=== PATIENT | female | born 1950 | race Caucasian/White ===

== ENCOUNTER 2016-06-23 12:33 | Emergency (ER) | payer MEDICARE, OTHER ==
[2016-06-23] MEDS ORDERED: ONDANSETRON 4 MG/2 ML VIAL IVP STA (13:10)
[2016-06-23] MEDS ORDERED: SODIUM CHLORIDE 0.9% 500 ML IV STA (13:10)
[2016-06-23] MEDS ORDERED: PANTOPRAZOLE 40 MG/10 ML VIAL IVP STA (13:10)
--- NOTE | 2016-06-23 13:14 | ED ---
General Adult HPI - General Stated complaint: altered Time Seen by Provider: 06/23/16 12:52 Source: patient, EMS Mode of arrival: EMS Limitations: altered mental status - History of Present Illness Initial comments: Patient is a pleasant 65-year-old female presenting to the emergency department for complaints of vomiting. Patient is a poor historian and offers very little information. Patient admits to feeling nauseated. No pain. - Related Data Home Medications Medication Instructions Recorded Confirmed Metoprolol Succinate [Toprol XL] 50 mg PO DAILY 07/22/13 06/23/16 Isosorbide Mononitrate ER [Imdur] 30 mg PO DAILY 07/11/14 06/23/16 Nitroglycerin Sl Tabs [Nitrostat] 0.4 mg SUBLINGUAL Q5M PRN 07/11/14 06/23/16 traMADol HCl [Ultram] 50 mg PO Q6H PRN 03/01/15 06/23/16 Dicyclomine HCl [Bentyl] 20 mg PO TID PRN 04/21/15 06/23/16 Levothyroxine Sodium [Synthroid] 200 mcg PO DAILY 04/21/15 06/23/16 Lisinopril [Zestril] 20 mg PO DAILY 04/21/15 06/23/16 Ondansetron [Zofran] 4 mg PO Q8HR PRN 04/21/15 06/23/16 Pantoprazole [Protonix] 80 mg PO DAILY 04/21/15 06/23/16 Clopidogrel Bisulfate [Plavix] 75 mg PO DAILY 06/23/16 06/23/16 Diphenoxylate HCl/Atropine 1 tab PO QID PRN 06/23/16 06/23/16 [Lomotil] Gabapentin [Neurontin] 600 mg PO QID 06/23/16 06/23/16 Insulin Aspart [NovoLOG Flexpen] 8 units SQ AC-TID 06/23/16 06/23/16 Insulin Degludec [Tresiba 30 unit SQ DAILY 06/23/16 06/23/16 Flextouch U-100] Insulin Glargine,Hum.rec.anlog 3 unit SQ HS 06/23/16 06/23/16 [Lantus Solostar] Simvastatin [Zocor] 40 mg PO HS 06/23/16 06/23/16 glipiZIDE [Glucotrol] 10 mg PO AC-BRKFST 06/23/16 06/23/16 metFORMIN HCL [Glucophage] 850 mg PO AC-BID 06/23/16 06/23/16 rOPINIRole HCL [Requip] 3 mg PO HS 06/23/16 06/23/16 tiZANidine HCL [Zanaflex] 4 mg PO Q8H PRN 06/23/16 06/23/16 Previous Rx's Medication Instructions Recorded Escitalopram [Lexapro] 10 mg PO DAILY #30 tab 05/09/15 Allergies Allergy/AdvReac Type Severity Reaction Status Date / Time aspirin Allergy Anaphylaxis Verified 06/23/16 13:59 codeine Allergy Anaphylaxis Verified 06/23/16 13:59 Iodinated Contrast Media - Allergy Anaphylaxis Verified 06/23/16 13:59 Oral and [Iodinated Contrast Media - IV Dye] NSAIDS (Non-Steroidal Allergy Anaphylaxis Verified 06/23/16 13:59 Anti-Inflamma sulfamethoxazole Allergy Unknown Verified 06/23/16 13:59 [From Bactrim] trimethoprim [From Bactrim] Allergy Unknown Verified 06/23/16 13:59 Review of Systems ROS Statement: Those systems with pertinent positive or pertinent negative responses have been documented in the HPI. ROS Other: All systems not noted in ROS Statement are negative. Constitutional: Denies: fever Eyes: Denies: eye pain ENT: Denies: ear pain Respiratory: Denies: cough Cardiovascular: Denies: chest pain Endocrine: Denies: fatigue Gastrointestinal: Reports: nausea, vomiting. Denies: abdominal pain Genitourinary: Denies: dysuria Musculoskeletal: Denies: back pain Skin: Denies: rash Neurological: Denies: weakness Past Medical History Past Medical History: Coronary Artery Disease (CAD), Chest Pain / Angina, COPD, CVA/TIA, Diabetes Mellitus, Deep Vein Thrombosis (DVT), GERD/Reflux, Hyperlipidemia, Hypertension, Osteoarthritis (OA), Pneumonia, Syncope, Thyroid Disorder Additional Past Medical History / Comment(s): 05/07/15 Pt presented to [facility] ER with L side of body feeling "funny" L upper extremity and L hand weakness with L facial weakness. Pt was recently admitted 04/21/15 with possible CVA. Other HX: Antiphospholipid syndrome , LUPUS, CVA's/TIA's, demyelinization of brain, NIDDM, sinus problems, diverticulosis, uti, RESTLESS LEG SYNDROME, systemic lupus ethythemus, L leg DVT, occipital neuritis, varicosities, colostomy, DJD. History of Any Multi-Drug Resistant Organisms: None Reported Past Surgical History: Appendectomy, Back Surgery, Bladder Surgery, Cholecystectomy, Hysterectomy, Orthopedic Surgery, Tonsillectomy Additional Past Surgical History / Comment(s): L hip surgery nailing /fixation- L hip hemiarthroplasty, bladder suspension, sisi cataracts, partial laminectomy, . colostomy 2010 D/T PERFORATED DIVERTICULUM with reversal and then 2nd colostomy, LT KNEE SX FOR TORN CARTILAGE Past Anesthesia/Blood Transfusion Reactions: No Reported Reaction Additional Past Anesthesia/Blood Transfusion Reaction / Comment(s): HAD BLOOD TRANSFUSION 15 YEARS ago without reaction. Past Psychological History: Anxiety Additional Psychological History / Comment(s): anxiety AT TIMES. Pt states she lives with her luis f. She states she gets around in a wheelchair. Her luis f sorts her medications for her. She was suppose to get [facility] after last hospital discharge but this has not happened yet. Smoking Status: Current every day smoker Past Alcohol Use History: None Reported Additional Past Alcohol Use History / Comment(s): has smoked for 40 years- states smokes 1-2 cig per day Past Drug Use History: None Reported - Past Family History Mother Family Medical History: Cancer, Hypertension Additional Family Medical History / Comment(s): "mother had cancer from asbestos exposure" Father Family Medical History: Hypertension, Rheumatoid Arthritis (RA) General Exam Limitations: no limitations General appearance: alert, in no apparent distress Head exam: Present: atraumatic Eye exam: Present: normal appearance, PERRL, EOMI ENT exam: Present: normal oropharynx Neck exam: Present: normal inspection Respiratory exam: Present: normal lung sounds bilaterally Cardiovascular Exam: Present: bradycardia GI/Abdominal exam: Present: soft. Absent: distended, tenderness Extremities exam: Present: normal inspection Neurological exam: Present: alert, altered (Patient disoriented to time however she feels this is normal), CN II-XII intact, other (Limited exam. Patient has lack of effort.). Absent: motor sensory deficit Expanded Patient oriented to: Present: person, place. Absent: time Cranial nerves: EOM's Intact: Normal Sensory exam: Upper Extremity Light Touch: Normal, Lower Extremity Light Touch: Normal Motor strength exam: RUE: 5, LUE: 5, RLE: 5, LLE: 5 Psychiatric exam: Present: normal affect, normal mood Skin exam: Absent: rash Course Vital Signs 06/23/16 06/23/16 06/23/16 12:45 13:06 15:35 Temperature 98.0 F 98.6 F Pulse Rate 49 L 95 Pulse Rate [ 49 L Bilateral [employer] ] Respiratory 20 18 Rate Blood Pressure 137/67 177/77 O2 Sat by Pulse 96 98 Oximetry EKG Findings - EKG Comments: EKG Findings:: Sinus bradycardia at 51. MO 126. QRS 80. QT 498. QTC 458. Left axis. Inferior Q waves. No acute ST change. Medical Decision Making - Medical Decision Making Case was discussed in detail with Dr. Little who is very familiar with this patient and recommends discharge. Patient reexamined and significantly improved. Patient symptom-free at this time. Patient is comfortable with discharge. Patient is alert and appropriate and more forthcoming with information at this time. - Lab Data Result diagrams: 06/23/16 14:25 06/23/16 14:25 Lab Results 06/23/16 06/23/16 06/23/16 Range/Units 14:25 14:25 14:25 WBC 12.5 H (3.8-10.6) k/uL RBC 5.24 (3.80-5.40) m/uL Hgb 16.0 (11.4-16.0) gm/dL Hct 48.9 H (34.0-46.0) % MCV 93.3 (80.0-100.0) fL MCH 30.6 (25.0-35.0) pg MCHC 32.8 (31.0-37.0) g/dL RDW 14.4 (11.5-15.5) % Plt Count 264 (150-450) k/uL Neutrophils % 80 % Lymphocytes % 14 % Monocytes % 4 % Eosinophils % 1 % Basophils % 0 % Neutrophils # 10.0 H (1.3-7.7) k/uL Lymphocytes # 1.7 (1.0-4.8) k/uL Monocytes # 0.5 (0-1.0) k/uL Eosinophils # 0.1 (0-0.7) k/uL Basophils # 0.0 (0-0.2) k/uL PT (9.0-12.0) sec INR (<1.1) APTT (22.0-30.0) sec Sodium 141 (137-145) mmol/L Potassium 4.0 (3.5-5.1) mmol/L Chloride 106 (98-107) mmol/L Carbon Dioxide 25 (22-30) mmol/L Anion Gap 10 mmol/L BUN 16 (7-17) mg/dL Creatinine 0.58 (0.52-1.04) mg/dL Est GFR (MDRD) Af Amer >60 (>60 ml/min/1.73 sqM) Est GFR (MDRD) Non-Af >60 (>60 ml/min/1.73 sqM) Glucose 105 H (74-99) mg/dL Calcium 10.0 (8.4-10.2) mg/dL Total Bilirubin 0.7 (0.2-1.3) mg/dL AST 29 (14-36) U/L ALT 25 (9-52) U/L Alkaline Phosphatase 113 (38-126) U/L Total Creatine Kinase 190 H (30-135) U/L CK-MB (CK-2) 2.1 (0.0-2.4) ng/mL CK-MB (CK-2) Rel Index 1.1 Troponin I <0.012 (0.000-0.034) ng/mL Total Protein 7.8 (6.3-8.2) g/dL Albumin 4.2 (3.5-5.0) g/dL Amylase 51 (30-110) U/L Lipase 87 (23-300) U/L Urine Color Urine Appearance (Clear) Urine pH (5.0-8.0) Ur Specific [place] (1.001-1.035) Urine Protein (Negative) Urine Glucose (UA) (Negative) Urine Ketones (Negative) Urine Blood (Negative) Urine Nitrite (Negative) Urine Bilirubin (Negative) Urine Urobilinogen (<2.0) mg/dL Ur Leukocyte Esterase (Negative) 06/23/16 06/23/16 Range/Units 14:25 15:31 WBC (3.8-10.6) k/uL RBC (3.80-5.40) m/uL Hgb (11.4-16.0) gm/dL Hct (34.0-46.0) % MCV (80.0-100.0) fL MCH (25.0-35.0) pg MCHC (31.0-37.0) g/dL RDW (11.5-15.5) % Plt Count (150-450) k/uL Neutrophils % % Lymphocytes % % Monocytes % % Eosinophils % % Basophils % % Neutrophils # (1.3-7.7) k/uL Lymphocytes # (1.0-4.8) k/uL Monocytes # (0-1.0) k/uL Eosinophils # (0-0.7) k/uL Basophils # (0-0.2) k/uL PT 10.3 (9.0-12.0) sec INR 1.0 (<1.1) APTT 25.2 (22.0-30.0) sec Sodium (137-145) mmol/L Potassium (3.5-5.1) mmol/L Chloride (98-107) mmol/L Carbon Dioxide (22-30) mmol/L Anion Gap mmol/L BUN (7-17) mg/dL Creatinine (0.52-1.04) mg/dL Est GFR (MDRD) Af Amer (>60 ml/min/1.73 sqM) Est GFR (MDRD) Non-Af (>60 ml/min/1.73 sqM) Glucose (74-99) mg/dL Calcium (8.4-10.2) mg/dL Total Bilirubin (0.2-1.3) mg/dL AST (14-36) U/L ALT (9-52) U/L Alkaline Phosphatase (38-126) U/L Total Creatine Kinase (30-135) U/L CK-MB (CK-2) (0.0-2.4) ng/mL CK-MB (CK-2) Rel Index Troponin I (0.000-0.034) ng/mL Total Protein (6.3-8.2) g/dL Albumin (3.5-5.0) g/dL Amylase (30-110) U/L Lipase (23-300) U/L Urine Color Yellow Urine Appearance Clear (Clear) Urine pH 7.5 (5.0-8.0) Ur Specific [place] 1.013 (1.001-1.035) Urine Protein Negative (Negative) Urine Glucose (UA) Negative (Negative) Urine Ketones Negative (Negative) Urine Blood Negative (Negative) Urine Nitrite Negative (Negative) Urine Bilirubin Negative (Negative) Urine Urobilinogen <2.0 (<2.0) mg/dL Ur Leukocyte Esterase Negative (Negative) - Radiology Data Radiology results: report reviewed (Computed tomography scan of the brain shows no acute process.), image reviewed (Abdominal x-ray shows no acute process) Disposition Clinical Impression: Nausea & vomiting Disposition: HOME SELF-CARE Condition: Stable Instructions: Acute Nausea and Vomiting (ED) Additional Instructions: Please follow-up with your primary care physician in the next day or 2 for recheck. Return for vomiting, change in mental status, worsening symptoms or other concerns. Referrals: Franklin Benitez III, MD [Primary Care Provider] - 1-2 days
[2016-06-23] MEDS ORDERED: ONDANSETRON ODT 4 MG TAB PO STA (14:12)
[2016-06-23 14:36] LABS: Basophils % (A) 0 %; CH 31.6; CHCM 34.1; Eosinophils # (A) 0.1 k/uL (0-0.7); Eosinophils % (A) 1 %; HCT 48.9 % (34.0-46.0); HDW 2.44; Luc # (Auto) 0.21; Luc % (Auto) 2; Lymphocytes # (A) 1.7 k/uL (1.0-4.8); Lymphocytes % (A) 14 %; MCH 30.6 pg (25.0-35.0); MCHC 32.8 g/dL (31.0-37.0); MCV 93.3 fL (80.0-100.0); Mean Platelet Volume 9.2; Monocytes # (A) 0.5 k/uL (0-1.0); Monocytes % (A) 4 %; Neutrophils % (A) 80 %; RBC 5.24 m/uL (3.80-5.40); RDW 14.4 % (11.5-15.5); WBC 12.5 k/uL (3.8-10.6); WBC (Perox) 13.19
[2016-06-23 14:43] LABS: Partial Thromboplastin Time 25.2 sec (22.0-30.0); Prothrombin Time 10.3 sec (9.0-12.0)
[2016-06-23 14:44] LABS: ALT 25 U/L (9-52); AST 29 U/L (14-36); Alkaline Phosphatase 113 U/L (38-126); Amylase 51 U/L (30-110); Anion Gap 10 mmol/L; Blood Urea Nitrogen 16 mg/dL (7-17); Carbon Dioxide 25 mmol/L (22-30); Chloride 106 mmol/L (98-107); Glucose 105 mg/dL (74-99); Non-African American GFR(MDRD) >60 (>60 ml/min/1.73 sqM); Sodium 141 mmol/L (137-145); Total Bilirubin 0.7 mg/dL (0.2-1.3); Total Protein 7.8 g/dL (6.3-8.2)
[2016-06-23 14:53] LABS: Creatine Kinase 190 U/L (30-135)
--- NOTE | 2016-06-23 14:54 | CT ---
EXAMINATION TYPE: CT brain wo con DATE OF EXAM: 06/23/2016 2:40 PM HISTORY: Patient nauseated and vomiting CT DLP: 1109 mGycm. Automated Exposure Control for Dose Reduction was Utilized. TECHNIQUE: CT scan of the head is performed without contrast. COMPARISON: CT brain and MRI brain May 12, 2015. FINDINGS: There is no acute intracranial hemorrhage or midline shift identified. There is diffuse v entricular and sulcal prominence consistent with diffuse age-related cerebral atrophy. There is low- attenuation in the periventricular white matter consistent with chronic small vessel ischemic change. The globes are intact and the visualized sinuses are clear. IMPRESSION: No acute intracranial hemorrhage or midline shift. There is mild diffuse age-related ce rebral atrophy and chronic small vessel ischemic change redemonstrated. No significant change from pr ior studies is seen.
[2016-06-23] MEDS ORDERED: METOCLOPRAMIDE 5 MG/ML 2 ML VIAL IVP STA (15:00)
[2016-06-23 15:07] LABS: Creatine Kinase MB 2.1 ng/mL (0.0-2.4); Troponin I <0.012 ng/mL (0.000-0.034)
--- NOTE | 2016-06-23 15:22 | XR ---
EXAMINATION TYPE: XR KUB DATE OF EXAM: 06/23/2016 3:17 PM COMPARISON: NONE HISTORY: Nausea and vomitting TECHNIQUE: One view abdominal series FINDINGS: The osseous structures are intact. The bowel gas pattern is nonspecific. Postoperative change left h ip with soft tissue ossification. Arthropathy right hip. Diffuse osteopenia. Multilevel degenerative disc disease lower lumbar spine. IMPRESSION: 1. Nonspecific abdomen.
[2016-06-23 15:46] LABS: Appearance,Urine Clear (Clear); Bilirubin,Urine Negative (Negative); Glucose,Urine (UA) Negative (Negative); Ketones,Urine Negative (Negative); Leukocyte Esterase,Urine Negative (Negative); Nitrite,Urine Negative (Negative); PH, Urine 7.5 (5.0-8.0); Protein,Urine Negative (Negative); Specific Gravity,Urine 1.013 (1.001-1.035); UA Billing (MACRO vs. MICRO) CHEM; Urobilinogen,Urine <2.0 mg/dL (<2.0)
[2016-06-23 16:07] VITALS: BP 159/80; PULSE 52; RESP 14; TEMP 97.6
== END 2016-06-23 16:06 | disposition home or self-care (01) ==
LOC: EC 12:33 → EEVIPCON 12:33 → EC 16:06
DX: R11.2 Nausea with vomiting, unspecified (principal); I10 Essential (primary) hypertension; I25.10 Atherosclerotic heart disease of native coronary artery without angina pectoris; E11.9 Type 2 diabetes mellitus without complications; E07.9 Disorder of thyroid, unspecified; E78.5 Hyperlipidemia, unspecified; G25.81 Restless legs syndrome; F17.200 Nicotine dependence, unspecified, uncomplicated; Z98.890 Other specified postprocedural states; Z86.73 Personal history of transient ischemic attack (TIA), and cerebral infarction without residual deficits; Z90.49 Acquired absence of other specified parts of digestive tract; Z88.6 Allergy status to analgesic agent; Z88.5 Allergy status to narcotic agent; Z91.041 Radiographic dye allergy status; Z88.2 Allergy status to sulfonamides; Z79.84 Long term (current) use of oral hypoglycemic drugs; Z79.4 Long term (current) use of insulin; Z86.718 Personal history of other venous thrombosis and embolism; Z53.20 Procedure and treatment not carried out because of patient's decision for unspecified reasons; Z79.02 Long term (current) use of antithrombotics/antiplatelets; Z79.899 Other long term (current) drug therapy
CPT/HCPCS: 99285; 96374; 96375; 96361; 36415; 80053; 82150; 82550; 82553; 83690; 84484; 85025; 85610; 85730; 81003; 74000; 70450; J2765; C9113; 93005

== ENCOUNTER 2016-06-25 11:17 | Emergency (ER) | payer MEDICARE ==
[2016-06-25] MEDS ORDERED: ONDANSETRON 4 MG/2 ML VIAL IM STA (11:59)
--- NOTE | 2016-06-25 12:09 | ED ---
General Adult HPI - General Chief complaint: Nausea/Vomiting/Diarrhea Stated complaint: vomiting Time Seen by Provider: 06/25/16 11:17 Source: patient, RN notes reviewed Mode of arrival: EMS Limitations: physical limitation - History of Present Illness Initial comments: This is a 65-year-old female who presents emergency Department because she is nauseated and vomiting. Patient states she's not eating since her last ER visit 2 days ago. However patient's colostomy bag has overflow with stool and the nurses are currently cleaning her up. Patient denies any abdominal pain. Patient denies any fever chills. Patient denies any chest pain difficulty breathing first breath per patient denies any headache patient denies numbness weakness. Patient states currently she has not vomited recently but is nauseated still. Patient states she has been eating a lot of bites chips. - Related Data Home Medications Medication Instructions Recorded Confirmed Metoprolol Succinate [Toprol XL] 50 mg PO DAILY 07/22/13 06/25/16 Isosorbide Mononitrate ER [Imdur] 30 mg PO DAILY 07/11/14 06/25/16 Nitroglycerin Sl Tabs [Nitrostat] 0.4 mg SUBLINGUAL Q5M PRN 07/11/14 06/25/16 traMADol HCl [Ultram] 50 mg PO Q6H PRN 03/01/15 06/25/16 Dicyclomine HCl [Bentyl] 20 mg PO TID PRN 04/21/15 06/25/16 Levothyroxine Sodium [Synthroid] 200 mcg PO DAILY 04/21/15 06/25/16 Lisinopril [Zestril] 20 mg PO DAILY 04/21/15 06/25/16 Ondansetron [Zofran] 4 mg PO Q8HR PRN 04/21/15 06/25/16 Pantoprazole [Protonix] 80 mg PO DAILY 04/21/15 06/25/16 Clopidogrel Bisulfate [Plavix] 75 mg PO DAILY 06/23/16 06/25/16 Diphenoxylate HCl/Atropine 1 tab PO QID PRN 06/23/16 06/25/16 [Lomotil] Gabapentin [Neurontin] 600 mg PO QID 06/23/16 06/25/16 Insulin Aspart [NovoLOG Flexpen] 8 units SQ AC-TID 06/23/16 06/25/16 Insulin Degludec [Tresiba 30 unit SQ DAILY 06/23/16 06/25/16 Flextouch U-100] Insulin Glargine,Hum.rec.anlog 3 unit SQ HS 06/23/16 06/25/16 [Lantus Solostar] Simvastatin [Zocor] 40 mg PO HS 06/23/16 06/25/16 glipiZIDE [Glucotrol] 10 mg PO AC-BRKFST 06/23/16 06/25/16 metFORMIN HCL [Glucophage] 850 mg PO AC-BID 06/23/16 06/25/16 rOPINIRole HCL [Requip] 3 mg PO HS 06/23/16 06/25/16 tiZANidine HCL [Zanaflex] 4 mg PO Q8H PRN 06/23/16 06/25/16 Previous Rx's Medication Instructions Recorded Escitalopram [Lexapro] 10 mg PO DAILY #30 tab 05/09/15 Allergies Allergy/AdvReac Type Severity Reaction Status Date / Time aspirin Allergy Anaphylaxis Verified 06/25/16 11:39 codeine Allergy Anaphylaxis Verified 06/25/16 11:39 Iodinated Contrast Media - Allergy Anaphylaxis Verified 06/25/16 11:39 Oral and [Iodinated Contrast Media - IV Dye] NSAIDS (Non-Steroidal Allergy Anaphylaxis Verified 06/25/16 11:39 Anti-Inflamma sulfamethoxazole Allergy Unknown Verified 06/25/16 11:39 [From Bactrim] trimethoprim [From Bactrim] Allergy Unknown Verified 06/25/16 11:39 influenza virus vaccine ts AdvReac Nausea & Verified 06/25/16 11:39 [id number] (36 mos+) Vomiting & [From Fluarix] Diarrhea Review of Systems ROS Statement: Those systems with pertinent positive or pertinent negative responses have been documented in the HPI. ROS Other: All systems not noted in ROS Statement are negative. Past Medical History Past Medical History: Coronary Artery Disease (CAD), Chest Pain / Angina, COPD, CVA/TIA, Diabetes Mellitus, Deep Vein Thrombosis (DVT), GERD/Reflux, Hyperlipidemia, Hypertension, Osteoarthritis (OA), Pneumonia, Syncope, Thyroid Disorder Additional Past Medical History / Comment(s): 05/07/15 Pt presented to [facility] ER with L side of body feeling "funny" L upper extremity and L hand weakness with L facial weakness. Pt was recently admitted 04/21/15 with possible CVA. Other HX: Antiphospholipid syndrome , LUPUS, CVA's/TIA's, demyelinization of brain, NIDDM, sinus problems, diverticulosis, uti, RESTLESS LEG SYNDROME, systemic lupus ethythemus, L leg DVT, occipital neuritis, varicosities, colostomy, DJD. History of Any Multi-Drug Resistant Organisms: None Reported Past Surgical History: Appendectomy, Back Surgery, Bladder Surgery, Cholecystectomy, Hysterectomy, Orthopedic Surgery, Tonsillectomy Additional Past Surgical History / Comment(s): L hip surgery nailing /fixation- L hip hemiarthroplasty, bladder suspension, sisi cataracts, partial laminectomy, . colostomy 2010 D/T PERFORATED DIVERTICULUM with reversal and then 2nd colostomy, LT KNEE SX FOR TORN CARTILAGE Past Anesthesia/Blood Transfusion Reactions: No Reported Reaction Additional Past Anesthesia/Blood Transfusion Reaction / Comment(s): HAD BLOOD TRANSFUSION 15 YEARS ago without reaction. Past Psychological History: Anxiety Additional Psychological History / Comment(s): anxiety AT TIMES. Pt states she lives with her luis f. She states she gets around in a wheelchair. Her luis f sorts her medications for her. She was suppose to get [facility] after last hospital discharge but this has not happened yet. Smoking Status: Current some day smoker Past Alcohol Use History: None Reported Additional Past Alcohol Use History / Comment(s): has smoked for 40 years- states smokes 1-2 cig per day Past Drug Use History: None Reported - Past Family History Mother Family Medical History: Cancer, Hypertension Additional Family Medical History / Comment(s): "mother had cancer from asbestos exposure" Father Family Medical History: Hypertension, Rheumatoid Arthritis (RA) General Exam - General Exam Comments Initial Comments: GENERAL: Patient is well-developed and well-nourished. Patient is nontoxic and well- hydrated and is in no acute distress. ENT: Neck is soft and supple. No significant lymphadenopathy is noted. Oropharynx is clear. Moist mucous membranes. Neck has full range of motion without eliciting any pain. EYES: The sclera were anicteric and conjunctiva were pink and moist. Extraocular movements were intact and pupils were equal round and reactive to light. Eyelids were unremarkable. PULMONARY: Unlabored respirations. Good breath sounds bilaterally. No audible rales rhonchi or wheezing was noted. CARDIOVASCULAR: There is a regular rate and rhythm without any murmurs gallops or rubs. ABDOMEN: Soft and nontender with normal bowel sounds. Patient has a colostomy bag in place. No palpable organomegaly was noted. There is no palpable pulsatile mass. SKIN: Skin is clear with no lesions or rashes and otherwise unremarkable. NEUROLOGIC: Patient is alert and oriented x3. Cranial nerves II through XII are grossly intact. Motor and sensory are also intact. Normal speech, volume and content. Symmetrical smile. MUSCULOSKELETAL: Normal extremities with adequate strength and full range of motion. No lower extremity swelling or edema. No calf tenderness. LYMPHATICS: No significant lymphadenopathy is noted PSYCHIATRIC: Normal psychiatric evaluation. Normal interpersonal interactions appears functionally intact in deals appropriately with others. No signs of depression. No signs of anxiety. Limitations: physical limitation Course Vital Signs 06/25/16 11:31 Temperature 96.9 F L Pulse Rate 51 L Respiratory 18 Rate Blood Pressure 157/72 O2 Sat by Pulse 97 Oximetry Medical Decision Making - Medical Decision Making Lab work was essentially normal patient's belly was nontender and she had not vomited since been emergency department. - Lab Data Result diagrams: 06/25/16 12:10 06/25/16 12:10 Lab Results 06/25/16 06/25/16 Range/Units 12:10 12:10 WBC 9.8 (3.8-10.6) k/uL RBC 4.56 (3.80-5.40) m/uL Hgb 14.2 (11.4-16.0) gm/dL Hct 42.4 (34.0-46.0) % MCV 93.0 (80.0-100.0) fL MCH 31.2 (25.0-35.0) pg MCHC 33.5 (31.0-37.0) g/dL RDW 14.3 (11.5-15.5) % Plt Count 250 (150-450) k/uL Neutrophils % 76 % Lymphocytes % 15 % Monocytes % 5 % Eosinophils % 1 % Basophils % 1 % Neutrophils # 7.5 (1.3-7.7) k/uL Lymphocytes # 1.5 (1.0-4.8) k/uL Monocytes # 0.5 (0-1.0) k/uL Eosinophils # 0.1 (0-0.7) k/uL Basophils # 0.1 (0-0.2) k/uL Sodium 140 (137-145) mmol/L Potassium 3.8 (3.5-5.1) mmol/L Chloride 107 (98-107) mmol/L Carbon Dioxide 22 (22-30) mmol/L Anion Gap 11 mmol/L BUN 10 (7-17) mg/dL Creatinine 0.69 (0.52-1.04) mg/dL Est GFR (MDRD) Af Amer >60 (>60 ml/min/1.73 sqM) Est GFR (MDRD) Non-Af >60 (>60 ml/min/1.73 sqM) Glucose 139 H (74-99) mg/dL Calcium 9.2 (8.4-10.2) mg/dL Total Bilirubin 0.8 (0.2-1.3) mg/dL AST 27 (14-36) U/L ALT 31 (9-52) U/L Alkaline Phosphatase 98 (38-126) U/L Total Protein 6.8 (6.3-8.2) g/dL Albumin 3.7 (3.5-5.0) g/dL Disposition Clinical Impression: Acute vomiting Disposition: HOME SELF-CARE Instructions: Acute Nausea and Vomiting (ED) Referrals: Franklin Benitez III, MD [Primary Care Provider] - 1-2 days Time of Disposition: 13:03
[2016-06-25 12:32] LABS: Basophils # (A) 0.1 k/uL (0-0.2); Basophils % (A) 1 %; CH 31.6; CHCM 34.1; Eosinophils # (A) 0.1 k/uL (0-0.7); Eosinophils % (A) 1 %; HCT 42.4 % (34.0-46.0); HDW 2.43; HGB 14.2 gm/dL (11.4-16.0); Luc # (Auto) 0.25; Luc % (Auto) 3; Lymphocytes # (A) 1.5 k/uL (1.0-4.8); Lymphocytes % (A) 15 %; MCH 31.2 pg (25.0-35.0); MCHC 33.5 g/dL (31.0-37.0); Mean Platelet Volume 9.4; Monocytes # (A) 0.5 k/uL (0-1.0); Monocytes % (A) 5 %; Neutrophils # (A) 7.5 k/uL (1.3-7.7); Neutrophils % (A) 76 %; RBC 4.56 m/uL (3.80-5.40); RDW 14.3 % (11.5-15.5); WBC 9.8 k/uL (3.8-10.6); WBC (Perox) 9.73
[2016-06-25 12:50] LABS: ALT 31 U/L (9-52); AST 27 U/L (14-36); Alkaline Phosphatase 98 U/L (38-126); Anion Gap 11 mmol/L; Blood Urea Nitrogen 10 mg/dL (7-17); Calcium 9.2 mg/dL (8.4-10.2); Carbon Dioxide 22 mmol/L (22-30); Chloride 107 mmol/L (98-107); Glucose 139 mg/dL (74-99); Non-African American GFR(MDRD) >60 (>60 ml/min/1.73 sqM); Potassium 3.8 mmol/L (3.5-5.1); Sodium 140 mmol/L (137-145); Total Bilirubin 0.8 mg/dL (0.2-1.3); Total Protein 6.8 g/dL (6.3-8.2)
[2016-06-25] MEDS ORDERED: ONDANSETRON 4 MG/2 ML VIAL IVP STA (13:03)
[2016-06-25 15:29] VITALS: BP 121/70; PULSE 64; RESP 18; TEMP 97.9
== END 2016-06-25 16:05 | disposition home or self-care (01) ==
LOC: EC 11:17
DX: R11.2 Nausea with vomiting, unspecified (principal); I25.10 Atherosclerotic heart disease of native coronary artery without angina pectoris; E11.9 Type 2 diabetes mellitus without complications; K21.9 Gastro-esophageal reflux disease without esophagitis; E78.5 Hyperlipidemia, unspecified; I10 Essential (primary) hypertension; M19.90 Unspecified osteoarthritis, unspecified site; E07.9 Disorder of thyroid, unspecified; D68.61 Antiphospholipid syndrome; G25.81 Restless legs syndrome; M54.81 Occipital neuralgia; F41.9 Anxiety disorder, unspecified; F17.210 Nicotine dependence, cigarettes, uncomplicated; Z86.718 Personal history of other venous thrombosis and embolism; Z86.73 Personal history of transient ischemic attack (TIA), and cerebral infarction without residual deficits; Z93.3 Colostomy status; Z88.2 Allergy status to sulfonamides; Z88.5 Allergy status to narcotic agent; Z88.6 Allergy status to analgesic agent; Z88.7 Allergy status to serum and vaccine; Z91.041 Radiographic dye allergy status; Z79.02 Long term (current) use of antithrombotics/antiplatelets; Z79.4 Long term (current) use of insulin; Z79.84 Long term (current) use of oral hypoglycemic drugs; Z79.899 Other long term (current) drug therapy
CPT/HCPCS: 99284 ×2; 96374 ×2; 96372 ×2; 36415; 80053; 85025; J2405

== ENCOUNTER 2016-12-25 07:47 | Inpatient (IN) | payer MEDICARE ==
[2016-12-25] MEDS ORDERED: SODIUM CHLORIDE 0.9% 1,000 ML IV STA (08:06)
--- NOTE | 2016-12-25 08:17 | ED ---
General Adult HPI - General Chief complaint: Neuro Symptoms/Deficit Stated complaint: weakness Time Seen by Provider: 12/25/16 07:48 Source: patient, RN notes reviewed Mode of arrival: EMS Limitations: no limitations - History of Present Illness Initial comments: Patient is a pleasant 66-year-old female presenting to the emergency department with concerns for weakness. Patient was fine and she went to bed last night. Patient awoke this morning and has had right-sided weakness since that time. Patient has right arm and right leg weakness. Patient has a moderate headache. Patient occasionally gets headaches similar to this however not very often. Patient has some mild blurry vision. Patient has had similar symptoms multiple times previously however not in the last couple years she believes. Patient does not believe she has any residual weakness from her previous strokes. - Related Data Home Medications Medication Instructions Recorded Confirmed Metoprolol Succinate [Toprol XL] 50 mg PO DAILY 07/22/13 06/25/16 Isosorbide Mononitrate ER [Imdur] 30 mg PO DAILY 07/11/14 06/25/16 Nitroglycerin Sl Tabs [Nitrostat] 0.4 mg SUBLINGUAL Q5M PRN 07/11/14 06/25/16 traMADol HCl [Ultram] 50 mg PO Q6H PRN 03/01/15 06/25/16 Dicyclomine HCl [Bentyl] 20 mg PO TID PRN 04/21/15 06/25/16 Levothyroxine Sodium [Synthroid] 200 mcg PO DAILY 04/21/15 06/25/16 Lisinopril [Zestril] 20 mg PO DAILY 04/21/15 06/25/16 Ondansetron [Zofran] 4 mg PO Q8HR PRN 04/21/15 06/25/16 Pantoprazole [Protonix] 80 mg PO DAILY 04/21/15 06/25/16 Clopidogrel Bisulfate [Plavix] 75 mg PO DAILY 06/23/16 06/25/16 Diphenoxylate HCl/Atropine 1 tab PO QID PRN 06/23/16 06/25/16 [Lomotil] Gabapentin [Neurontin] 600 mg PO QID 06/23/16 06/25/16 Insulin Aspart [NovoLOG Flexpen] 8 units SQ AC-TID 06/23/16 06/25/16 Insulin Degludec [Tresiba 30 unit SQ DAILY 06/23/16 06/25/16 Flextouch U-100] Insulin Glargine,Hum.rec.anlog 3 unit SQ HS 06/23/16 06/25/16 [Lantus Solostar] Simvastatin [Zocor] 40 mg PO HS 06/23/16 06/25/16 glipiZIDE [Glucotrol] 10 mg PO AC-BRKFST 06/23/16 06/25/16 metFORMIN HCL [Glucophage] 850 mg PO AC-BID 06/23/16 06/25/16 rOPINIRole HCL [Requip] 3 mg PO HS 06/23/16 06/25/16 tiZANidine HCL [Zanaflex] 4 mg PO Q8H PRN 06/23/16 06/25/16 Previous Rx's Medication Instructions Recorded Escitalopram [Lexapro] 10 mg PO DAILY #30 tab 05/09/15 Allergies Allergy/AdvReac Type Severity Reaction Status Date / Time aspirin Allergy Anaphylaxis Verified 12/25/16 07:52 codeine Allergy Anaphylaxis Verified 12/25/16 07:52 Iodinated Contrast- Oral and Allergy Anaphylaxis Verified 12/25/16 07:52 IV Dye [Iodinated Contrast Media - IV Dye] NSAIDS (Non-Steroidal Allergy Anaphylaxis Verified 12/25/16 07:52 Anti-Inflamma sulfamethoxazole Allergy Unknown Verified 12/25/16 07:52 [From Bactrim] trimethoprim [From Bactrim] Allergy Unknown Verified 12/25/16 07:52 influenza virus vaccine ts AdvReac Nausea & Verified 12/25/16 07:52 [id number] (36 mos,up) Vomiting & [From Fluarix] Diarrhea Review of Systems ROS Statement: Those systems with pertinent positive or pertinent negative responses have been documented in the HPI. ROS Other: All systems not noted in ROS Statement are negative. Constitutional: Denies: fever Eyes: Reports: vision change. Denies: eye pain ENT: Denies: ear pain Respiratory: Denies: cough Cardiovascular: Denies: chest pain Endocrine: Denies: fatigue Gastrointestinal: Denies: abdominal pain Genitourinary: Denies: dysuria Musculoskeletal: Denies: back pain Skin: Denies: rash Neurological: Reports: headache, weakness. Denies: confusion Past Medical History Past Medical History: Coronary Artery Disease (CAD), Chest Pain / Angina, COPD, CVA/TIA, Diabetes Mellitus, Deep Vein Thrombosis (DVT), GERD/Reflux, Hyperlipidemia, Hypertension, Osteoarthritis (OA), Pneumonia, Syncope, Thyroid Disorder Additional Past Medical History / Comment(s): 05/07/15 Pt presented to [facility] ER with L side of body feeling "funny" L upper extremity and L hand weakness with L facial weakness. Pt was recently admitted 04/21/15 with possible CVA. Other HX: Antiphospholipid syndrome , LUPUS, CVA's/TIA's, demyelinization of brain, NIDDM, sinus problems, diverticulosis, uti, RESTLESS LEG SYNDROME, systemic lupus ethythemus, L leg DVT, occipital neuritis, varicosities, colostomy, DJD. History of Any Multi-Drug Resistant Organisms: None Reported Past Surgical History: Appendectomy, Back Surgery, Bladder Surgery, Cholecystectomy, Hysterectomy, Orthopedic Surgery, Tonsillectomy Additional Past Surgical History / Comment(s): L hip surgery nailing /fixation- L hip hemiarthroplasty, bladder suspension, sisi cataracts, partial laminectomy, . colostomy 2010 D/T PERFORATED DIVERTICULUM with reversal and then 2nd colostomy, LT KNEE SX FOR TORN CARTILAGE Past Anesthesia/Blood Transfusion Reactions: No Reported Reaction Additional Past Anesthesia/Blood Transfusion Reaction / Comment(s): HAD BLOOD TRANSFUSION 15 YEARS ago without reaction. Past Psychological History: Anxiety Smoking Status: Current some day smoker Past Alcohol Use History: None Reported Past Drug Use History: None Reported - Past Family History Mother Family Medical History: Cancer, Hypertension Additional Family Medical History / Comment(s): "mother had cancer from asbestos exposure" Father Family Medical History: Hypertension, Rheumatoid Arthritis (RA) General Exam Limitations: no limitations General appearance: alert, in no apparent distress Head exam: Present: atraumatic Eye exam: Present: normal appearance, PERRL, EOMI. Absent: nystagmus ENT exam: Present: normal oropharynx Neck exam: Present: normal inspection Respiratory exam: Present: normal lung sounds bilaterally Cardiovascular Exam: Present: regular rate, normal rhythm GI/Abdominal exam: Present: soft. Absent: tenderness Extremities exam: Present: normal inspection Neurological exam: Present: alert Expanded Neurological exam: Present: other (Minimal left facial droop) Speech: Present: fluid speech Cranial nerves: EOM's Intact: Normal, Facial Sensation: Normal Sensory exam: Upper Extremity Light Touch: Abnormal Right (States is tingly), Lower Extremity Light Touch: Abnormal Right (States is able to sense however decreased) Motor strength exam: RUE: 4, LUE: 5, RLE: 3, LLE: 5 Eye Response: (4) open spontaneously Motor Response: (6) obeys commands Verbal Response: (5) oriented Psychiatric exam: Present: normal affect, normal mood Skin exam: Present: normal color Course Vital Signs 12/25/16 12/25/16 07:49 09:13 Temperature 98.4 F Pulse Rate 82 80 Respiratory 16 18 Rate Blood Pressure 161/104 166/84 O2 Sat by Pulse 98 97 Oximetry EKG Findings - EKG Comments: EKG Findings:: Normal sinus rhythm 78. NV 114. QRS 86. QT 384. QTC 449. Left axis. LVH criteria. No acute ST change. Medical Decision Making - Medical Decision Making Patient reevaluated and unchanged. Case discussed in detail with Dr. Little who is familiar with this patient and will admit for Dr. Benitez. Patient does have history of multiple previous similar presentation and there is some concern if patient has altered motives for her symptoms. Patient states she cannot have contrast under any circumstances. Patient is not a candidate for TPA secondary to onset of symptoms greater than 4.5 hours. - Lab Data Result diagrams: 12/25/16 08:04 12/25/16 08:04 Lab Results 12/25/16 12/25/16 12/25/16 Range/Units 08:04 08:04 08:04 WBC 8.6 (3.8-10.6) k/uL RBC 4.72 (3.80-5.40) m/uL Hgb 14.1 (11.4-16.0) gm/dL Hct 43.2 (34.0-46.0) % MCV 91.5 (80.0-100.0) fL MCH 29.9 (25.0-35.0) pg MCHC 32.7 (31.0-37.0) g/dL RDW 14.6 (11.5-15.5) % Plt Count 246 (150-450) k/uL Neutrophils % 71 % Lymphocytes % 19 % Monocytes % 6 % Eosinophils % 1 % Basophils % 1 % Neutrophils # 6.2 (1.3-7.7) k/uL Lymphocytes # 1.6 (1.0-4.8) k/uL Monocytes # 0.5 (0-1.0) k/uL Eosinophils # 0.1 (0-0.7) k/uL Basophils # 0.1 (0-0.2) k/uL PT (9.0-12.0) sec INR (<1.2) APTT (22.0-30.0) sec Sodium 139 (137-145) mmol/L Potassium 4.1 (3.5-5.1) mmol/L Chloride 105 (98-107) mmol/L Carbon Dioxide 22 (22-30) mmol/L Anion Gap 12 mmol/L BUN 8 (7-17) mg/dL Creatinine 0.62 (0.52-1.04) mg/dL Est GFR (MDRD) Af Amer >60 (>60 ml/min/1.73 sqM) Est GFR (MDRD) Non-Af >60 (>60 ml/min/1.73 sqM) Glucose 175 H (74-99) mg/dL Calcium 9.6 (8.4-10.2) mg/dL Total Bilirubin 0.3 (0.2-1.3) mg/dL AST 16 (14-36) U/L ALT 21 (9-52) U/L Alkaline Phosphatase 126 (38-126) U/L Total Creatine Kinase 58 (30-135) U/L CK-MB (CK-2) 1.0 (0.0-2.4) ng/mL CK-MB (CK-2) Rel Index 1.7 Troponin I 0.021 (0.000-0.034) ng/mL Total Protein 6.9 (6.3-8.2) g/dL Albumin 3.8 (3.5-5.0) g/dL 12/25/16 Range/Units 08:04 WBC (3.8-10.6) k/uL RBC (3.80-5.40) m/uL Hgb (11.4-16.0) gm/dL Hct (34.0-46.0) % MCV (80.0-100.0) fL MCH (25.0-35.0) pg MCHC (31.0-37.0) g/dL RDW (11.5-15.5) % Plt Count (150-450) k/uL Neutrophils % % Lymphocytes % % Monocytes % % Eosinophils % % Basophils % % Neutrophils # (1.3-7.7) k/uL Lymphocytes # (1.0-4.8) k/uL Monocytes # (0-1.0) k/uL Eosinophils # (0-0.7) k/uL Basophils # (0-0.2) k/uL PT 9.7 (9.0-12.0) sec INR 0.9 (<1.2) APTT 23.4 (22.0-30.0) sec Sodium (137-145) mmol/L Potassium (3.5-5.1) mmol/L Chloride (98-107) mmol/L Carbon Dioxide (22-30) mmol/L Anion Gap mmol/L BUN (7-17) mg/dL Creatinine (0.52-1.04) mg/dL Est GFR (MDRD) Af Amer (>60 ml/min/1.73 sqM) Est GFR (MDRD) Non-Af (>60 ml/min/1.73 sqM) Glucose (74-99) mg/dL Calcium (8.4-10.2) mg/dL Total Bilirubin (0.2-1.3) mg/dL AST (14-36) U/L ALT (9-52) U/L Alkaline Phosphatase (38-126) U/L Total Creatine Kinase (30-135) U/L CK-MB (CK-2) (0.0-2.4) ng/mL CK-MB (CK-2) Rel Index Troponin I (0.000-0.034) ng/mL Total Protein (6.3-8.2) g/dL Albumin (3.5-5.0) g/dL - Radiology Data Radiology results: image reviewed (Chest x-ray shows no acute process. Computed tomography scan of the brain shows no acute cranial abnormality. Mild degenerative changes.) Disposition Clinical Impression: Acute CVA (cerebrovascular accident) Disposition: ADMITTED IP TO THIS [facility] Referrals: Franklin Benitez III, MD [Primary Care Provider] - 1-2 days Decision Time: 09:59
[2016-12-25 08:19] LABS: Basophils # (A) 0.1 k/uL (0-0.2); Basophils % (A) 1 %; CH 31.3; CHCM 34.3; Eosinophils # (A) 0.1 k/uL (0-0.7); Eosinophils % (A) 1 %; HCT 43.2 % (34.0-46.0); HDW 2.31; HGB 14.1 gm/dL (11.4-16.0); Luc # (Auto) 0.16; Luc % (Auto) 2; Lymphocytes # (A) 1.6 k/uL (1.0-4.8); Lymphocytes % (A) 19 %; MCH 29.9 pg (25.0-35.0); MCHC 32.7 g/dL (31.0-37.0); MCV 91.5 fL (80.0-100.0); Mean Platelet Volume 10.1; Monocytes # (A) 0.5 k/uL (0-1.0); Monocytes % (A) 6 %; Neutrophils # (A) 6.2 k/uL (1.3-7.7); Neutrophils % (A) 71 %; RBC 4.72 m/uL (3.80-5.40); RDW 14.6 % (11.5-15.5); WBC 8.6 k/uL (3.8-10.6); WBC (Perox) 8.72
[2016-12-25 08:23] LABS: INR 0.9 (<1.2); Partial Thromboplastin Time 23.4 sec (22.0-30.0); Prothrombin Time 9.7 sec (9.0-12.0)
[2016-12-25 08:26] LABS: AST 16 U/L (14-36); Alkaline Phosphatase 126 U/L (38-126); Anion Gap 12 mmol/L; Blood Urea Nitrogen 8 mg/dL (7-17); Carbon Dioxide 22 mmol/L (22-30); Chloride 105 mmol/L (98-107); Glucose 175 mg/dL (74-99); Non-African American GFR(MDRD) >60 (>60 ml/min/1.73 sqM); Potassium 4.1 mmol/L (3.5-5.1); Sodium 139 mmol/L (137-145); Total Bilirubin 0.3 mg/dL (0.2-1.3); Total Protein 6.9 g/dL (6.3-8.2)
[2016-12-25 08:32] LABS: ALT 21 U/L (9-52); Calcium 9.6 mg/dL (8.4-10.2)
[2016-12-25 09:01] LABS: Troponin I 0.021 ng/mL (0.000-0.034)
--- NOTE | 2016-12-25 09:03 | CT ---
EXAMINATION TYPE: CT brain wo con DATE OF EXAM: 12/25/2016 COMPARISON: Previous study dated 06/23/2016 HISTORY: Weakness on right side-arm CT DLP: 929.80 mGycm Automated exposure control for dose reduction was used. FINDINGS: There are mild, changes of sulcal prominence compatible with mild age-related atrophy. There is mild, diffuse periventricular white matter lucency, compatible with chronic white matter ischemic change. There is no acute focal lesion, mass effect or midline shift identified. I do not see evidence of int racranial blood. Visualized portions of the paranasal sinuses and mastoids are clear. IMPRESSION: 1. NO ACUTE INTRACRANIAL ABNORMALITY. 2. MILD, AGE-RELATED DEGENERATIVE CHANGE.
--- NOTE | 2016-12-25 09:11 | XR ---
EXAMINATION TYPE: XR chest 2V DATE OF EXAM: 12/25/2016 HISTORY: altered mental status. REFERENCE: Previous study dated 05/16/2015. FINDINGS: The lungs are clear. Pleural space are clear. The heart is not enlarged. IMPRESSION: NO ACUTE
--- NOTE | 2016-12-25 11:06 | US ---
EXAMINATION TYPE: US carotid duplex BILAT DATE OF EXAM: 12/25/2016 COMPARISON: Previous study dated 04/21/2015. CLINICAL HISTORY: Stenosis. EXAM MEASUREMENTS: RIGHT: Peak Systolic Velocity (PSV) cm/sec ----- Right CCA: 70.6 ----- Right ICA: 58.4 ----- Right ECA: 112.9 ICA/CCA ratio: 0.8 RIGHT: End Diastole cm/sec ----- Right CCA: 18.2 ----- Right ICA: 16.5 ----- Right ECA: 16.0 LEFT: Peak Systolic Velocity (PSV) cm/sec ----- Left CCA: 86.8 ----- Left ICA: 73.6 ----- Left ECA: 83.8 ICA/CCA ratio: 0.8 LEFT: End Diastole cm/sec ----- Left CCA: 24.1 ----- Left ICA: 19.7 ----- Left ECA: 16.0 VERTEBRALS (direction of flow): Right Vertebral: Antegrade Left Vertebral: Antegrade Rhythm: Normal No significant stenosis seen, no elevated velocities, mild bilateral plaque IMPRESSION: I DO NOT SEE EVIDENCE OF A HEMODYNAMICALLY SIGNIFICANT STENOSIS IN EITHER CAROTID SYSTEM. Criteria for Assigning % of Stenosis / Diameter reduction (Estimation based on the indirect measurements of the internal carotid artery velocities (ICA PSV). 1. Normal (no stenosis)=ICA PSV < 125 cm/s: ratio < 2.0: ICA EDV<40 cm/s. 2. Less than 50% stenosis=ICA PSV < 125 cm/s: ratio < 2.0: ICA EDV<40 cm/s. 3. 50 to 69% stenosis=ICA PSV of 125 to 230 cm/s: ration 2.0 ? 4.0: ICA EDV 40-100 cm/s. 4. Greater than 70% stenosis to near occlusion= ICA PSV > 230 cm/s: ratio > 4.0: ICA EDV > 100 cm/s. 5. Near occlusion= ICA PSV velocities may be low or undetectable: variable ratio and ICA EDV. 6. Total occlusion=unable to detect flow.
[2016-12-25 11:09] VITALS: BMI 33.7
[2016-12-25 11:26] LABS: Glucose,Whole Blood 172 mg/dL (75-99)
[2016-12-25] MEDS: ONDANSETRON 4 MG/2 ML VIAL IVP PRN (14:03)
[2016-12-25] MEDS ORDERED: NITROGLYCERIN SL TABS 0.4 MG TAB SUBLINGUAL PRN (14:46)
[2016-12-25] MEDS ORDERED: DIPHENOX-ATROP 2.5-0.025 MG 1 EACH TAB PO PRN (14:46)
[2016-12-25] MEDS ORDERED: DICYCLOMINE 20 MG TAB PO PRN (14:46)
[2016-12-25] MEDS: SODIUM CHLORIDE 0.9% 1,000 ML IV SCH ×2 (15:16→21:09)
[2016-12-25] MEDS: CLOPIDOGREL 75 MG TAB PO SCH (15:16)
[2016-12-25] MEDS: tiZANidine 4 MG TAB PO PRN (15:21)
[2016-12-25] MEDS: GABAPENTIN 300 MG CAP PO SCH ×2 (15:22→21:09)
--- NOTE | 2016-12-25 15:33 | P.CNNES ---
History of Present Illness Consult date: 12/25/16 History of Present Illness: Patient is a 66-year-old right-handed white female with complaints of right- sided weakness since yesterday. She states her vision became hazy. She states that she has had previous strokes in the past involving both sides. Weakness involves the right arm and the right leg. Worse that at home she does not ambulate and day is usually in a wheelchair multiple medical problems including including coronary artery disease diabetes DVT hyperlipidemia hypertension thyroid disease and was recently hospitalized in April 2015 with possible stroke. Does have a history of TIAs and strokes in the past as well as antiphospholipid syndrome(does take Plavix at home the patient apparently has had of record of previous episodes of right and left-sided weakness and an MRI of the brain in 2016 which showed small vessel disease. She had a carotid ultrasound today which showed no evidence of blockage Review of Systems Constitutional: Denies chills, Denies fever Eyes: denies blurred vision, denies pain Ears, nose, mouth and throat: Denies headache, Denies sore throat Cardiovascular: Denies chest pain, Denies shortness of breath Gastrointestinal: Denies abdominal pain, Denies diarrhea, Denies nausea, Denies vomiting Genitourinary: Denies dysuria, Denies hematuria Musculoskeletal: Denies myalgias Neurological: Denies numbness, Denies weakness Psychiatric: Denies anxiety, Denies depression Past Medical History Past Medical History: Coronary Artery Disease (CAD), Chest Pain / Angina, COPD, CVA/TIA, Diabetes Mellitus, Deep Vein Thrombosis (DVT), GERD/Reflux, Hyperlipidemia, Hypertension, Osteoarthritis (OA), Pneumonia, Syncope, Thyroid Disorder Additional Past Medical History / Comment(s): 05/07/15 Pt presented to [facility] ER with L side of body feeling "funny" L upper extremity and L hand weakness with L facial weakness. Pt was recently admitted 04/21/15 with possible CVA. Other HX: Antiphospholipid syndrome , LUPUS, CVA's/TIA's, demyelinization of brain, NIDDM, sinus problems, diverticulosis, uti, RESTLESS LEG SYNDROME, systemic lupus ethythemus, L leg DVT, occipital neuritis, varicosities, colostomy, DJD. History of Any Multi-Drug Resistant Organisms: None Reported Past Surgical History: Appendectomy, Back Surgery, Bladder Surgery, Cholecystectomy, Hysterectomy, Orthopedic Surgery, Tonsillectomy Additional Past Surgical History / Comment(s): L hip surgery nailing /fixation- L hip hemiarthroplasty, bladder suspension, sisi cataracts, partial laminectomy, . colostomy 2010 D/T PERFORATED DIVERTICULUM with reversal and then 2nd colostomy, LT KNEE SX FOR TORN CARTILAGE Past Anesthesia/Blood Transfusion Reactions: No Reported Reaction Additional Past Anesthesia/Blood Transfusion Reaction / Comment(s): HAD BLOOD TRANSFUSION 15 YEARS ago without reaction. Past Psychological History: Anxiety Smoking Status: Current some day smoker Past Alcohol Use History: None Reported Past Drug Use History: None Reported - Past Family History Mother Family Medical History: Cancer, Hypertension Additional Family Medical History / Comment(s): "mother had cancer from asbestos exposure" Father Family Medical History: Hypertension, Rheumatoid Arthritis (RA) Medications and Allergies Home Medications Medication Instructions Recorded Confirmed Type Metoprolol Succinate [Toprol XL] 50 mg PO DAILY 07/22/13 12/25/16 History Isosorbide Mononitrate ER [Imdur] 30 mg PO DAILY 07/11/14 12/25/16 History Nitroglycerin Sl Tabs [Nitrostat] 0.4 mg SUBLINGUAL Q5M PRN 07/11/14 12/25/16 History Dicyclomine HCl [Bentyl] 20 mg PO TID PRN 04/21/15 12/25/16 History Levothyroxine Sodium [Synthroid] 200 mcg PO DAILY 04/21/15 12/25/16 History Lisinopril [Zestril] 20 mg PO DAILY 04/21/15 12/25/16 History Ondansetron [Zofran] 4 mg PO Q8HR PRN 04/21/15 12/25/16 History Pantoprazole [Protonix] 80 mg PO DAILY 04/21/15 12/25/16 History Escitalopram [Lexapro] 10 mg PO DAILY #30 tab 05/09/15 12/25/16 Rx Clopidogrel Bisulfate [Plavix] 75 mg PO DAILY 06/23/16 12/25/16 History Diphenoxylate HCl/Atropine 1 tab PO QID PRN 06/23/16 12/25/16 History [Lomotil] Gabapentin [Neurontin] 600 mg PO QID 06/23/16 12/25/16 History Insulin Aspart [NovoLOG Flexpen] 8 units SQ AC-TID 06/23/16 12/25/16 History Insulin Degludec [Tresiba 24 - 30 unit SQ DAILY 06/23/16 12/25/16 History Flextouch U-100] Insulin Glargine,Hum.rec.anlog 3 unit SQ HS 06/23/16 06/25/16 History [Lantus Solostar] Simvastatin [Zocor] 40 mg PO HS 06/23/16 12/25/16 History rOPINIRole HCL [Requip] 3 mg PO HS 06/23/16 12/25/16 History tiZANidine HCL [Zanaflex] 4 mg PO Q8H PRN 06/23/16 12/25/16 History Allergies Allergy/AdvReac Type Severity Reaction Status Date / Time aspirin Allergy Anaphylaxis Verified 12/25/16 07:52 codeine Allergy Anaphylaxis Verified 12/25/16 07:52 Iodinated Contrast- Oral and Allergy Anaphylaxis Verified 12/25/16 07:52 IV Dye [Iodinated Contrast Media - IV Dye] NSAIDS (Non-Steroidal Allergy Anaphylaxis Verified 12/25/16 07:52 Anti-Inflamma sulfamethoxazole Allergy Unknown Verified 12/25/16 07:52 [From Bactrim] trimethoprim [From Bactrim] Allergy Unknown Verified 12/25/16 07:52 influenza virus vaccine ts AdvReac Nausea & Verified 12/25/16 07:52 [id number] (36 mos,up) Vomiting & [From Fluarix] Diarrhea Physical Examination - Vital Signs Vital Signs: Vital Signs Temp Pulse Resp BP Pulse Ox 12/25/16 10:50 98.4 F 80 16 165/74 97 12/25/16 09:13 80 18 166/84 97 12/25/16 07:49 98.4 F 82 16 161/104 98 Intake and Output 12/25/16 12/25/16 12/25/16 06:59 14:59 22:59 Other: Weight 89.3 kg Patient Weight 12/26/16 06:59 Weight 89.3 kg - Constitutional General appearance: average body habitus - EENT EENT: PERRL, hearing intact - Respiratory Respiratory: lungs clear - Cardiovascular Cardiovascular: regular rate, normal S1 - Integumentary Integumentary: normal - Neurologic Mental status she was awake alert and oriented there is no a aphasia or dysarthria Cranial nerve examination: PERRL, EOMI, face symmetric, tongue midline Detailed motor examination: other (Right hemiplegia) - Psychiatric Psychiatric: depressed Results - Laboratory Findings CBC and BMP: 12/25/16 08:04 12/25/16 08:04 Abnormal Lab Findings: Abnormal Labs 12/25/16 12/25/16 08:04 11:18 Glucose 175 H POC Glucose (mg/dL) 172 H Assessment and Plan (1) Acute CVA (cerebrovascular accident) Status: Acute Code(s): I63.9 - CEREBRAL INFARCTION, UNSPECIFIED (2) Dehydration Status: Acute Code(s): E86.0 - DEHYDRATION Plan: The patient is a 66-year-old woman with history of acute onset right-sided weakness. On neurologic examination the patient has a right hemiplegia. She has previous history of episodes of right and left sided weakness without apparent residual infarction. She reports she is in a wheelchair at home reasons unclear. Current CT does not demonstrate any acute ischemic infarct. CT of the brain on this admission which showed age-related changes only. If symptoms persist Will further evaluate with CT follow-up or MRI
[2016-12-25] MEDS: INSULIN LISPRO (humaLOG) 300 UNIT/3 ML VIAL SQ SCH ×3 (17:09→21:09)
[2016-12-25 17:13] LABS: Glucose,Whole Blood 140 mg/dL (75-99)
--- NOTE | 2016-12-25 17:54 | HP ---
HISTORY AND PHYSICAL CHIEF COMPLAINTS: Weakness of the right side, upper and lower limbs. HISTORY OF PRESENT ILLNESS: This 66-year-old woman with a past medical history of multiple medical problems including history of CAD, COPD, history of deep venous thrombosis, history of TIA and stroke being followed by Dr. Benitez in the outpatient setting is complaining of weakness on the right side of the body. The patient apparently was fine when the patient went to bed last night. The patient woke this morning with right side weakness. The patient unable to move anything and the patient brought to [facility] and admitted for evaluation and treatment. The patient was not a candidate for tPA but CT scan of the brain also showed only small ischemia. Patient had multiple previous evaluations also. Evaluation with Dr. Sheri Rodrigues is in progress. The patient also complaining of some headache. The patient is slightly emotional at this time. PAST MEDICAL HISTORY: History of CAD, COPD, CVA, TIA, diabetes mellitus, history of DVT, GERD, hypertension, hyperlipidemia, history of antiphospholipid antibody syndrome. MEDICATIONS: Prior to admission include home medications are: 1. Zofran 4 mg q.8h p.r.n. 2. Nitrostat 0.4 sublingual p.r.n. 3. Synthroid 200 mcg p.o. daily. 4. Imdur 30 mg daily. 5. NovoLog FlexPen 8 units a.c. t.i.d. 6. Neurontin 600 mg p.o. daily. 7. Lexapro 10 mg p.o. daily. 8. Bentyl 20 mg t.i.d. p.r.n. 9. Plavix 75 mg p.o. daily. 10.Zocor 40 mg p.o. q.h.s. 11.Protonix 80 mg p.o. daily. 12.Zestril 20 mg p.o. 14.Toprol-XL 50 mg p.o. daily. 16.Lomotil 1 tablet q.i.d. p.r.n. 17.Requip 3 mg p.o. q.h.s. 18.Lantus 3 units subcu q.h.s. ALLERGIES: ASPIRIN, CODEINE, IODINATED CONTRAST, BACTRIM, INFLUENZA VACCINE. FAMILY HISTORY: History of cancer and hypertension in the family. SOCIAL HISTORY: History of smoking. No history of alcohol intake. REVIEW OF SYSTEMS: ENT: No diminished hearing or vision. CARDIOVASCULAR: No angina. RESPIRATORY: As mentioned. GI: No nausea. : No dysuria. NERVOUS SYSTEM: No numbness or weakness. ALLERGY/IMMUNOLOGY: No asthma. MUSCULOSKELETAL: As mentioned earlier. HEMATOLOGY: No history of anemia. ENDOCRINE: No history of diabetes or hypothyroidism. CONSTITUTIONAL: As mentioned. DERMATOLOGY: Negative. RHEUMATOLOGY: Negative. PSYCHIATRY: As mentioned earlier. PHYSICAL EXAMINATION: Alert and oriented x3. Pulse 80, blood pressure 160/74, respiration 18, temperature 98.4, pulse ox 97% on 2 L. HEENT: Conjunctivae normal. NECK: No jugular venous distention. CARDIOVASCULAR: S1, S2. RESPIRATORY: Breath sounds diminished in the bases. A few scattered rhonchi. ABDOMEN: Soft, nontender. No mass palpable. LEGS: No edema. No swelling. NERVOUS SYSTEM: Higher functions as mentioned. Cranial nerves II through XII grossly intact. Significant weakness grade 0 to 1 power in the right upper and lower limbs. LYMPHATICS: No lymphadenopathy in the neck, axillae, or groin. SKIN: No ulcer, rash or bleeding. LABS: At this time CBC within normal. Glucose 174. ASSESSMENT: 1. Weakness of the right side, possible acute cerebrovascular accident, rule out transient ischemic attack. 2. History of coronary artery disease. 3. History of chronic obstructive pulmonary disease. 4. History of cerebrovascular accident, transient ischemic attack. 5. History of diabetes mellitus, type 2. 6. History of deep vein thrombosis. 7. History of gastroesophageal reflux disease. 8. Hypertension. 9. Hyperlipidemia. 10.History of degenerative joint disease. 11.History pneumonia. 12.History of syncope. 13.History of antiphospholipid antibody syndrome and lupus. 14.History of restless legs syndrome. 15.Back surgery. 16.History of appendectomy. 17.History of anxiety. 18.History of nicotine dependence. RECOMMENDATIONS AND DISCUSSION: I recommend to continue current management, continue symptomatic treatment. Otherwise at this time I recommend continue the antiplatelet agents. Neurovascular workup. Neurology evaluation. Neuro checks. Otherwise continue to monitor. Resume the home medications. Monitor blood sugars closely. Overall prognosis extremely guarded because of multiple complex medical issues. See orders for further details. Discussed with the patient and copy of dictation forwarded to Dr. Benitez, who is the primary physician. Old charts were reviewed. Discussed with staff. See orders for details. Once again, the prognosis guarded. PT and OT evaluation, will try to increase ambulation as well. KODYL / IJN: [id number] / SEBLE
[2016-12-25 19:35] LABS: Hemoglobin A1C 8.2 % (4.2-6.1)
[2016-12-25] MEDS: ATORVASTATIN 20 MG TAB PO SCH (21:09)
[2016-12-25 21:31] LABS: Glucose,Whole Blood 71 mg/dL (75-99)
[2016-12-26 00:28] LABS: Glucose,Whole Blood 126 mg/dL (75-99)
[2016-12-26 02:58] LABS: Appearance,Urine Clear (Clear); Bilirubin,Urine Negative (Negative); Glucose,Urine (UA) Negative (Negative); Ketones,Urine Negative (Negative); Leukocyte Esterase,Urine Negative (Negative); Nitrite,Urine Negative (Negative); PH, Urine 7.5 (5.0-8.0); Protein,Urine Negative (Negative); Specific Gravity,Urine 1.012 (1.001-1.035); UA Billing (MACRO vs. MICRO) CHEM; Urobilinogen,Urine <2.0 mg/dL (<2.0)
[2016-12-26 06:13] LABS: Basophils % (A) 1 %; CH 30.9; CHCM 32.8; Eosinophils # (A) 0.1 k/uL (0-0.7); Eosinophils % (A) 1 %; HCT 37.8 % (34.0-46.0); HGB 12.1 gm/dL (11.4-16.0); Luc # (Auto) 0.13; Luc % (Auto) 2; Lymphocytes % (A) 26 %; MCH 30.3 pg (25.0-35.0); MCHC 31.9 g/dL (31.0-37.0); MCV 94.8 fL (80.0-100.0); Mean Platelet Volume 9.9; Monocytes # (A) 0.4 k/uL (0-1.0); Monocytes % (A) 6 %; Neutrophils # (A) 4.8 k/uL (1.3-7.7); Neutrophils % (A) 64 %; RBC 3.99 m/uL (3.80-5.40); RDW 15.1 % (11.5-15.5); WBC 7.5 k/uL (3.8-10.6)
[2016-12-26 06:25] LABS: Glucose,Whole Blood 170 mg/dL (75-99)
[2016-12-26 06:33] LABS: Anion Gap 9 mmol/L; Blood Urea Nitrogen 11 mg/dL (7-17); Calcium 8.6 mg/dL (8.4-10.2); Carbon Dioxide 19 mmol/L (22-30); Chloride 109 mmol/L (98-107); Cholesterol 172 mg/dL (<200); Glucose 156 mg/dL (74-99); HDL Cholesterol 32 mg/dL (40-60); Non-African American GFR(MDRD) >60 (>60 ml/min/1.73 sqM); Potassium 3.7 mmol/L (3.5-5.1); Sodium 137 mmol/L (137-145)
[2016-12-26] MEDS: INSULIN LISPRO (humaLOG) 300 UNIT/3 ML VIAL SQ SCH ×7 (07:03→20:58)
[2016-12-26] MEDS: PANTOPRAZOLE 40 MG TABLET PO SCH (07:03)
[2016-12-26] MEDS: SODIUM CHLORIDE 0.9% 1,000 ML IV SCH ×2 (07:12→17:07)
[2016-12-26] MEDS: LEVOTHYROXINE 100 MCG TAB PO SCH (08:09)
[2016-12-26] MEDS: METOPROLOL SUCCINATE (ER) 50 MG TAB.ER.24H PO SCH (08:09)
[2016-12-26] MEDS: INSULIN DETEMIR 100 UNIT/ML 10 ML VIAL SQ SCH (08:09)
[2016-12-26] MEDS: GABAPENTIN 300 MG CAP PO SCH ×4 (08:10→20:58)
[2016-12-26] MEDS: ISOSORBIDE MONONITRATE ER 30 MG TAB.ER.24H PO SCH (08:10)
[2016-12-26] MEDS: LISINOPRIL 20 MG TAB PO SCH (08:10)
[2016-12-26] MEDS: ESCITALOPRAM 10 MG TAB PO SCH (08:11)
[2016-12-26] MEDS: CLOPIDOGREL 75 MG TAB PO SCH (08:11)
[2016-12-26 12:00] LABS: Glucose,Whole Blood 133 mg/dL (75-99)
[2016-12-26] MEDS: tiZANidine 4 MG TAB PO PRN (12:18)
--- NOTE | 2016-12-26 15:13 | ECHOF ---
Referral Reason:Thrombus MEASUREMENTS -------- HEIGHT: 162.6 cm WEIGHT: 89.4 kg BP: 166/84 IVSd: 1.1 cm (0.6 - 1.1) LVIDd: 4.2 cm (3.9 - 5.3) LVPWd: 1.1 cm (0.6 - 1.1) IVSs: 1.6 cm LVIDs: 2.5 cm LVPWs: 1.5 cm LAESV Index (A-L): 28.20 ml/m Ao Diam: 3.6 cm (2.0 - 3.7) AV Cusp: 1.7 cm (1.5 - 2.6) LA Diam: 3.7 cm (2.7 - 3.8) MV EXCURSION: 19.523 mm (> 18.000) MV EF SLOPE: 179 mm/s (70 - 150) EPSS: 1.4 cm MV E Anthony: 0.73 m/s MV DecT: 226 ms MV A Anthony: 0.87 m/s MV E/A Ratio: 0.84 RAP: 5.00 mmHg RVSP: 26.13 mmHg FINDINGS -------- Sinus rhythm. This was a technically adequate study. Pt. not able to turn due to pain. The left ventricular size is normal. There is borderline concentric left ventricular hypertrophy. Overall left ventricular systolic function is normal with, an EF between 55 - 60 %. The right ventricle is normal in size and function. Normal LA size by volume 22+/-6 ml/m2. The right atrium is normal in size. Aortic valve is trileaflet and is mildly thickened. There is no evidence of aortic regurgitation. There is no evidence of aortic stenosis. The mitral valve leaflets are mildly thickened. There is trace mitral regurgitation. Trace tricuspid regurgitation present. Right ventricular systolic pressure is normal at < 35 mmHg. There is no evidence of pulmonary hypertension. The pulmonic valve was not well visualized. The aortic root size is normal. Normal inferior vena cava with normal inspiratory collapse consistent with estimated right atrial pressure of 5 mmHg. The pericardium is normal. There is no pericardial effusion. CONCLUSIONS -------- 1. Sinus rhythm. 2. There is trace mitral regurgitation. 3. Trace tricuspid regurgitation present. 4. Right ventricular systolic pressure is normal at < 35 mmHg. 5. There is no evidence of pulmonary hypertension. 6. The pulmonic valve was not well visualized. 7. The aortic root size is normal. 8. There is no pericardial effusion. 9. This was a technically adequate study. 10. Pt. not able to turn due to pain. 11. The left ventricular size is normal. 12. There is borderline concentric left ventricular hypertrophy. 13. Overall left ventricular systolic function is normal with, an EF between 55 - 60 %. 14. Normal LA size by volume 22+/-6 ml/m2. 15. Aortic valve is trileaflet and is mildly thickened. 16. The mitral valve leaflets are mildly thickened. SESSIONS CLERK: Jesus Patel RDCS
--- NOTE | 2016-12-26 15:46 | PN ---
PROGRESS NOTE DATE OF SERVICE: 12/26/2016 This 66-year-old woman was admitted with significant weakness of right side is being closely monitored. No chest pain. No palpitations. No fever. Urology is following the patient closely. Patient is extremely anxious. PHYSICAL EXAM: Alert, oriented x3. Pulse 72, blood pressure 118/74, respirations 16, temperature 97.9, pulse ox 97% on room air. HEENT: Conjunctivae normal. NECK: No jugular venous distention. CARDIOVASCULAR: S1, S2 muffled. RESPIRATORY: Breath sounds diminished in the bases. A few rhonchi. No crackles. ABDOMEN: Soft, nontender. LEGS: No edema. NERVOUS SYSTEM: Significant weakness on the right side, grade 0 to 1 power. LYMPHATICS: No lymphadenopathy in the neck, axillae, groin. JOINTS: No active deforming arthropathy. LABS: CBC within normal. Accu-Cheks 133. ASSESSMENT: 1. Weakness of the right side possible acute cerebrovascular accident or transient ischemic attack involving the left hemisphere. 2. History of coronary artery disease. 3. History of chronic obstructive pulmonary disease. 4. Cerebrovascular accident, transient ischemic attack history. 5. Diabetes mellitus type 2. 6. History of DVT. 7. HISTORY of gastroesophageal reflux disease. RECOMMENDATIONS AND DISCUSSION: I recommend to continue current management. Symptomatic treatment. The patient has multiple complex medical issues. PT, OT evaluation. Neurology consultation. Guarded prognosis because of multiple complex medical issues. Further recommendations to follow. MMODL / IJN: [id number] /
--- NOTE | 2016-12-26 16:08 | P.PN ---
Subjective Progress Note Date: 12/26/16 The patient is a 66-year-old woman with history of multiple medical problems who presented to the hospital yesterday with right hemiplegia. She has a history of known bilateral hemiparesis off and on over the past year. Today she is moving her right arm and right leg better. She is having no other new complaints. She is asking when she can go home. She had a carotid ultrasound which did not show any significant stenosis. The patient is on antiplatelet treatment. She denies any headache or new weakness or numbness. Objective - Vital Signs Vital signs: Vital Signs Temp 96.9 F L 12/26/16 16:00 Pulse 62 12/26/16 16:00 Resp 16 12/26/16 16:00 BP 126/71 12/26/16 16:00 Pulse Ox 97 12/26/16 16:00 Intake & Output 12/25/16 12/26/16 12/26/16 18:59 06:59 18:59 Intake Total 800 Output Total 1050 Balance -250 Weight 89.3 kg 91 kg Intake: IV 800 Sodium Chloride 0.9% 1, 800 000 ml @ 100 mls/hr IV . Q10H [facility] Rx#:[id number] Output: Urine 1050 Straight 550 Other: Voiding Method Bedpan Bedpan - Constitutional General appearance: Present: average body habitus - Respiratory Respiratory: bilateral: CTA - Cardiovascular Rhythm: regular - Neurologic Neurologic Comment(s): Mental status she was awake alert and oriented chance of questions appropriately there is no aphasia or dysarthria Neurologic: Present: CNII-XII intact - Musculoskeletal Musculoskeletal: Present: right sided weakness - Labs CBC & Chem 7: 12/26/16 05:45 12/26/16 05:45 Labs: Abnormal Lab Results - Last 24 Hours (Table) 12/25/16 12/25/16 12/25/16 Range/Units 08:04 16:50 21:08 Chloride (98-107) mmol/L Carbon Dioxide (22-30) mmol/L Glucose (74-99) mg/dL POC Glucose (mg/dL) 140 H 71 L (75-99) mg/dL Hemoglobin A1c 8.2 H (4.2-6.1) % Triglycerides (<150) mg/dL HDL Cholesterol (40-60) mg/dL 12/26/16 12/26/16 12/26/16 Range/Units 00:08 05:45 06:20 Chloride 109 H (98-107) mmol/L Carbon Dioxide 19 L (22-30) mmol/L Glucose 156 H (74-99) mg/dL POC Glucose (mg/dL) 126 H 170 H (75-99) mg/dL Hemoglobin A1c (4.2-6.1) % Triglycerides 230 H (<150) mg/dL HDL Cholesterol 32 L (40-60) mg/dL 12/26/16 Range/Units 11:57 Chloride (98-107) mmol/L Carbon Dioxide (22-30) mmol/L Glucose (74-99) mg/dL POC Glucose (mg/dL) 133 H (75-99) mg/dL Hemoglobin A1c (4.2-6.1) % Triglycerides (<150) mg/dL HDL Cholesterol (40-60) mg/dL Assessment and Plan (1) Acute CVA (cerebrovascular accident) Status: Acute Code(s): I63.9 - CEREBRAL INFARCTION, UNSPECIFIED (2) Dehydration Status: Acute Code(s): E86.0 - DEHYDRATION Plan: The patient is a 66-year-old woman who presented to the hospital with right- sided weakness. She had a CT of the brain which showed age-related changes only. Today she is moving her right side better. Recommend continued physical therapy and close follow-up
[2016-12-26] MEDS: traMADol 50 MG TAB PO PRN (17:14)
[2016-12-26 17:29] LABS: Glucose,Whole Blood 82 mg/dL (75-99)
[2016-12-26] MEDS ORDERED: traMADol 50 MG TAB PO SCH (18:00)
[2016-12-26] MEDS: ATORVASTATIN 20 MG TAB PO SCH (20:58)
[2016-12-26 21:00] LABS: Glucose,Whole Blood 175 mg/dL (75-99)
[2016-12-27] MEDS: traMADol 50 MG TAB PO PRN ×2 (00:36→13:12)
[2016-12-27 05:51] LABS: Glucose,Whole Blood 109 mg/dL (75-99)
[2016-12-27] MEDS: INSULIN LISPRO (humaLOG) 300 UNIT/3 ML VIAL SQ SCH ×7 (06:11→20:51)
[2016-12-27] MEDS: SODIUM CHLORIDE 0.9% 1,000 ML IV SCH ×3 (06:40→23:50)
[2016-12-27] MEDS: LEVOTHYROXINE 100 MCG TAB PO SCH (06:40)
[2016-12-27] MEDS: PANTOPRAZOLE 40 MG TABLET PO SCH (06:40)
[2016-12-27] MEDS: ESCITALOPRAM 10 MG TAB PO SCH (08:39)
[2016-12-27] MEDS: CLOPIDOGREL 75 MG TAB PO SCH (08:39)
[2016-12-27] MEDS: METOPROLOL SUCCINATE (ER) 50 MG TAB.ER.24H PO SCH (08:40)
[2016-12-27] MEDS: GABAPENTIN 300 MG CAP PO SCH ×4 (08:40→20:53)
[2016-12-27] MEDS: LISINOPRIL 20 MG TAB PO SCH (08:40)
[2016-12-27] MEDS: ISOSORBIDE MONONITRATE ER 30 MG TAB.ER.24H PO SCH (08:40)
[2016-12-27] MEDS: INSULIN DETEMIR 100 UNIT/ML 10 ML VIAL SQ SCH (08:44)
[2016-12-27] MEDS: tiZANidine 4 MG TAB PO PRN (10:20)
[2016-12-27 11:54] LABS: Glucose,Whole Blood 82 mg/dL (75-99)
--- NOTE | 2016-12-27 13:32 | P.PN ---
Subjective Progress Note Date: 12/27/16 Progress note being dictated for Dr. Little. Interval history: This is 66-year-old female admitted with right-sided weakness , possible acute CVA, or TIA and multiple other medical issues. Evaluated by neurology with workup in progress. Moving right-side better. Denies any focal deficits, lightheadedness or dizziness. Denies chest pain, palpitations. Denies increasing shortness of breath. Telemetry reporting sinus bradycardia to sinus rhythm with heart rates down to the mid 40s during sleep. Objective - Vital Signs Vital signs: Vital Signs Temp 97 F L 12/27/16 12:00 Pulse 54 L 12/27/16 12:00 Resp 16 12/27/16 12:00 BP 120/72 12/27/16 12:00 Pulse Ox 97 12/27/16 12:00 Intake & Output 12/26/16 12/27/16 12/27/16 18:59 06:59 18:59 Intake Total 800 236 Output Total 800 Balance 0 236 Weight 92 kg Intake: IV 800 Sodium Chloride 0.9% 1, 800 000 ml @ 100 mls/hr IV . Q10H [facility] Rx#:[id number] Oral 236 Output: Urine 800 Other: Voiding Method Bedpan Bedpan Bedpan # Voids 1 - Exam PHYSICAL EXAM: VITAL SIGNS: As above GENERAL: Sitting up in bed, no acute distress HEENT: Conjunctivae normal. NECK: No JVD. No thyroid enlargement. No LNs CARDIOVASCULAR: S1, S2 muffled. No murmur RESPIRATION: Breath sounds diminished in the bases. occasional rhonchi, no crackles. ABDOMEN: Soft, nontender . No guarding. no masses palpable.Bowel sounds heard. LEGS: No edema. no swelling PSYCHIATRY: Alert and oriented -3, mood and affect normal. NERVOUS SYSTEM: Cranial N 2-12 grossly normal. Speech clear and appropriate .Moves all 4 limbs. Diffuse weakness noted on the right side; upper and lower extremities, grade 1 power. No focal deficits. No sensory deficit. Skin: no ulcer no rash Joints: No active swelling. No inflammation. Lymphatic system. No LN neck axilla or groin. - Labs CBC & Chem 7: 12/26/16 05:45 12/26/16 05:45 Labs: Abnormal Lab Results - Last 24 Hours (Table) 12/26/16 12/27/16 Range/Units 20:58 05:49 POC Glucose (mg/dL) 175 H 109 H (75-99) mg/dL Assessment and Plan Plan: 1. Right-sided weakness, possible acute CVA or TIA, in a patient with history of CVA and TIA. 2. [ CAD]. 3. [ COPD]. 4. [ Diabetes mellitus type 2]. 5. [ Gastroesophageal reflux disease]. Plan: Continue on current medication regime , statin, Plavix, monitoring. Evaluated by PT/OT and subacute rehab recommended at discharge. Discharge planning in progress for tomorrow. Follow closely with neurology. The impression and plan of care has been dictated as directed. : I performed a history and examination of this patient, discussed the same with the dictator. I agree with the dictator's note ,documented as a scribe. Any additional findings or plans will be noted.
--- NOTE | 2016-12-27 14:15 | CDI ---
In responding to this query, please exercise your independent professional judgment. The [facility] Coding Staff and Clinical Documentation Specialists appreciate your assistance in clarifying documentation, maintaining compliance with coding guidelines, accurately documenting patients condition and capturing severity of illness. The fact that a question is asked does not imply that any particular answer is desired or expected. Communication forms are a method of clarifying documentation and are not made part of the Legal Health Record. Thank you in advance for your clarification. Last Revision, January 2015 [address] [address] Documentation Clarification Form Date: 12/27/2016 1:55:00 PM From: Delia Segovia Admit Date: 12/25/2016 10:00:00 AM Patient Name: Flower Philippe Visit Number: [id number] Discharge Date: Dr. Joel Hazel/Halina ALANIZ Conflicting documentation has been found in the medical record, and clarification of the primary admitting diagnosis is needed. Admitted with right sided weakness, possible acute CVA or TIA History/Risk Factors: CVA, TIA, DM type 2, CAD, COPD, Current some day smoker Clinical Indicators: Present with complaints of weakness to right arm and right leg. Patient had a headache and some mild blurry vision. Patient does not believe she has any residual weakness from her previous strokes. CT Brain: negative Carotid Ultrasound: no significant stenosis Neurological consult: Acute CVA present with right-sided weakness. Ct of brain which showed age-related changes only. Today she is moving her right side better Treatment: Neurological assessment per protocol PT/OT In your opinion what is the most clinically appropriate diagnosis for this patient? Cerebrovascular accident Transient Ischemic attack OTHER explanation of clinical findings Unable to determine (no explanation for clinical findings) Please document in your progress notes and discharge summary in order to capture severity of illness and risk of mortality. Include clinical findings that support your diagnosis. FYI: Press F11 to launch patient chart. SEBLE
[2016-12-27 16:53] LABS: Glucose,Whole Blood 94 mg/dL (75-99)
[2016-12-27] MEDS: ACETAMINOPHEN IV (For NPO) 1,000 MG in EMPTY BAG 1 BAG IVPB SCH ×2 (17:17→23:50)
[2016-12-27 20:49] LABS: Glucose,Whole Blood 103 mg/dL (75-99)
[2016-12-27] MEDS: ATORVASTATIN 20 MG TAB PO SCH (20:53)
[2016-12-28] MEDS: traMADol 50 MG TAB PO PRN (04:37)
[2016-12-28 06:11] LABS: Glucose,Whole Blood 141 mg/dL (75-99)
[2016-12-28] MEDS: SODIUM CHLORIDE 0.9% 1,000 ML IV SCH (06:47)
[2016-12-28] MEDS: ACETAMINOPHEN IV (For NPO) 1,000 MG in EMPTY BAG 1 BAG IVPB SCH ×2 (06:47→12:52)
[2016-12-28] MEDS: PANTOPRAZOLE 40 MG TABLET PO SCH (06:47)
[2016-12-28] MEDS: LEVOTHYROXINE 100 MCG TAB PO SCH (06:47)
[2016-12-28] MEDS: INSULIN LISPRO (humaLOG) 300 UNIT/3 ML VIAL SQ SCH ×4 (06:58→13:19)
[2016-12-28] MEDS: ISOSORBIDE MONONITRATE ER 30 MG TAB.ER.24H PO SCH (09:01)
[2016-12-28] MEDS: LISINOPRIL 20 MG TAB PO SCH (09:01)
[2016-12-28] MEDS: ONDANSETRON 4 MG/2 ML VIAL IVP PRN (09:01)
[2016-12-28] MEDS: METOPROLOL SUCCINATE (ER) 50 MG TAB.ER.24H PO SCH (09:01)
[2016-12-28] MEDS: INSULIN DETEMIR 100 UNIT/ML 10 ML VIAL SQ SCH (09:01)
[2016-12-28] MEDS: GABAPENTIN 300 MG CAP PO SCH ×2 (09:02→13:19)
[2016-12-28] MEDS: ESCITALOPRAM 10 MG TAB PO SCH (09:02)
[2016-12-28] MEDS: CLOPIDOGREL 75 MG TAB PO SCH (09:02)
[2016-12-28 11:05] LABS: Glucose,Whole Blood 147 mg/dL (75-99)
[2016-12-28 14:14] VITALS: BP 118/65; PULSE 58; RESP 18; TEMP 97.9
--- NOTE | 2016-12-28 14:56 | P.DS ---
Providers Date of admission: 12/25/16 10:00 Expected date of discharge: 12/28/16 Attending physician: Nadia Ventura Consults: 12/25/16 10:00 Consult Physician Routine Consulting Provider: Yossi Rodrigues Consult Reason/Comments: cva Do you want consulting provider notified?: Yes Primary care physician: Franklin Mendoza [facility] Hospital Course: 1. Right-sided weakness, possible acute CVA, in a patient with history of CVA and TIA. 2. [ CAD]. 3. [ COPD]. 4. [ Diabetes mellitus type 2]. 5. [ Gastroesophageal reflux disease]. Hospital course:This is a 66-year-old female admitted with right-sided weakness , possible acute CVA, or TIA and multiple other medical issues. Evaluated by neurology with workup completed. Brain CT reporting age-related changes. Carotid ultrasound reporting no hemodynamic stenosis. Echo reported normal LV function. Maintained on Plavix, statin. Telemetry sinus bradycardia with heart rates down into the 50s, asymptomatic. Cleared by neurology for discharge. Patient is being discharged to [facility] subacute rehab in a stable condition with guarded prognosis. The impression and plan of care has been dictated as directed. : I performed a history and examination of this patient, discussed the same with the dictator. I agree with the dictator's note ,documented as a scribe. Any additional findings or plans will be noted. Patient Condition at Discharge: Stable Plan - Discharge Summary New Discharge Prescriptions: New Atorvastatin [Lipitor] 20 mg PO HS tab traMADol HCl [Ultram] 50 mg PO QID PRN #20 tab PRN Reason: Pain Scale 6 To 10 Diphenox-Atrop 2.5-0.025 mg [Lomotil] 1 each PO QID PRN #10 tab PRN Reason: Diarrhea Insulin Detemir [Levemir] 24 unit SQ DAILY vial INSULIN LISPRO (HumaLOG) [humaLOG] 0 unit SQ ACHS #1 vial Continue Metoprolol Succinate [Toprol XL] 50 mg PO DAILY Nitroglycerin Sl Tabs [Nitrostat] 0.4 mg SUBLINGUAL Q5M PRN PRN Reason: Angina Isosorbide Mononitrate ER [Imdur] 30 mg PO DAILY Dicyclomine HCl [Bentyl] 20 mg PO TID PRN PRN Reason: IBS Levothyroxine Sodium [Synthroid] 200 mcg PO DAILY Lisinopril [Zestril] 20 mg PO DAILY Ondansetron [Zofran] 4 mg PO Q8HR PRN PRN Reason: Nausea Pantoprazole [Protonix] 80 mg PO DAILY Escitalopram [Lexapro] 10 mg PO DAILY #30 tab Clopidogrel Bisulfate [Plavix] 75 mg PO DAILY Gabapentin [Neurontin] 600 mg PO QID Insulin Aspart [NovoLOG Flexpen] 8 units SQ AC-TID rOPINIRole HCL [Requip] 3 mg PO HS tiZANidine HCL [Zanaflex] 4 mg PO Q8H PRN PRN Reason: Pain Discontinued Diphenoxylate HCl/Atropine [Lomotil] 1 tab PO QID PRN PRN Reason: Diarrhea Insulin Degludec [Tresiba Flextouch U-100] 30 unit SQ DAILY Insulin Glargine,Hum.rec.anlog [Lantus Solostar] 30 unit SQ HS Simvastatin [Zocor] 40 mg PO HS traMADol HCl [Ultram] 50 mg PO Q8H PRN PRN Reason: Severe Pain Discharge Medication List Metoprolol Succinate [Toprol XL] 50 mg PO DAILY 07/22/13 [History] Isosorbide Mononitrate ER [Imdur] 30 mg PO DAILY 07/11/14 [History] Nitroglycerin Sl Tabs [Nitrostat] 0.4 mg SUBLINGUAL Q5M PRN 07/11/14 [History] Dicyclomine HCl [Bentyl] 20 mg PO TID PRN 04/21/15 [History] Levothyroxine Sodium [Synthroid] 200 mcg PO DAILY 04/21/15 [History] Lisinopril [Zestril] 20 mg PO DAILY 04/21/15 [History] Ondansetron [Zofran] 4 mg PO Q8HR PRN 04/21/15 [History] Pantoprazole [Protonix] 80 mg PO DAILY 04/21/15 [History] Escitalopram [Lexapro] 10 mg PO DAILY #30 tab 05/09/15 [Rx] Clopidogrel Bisulfate [Plavix] 75 mg PO DAILY 06/23/16 [History] Gabapentin [Neurontin] 600 mg PO QID 06/23/16 [History] Insulin Aspart [NovoLOG Flexpen] 8 units SQ AC-TID 06/23/16 [History] rOPINIRole HCL [Requip] 3 mg PO HS 06/23/16 [History] tiZANidine HCL [Zanaflex] 4 mg PO Q8H PRN 06/23/16 [History] Atorvastatin [Lipitor] 20 mg PO HS tab 12/28/16 [Rx] Diphenox-Atrop 2.5-0.025 mg [Lomotil] 1 each PO QID PRN #10 tab 12/28/16 [Rx] INSULIN LISPRO (HumaLOG) [humaLOG] 0 unit SQ ACHS #1 vial 12/28/16 [Rx] Insulin Detemir [Levemir] 24 unit SQ DAILY vial 12/28/16 [Rx] traMADol HCl [Ultram] 50 mg PO QID PRN #20 tab 12/28/16 [Rx] Follow up Appointment(s)/Referral(s): Garrett Nettles MD [STAFF PHYSICIAN] - 3 Days (while at [facility]) Franklin Benitez III, MD [Primary Care Provider] - 1 Week (after dc from [facility]) Carlee Rodrigues MD [STAFF PHYSICIAN] - 2 Weeks Activity/Diet/Wound Care/Special Instructions: Jethro [facility] , Clearance from Neurology Diet: COnsist. Carb., Cardiac Activity: LImited TIll F/U cbc,bmp in 3 days Patient has colostomy right side. Patient has own supplies and her daughter will be bringing them in for her. Discharge Disposition: TRANSFER TO SNF/ECF
[2016-12-28 17:27] LABS: Glucose,Whole Blood 92 mg/dL (75-99)
--- NOTE | 2017-01-05 12:20 | PN ---
PROGRESS NOTE ADDENDUM: FINAL DIAGNOSIS: Acute CVA, cerebrovascular accident. MMODL / IJN: [id number] /
== END 2016-12-28 17:55 | DRG 65 ==
LOC: EC 07:47 → 6SEL 10:00 → 5MS5E 12-28 09:38
PROVIDERS: ADMIT Internal Medicine; ATTEND Internal Medicine
DX: I63.9 Cerebral infarction, unspecified (principal); D68.61 Antiphospholipid syndrome; E11.51 Type 2 diabetes mellitus with diabetic peripheral angiopathy without gangrene; M32.9 Systemic lupus erythematosus, unspecified; G81.91 Hemiplegia, unspecified affecting right dominant side; J44.9 Chronic obstructive pulmonary disease, unspecified; E86.0 Dehydration; R29.810 Facial weakness; I10 Essential (primary) hypertension; I25.10 Atherosclerotic heart disease of native coronary artery without angina pectoris; K21.9 Gastro-esophageal reflux disease without esophagitis; E78.5 Hyperlipidemia, unspecified; M54.81 Occipital neuralgia; M19.91 Primary osteoarthritis, unspecified site; F17.200 Nicotine dependence, unspecified, uncomplicated; E07.9 Disorder of thyroid, unspecified; F41.9 Anxiety disorder, unspecified; K57.90 Diverticulosis of intestine, part unspecified, without perforation or abscess without bleeding; G25.81 Restless legs syndrome; Z79.02 Long term (current) use of antithrombotics/antiplatelets; Z79.4 Long term (current) use of insulin; Z79.899 Other long term (current) drug therapy; Z90.49 Acquired absence of other specified parts of digestive tract; Z93.3 Colostomy status; Z86.718 Personal history of other venous thrombosis and embolism; Z90.710 Acquired absence of both cervix and uterus; Z88.6 Allergy status to analgesic agent; Z88.5 Allergy status to narcotic agent; Z91.041 Radiographic dye allergy status; Z88.1 Allergy status to other antibiotic agents; Z88.7 Allergy status to serum and vaccine
CPT/HCPCS: 36415; 70450; 71020; 80048; 80053; 80061; 81003; 82550; 82553; 83036; 84484; 85025; 85610; 85730; 93005; 93306; 93880; 96360; 99285

== ENCOUNTER 2017-05-14 13:17 | Inpatient (IN) | payer MEDICARE ==
[2017-05-14 13:23] LABS: Glucose,Whole Blood 154 mg/dL (75-99)
[2017-05-14] MEDS ORDERED: RX INFO: IV CONTRAST WAS GIVEN 1 EACH MISC MISCELLANE PRN (13:24)
[2017-05-14] MEDS ORDERED: diphenhydrAMINE 50 MG/ML 1 ML VIAL IVP STA (13:25)
[2017-05-14] MEDS ORDERED: FAMOTIDINE 20 MG/2 ML VIAL IV STA (13:25)
[2017-05-14] MEDS ORDERED: methylPREDNISolone SOD SUCCI 125 MG/2 ML VIAL IV STA (13:25)
--- NOTE | 2017-05-14 13:29 | ED ---
General Adult HPI - General Stated complaint: POSS CVA Time Seen by Provider: 05/14/17 13:19 Source: patient, EMS, RN notes reviewed - History of Present Illness Initial comments: 66 yo female presents with right-sided weakness and numbness. Patient has history of multiple strokes in the past. According to the patient showed a stroke approximately 4 months ago. According to her there was no residual weakness from that stroke. EMS reports symptoms began at approximately 10 AM. Patient states she woke, and had mild weakness at this time, symptoms have been progressing over the past several hours. Patient's symptom onset is 3 hours and 30 minutes prior to arrival. Patient denies fever, denies chest pain or shortness of breath. Denies abdominal pain. Denies nausea or vomiting. According EMS patient was ambulatory. - Related Data Home Medications Medication Instructions Recorded Confirmed Metoprolol Succinate [Toprol XL] 50 mg PO DAILY 07/22/13 05/14/17 Nitroglycerin Sl Tabs [Nitrostat] 0.4 mg SUBLINGUAL Q5M PRN 07/11/14 05/14/17 Levothyroxine Sodium [Synthroid] 200 mcg PO DAILY 04/21/15 05/14/17 Ondansetron [Zofran] 4 mg PO Q8HR PRN 04/21/15 05/14/17 Gabapentin [Neurontin] 600 mg PO QID 06/23/16 05/14/17 Insulin Aspart [NovoLOG Flexpen] 8 units SQ AC-TID 06/23/16 05/14/17 rOPINIRole HCL [Requip] 3 mg PO HS 06/23/16 05/14/17 tiZANidine HCL [Zanaflex] 4 mg PO TID PRN 06/23/16 05/14/17 Diphenox-Atrop 2.5-0.025 mg 1 tab PO QID PRN 05/14/17 05/14/17 [Lomotil] Insulin Glargine [Lantus] 30 unit SQ DAILY 05/14/17 05/14/17 Allergies Allergy/AdvReac Type Severity Reaction Status Date / Time aspirin Allergy Anaphylaxis Verified 05/14/17 14:10 Iodinated Contrast- Oral and Allergy Anaphylaxis Verified 05/14/17 14:10 IV Dye [Iodinated Contrast Media - IV Dye] NSAIDS (Non-Steroidal Allergy Anaphylaxis Verified 05/14/17 14:10 Anti-Inflamma sulfamethoxazole Allergy Unknown Verified 05/14/17 14:10 [From Bactrim] trimethoprim [From Bactrim] Allergy Unknown Verified 05/14/17 14:10 influenza virus vaccine ts AdvReac Nausea & Verified 05/14/17 14:10 [id number] (36 mos,up) Vomiting & [From Fluarix] Diarrhea Review of Systems ROS Statement: Those systems with pertinent positive or pertinent negative responses have been documented in the HPI. ROS Other: All systems not noted in ROS Statement are negative. Past Medical History Past Medical History: Coronary Artery Disease (CAD), Chest Pain / Angina, COPD, CVA/TIA, Diabetes Mellitus, Deep Vein Thrombosis (DVT), GERD/Reflux, Hyperlipidemia, Hypertension, Osteoarthritis (OA), Pneumonia, Syncope, Thyroid Disorder Additional Past Medical History / Comment(s): 05/07/15 Pt presented to [facility] ER with L side of body feeling "funny" L upper extremity and L hand weakness with L facial weakness. Pt was recently admitted 04/21/15 with possible CVA. Other HX: Antiphospholipid syndrome , LUPUS, CVA's/TIA's, demyelinization of brain, NIDDM, sinus problems, diverticulosis, uti, RESTLESS LEG SYNDROME, systemic lupus ethythemus, L leg DVT, occipital neuritis, varicosities, colostomy, DJD. History of Any Multi-Drug Resistant Organisms: MRSA Date of last positivie culture/infection: 01/08/17 MDRO Source:: URINE Past Surgical History: Appendectomy, Back Surgery, Bladder Surgery, Cholecystectomy, Hysterectomy, Orthopedic Surgery, Tonsillectomy Additional Past Surgical History / Comment(s): L hip surgery nailing /fixation- L hip hemiarthroplasty, bladder suspension, sisi cataracts, partial laminectomy, . colostomy 2010 D/T PERFORATED DIVERTICULUM with reversal and then 2nd colostomy, LT KNEE SX FOR TORN CARTILAGE Past Anesthesia/Blood Transfusion Reactions: No Reported Reaction Additional Past Anesthesia/Blood Transfusion Reaction / Comment(s): HAD BLOOD TRANSFUSION 15 YEARS ago without reaction. Past Psychological History: Anxiety Smoking Status: Current some day smoker Past Alcohol Use History: None Reported Past Drug Use History: None Reported - Past Family History Mother Family Medical History: Cancer, Hypertension Additional Family Medical History / Comment(s): "mother had cancer from asbestos exposure" Father Family Medical History: Hypertension, Rheumatoid Arthritis (RA) General Exam General appearance: alert, in no apparent distress Head exam: Present: atraumatic, normocephalic Eye exam: Present: normal appearance, PERRL ENT exam: Present: normal exam Neck exam: Present: normal inspection. Absent: meningismus Respiratory exam: Present: normal lung sounds bilaterally. Absent: respiratory distress Cardiovascular Exam: Present: regular rate, normal rhythm GI/Abdominal exam: Present: soft. Absent: distended, tenderness Extremities exam: Present: normal capillary refill. Absent: pedal edema Neurological exam: Present: alert, motor sensory deficit (Right-sided hemiparesis, right facial droop, left tongue deviation. ) Skin exam: Present: warm, dry, intact. Absent: cyanosis, diaphoretic Course Vital Signs 05/14/17 05/14/17 13:20 13:35 Temperature 97.5 F L Pulse Rate 78 69 Respiratory 16 18 Rate Blood Pressure 158/86 139/78 O2 Sat by Pulse 100 99 Oximetry EKG Findings - EKG Comments: EKG Findings:: EKG shows sinus rhythm, ventricular rate 62, [place] interval 124, QRS duration 82, QTC 46, no signs of acute ischemia Medical Decision Making - Medical Decision Making 66-year-old female presenting with right-sided weakness and right facial droop. Patient's onset has been gradual and worsening over the past 3-1/2 hours prior to arrival. She will she may have woke with some of these symptoms. Patient has had multiple CVA and TIA episodes in the past. She had an episode in December of complete right-sided hemiplegia. Patient's blood pressure normal. Code stroke is activated, medical record review, patient has had multiple strokes in the past, given this plus the uncertain time course and possibility the patient may have woke with these symptoms, no TPA will be administered. This is discussed with Dr. Burgos. According to EMS, the patient was ambulatory to the stretcher. Workup includes CBC, CMP, normal white blood cell count, stable hemoglobin, normal electrolytes. EKG normal sinus with no ischemia. CT head negative for intracranial hemorrhage or mass effect. CT angiography negative for acute occlusion. Chest x-ray negative for focal intrathoracic process. Patient will be admitted for neurology consultation and further stroke workup. She has started on Plavix as she has an aspirin ALLERGY. - Lab Data Result diagrams: 05/14/17 13:43 05/14/17 13:43 Lab Results 05/14/17 05/14/17 05/14/17 Range/Units 13:21 13:43 13:43 WBC 7.7 (3.8-10.6) k/uL RBC 4.80 (3.80-5.40) m/uL Hgb 14.0 (11.4-16.0) gm/dL Hct 43.0 (34.0-46.0) % MCV 89.7 (80.0-100.0) fL MCH 29.2 (25.0-35.0) pg MCHC 32.5 (31.0-37.0) g/dL RDW 14.3 (11.5-15.5) % Plt Count 176 (150-450) k/uL Neutrophils % 68 % Lymphocytes % 22 % Monocytes % 6 % Eosinophils % 1 % Basophils % 1 % Neutrophils # 5.3 (1.3-7.7) k/uL Lymphocytes # 1.7 (1.0-4.8) k/uL Monocytes # 0.5 (0-1.0) k/uL Eosinophils # 0.1 (0-0.7) k/uL Basophils # 0.1 (0-0.2) k/uL PT (9.0-12.0) sec INR (<1.2) APTT (22.0-30.0) sec Sodium 138 (137-145) mmol/L Potassium 4.6 (3.5-5.1) mmol/L Chloride 104 (98-107) mmol/L Carbon Dioxide 26 (22-30) mmol/L Anion Gap 8 mmol/L BUN 14 (7-17) mg/dL Creatinine 0.67 (0.52-1.04) mg/dL Est GFR (MDRD) Af Amer >60 (>60 ml/min/1.73 sqM) Est GFR (MDRD) Non-Af >60 (>60 ml/min/1.73 sqM) Glucose 150 H (74-99) mg/dL POC Glucose (mg/dL) 154 H (75-99) mg/dL POC Glu Wastewater Manager ID Joy Martin Calcium 10.0 (8.4-10.2) mg/dL Total Bilirubin 0.3 (0.2-1.3) mg/dL AST 17 (14-36) U/L ALT 21 (9-52) U/L Alkaline Phosphatase 105 (38-126) U/L Total Creatine Kinase (30-135) U/L CK-MB (CK-2) (0.0-2.4) ng/mL CK-MB (CK-2) Rel Index Troponin I (0.000-0.034) ng/mL Total Protein 6.3 (6.3-8.2) g/dL Albumin 3.6 (3.5-5.0) g/dL 05/14/17 05/14/17 Range/Units 13:43 13:43 WBC (3.8-10.6) k/uL RBC (3.80-5.40) m/uL Hgb (11.4-16.0) gm/dL Hct (34.0-46.0) % MCV (80.0-100.0) fL MCH (25.0-35.0) pg MCHC (31.0-37.0) g/dL RDW (11.5-15.5) % Plt Count (150-450) k/uL Neutrophils % % Lymphocytes % % Monocytes % % Eosinophils % % Basophils % % Neutrophils # (1.3-7.7) k/uL Lymphocytes # (1.0-4.8) k/uL Monocytes # (0-1.0) k/uL Eosinophils # (0-0.7) k/uL Basophils # (0-0.2) k/uL PT 9.5 (9.0-12.0) sec INR 0.9 (<1.2) APTT 22.2 (22.0-30.0) sec Sodium (137-145) mmol/L Potassium (3.5-5.1) mmol/L Chloride (98-107) mmol/L Carbon Dioxide (22-30) mmol/L Anion Gap mmol/L BUN (7-17) mg/dL Creatinine (0.52-1.04) mg/dL Est GFR (MDRD) Af Amer (>60 ml/min/1.73 sqM) Est GFR (MDRD) Non-Af (>60 ml/min/1.73 sqM) Glucose (74-99) mg/dL POC Glucose (mg/dL) (75-99) mg/dL POC Glu Wastewater Manager ID Calcium (8.4-10.2) mg/dL Total Bilirubin (0.2-1.3) mg/dL AST (14-36) U/L ALT (9-52) U/L Alkaline Phosphatase (38-126) U/L Total Creatine Kinase 43 (30-135) U/L CK-MB (CK-2) 0.9 (0.0-2.4) ng/mL CK-MB (CK-2) Rel Index 2.1 Troponin I <0.012 (0.000-0.034) ng/mL Total Protein (6.3-8.2) g/dL Albumin (3.5-5.0) g/dL Critical Care Time Critical Care Time: Yes Total Critical Care Time: 35 Disposition Clinical Impression: CVA (cerebral vascular accident) Disposition: ADMITTED IP TO THIS [facility] Condition: Stable Referrals: Franklin Benitez III, MD [Primary Care Provider] - 1-2 days Decision to Admit Reason: Admit from EC Decision Date: 05/14/17 Decision Time: 15:27
--- NOTE | 2017-05-14 13:44 | CT ---
EXAMINATION TYPE: CT brain wo con for TPA DATE OF EXAM: 05/14/2017 COMPARISON: 12/25/2016 INDICATION: Rt sided weakness DLP: Pending mGycm, Automated exposure control for dose reduction was used. CONTRAST: None CT of the brain is performed utilizing 3 mm thick sections through the posterior fossa and 3 mm thick sections through the remaining calvarium. Study is performed within 24 hours of arrival to the hosp ital. No abnormal hyperdensity is present to suggest an acute intracranial hemorrhage. No mass lesion is evident. No acute infarcts are evident. Ventricles and sulci are appropriate for the patient age. Some minimal fluid is in a posterior left ethmoid air cell. Remaining paranasal sinuses and mastoid a ir cells are clear. IMPRESSIONS: 1. Normal CT Brain 2. No acute intracranial changes identified at this time.
[2017-05-14 13:55] LABS: Basophils # (A) 0.1 k/uL (0-0.2); Basophils % (A) 1 %; Eosinophils # (A) 0.1 k/uL (0-0.7); Eosinophils % (A) 1 %; Lymphocytes # (A) 1.7 k/uL (1.0-4.8); Lymphocytes % (A) 22 %; MCH 29.2 pg (25.0-35.0); MCHC 32.5 g/dL (31.0-37.0); MCV 89.7 fL (80.0-100.0); Mean Platelet Volume 9.7; Monocytes # (A) 0.5 k/uL (0-1.0); Monocytes % (A) 6 %; Neutrophils # (A) 5.3 k/uL (1.3-7.7); Neutrophils % (A) 68 %; Platelet Count 176 k/uL (150-450); RDW 14.3 % (11.5-15.5); WBC 7.7 k/uL (3.8-10.6)
[2017-05-14 14:03] LABS: INR 0.9 (<1.2); Partial Thromboplastin Time 22.2 sec (22.0-30.0); Prothrombin Time 9.5 sec (9.0-12.0)
[2017-05-14 14:11] LABS: ALT 21 U/L (9-52); AST 17 U/L (14-36); Albumin 3.6 g/dL (3.5-5.0); Alkaline Phosphatase 105 U/L (38-126); Anion Gap 8 mmol/L; Blood Urea Nitrogen 14 mg/dL (7-17); Carbon Dioxide 26 mmol/L (22-30); Chloride 104 mmol/L (98-107); Glucose 150 mg/dL (74-99); Potassium 4.6 mmol/L (3.5-5.1); Sodium 138 mmol/L (137-145); Total Bilirubin 0.3 mg/dL (0.2-1.3); Total Protein 6.3 g/dL (6.3-8.2)
[2017-05-14 14:24] LABS: Creatine Kinase 43 U/L (30-135)
[2017-05-14 14:35] LABS: Creatine Kinase MB 0.9 ng/mL (0.0-2.4); Troponin I <0.012 ng/mL (0.000-0.034)
--- NOTE | 2017-05-14 14:37 | CT ---
EXAMINATION TYPE: CT angio head neck DATE OF EXAM: 05/14/2017 HISTORY: Rt sided weakness COMPARISON: 04/21/2015 CT DLP: 326.3 (CTA head and neck). 991.4 (brain) mGycm. Automated Exposure Control for Dose Reductio n was Utilized. TECHNIQUE: CTA scan of the neck is performed with IV Contrast, patient injected with 65 mL of Omnipa que 350, axial images are obtained, coronal and sagittal reformatted images are reviewed. Three-D rec onstructed images are created on an independent workstation and reviewed. FINDINGS: Carotid/Vascular Structures: The ascending thoracic aorta at the level the main pulmonary artery is 3 .4 cm. The main pulmonary artery the bifurcation is 3.2 cm. There is a normal three-vessel arch. Vasc ular calcifications within the great vessels. Vertebral arteries appear codominant. The common caroti d arteries bifurcate into internal and external carotid arteries. [place]: Distal internal carotid arteries bifurcate and A1 and M1 segments. A2 segments appe ar normal. The anterior communicating artery is patent. No cerebral artery branches appear within nor mal limits. The right posterior cerebral artery appears to be fed from the posterior communicating ar serina. Posterior cerebral vasculature is otherwise unremarkable. Vertebrobasilar system appears normal . Middle cerebral artery branches appear unremarkable. Other: Three-D reconstructed images are reviewed no aneurysmal dilatation is evident. IMPRESSION: 1. No acute carotid bifurcation or [place] abnormality evident.
--- NOTE | 2017-05-14 15:09 | XR ---
EXAMINATION TYPE: XR chest 2V DATE OF EXAM: 05/14/2017 COMPARISON: 12/25/2016 INDICATION: Right-sided numbness, altered mental status TECHNIQUE: Frontal and lateral views of the chest are obtained. FINDINGS: The heart size is normal. The pulmonary vasculature is normal. The lungs are clear. IMPRESSION: 1. No acute pulmonary process.
[2017-05-14] MEDS ORDERED: NITROGLYCERIN SL TABS 0.4 MG TAB SUBLINGUAL PRN (15:22)
[2017-05-14] MEDS ORDERED: CLOPIDOGREL 75 MG TAB PO STA (15:30)
--- NOTE | 2017-05-14 18:54 | P.CNNES ---
History of Present Illness Consult date: 05/14/17 Reason for Consult: Patient with acute right sided weakness and stroke. History of Present Illness: This patient is a 66-year-old right-handed white female who was in her usual state of health until early this morning. Patient states she was getting up this morning and trying to get into her wheelchair when she noted sudden onset of right-sided weakness. Symptoms began at approximately 10 AM. She awoke with the weakness in the morning. The symptoms continued to progress and she decided to come to the emergency room. She was seen in the ER and her onset of symptoms were still not very clear but she did have right-sided weakness on examination in the ER at [facility]. She was seen in the ER by Dr. Elias. She was sent for a computed tomography scan of the brain as well as a CTA angiogram of the head and neck. CAT scan of the brain was reported normal with no acute intracranial abnormalities identified. CTA angiogram of the head and neck was normal as well. Dr. Pastor did contact the neuro interventional this at [facility] Dr. Burgos who reviewed her studies and test results. A code stroke was activated in the ER. Given the patient's uncertain onset of symptoms as she awoke with the symptoms in the morning and CAT scan and CTA angiogram results reviewed by Dr. Burgos the final decision was made that the patient was not a TPA candidate. She was recommended to start on Plavix as she was ALLERGIC to aspirin. The patient states she still is unable to move her right arm and leg. We reviewed the CAT scan report once again and there was no evidence of any acute findings. Would recommend an MRI of the brain for further assessment. Patient has a history of multiple strokes in the past. She is unaware when her last stroke occurred but has been several months. The patient does have history of lupus as well as antiphospholipid antibody syndrome. She does follow with her primary physician. She is not seeing any specialists for these conditions. The patient states she is still is unable to lift her right arm. Right leg is also very weak. We did review the code stroke evaluation in the emergency room today with the patient. She is now been admitted for further stroke assessment. Her overall prognosis at this time remains very guarded. Review of Systems Constitutional: Denies chills, Denies fever Eyes: denies blurred vision, denies pain Ears, nose, mouth and throat: Denies headache, Denies sore throat Cardiovascular: Denies chest pain, Denies shortness of breath Respiratory: Denies cough Gastrointestinal: Denies abdominal pain, Denies diarrhea, Denies nausea, Denies vomiting Genitourinary: Denies dysuria, Denies hematuria Musculoskeletal: Denies myalgias Integumentary: Denies pruritus, Denies rash Neurological: Reports motor disturbance, Reports transient paralysis, Denies numbness, Denies weakness Psychiatric: Denies anxiety, Denies depression Endocrine: Denies fatigue, Denies weight change Past Medical History Past Medical History: Coronary Artery Disease (CAD), Chest Pain / Angina, COPD, CVA/TIA, Diabetes Mellitus, Deep Vein Thrombosis (DVT), GERD/Reflux, Hyperlipidemia, Hypertension, Osteoarthritis (OA), Pneumonia, Syncope, Thyroid Disorder Additional Past Medical History / Comment(s): 05/07/15 Pt presented to [facility] ER with L side of body feeling "funny" L upper extremity and L hand weakness with L facial weakness. Pt was recently admitted 04/21/15 with possible CVA. Other HX: Antiphospholipid syndrome , LUPUS, CVA's/TIA's, demyelinization of brain, NIDDM, sinus problems, diverticulosis, uti, RESTLESS LEG SYNDROME, systemic lupus ethythemus, L leg DVT, occipital neuritis, varicosities, colostomy, DJD. History of Any Multi-Drug Resistant Organisms: MRSA Date of last positivie culture/infection: 01/08/17 MDRO Source:: URINE Past Surgical History: Appendectomy, Back Surgery, Bladder Surgery, Cholecystectomy, Hysterectomy, Orthopedic Surgery, Tonsillectomy Additional Past Surgical History / Comment(s): L hip surgery nailing /fixation- L hip hemiarthroplasty, bladder suspension, sisi cataracts, partial laminectomy, . colostomy 2010 D/T PERFORATED DIVERTICULUM with reversal and then 2nd colostomy, LT KNEE SX FOR TORN CARTILAGE Past Anesthesia/Blood Transfusion Reactions: No Reported Reaction Additional Past Anesthesia/Blood Transfusion Reaction / Comment(s): HAD BLOOD TRANSFUSION 15 YEARS ago without reaction. Past Psychological History: Anxiety Smoking Status: Current some day smoker Past Alcohol Use History: None Reported Past Drug Use History: None Reported - Past Family History Mother Family Medical History: Cancer, Hypertension Additional Family Medical History / Comment(s): "mother had cancer from asbestos exposure" Father Family Medical History: Hypertension, Rheumatoid Arthritis (RA) Medications and Allergies Home Medications Medication Instructions Recorded Confirmed Type Metoprolol Succinate [Toprol XL] 50 mg PO DAILY 07/22/13 05/14/17 History Nitroglycerin Sl Tabs [Nitrostat] 0.4 mg SUBLINGUAL Q5M PRN 07/11/14 05/14/17 History Levothyroxine Sodium [Synthroid] 200 mcg PO DAILY 04/21/15 05/14/17 History Ondansetron [Zofran] 4 mg PO Q8HR PRN 04/21/15 05/14/17 History Gabapentin [Neurontin] 600 mg PO QID 06/23/16 05/14/17 History Insulin Aspart [NovoLOG Flexpen] 8 units SQ AC-TID 06/23/16 05/14/17 History rOPINIRole HCL [Requip] 3 mg PO HS 06/23/16 05/14/17 History tiZANidine HCL [Zanaflex] 4 mg PO TID PRN 06/23/16 05/14/17 History Diphenox-Atrop 2.5-0.025 mg 1 tab PO QID PRN 05/14/17 05/14/17 History [Lomotil] Insulin Glargine [Lantus] 30 unit SQ DAILY 05/14/17 05/14/17 History Allergies Allergy/AdvReac Type Severity Reaction Status Date / Time aspirin Allergy Anaphylaxis Verified 05/14/17 14:10 Iodinated Contrast- Oral and Allergy Anaphylaxis Verified 05/14/17 14:10 IV Dye [Iodinated Contrast Media - IV Dye] NSAIDS (Non-Steroidal Allergy Anaphylaxis Verified 05/14/17 14:10 Anti-Inflamma sulfamethoxazole Allergy Unknown Verified 05/14/17 14:10 [From Bactrim] trimethoprim [From Bactrim] Allergy Unknown Verified 05/14/17 14:10 influenza virus vaccine ts AdvReac Nausea & Verified 05/14/17 14:10 [id number] (36 mos,up) Vomiting & [From Fluarix] Diarrhea Physical Examination - Vital Signs Vital Signs: Vital Signs Temp Pulse Resp BP Pulse Ox 05/14/17 18:08 97.9 F 68 16 94/55 96 05/14/17 16:50 62 16 103/58 96 05/14/17 15:50 61 16 114/69 95 05/14/17 15:20 97.9 F 61 16 118/68 99 05/14/17 14:50 63 16 122/74 99 05/14/17 14:20 65 16 131/81 99 05/14/17 14:05 66 16 122/64 99 05/14/17 13:50 72 16 129/64 98 05/14/17 13:35 97.5 F L 69 18 139/78 99 05/14/17 13:20 78 16 158/86 100 Intake and Output 05/14/17 05/14/17 05/14/17 06:59 14:59 22:59 Other: Weight 86.183 kg Patient Weight 05/15/17 06:59 Weight 86.183 kg - Constitutional General appearance: average body habitus, cooperative - EENT EENT: PERRL, mucous membranes moist - Respiratory Respiratory: lungs clear, normal breath sounds - Cardiovascular Cardiovascular: regular rate, normal S1, normal S2 Extremities: no peripheral edema bilaterally - Gastrointestinal Gastrointestinal: normoactive bowel sounds - Integumentary Integumentary: normal - Neurologic Cranial nerve examination: PERRL, EOMI, anisocoria, V1/V2/V3 grossly intact, face symmetric, tongue midline, intact gag reflex, intact corneal reflex, normal palatal elevation Speech examination: intact Sensorimotor examination: intact Motor examination - right side: 1/5: biceps, triceps, wrist flexion, wrist extension, accountant bookkeeper, hip flexors, knee extensors, dorsiflexion, toe extension (EHL) , plantarflexion Motor examination - left side: 4/5: biceps, triceps, wrist flexion, wrist extension, accountant bookkeeper, hip flexors, knee extensors, dorsiflexion, toe extension (EHL) , plantarflexion Detailed sensory examination: intact Reflex and gait examination: intact Reflexes: 1+: ankle, bicep, knee, tricep - Musculoskeletal Musculoskeletal: no pain - Psychiatric Psychiatric: mood/affect appropriate, cooperative Results - Laboratory Findings CBC and BMP: 05/14/17 13:43 05/14/17 13:43 Abnormal Lab Findings: Abnormal Labs 05/14/17 05/14/17 13:21 13:43 Glucose 150 H POC Glucose (mg/dL) 154 H Assessment and Plan (1) Acute ischemic left middle cerebral artery (MCA) stroke Current Visit: No Status: Acute Code(s): I63.512 - CEREB INFRC D/T UNSP OCCLS OR STENOS OF LEFT MID CEREB ART SNOMED Code(s): 793139205 (2) History of stroke associated with blood clotting tendency Current Visit: No Status: Acute Code(s): Z86.73 - PRSNL HX OF TIA (TIA), AND CEREB INFRC W/O RESID DEFICITS SNOMED Code(s): 387788000 (3) Altered mental status Current Visit: No Status: Acute Code(s): R41.82 - ALTERED MENTAL STATUS, UNSPECIFIED SNOMED Code(s): 732522584 (4) Hyperlipemia Current Visit: No Status: Acute Code(s): E78.5 - HYPERLIPIDEMIA, UNSPECIFIED SNOMED Code(s): 91579439 Plan: This patient is a 66-year-old female admitted to Hospital with onset of right- sided weakness and hemiparesis since awakening this morning. Patient was unable to get into her wheelchair. She complained of right-sided arm and leg weakness. EMS was called to the scene and she was transported to the ER for further evaluation. Patient was seen in the ER by Dr. Elias. She underwent a computed tomography scan of the brain as well as a CTA angiogram of the head and neck. A code stroke was initiated in the ER. Due to the findings of awakening with weakness with no clear onset of symptoms she was not deemed to be a candidate for TPA by Dr. Burgos the neuro interventionalists who reviewed the studies and her findings with Dr. Elias. Patient was not a candidate for TPA and she was subsequent admitted to Hospital for further evaluation. Patient has history of multiple strokes in the past. On admission she continues to demonstrate significant right-sided hemiparesthesias. We will obtain an MRI for further evaluation of acute left hemispheric stroke. Would recommend PT OT evaluation and possible subacute rehab placement if she does not show improvement. Patient is started on Plavix for secondary stroke prevention. We will continue close follow-up with the patient. Her overall prognosis at this time remains very guarded. Time with Patient: Greater than 30
[2017-05-14 19:23] LABS: Glucose,Whole Blood 335 mg/dL (75-99)
[2017-05-14] MEDS: INSULIN ASPART 100 UNIT/ML 1 ML 10 ML VIAL SQ SCH (19:29)
[2017-05-14 20:52] LABS: Glucose,Whole Blood 307 mg/dL (75-99)
[2017-05-14] MEDS ORDERED: INSULIN DETEMIR 100 UNIT/ML 10 ML VIAL SQ SCH (21:38)
[2017-05-14] MEDS ORDERED: DIPHENOX-ATROP 2.5-0.025 MG 1 EACH TAB PO PRN (21:39)
[2017-05-14] MEDS ORDERED: ONDANSETRON 4 MG TAB PO PRN (21:39)
[2017-05-14] MEDS: GABAPENTIN 300 MG CAP PO SCH ×3 (21:57→21:59)
[2017-05-14] MEDS: SODIUM CHLORIDE 0.9% 1,000 ML IV SCH (21:58)
[2017-05-14] MEDS: tiZANidine 4 MG TAB PO PRN (22:00)
--- NOTE | 2017-05-14 23:30 | HP ---
HISTORY AND PHYSICAL DATE OF SERVICE: 05/14/2017 CHIEF COMPLAINTS: Right-sided weakness and numbness. HISTORY OF PRESENT ILLNESS: This 66-year-old woman with a past medical history of multiple strokes, history of CAD, history of COPD, diabetes, DVT, GERD, hypertension, history of DJD being followed by Dr. Benitez in the outpatient setting was complaining of significant right-sided weakness and numbness. The last stroke was about 4 months ago. Patient had no residual weakness from that. About 10:00 am, the patient woke and some mild weakness increased significantly and currently patient unable to move anything and the patient came to [facility] and was admitted for further evaluation and treatment. There is no history of fever, rigors, no history of headache, loss of consciousness or seizures. PAST MEDICAL HISTORY: CAD, COPD, CVA, TIA, diabetes, DVT, GERD and hypertension, degenerative joint disease. MEDICATIONS: Prior to admission include home medications are: 1. Toprol-XL 50 mg. 2. Lantus 30 units subcu daily. 3. NovoLog 80 units subcu a.c. t.i.d. 4. Neurontin 300 mg q.i.d. 5. Lomotil 1 tablet q.i.d. p.r.n. 6. Zanaflex 4 mg t.i.d. p.r.n. 7. Requip 3 mg q.h.s. 8. Zofran 4 mg q.8h p.r.n. 9. Nitrostat 0.4 mg q.5h p.r.n. 10.Synthroid 200 mcg p.o. daily. ALLERGIES: ARE NSAIDS, IODINATED CONTRAST, ASPIRIN, BACTRIM AND INFLUENZA VACCINE. FAMILY HISTORY: History of cancer, hypertension. SOCIAL HISTORY: History of smoking. No history of alcohol intake. REVIEW OF SYSTEMS: ENT: No diminished hearing or vision. CARDIOVASCULAR: As mentioned earlier. Respiratory: As mentioned earlier. GI: No nausea or vomiting. no nausea or vomiting. Central nervous system: No numbness. Musculoskeletal: As mentioned earlier. Hematology/Oncology: No history of anemia. Endocrine: Diabetes. Constitutional: As mentioned earlier. Dermatology: Negative. Rheumatology: Negative. Psychiatric: As mentioned earlier. PHYSICAL EXAMINATION: Alert oriented x3. Pulse is 73, blood pressure 118/54, respiration 16, temp 97 degrees, pulse ox 96% on room air. HEENT conjunctivae normal. Neck is no jugular venous distention. Cardiovascular: S1, S2 muffled. Respiratory: Breath sounds diminished in the bases. Scattered rhonchi and crackles. ABDOMEN: Soft, nontender. No mass palpable. Legs no edema and no swelling. NERVOUS SYSTEM: Higher functions as mentioned earlier, diffuse weakness of the right lower limb present with grade 0. No sensory abnormalities. SKIN: No ulcer, rash, or bleeding. Lymphatics: No lymph nodes palpable in the neck, axillae or groin. JOINTS: No active deforming arthropathy. LABS: Glucose [address] scan of the brain showed normal and CT angiography was also done which showed no acute lesions noted. ASSESSMENT: 1. Acute stroke and cerebrovascular accident with right sided probably from left hemispheric lesion. 2. History of previous multiple strokes. 3. Coronary artery disease. 4. History of chronic obstructive pulmonary disease. 5. History of diabetes type 2. 6. History of deep vein thrombosis. 7. History of gastroesophageal reflux disease. 8. Hyperlipidemia. 9. Hypertension. 10.History of degenerative joint disease. 11.Hypothyroidism. 12.History of lupus. 13.History of antiphospholipid syndrome. 14.History of demyelination. 15.History of restless legs syndrome. 16.History of occipital neuritis. 17.History of colostomy. 18.History of degenerative joint disease. 19.Appendectomy. 20.History of anxiety. RECOMMENDATIONS AND DISCUSSION: In this 66 -year-old woman who presented with multiple complex medical issues, we will monitor the patient closely, continue the current medications, symptomatic treatment. Otherwise at this time I recommend neurology evaluation. Neurovascular workup. Guarded prognosis because of multiple complex medical issues. Further recommendations to follow. MMODL / IJN: [id number] /
[2017-05-15] MEDS: LEVOTHYROXINE 100 MCG TAB PO SCH (04:48)
[2017-05-15] MEDS: traMADol 50 MG TAB PO PRN ×3 (04:49→20:19)
[2017-05-15 06:08] LABS: Glucose,Whole Blood 222 mg/dL (75-99)
[2017-05-15 06:37] LABS: Basophils % (A) 0 %; Eosinophils # (A) 0.1 k/uL (0-0.7); Eosinophils % (A) 1 %; HCT 41.1 % (34.0-46.0); HGB 13.1 gm/dL (11.4-16.0); Lymphocytes # (A) 1.1 k/uL (1.0-4.8); Lymphocytes % (A) 11 %; MCH 29.2 pg (25.0-35.0); MCV 91.3 fL (80.0-100.0); Mean Platelet Volume 10.2; Monocytes # (A) 0.4 k/uL (0-1.0); Monocytes % (A) 4 %; Neutrophils # (A) 8.5 k/uL (1.3-7.7); Neutrophils % (A) 83 %; Platelet Count 188 k/uL (150-450); RDW 14.4 % (11.5-15.5); WBC 10.2 k/uL (3.8-10.6)
[2017-05-15] MEDS: INSULIN ASPART 100 UNIT/ML 1 ML 10 ML VIAL SQ SCH ×6 (06:58→21:42)
[2017-05-15 07:05] LABS: Anion Gap 9 mmol/L; Blood Urea Nitrogen 20 mg/dL (7-17); Calcium 9.6 mg/dL (8.4-10.2); Carbon Dioxide 25 mmol/L (22-30); Chloride 103 mmol/L (98-107); Cholesterol 214 mg/dL (<200); Glucose 209 mg/dL (74-99); HDL Cholesterol 47 mg/dL (40-60); LDL Cholesterol,Calculated 124 mg/dL (0-99); Potassium 4.8 mmol/L (3.5-5.1); Sodium 137 mmol/L (137-145); Triglycerides 213 mg/dL (<150)
[2017-05-15] MEDS ORDERED: INSULIN DETEMIR 100 UNIT/ML 10 ML VIAL SQ SCH (09:00)
[2017-05-15] MEDS: GABAPENTIN 300 MG CAP PO SCH ×4 (09:18→20:19)
[2017-05-15] MEDS: METOPROLOL SUCCINATE (ER) 50 MG TAB.ER.24H PO SCH (09:18)
[2017-05-15] MEDS: tiZANidine 4 MG TAB PO PRN ×2 (09:19→15:41)
[2017-05-15] MEDS: CLOPIDOGREL 75 MG TAB PO SCH (10:16)
[2017-05-15 11:48] LABS: Glucose,Whole Blood 264 mg/dL (75-99)
--- NOTE | 2017-05-15 16:04 | P.PN ---
Subjective Progress Note Date: 05/15/17 This patient is a 66-year-old female admitted yesterday to the hospital with new finding of right-sided hemiparesis and weakness. She got up in the morning and was trying to get into her wheelchair noticed she could not use her right arm. Symptoms progressed and she came into the emergency room yesterday for further evaluation. She was seen in the emergency room and was sent for computed tomography scan of the brain as well as a CTA angiogram of the head and neck. CAT scan of the brain was reported negative for any acute stroke. CTA angiogram of the head and neck was also negative. Patient continued to have significant right-sided weakness in the ER. She was subsequent admitted to the hospital. Yesterday's neurological examination revealed patient to have minimal movement in the right arm and leg. We have recommended MRI of the brain for further evaluation. We have recommended patient to continue with PT and OT evaluations. She may also be considered for inpatient rehab placement. We will await results of the MRI in regards to her right-sided hemiparesis. She does have history of multiple old strokes in the past. Hopefully MRI will be completed tomorrow be to give further recommendations depending on those results. Patient does have multiple complex medical issues which is being addressed by the admitting physician. We will continue close neurological follow-up for the patient. Her overall prognosis at this time remains guarded. Objective - Vital Signs Vital signs: Vital Signs Temp 97 F L 05/15/17 08:58 Pulse 57 L 05/15/17 08:58 Resp 16 05/15/17 08:58 BP 98/56 05/15/17 08:58 Pulse Ox 92 L 05/15/17 08:58 Intake & Output 05/14/17 05/15/17 05/15/17 18:59 06:59 18:59 Weight 86.183 kg 87 kg Other: Voiding Method Bedpan Bedpan # Voids 1 # Bowel Movements 1 - Exam Physical examination: PHYSICAL EXAMINATION: Patient is resting comfortably in bed. VITAL SIGNS: Blood pressure is [98/56]. Heart rate is [57]. Respiration is [16] . Temperature is [97.0]. HEENT: Head is atraumatic, neck is supple, there were no carotid bruits. CHEST: Lungs are clear to auscultation and percussion. CARDIAC: S1, S2 normal rate and rhythm. There is no murmur. ABDOMEN: Soft and nontender. Bowel sounds are present. EXTREMITIES: There is no pedal edema. Peripheral pulses are present. Neurological examination: Patient's neurological examination is unchanged from yesterday. She continues to demonstrate right-sided hemiparesis/hemiplegia. Muscle tone and strength is normal on her left side. Remaining neurological examination is unchanged from yesterday. - Labs CBC & Chem 7: 05/15/17 06:12 05/15/17 06:12 Labs: Abnormal Lab Results - Last 24 Hours (Table) 05/14/17 05/14/17 05/14/17 Range/Units 13:43 19:02 20:48 Neutrophils # (1.3-7.7) k/uL BUN (7-17) mg/dL Glucose 150 H (74-99) mg/dL POC Glucose (mg/dL) 335 H 307 H (75-99) mg/dL Triglycerides (<150) mg/dL Cholesterol (<200) mg/dL LDL Cholesterol, Calc (0-99) mg/dL 05/15/17 05/15/17 05/15/17 Range/Units 06:06 06:12 06:12 Neutrophils # 8.5 H (1.3-7.7) k/uL BUN 20 H (7-17) mg/dL Glucose 209 H (74-99) mg/dL POC Glucose (mg/dL) 222 H (75-99) mg/dL Triglycerides 213 H (<150) mg/dL Cholesterol 214 H (<200) mg/dL LDL Cholesterol, Calc 124 H (0-99) mg/dL 05/15/17 Range/Units 11:44 Neutrophils # (1.3-7.7) k/uL BUN (7-17) mg/dL Glucose (74-99) mg/dL POC Glucose (mg/dL) 264 H (75-99) mg/dL Triglycerides (<150) mg/dL Cholesterol (<200) mg/dL LDL Cholesterol, Calc (0-99) mg/dL Assessment and Plan (1) Acute ischemic left middle cerebral artery (MCA) stroke Current Visit: No Status: Acute Code(s): I63.512 - CEREB INFRC D/T UNSP OCCLS OR STENOS OF LEFT MID CEREB ART SNOMED Code(s): 398538160 (2) History of stroke associated with blood clotting tendency Current Visit: No Status: Acute Code(s): Z86.73 - PRSNL HX OF TIA (TIA), AND CEREB INFRC W/O RESID DEFICITS SNOMED Code(s): 133307397 (3) Altered mental status Current Visit: No Status: Acute Code(s): R41.82 - ALTERED MENTAL STATUS, UNSPECIFIED SNOMED Code(s): 555078987 (4) Hyperlipemia Current Visit: No Status: Acute Code(s): E78.5 - HYPERLIPIDEMIA, UNSPECIFIED SNOMED Code(s): 48599627 Plan: This patient is a 66-year-old female with history of multiple complex medical issues including history of multiple strokes and lupus. She was admitted with acute onset of right-sided weakness. Her symptoms have not improved or changed from yesterday. We have recommended MRI of the brain for further evaluation. Hopefully this will be completed tomorrow. She is not able to move her right side today as well. We will continue with PT OT evaluation and possible subacute rehab if there is no significant improvement. Case was discussed at length today with the patient. All her questions were answered. Her overall prognosis at this time remains very guarded. We'll await further recommendations from physical therapy regarding her extreme weakness. We will continue close neurological follow-up for this patient during this admission.
[2017-05-15 16:43] LABS: Glucose,Whole Blood 84 mg/dL (75-99)
[2017-05-15] MEDS: SODIUM CHLORIDE 0.9% 1,000 ML IV SCH (17:23)
--- NOTE | 2017-05-15 19:46 | PN ---
PROGRESS NOTE DATE OF SERVICE: 05/15/2017 This 66-year-old woman with right-sided weakness and numbness being closely monitored. The MRA is pending at this time. No chest pain. No palpitations. No fever. PHYSICAL EXAM: Alert and oriented x3. Pulse 53, blood pressure 94/72, respiration 16, temperature 97.9, pulse ox 94% on room air. HEENT: Conjunctivae normal. Neck: No jugular venous distention. Cardiovascular: S1, S2 muffled. Respiratory: Breath sounds diminished in the bases. No rhonchi and no crackles. ABDOMEN: Soft. Legs are no edema. No swelling. Central nervous system: Significant weakness of the right upper arm present. No facial deviation noted. LABS: CBC within normal limits. Glucose 222, platelets of 213. Cholesterol is 249 and LDL is 125. ASSESSMENT: 1. Acute stroke and cerebrovascular accident on the right side, possible left hemispheric lesion, history of previous multiple strokes. 2. Hyperlipidemia. 3. Coronary artery disease. 4. History of chronic obstructive pulmonary disease. 5. History of diabetes type 2. 6. History of deep vein thrombosis. 7. History of gastroesophageal reflux disease. 8. Hypertension. 9. History of degenerative joint disease. 10.Hypothyroidism. 11.History of lupus. 12.History of antiphospholipid syndrome. 13.History of demyelination. 14.History of restless legs syndrome. 15.History of occipital neuritis. 16.History of colostomy. 17.History of degenerative joint disease. 18.History of appendectomy. 19.History of anxiety. RECOMMENDATIONS AND DISCUSSION: Recommend to continue current medications, continue with monitoring, symptomatic treatment. Otherwise, at this time, I recommend continue current medications. Continue symptomatic treatment. Continue with Plavix. Neurology evaluation. MRI. I would also start a small dose of Lipitor as well. Guarded prognosis because of multiple complex medical issues. Further recommendations to follow. MMODL / IJN: [id number] / MTDD
[2017-05-15] MEDS: ATORVASTATIN 20 MG TAB PO SCH (20:20)
[2017-05-15 20:22] LABS: Hemoglobin A1C 9.8 % (4.0-6.0)
[2017-05-15 20:47] LABS: Glucose,Whole Blood 203 mg/dL (75-99)
[2017-05-15] MEDS: INSULIN DETEMIR 100 UNIT/ML 10 ML VIAL SQ SCH (21:42)
[2017-05-16] MEDS: tiZANidine 4 MG TAB PO PRN ×2 (03:13→23:34)
[2017-05-16 06:10] LABS: Glucose,Whole Blood 140 mg/dL (75-99)
[2017-05-16 06:36] LABS: Basophils % (A) 1 %; Eosinophils # (A) 0.1 k/uL (0-0.7); Eosinophils % (A) 2 %; HCT 40.2 % (34.0-46.0); HGB 12.8 gm/dL (11.4-16.0); Lymphocytes # (A) 2.7 k/uL (1.0-4.8); Lymphocytes % (A) 31 %; MCH 29.2 pg (25.0-35.0); MCHC 31.7 g/dL (31.0-37.0); MCV 92.1 fL (80.0-100.0); Mean Platelet Volume 11.1; Monocytes # (A) 0.6 k/uL (0-1.0); Monocytes % (A) 7 %; Neutrophils # (A) 5.1 k/uL (1.3-7.7); Neutrophils % (A) 58 %; Platelet Count 162 k/uL (150-450); RBC 4.37 m/uL (3.80-5.40); RDW 14.4 % (11.5-15.5); WBC 8.7 k/uL (3.8-10.6)
[2017-05-16] MEDS: LEVOTHYROXINE 100 MCG TAB PO SCH (06:49)
[2017-05-16] MEDS: traMADol 50 MG TAB PO PRN ×3 (06:49→18:06)
[2017-05-16] MEDS: INSULIN ASPART 100 UNIT/ML 1 ML 10 ML VIAL SQ SCH ×7 (06:49→21:32)
[2017-05-16 06:59] LABS: Anion Gap 8 mmol/L; Blood Urea Nitrogen 19 mg/dL (7-17); Calcium 8.8 mg/dL (8.4-10.2); Carbon Dioxide 27 mmol/L (22-30); Chloride 102 mmol/L (98-107); Glucose 139 mg/dL (74-99); Sodium 137 mmol/L (137-145)
[2017-05-16 07:18] LABS: Large Platelets Present
[2017-05-16] MEDS: CLOPIDOGREL 75 MG TAB PO SCH (08:59)
[2017-05-16] MEDS: METOPROLOL SUCCINATE (ER) 50 MG TAB.ER.24H PO SCH (08:59)
[2017-05-16] MEDS: GABAPENTIN 300 MG CAP PO SCH ×4 (08:59→21:32)
--- NOTE | 2017-05-16 10:51 | P.CONS ---
History of Present Illness - Chief Complaint Gait disturbance, right hemiparesthesias - History of Present Illness I had the op to see patient for inpatient rehab consultation with regard to gait disturbance. She was admitted to [facility] May 14 with acute onset right- sided weakness. In August CT, head CT, chest x-ray all negative. Seen by Dr. Florence Salinas who diagnosed stroke. PT, OT, [facility] prescribed. Previous functional history as elicited from patient: 67-year-old right-handed white female who is and lives in 6 floor apartment with daughter. Receives Meals on Wheels but can do some simple no preparation. Daughter does the laundry. Neither drive, take take the bus. Patient describes independent with sitdown shower and wheelchair for mobility. Smokes 4 cigarettes per day and does not drink alcohol. Dr. Benitez his regular doctor. Family history of mother with hypertension. Review of Systems Review of systems: ENT: Denies sneezes or discharge. Eyes: Denies discharge or photophobia. Cardiac: Denies chest pain or palpitation. Pulmonary: Denies cough or shortness of breath. Breast: Denies discharge or lumps. Gastrointestinal: Denies nausea, emesis, constipation, diarrhea. Genitourinary: Denies discharge or frequency. Musculoskeletal: Denies muscle or bone aches. Neurologic: Right-sided weakness and numbness. Endocrine: Denies shakes or sweats. Oncology: Denies cancers. Dermatologic: Denies rash, itching, pruritus. ALLERGY/immunology: Denies sneezes, rashes. Past Medical History Past Medical History: Coronary Artery Disease (CAD), Chest Pain / Angina, COPD, CVA/TIA, Diabetes Mellitus, Deep Vein Thrombosis (DVT), GERD/Reflux, Hyperlipidemia, Hypertension, Osteoarthritis (OA), Pneumonia, Syncope, Thyroid Disorder Additional Past Medical History / Comment(s): 05/07/[address] [facility] ER with L side of body feeling "funny" L upper extremity and L hand weakness with L facial weakness. Pt was recently admitted 04/21/15 with possible CVA. Other HX: Antiphospholipid syndrome , LUPUS, CVA's/TIA's, demyelinization of brain, NIDDM, sinus problems, diverticulosis, uti, RESTLESS LEG SYNDROME, systemic lupus ethythemus, L leg DVT, occipital neuritis, varicosities, colostomy, DJD. History of Any Multi-Drug Resistant Organisms: MRSA Year Discovered:: 01/08/17 MDRO Source:: URINE Past Surgical History: Appendectomy, Back Surgery, Bladder Surgery, Cholecystectomy, Hysterectomy, Orthopedic Surgery, Tonsillectomy Additional Past Surgical History / Comment(s): L hip surgery nailing /fixation- L hip hemiarthroplasty, bladder suspension, sisi cataracts, partial laminectomy, . colostomy 2010 D/T PERFORATED DIVERTICULUM with reversal and then 2nd colostomy, LT KNEE SX FOR TORN CARTILAGE Past Anesthesia/Blood Transfusion Reactions: No Reported Reaction Additional Past Anesthesia/Blood Transfusion Reaction / Comm: HAD BLOOD TRANSFUSION 15 YEARS ago without reaction. Past Psychological History: Anxiety Smoking Status: Current some day smoker Past Alcohol Use History: None Reported Past Drug Use History: None Reported - Past Family History Mother Family Medical History: Cancer, Hypertension Additional Family Medical History / Comment(s): "mother had cancer from asbestos exposure" Father Family Medical History: Hypertension, Rheumatoid Arthritis (RA) Medications and Allergies Home Medications Medication Instructions Recorded Confirmed Type Metoprolol Succinate [Toprol XL] 50 mg PO DAILY 07/22/13 05/14/17 History Nitroglycerin Sl Tabs [Nitrostat] 0.4 mg SUBLINGUAL Q5M PRN 07/11/14 05/14/17 History Levothyroxine Sodium [Synthroid] 200 mcg PO DAILY 04/21/15 05/14/17 History Ondansetron [Zofran] 4 mg PO Q8HR PRN 04/21/15 05/14/17 History Gabapentin [Neurontin] 600 mg PO QID 06/23/16 05/14/17 History Insulin Aspart [NovoLOG Flexpen] 8 units SQ AC-TID 06/23/16 05/14/17 History rOPINIRole HCL [Requip] 3 mg PO HS 06/23/16 05/14/17 History tiZANidine HCL [Zanaflex] 4 mg PO TID PRN 06/23/16 05/14/17 History Diphenox-Atrop 2.5-0.025 mg 1 tab PO QID PRN 05/14/17 05/14/17 History [Lomotil] Insulin Glargine [Lantus] 30 unit SQ DAILY 05/14/17 05/14/17 History Allergies Allergy/AdvReac Type Severity Reaction Status Date / Time aspirin Allergy Anaphylaxis Verified 05/14/17 14:10 Iodinated Contrast- Oral and Allergy Anaphylaxis Verified 05/14/17 14:10 IV Dye [Iodinated Contrast Media - IV Dye] NSAIDS (Non-Steroidal Allergy Anaphylaxis Verified 05/14/17 14:10 Anti-Inflamma sulfamethoxazole Allergy Unknown Verified 05/14/17 14:10 [From Bactrim] trimethoprim [From Bactrim] Allergy Unknown Verified 05/14/17 14:10 influenza virus vaccine ts AdvReac Nausea & Verified 05/14/17 14:10 [id number] (36 mos,up) Vomiting & [From Fluarix] Diarrhea Physical Exam Vitals: Vital Signs Temp Pulse Resp BP Pulse Ox 05/16/17 08:00 97.2 F L 66 16 99/65 95 05/16/17 03:25 97.2 F L 64 18 108/55 94 L 05/15/17 23:42 96.8 F L 67 16 105/61 93 L 05/15/17 20:00 97.3 F L 62 16 111/58 94 L 05/15/17 15:30 96.9 F L 53 L 16 97/48 94 L 05/15/17 12:20 60 16 92/53 97 Intake and Output 05/15/17 05/16/17 05/16/17 22:59 06:59 14:59 Intake Total 240 360 Output Total 400 400 Balance -160 -40 Intake: Oral 240 360 Output: Urine 400 400 Other: Voiding Method Bedpan # Voids 1 Weight 88.3 kg Skin: Good color, texture, turgor. General: Overweight build and comfortable appearance. Head: Normocephalic, atraumatic. Eyes: Symmetric. Pupils equal round. Ears: Symmetric. Hearing within normal limits. Mouth: Clear. Neck: Supple. Carotid without bruit. Cardiac: Regular rate and rhythm. Lungs: Clear anteriorly and posteriorly. Abdomen: Soft active nontender. Extremities: Normal tone. Neurological: Mental status: Alert, cooperative, pleasant. Cranial nerves: Symmetric facial tone and trapezius. Motor: Normal strength left side. Right side plegic. Sensation: Intact throughout left side and depressed/absent right side. DTRs: Symmetric and equal throughout. Mobility: Requires minimal to moderate assistance for bed mobility. Results CBC & Chem 7: 05/16/17 05:47 05/16/17 05:47 Labs: Abnormal Lab Results - Last 24 Hours (Table) 05/15/17 05/15/17 05/15/17 Range/Units 06:12 11:44 20:46 BUN (7-17) mg/dL Glucose (74-99) mg/dL POC Glucose (mg/dL) 264 H 203 H (75-99) mg/dL Hemoglobin A1c 9.8 H (4.0-6.0) % 05/16/17 05/16/17 Range/Units 05:47 06:08 BUN 19 H (7-17) mg/dL Glucose 139 H (74-99) mg/dL POC Glucose (mg/dL) 140 H (75-99) mg/dL Hemoglobin A1c (4.0-6.0) % Chest x-ray: report reviewed (No active disease.) CT Scan - head: report reviewed (No active disease. Angio CT negative.) Assessment and Plan (1) Acute ischemic left middle cerebral artery (MCA) stroke Current Visit: No Status: Acute Code(s): I63.512 - CEREB INFRC D/T UNSP OCCLS OR STENOS OF LEFT MID CEREB ART SNOMED Code(s): 276410005 Plan: Impression: 1. Gait disturbance. 2. Left MCA stroke with result in right hemiparesthesias., Dominant side. 3. Contusion right hip. 4. COPD. 5. Overweight. 6. Cardiac disease. 7. Hypertension. 8. Dyslipidemia. 9. Osteoarthritis. 10. History of syncope and stroke. Comments and plan: At this time PT, OT, [facility] ordered. We'll follow therapies with yourself. Safety concerns noted currently. Would anticipate need and benefit of inpatient rehab but must demonstrate the ability tolerate and benefit from therapies.
[2017-05-16 11:35] LABS: Glucose,Whole Blood 70 mg/dL (75-99)
--- NOTE | 2017-05-16 13:38 | MR ---
EXAMINATION TYPE: MR brain wo con DATE OF EXAM: 05/16/2017 COMPARISON: CT brain 05/14/2017, MRI 05/12/2015 HISTORY: Patient with acute right sided hemiplegia CONTRAST: Performed utilizing 0 mL intravenous Gadavist gadolinium contrast. TECHNIQUE: Multiplanar, multiecho imaging on a 3.0 Irena magnet is performed through the brain. Stud y is not performed within 24 hours of arrival to the hospital. The craniovertebral junction is normal. The pituitary is normal. Diffusion-weighted imaging is performed. No abnormal hyperintensity is present to suggest an acute i ntracranial infarct or acute ischemic change. There is a punctate area of hyperintensity within the right cerebral peduncle. This is from 05/12/2015 MRI. Scattered perivascular hyperintensities are present within the centrum semiovale. There are mul tiple scattered punctate subcortical white matter changes. This may have mild progression in number f rom prior study. These are nonspecific. Differential diagnosis would include but is not limited to mu ltiple sclerosis, microvascular ischemic change, vasculitis. Ventricles and sulci are appropriate for the patient age. Mild mucosal thickening is through ethmoid air cells. IMPRESSIONS: 1. Multiple scattered microvascular ischemic type changes. Other etiologies could be considered parti ally discussed above. This is slightly progressive from the 2016 MRI examination. 2. No acute intracranial process.
[2017-05-16 14:00] VITALS: BMI 34.4
[2017-05-16 17:09] LABS: Glucose,Whole Blood 115 mg/dL (75-99)
--- NOTE | 2017-05-16 17:41 | P.PN ---
Subjective Progress Note Date: 05/16/17 Progress Note Being dictated for Dr. Hazel Interval history: This a 66-year-old female admitted with acute CVA on the right , possible left hemispheric lesion in a patient with history of previous multiple strokes, hyperlipidemia, CAD and multiple other medical issues. Brain MRI pending. Evaluated by neurology with recommendations noted. Maintained on Plavix, statin. Denies chest pain, palpitations. Objective - Vital Signs Vital signs: Vital Signs Temp 97.0 F L 05/16/17 12:00 Pulse 65 05/16/17 12:00 Resp 18 05/16/17 12:00 BP 110/60 05/16/17 12:00 Pulse Ox 94 L 05/16/17 12:00 Intake & Output 05/15/17 05/16/17 05/16/17 18:59 06:59 18:59 Intake Total 240 360 Output Total 800 Balance 240 -440 Weight 88.3 kg 88.3 kg Intake: Oral 240 360 Output: Urine 800 Other: Voiding Method Bedpan # Voids 2 1 # Bowel Movements 2 - Exam PHYSICAL EXAM: VITAL SIGNS: As above GENERAL: Sitting up in bed, no acute distress HEENT: Conjunctivae normal. eyes normal. Oral mucosa moist NECK: No JVD. No thyroid enlargement. No LNs CARDIOVASCULAR: S1, S2 muffled. No murmur RESPIRATION: Breath sounds diminished in the bases. No rhonchi or crackles. No bronchial breathing. ABDOMEN: Soft, nontender . No guarding. no masses palpable.Bowel sounds heard. LEGS: No edema. no swelling PSYCHIATRY: Alert and oriented -3, mood and affect normal. NERVOUS SYSTEM: Cranial N 2-12 grossly normal. Significant weakness of the right upper arm and leg. No facial deviation noted. Speech fluent, appropriate. Skin: no ulcer no rash. Joints: No active swelling. No inflammation. Lymphatic system. No LN neck axilla or groin. - Labs CBC & Chem 7: 05/16/17 05:47 05/16/17 05:47 Labs: Abnormal Lab Results - Last 24 Hours (Table) 05/15/17 05/15/17 05/16/17 Range/Units 06:12 20:46 05:47 BUN 19 H (7-17) mg/dL Glucose 139 H (74-99) mg/dL POC Glucose (mg/dL) 203 H (75-99) mg/dL Hemoglobin A1c 9.8 H (4.0-6.0) % 05/16/17 05/16/17 Range/Units 06:08 11:20 BUN (7-17) mg/dL Glucose (74-99) mg/dL POC Glucose (mg/dL) 140 H 70 L (75-99) mg/dL Hemoglobin A1c (4.0-6.0) % Assessment and Plan Assessment: 1. Acute ischemic CVA , left middle cerebral artery, history of previous multiple strokes 2. Hyperlipidemia 3. CAD 4. COPD 5.Diabetes mellitus type 2 6. Hypertension 7. Gastroesophageal reflux disease 8. Ongoing nicotine dependence Plan: Continue on current medication regime ,monitoring and symptomatic treatment. MRI completed, results pending.Maintain statin, Plavix. PT OT. Evaluation by Dr. Evans for possible inpatient rehab at [facility] noted. Follow closely with neurology. Discharge planning in progress for tomorrow for either inpatient rehab at [facility] or subacute rehab pending neurology's clearance. The impression and plan of care has been dictated as directed. : I performed a history and examination of this patient, discussed the same with the dictator. I agree with the dictator's note ,documented as a scribe. Any additional findings or plans will be noted.
[2017-05-16] MEDS: SODIUM CHLORIDE 0.9% 1,000 ML IV SCH (19:03)
--- NOTE | 2017-05-16 19:59 | P.PN ---
Subjective Progress Note Date: 05/16/17 This patient is a 66-year-old female who was admitted with acute right-sided weakness suggesting possibility of acute stroke. Patient has history of multiple strokes in the past. She had significant hemiparesis on her right side on admission. Today she is able to move her hand slightly. She was sent for MRI of the brain today the results of which indicate multiple microvascular ischemic changes. No evidence for acute stroke. Diffusion-weighted imaging revealed no acute abnormality for acute ischemic stroke. We reviewed the results of the MRI today with the patient. She was seen by Dr. Evans for possible rehab placement. Patient states she would rather like to go home and work on therapy at home. We will await further recommendations from Dr. Evans. He feels she may be a candidate for inpatient rehab but she would have to demonstrate the ability to tolerate and benefit from the therapies. The patient seems to be doing slightly better today. We will continue close neurological follow-up for the patient. Overall prognosis remains guarded. Objective - Vital Signs Vital signs: Vital Signs Temp 97.0 F L 05/16/17 16:00 Pulse 61 05/16/17 16:00 Resp 18 05/16/17 16:00 BP 129/65 05/16/17 16:00 Pulse Ox 95 05/16/17 16:00 Intake & Output 05/16/17 05/16/17 05/17/17 06:59 18:59 06:59 Intake Total 360 Output Total 800 Balance -440 Weight 88.3 kg 88.3 kg Intake: Oral 360 Output: Urine 800 Other: # Voids 1 2 - Exam Physical examination: PHYSICAL EXAMINATION: Patient is resting comfortably in bed. VITAL SIGNS: Blood pressure is [110/60]. Heart rate is [65]. Respiration is [18] . Temperature is [97.0]. HEENT: Head is atraumatic, neck is supple, there were no carotid bruits. CHEST: Lungs are clear to auscultation and percussion. CARDIAC: S1, S2 normal rate and rhythm. There is no murmur. ABDOMEN: Soft and nontender. Bowel sounds are present. EXTREMITIES: There is no pedal edema. Peripheral pulses are present. Neurological examination: Patient's neurological examination is unchanged from yesterday. She continues to demonstrate right-sided hemiparesis/hemiplegia. She is able to move her right arm slightly today which is improvement from yesterday. Muscle tone and strength is normal on her left side. Remaining neurological examination is unchanged from yesterday. - Labs CBC & Chem 7: 05/16/17 05:47 05/16/17 05:47 Labs: Abnormal Lab Results - Last 24 Hours (Table) 05/15/17 05/15/17 05/16/17 Range/Units 06:12 20:46 05:47 BUN 19 H (7-17) mg/dL Glucose 139 H (74-99) mg/dL POC Glucose (mg/dL) 203 H (75-99) mg/dL Hemoglobin A1c 9.8 H (4.0-6.0) % 05/16/17 05/16/17 05/16/17 Range/Units 06:08 11:20 16:40 BUN (7-17) mg/dL Glucose (74-99) mg/dL POC Glucose (mg/dL) 140 H 70 L 115 H (75-99) mg/dL Hemoglobin A1c (4.0-6.0) % Assessment and Plan (1) Acute ischemic left middle cerebral artery (MCA) stroke Current Visit: No Status: Acute Code(s): I63.512 - CEREB INFRC D/T UNSP OCCLS OR STENOS OF LEFT MID CEREB ART SNOMED Code(s): 895559597 (2) History of stroke associated with blood clotting tendency Current Visit: No Status: Acute Code(s): Z86.73 - PRSNL HX OF TIA (TIA), AND CEREB INFRC W/O RESID DEFICITS SNOMED Code(s): 081251656 (3) Altered mental status Current Visit: No Status: Acute Code(s): R41.82 - ALTERED MENTAL STATUS, UNSPECIFIED SNOMED Code(s): 298869459 (4) Hyperlipemia Current Visit: No Status: Acute Code(s): E78.5 - HYPERLIPIDEMIA, UNSPECIFIED SNOMED Code(s): 11293013 Plan: This patient is a 66-year-old female admitted with acute right-sided weakness. She was sent for MRI of the brain today the results which are noted above. MRI fails to reveal any evidence of acute stroke. She is able to use her right arm slightly today. She was seen for possible inpatient rehab placement and was interviewed by Dr. Evans. We will await his further recommendations for possible discharge plan. Patient is able to use her right hand slightly today which is an improvement. We reviewed the results of the MRI with her in detail. At this time she is to be considered for either outpatient or inpatient rehab placement. Patient is currently feeling she would like to go home and finish further treatment as outpatient. We will continue to follow her progress closely. Her overall prognosis at this time remains guarded.
[2017-05-16 21:16] LABS: Glucose,Whole Blood 144 mg/dL (75-99)
[2017-05-16] MEDS: INSULIN DETEMIR 100 UNIT/ML 10 ML VIAL SQ SCH (21:32)
[2017-05-16] MEDS: ATORVASTATIN 20 MG TAB PO SCH (21:32)
[2017-05-17] MEDS: traMADol 50 MG TAB PO PRN ×3 (02:33→14:21)
[2017-05-17 06:07] LABS: Glucose,Whole Blood 104 mg/dL (75-99)
[2017-05-17] MEDS: INSULIN ASPART 100 UNIT/ML 1 ML 10 ML VIAL SQ SCH ×4 (06:09→13:31)
[2017-05-17 06:35] LABS: Basophils % (A) 1 %; Eosinophils # (A) 0.1 k/uL (0-0.7); Eosinophils % (A) 2 %; HCT 37.6 % (34.0-46.0); HGB 12.5 gm/dL (11.4-16.0); Lymphocytes % (A) 32 %; MCH 29.3 pg (25.0-35.0); MCHC 33.3 g/dL (31.0-37.0); MCV 88.1 fL (80.0-100.0); Mean Platelet Volume 9.6; Monocytes # (A) 0.4 k/uL (0-1.0); Monocytes % (A) 6 %; Neutrophils # (A) 3.7 k/uL (1.3-7.7); Neutrophils % (A) 58 %; Platelet Count 154 k/uL (150-450); RBC 4.27 m/uL (3.80-5.40); RDW 14.1 % (11.5-15.5); WBC 6.4 k/uL (3.8-10.6)
[2017-05-17] MEDS: LEVOTHYROXINE 100 MCG TAB PO SCH (06:36)
[2017-05-17 06:51] LABS: Anion Gap 7 mmol/L; Blood Urea Nitrogen 12 mg/dL (7-17); Calcium 8.6 mg/dL (8.4-10.2); Carbon Dioxide 26 mmol/L (22-30); Chloride 105 mmol/L (98-107); Glucose 102 mg/dL (74-99); Potassium 4.2 mmol/L (3.5-5.1); Sodium 138 mmol/L (137-145)
[2017-05-17] MEDS: GABAPENTIN 300 MG CAP PO SCH ×2 (08:43→11:59)
[2017-05-17] MEDS: CLOPIDOGREL 75 MG TAB PO SCH (08:44)
[2017-05-17] MEDS: METOPROLOL SUCCINATE (ER) 50 MG TAB.ER.24H PO SCH (08:44)
--- NOTE | 2017-05-17 09:59 | P.DS ---
Providers Date of admission: 05/14/17 15:20 Expected date of discharge: 05/17/17 Attending physician: Joel Hazel Consults: 05/14/17 15:21 Consult Physician Routine Consulting Provider: Yossi Rodrigues Consult Reason/Comments: cva Do you want consulting provider notified?: Yes 05/16/17 08:18 Consult Physician Routine Consulting Provider: Rusty Evans Consult Reason/Comments: inpatient rehab Do you want consulting provider notified?: Yes Primary care physician: Franklin Mendoza [facility] Hospital Course: Final Diagnoses: 1. Acute ischemic CVA , left middle cerebral artery, history of previous multiple strokes 2. Hyperlipidemia 3. CAD 4. COPD 5.Diabetes mellitus type 2 6. Hypertension 7. Gastroesophageal reflux disease 8. Ongoing nicotine dependence Hospital course:This a 66-year-old female admitted with acute CVA on the right, possible left hemispheric lesion in a patient with history of previous multiple strokes, hyperlipidemia, CAD and multiple other medical issues. Evaluated by neurology. Neuro workup completed. Brain MRI reported multiple microvascular ischemic changes with no evidence of acute stroke. Maintained on statin, Plavix. Evaluated by Dr. Evans for possible inpatient rehab. Cleared by nephrology for discharge. Patient is being discharged to either [facility] inpatient rehab or subacute rehab. in a stable condition with guarded prognosis. Physical Exam:VSS, alert and oriented 3, no acute distress. CVS: Regular S1 and S2,LUNGS: Bases diminishedABD: Soft nontender positive bowel sounds. Neuro : Right-sided hemiparesis/hemiplegia,moving right arm. The impression and plan of care has been dictated as directed. : I performed a history and examination of this patient, discussed the same with the dictator. I agree with the dictator's note ,documented as a scribe. Any additional findings or plans will be noted. Time taken: 35 minutes Patient Condition at Discharge: Stable Plan - Discharge Summary New Discharge Prescriptions: New Atorvastatin [Lipitor] 20 mg PO HS #30 tab Clopidogrel [Plavix] 75 mg PO DAILY #30 tab INSULIN LISPRO (HumaLOG) [humaLOG] 0 unit SQ ACHS #1 vial traMADol HCl [Ultram] 50 mg PO TID PRN #15 tab PRN Reason: Pain Continue Metoprolol Succinate [Toprol XL] 50 mg PO DAILY Nitroglycerin Sl Tabs [Nitrostat] 0.4 mg SUBLINGUAL Q5M PRN PRN Reason: Angina Levothyroxine Sodium [Synthroid] 200 mcg PO DAILY Ondansetron [Zofran] 4 mg PO Q8HR PRN PRN Reason: Nausea Gabapentin [Neurontin] 600 mg PO QID Insulin Aspart [NovoLOG Flexpen] 8 units SQ AC-TID rOPINIRole HCL [Requip] 3 mg PO HS tiZANidine HCL [Zanaflex] 4 mg PO TID PRN PRN Reason: Pain Insulin Glargine [Lantus] 30 unit SQ DAILY Diphenox-Atrop 2.5-0.025 mg [Lomotil] 1 tab PO QID PRN #10 tab PRN Reason: Diarrhea Discharge Medication List Metoprolol Succinate [Toprol XL] 50 mg PO DAILY 07/22/13 [History] Nitroglycerin Sl Tabs [Nitrostat] 0.4 mg SUBLINGUAL Q5M PRN 07/11/14 [History] Levothyroxine Sodium [Synthroid] 200 mcg PO DAILY 04/21/15 [History] Ondansetron [Zofran] 4 mg PO Q8HR PRN 04/21/15 [History] Gabapentin [Neurontin] 600 mg PO QID 06/23/16 [History] Insulin Aspart [NovoLOG Flexpen] 8 units SQ AC-TID 06/23/16 [History] rOPINIRole HCL [Requip] 3 mg PO HS 06/23/16 [History] tiZANidine HCL [Zanaflex] 4 mg PO TID PRN 06/23/16 [History] Insulin Glargine [Lantus] 30 unit SQ DAILY 05/14/17 [History] Atorvastatin [Lipitor] 20 mg PO HS #30 tab 05/17/17 [Rx] Clopidogrel [Plavix] 75 mg PO DAILY #30 tab 05/17/17 [Rx] Diphenox-Atrop 2.5-0.025 mg [Lomotil] 1 tab PO QID PRN #10 tab 05/17/17 [Rx] INSULIN LISPRO (HumaLOG) [humaLOG] 0 unit SQ ACHS #1 vial 05/17/17 [Rx] traMADol HCl [Ultram] 50 mg PO TID PRN #15 tab 05/17/17 [Rx] Follow up Appointment(s)/Referral(s): Franklin Benitez III, MD [Primary Care Provider] - 1 Week (After discharge from inpatient rehab/subacute rehab) Rusty Evans MD [STAFF PHYSICIAN] - 3 Days Yossi Rodrigues MD [STAFF PHYSICIAN] - 2 Weeks Activity/Diet/Wound Care/Special Instructions: Left voicemail for SW about [facility] inpatient rehab or ECF for discharge tomorrow. Diet: Cardiac, consistent carb Accu-Cheks before meals and at bedtime with sliding scale as ordered Activity: As tolerated. CBC, BMP in 3 days.
[2017-05-17 10:13] VITALS: RESP 16
[2017-05-17] MEDS: SODIUM CHLORIDE 0.9% 1,000 ML IV SCH (11:58)
[2017-05-17] MEDS: tiZANidine 4 MG TAB PO PRN (11:59)
[2017-05-17 12:02] LABS: Glucose,Whole Blood 102 mg/dL (75-99)
[2017-05-17 12:20] VITALS: BP 126/72; PULSE 63; TEMP 97.3
--- NOTE | 2017-05-17 23:39 | DS ---
DISCHARGE SUMMARY ADDENDUM: DATE OF SERVICE: 05/17/2017 This 66-year-old woman was admitted with acute ischemic CVA, was scheduled to go to the rehab, however currently the patient is being discharged to home in a stable condition with guarded prognosis. Please refer to the previously dictated discharge summary for the details of the medications and recommendations. Closely follow with Neurology in the outpatient. MMSUNDAR / RACHIDN: [id number] /
== END 2017-05-17 14:33 | disposition home health service (06) | DRG 65 ==
LOC: EC 13:17 → 6SEL 15:20
PROVIDERS: ADMIT Hospitalist; ATTEND Hospitalist
DX: I63.512 Cerebral infarction due to unspecified occlusion or stenosis of left middle cerebral artery (principal); G81.91 Hemiplegia, unspecified affecting right dominant side; D68.61 Antiphospholipid syndrome; M32.9 Systemic lupus erythematosus, unspecified; J44.9 Chronic obstructive pulmonary disease, unspecified; R29.810 Facial weakness; R40.2362 Coma scale, best motor response, obeys commands, at arrival to emergency department; R40.2142 Coma scale, eyes open, spontaneous, at arrival to emergency department; R29.713 NIHSS score 13; R40.2252 Coma scale, best verbal response, oriented, at arrival to emergency department; I10 Essential (primary) hypertension; K21.9 Gastro-esophageal reflux disease without esophagitis; E78.5 Hyperlipidemia, unspecified; M19.91 Primary osteoarthritis, unspecified site; E03.9 Hypothyroidism, unspecified; G25.81 Restless legs syndrome; I25.10 Atherosclerotic heart disease of native coronary artery without angina pectoris; E11.9 Type 2 diabetes mellitus without complications; S70.01XA Contusion of right hip, initial encounter; E66.3 Overweight; Z68.34 Body mass index [BMI] 34.0-34.9, adult; K57.90 Diverticulosis of intestine, part unspecified, without perforation or abscess without bleeding; F17.210 Nicotine dependence, cigarettes, uncomplicated; Z79.4 Long term (current) use of insulin; Z79.899 Other long term (current) drug therapy; Z93.3 Colostomy status; Z86.14 Personal history of Methicillin resistant Staphylococcus aureus infection; Z90.49 Acquired absence of other specified parts of digestive tract; Z90.710 Acquired absence of both cervix and uterus; Z96.642 Presence of left artificial hip joint; Z98.42 Cataract extraction status, left eye; Z98.41 Cataract extraction status, right eye; Z99.3 Dependence on wheelchair; Z86.59 Personal history of other mental and behavioral disorders; Z87.01 Personal history of pneumonia (recurrent); Z87.440 Personal history of urinary (tract) infections; Z86.69 Personal history of other diseases of the nervous system and sense organs; Z86.718 Personal history of other venous thrombosis and embolism; Z88.7 Allergy status to serum and vaccine; Z88.8 Allergy status to other drugs, medicaments and biological substances; Z88.6 Allergy status to analgesic agent; Z88.4 Allergy status to anesthetic agent; Z91.041 Radiographic dye allergy status
CPT/HCPCS: 36415; 70450; 70496; 70498; 70551; 71046; 80048; 80053; 80061; 82550; 82553; 83036; 84484; 85025; 85610; 85730; 93005; 96374; 96375; 99291

== ENCOUNTER 2017-06-01 02:50 | Emergency (ER) | payer MEDICARE ==
[2017-06-01 03:50] LABS: Basophils % (A) 0 %; Eosinophils # (A) 0.1 k/uL (0-0.7); Eosinophils % (A) 1 %; HCT 39.6 % (34.0-46.0); HGB 13.1 gm/dL (11.4-16.0); Lymphocytes # (A) 1.5 k/uL (1.0-4.8); Lymphocytes % (A) 18 %; MCH 29.2 pg (25.0-35.0); MCV 88.5 fL (80.0-100.0); Mean Platelet Volume 9.1; Monocytes # (A) 0.5 k/uL (0-1.0); Monocytes % (A) 5 %; Neutrophils # (A) 6.1 k/uL (1.3-7.7); Neutrophils % (A) 74 %; Platelet Count 252 k/uL (150-450); RBC 4.48 m/uL (3.80-5.40); RDW 14.4 % (11.5-15.5); WBC 8.3 k/uL (3.8-10.6)
[2017-06-01 03:52] LABS: ALT 20 U/L (9-52); AST 13 U/L (14-36); Albumin 3.8 g/dL (3.5-5.0); Alkaline Phosphatase 131 U/L (38-126); Anion Gap 9 mmol/L; Blood Urea Nitrogen 11 mg/dL (7-17); Calcium 10.1 mg/dL (8.4-10.2); Carbon Dioxide 30 mmol/L (22-30); Chloride 96 mmol/L (98-107); Glucose 365 mg/dL (74-99); Potassium 4.2 mmol/L (3.5-5.1); Sodium 135 mmol/L (137-145); Total Bilirubin 0.2 mg/dL (0.2-1.3); Total Protein 6.7 g/dL (6.3-8.2)
[2017-06-01] MEDS ORDERED: INSULIN REGULAR 100 UNIT/ML VIAL IV ONE (04:05)
--- NOTE | 2017-06-01 04:08 | ED ---
General Adult HPI - General Chief complaint: Extremity Injury, Lower Stated complaint: Left leg pain Time Seen by Provider: 06/01/17 03:01 Source: patient, EMS, RN notes reviewed Mode of arrival: EMS Limitations: no limitations - History of Present Illness Initial comments: 66 yo female presenting for evaluation of left lower extremity swelling and erythema. Patient states this progressed over the past 6 hours. Denies fever or chills. Denies dyspnea or chest pain. Denies abdominal pain nausea vomiting diarrhea. Patient states she is on blood thinners but is uncertain what these medications are. She is not currently on any antibiotics. She has history of lupus and states she does have some skin breakdown on her left leg which is a consequence of her lupus. - Related Data Home Medications Medication Instructions Recorded Confirmed Metoprolol Succinate [Toprol XL] 50 mg PO DAILY 07/22/13 05/14/17 Nitroglycerin Sl Tabs [Nitrostat] 0.4 mg SUBLINGUAL Q5M PRN 07/11/14 05/14/17 Levothyroxine Sodium [Synthroid] 200 mcg PO DAILY 04/21/15 05/14/17 Ondansetron [Zofran] 4 mg PO Q8HR PRN 04/21/15 05/14/17 Gabapentin [Neurontin] 600 mg PO QID 06/23/16 05/14/17 Insulin Aspart [NovoLOG Flexpen] 8 units SQ AC-TID 06/23/16 05/14/17 rOPINIRole HCL [Requip] 3 mg PO HS 06/23/16 05/14/17 tiZANidine HCL [Zanaflex] 4 mg PO TID PRN 06/23/16 05/14/17 Insulin Glargine [Lantus] 30 unit SQ DAILY 05/14/17 05/14/17 Previous Rx's Medication Instructions Recorded Atorvastatin [Lipitor] 20 mg PO HS #30 tab 05/17/17 Clopidogrel [Plavix] 75 mg PO DAILY #30 tab 05/17/17 Diphenox-Atrop 2.5-0.025 mg 1 tab PO QID PRN #10 tab 05/17/17 [Lomotil] INSULIN LISPRO (HumaLOG) [humaLOG] 0 unit SQ ACHS #1 vial 05/17/17 traMADol HCl [Ultram] 50 mg PO TID PRN #15 tab 05/17/17 Cephalexin [Keflex] 500 mg PO Q8HR #30 cap 06/01/17 Allergies Allergy/AdvReac Type Severity Reaction Status Date / Time aspirin Allergy Anaphylaxis Verified 05/14/17 14:10 Iodinated Contrast- Oral and Allergy Anaphylaxis Verified 05/14/17 14:10 IV Dye [Iodinated Contrast Media - IV Dye] NSAIDS (Non-Steroidal Allergy Anaphylaxis Verified 05/14/17 14:10 Anti-Inflamma sulfamethoxazole Allergy Unknown Verified 05/14/17 14:10 [From Bactrim] trimethoprim [From Bactrim] Allergy Unknown Verified 05/14/17 14:10 influenza virus vaccine ts AdvReac Nausea & Verified 05/14/17 14:10 [id number] (36 mos,up) Vomiting & [From Fluarix] Diarrhea Review of Systems ROS Statement: Those systems with pertinent positive or pertinent negative responses have been documented in the HPI. ROS Other: All systems not noted in ROS Statement are negative. Past Medical History Past Medical History: Coronary Artery Disease (CAD), Chest Pain / Angina, COPD, CVA/TIA, Diabetes Mellitus, Deep Vein Thrombosis (DVT), GERD/Reflux, Hyperlipidemia, Hypertension, Osteoarthritis (OA), Pneumonia, Syncope, Thyroid Disorder Additional Past Medical History / Comment(s): 05/07/15 Pt presented to [facility] ER with L side of body feeling "funny" L upper extremity and L hand weakness with L facial weakness. Pt was recently admitted 04/21/15 with possible CVA. Other HX: Antiphospholipid syndrome , LUPUS, CVA's/TIA's, demyelinization of brain, NIDDM, sinus problems, diverticulosis, uti, RESTLESS LEG SYNDROME, systemic lupus ethythemus, L leg DVT, occipital neuritis, varicosities, colostomy, DJD. History of Any Multi-Drug Resistant Organisms: MRSA Date of last positivie culture/infection: 01/08/17 MDRO Source:: URINE Past Surgical History: Appendectomy, Back Surgery, Bladder Surgery, Cholecystectomy, Hysterectomy, Orthopedic Surgery, Tonsillectomy Additional Past Surgical History / Comment(s): L hip surgery nailing /fixation- L hip hemiarthroplasty, bladder suspension, sisi cataracts, partial laminectomy, . colostomy 2010 D/T PERFORATED DIVERTICULUM with reversal and then 2nd colostomy, LT KNEE SX FOR TORN CARTILAGE Past Anesthesia/Blood Transfusion Reactions: No Reported Reaction Additional Past Anesthesia/Blood Transfusion Reaction / Comment(s): HAD BLOOD TRANSFUSION 15 YEARS ago without reaction. Past Psychological History: Anxiety Smoking Status: Current some day smoker Past Alcohol Use History: None Reported Past Drug Use History: None Reported - Past Family History Mother Family Medical History: Cancer, Hypertension Additional Family Medical History / Comment(s): "mother had cancer from asbestos exposure" Father Family Medical History: Hypertension, Rheumatoid Arthritis (RA) General Exam Limitations: no limitations General appearance: alert, in no apparent distress Head exam: Present: atraumatic, normocephalic Eye exam: Present: normal appearance, PERRL Neck exam: Present: normal inspection. Absent: tenderness, meningismus Respiratory exam: Present: normal lung sounds bilaterally. Absent: respiratory distress, wheezes Cardiovascular Exam: Present: regular rate, normal rhythm GI/Abdominal exam: Present: soft. Absent: distended, tenderness, guarding Extremities exam: Present: pedal edema, other (Erythema of the calf surrounding multiple superficial skin lesions, there is some swelling and increased calf circumference on the left compared to the right. No induration or fluctuance.) Neurological exam: Present: alert, oriented X3, CN II-XII intact. Absent: motor sensory deficit Psychiatric exam: Present: normal affect, normal mood Skin exam: Present: warm, dry Course Vital Signs 06/01/17 02:52 Temperature 98.3 F Pulse Rate 100 Respiratory 18 Rate Blood Pressure 168/75 O2 Sat by Pulse 94 L Oximetry Medical Decision Making - Medical Decision Making 66 yo presenting with left lower extremity swelling and erythema. Ultrasound is obtained, negative for DVT. Laboratory studies reveal normal white blood cell count, stable hemoglobin, glucose is elevated at 365, patient is given insulin. She'll be started on Keflex and is instructed to follow-up with her primary care physician within the next several days for reevaluation. Return with any worsening pain swelling, erythema, or fever. - Lab Data Result diagrams: 06/01/17 03:30 06/01/17 03:30 Lab Results 06/01/17 06/01/17 06/01/17 Range/Units 03:30 03:30 03:30 WBC 8.3 (3.8-10.6) k/uL RBC 4.48 (3.80-5.40) m/uL Hgb 13.1 (11.4-16.0) gm/dL Hct 39.6 (34.0-46.0) % MCV 88.5 (80.0-100.0) fL MCH 29.2 (25.0-35.0) pg MCHC 33.0 (31.0-37.0) g/dL RDW 14.4 (11.5-15.5) % Plt Count 252 (150-450) k/uL Neutrophils % 74 % Lymphocytes % 18 % Monocytes % 5 % Eosinophils % 1 % Basophils % 0 % Neutrophils # 6.1 (1.3-7.7) k/uL Lymphocytes # 1.5 (1.0-4.8) k/uL Monocytes # 0.5 (0-1.0) k/uL Eosinophils # 0.1 (0-0.7) k/uL Basophils # 0.0 (0-0.2) k/uL Sodium 135 L (137-145) mmol/L Potassium 4.2 (3.5-5.1) mmol/L Chloride 96 L (98-107) mmol/L Carbon Dioxide 30 (22-30) mmol/L Anion Gap 9 mmol/L BUN 11 (7-17) mg/dL Creatinine 0.60 (0.52-1.04) mg/dL Est GFR (CKD-EPI)AfAm >90 (>60 ml/min/1.73 sqM) Est GFR (CKD-EPI)NonAf >90 (>60 ml/min/1.73 sqM) Glucose 365 H (74-99) mg/dL Plasma Lactic Acid Shahzad 1.4 (0.7-2.0) mmol/L Calcium 10.1 (8.4-10.2) mg/dL Total Bilirubin 0.2 (0.2-1.3) mg/dL AST 13 L (14-36) U/L ALT 20 (9-52) U/L Alkaline Phosphatase 131 H (38-126) U/L Total Protein 6.7 (6.3-8.2) g/dL Albumin 3.8 (3.5-5.0) g/dL Disposition Clinical Impression: Left leg cellulitis Disposition: HOME SELF-CARE Condition: Good Instructions: Cellulitis (ED) Prescriptions: Cephalexin [Keflex] 500 mg PO Q8HR #30 cap Referrals: Franklin Benitez III, MD [Primary Care Provider] - 1-2 days Time of Disposition: 04:49
--- NOTE | 2017-06-01 04:13 | US ---
EXAM: US Duplex Left Lower Extremity Veins CLINICAL HISTORY: ITS.REASON US Reason: Pain TECHNIQUE: Real-time ultrasound scan of the veins of the left lower extremity with color Doppler flow, spectral waveform analysis and compression. COMPARISON: None. FINDINGS: Deep veins: Unremarkable. No DVT in the visualized common femoral, femoral, proximal deep femoral or popliteal veins. The veins demonstrate normal color flow, are normally compressible, with normal phasic flow and/or augmentation response. Superficial veins: Unremarkable. No thrombus in the visualized great saphenous vein. Soft tissues: No acute findings. No popliteal cyst. IMPRESSION: Normal left lower extremity duplex venous ultrasound.
[2017-06-01] MEDS ORDERED: HYDROcodone/APAP 5-325MG 1 EACH TAB PO STA (04:41)
[2017-06-01 05:10] LABS: Glucose,Whole Blood 318 mg/dL (75-99)
[2017-06-01 05:20] LABS: Glucose,Whole Blood 329 mg/dL (75-99)
[2017-06-01 05:45] VITALS: BP 127/62; PULSE 93; RESP 16; TEMP 98.1
== END 2017-06-01 05:44 | disposition home or self-care (01) ==
LOC: EC 02:50
DX: L03.116 Cellulitis of left lower limb (principal); I25.10 Atherosclerotic heart disease of native coronary artery without angina pectoris; E11.9 Type 2 diabetes mellitus without complications; I10 Essential (primary) hypertension; E07.9 Disorder of thyroid, unspecified; G25.81 Restless legs syndrome; M32.9 Systemic lupus erythematosus, unspecified; F17.200 Nicotine dependence, unspecified, uncomplicated; Z86.73 Personal history of transient ischemic attack (TIA), and cerebral infarction without residual deficits; Z86.718 Personal history of other venous thrombosis and embolism; Z86.14 Personal history of Methicillin resistant Staphylococcus aureus infection; Z98.890 Other specified postprocedural states; Z79.4 Long term (current) use of insulin; Z79.899 Other long term (current) drug therapy; Z88.6 Allergy status to analgesic agent; Z91.041 Radiographic dye allergy status; Z88.2 Allergy status to sulfonamides; Z88.7 Allergy status to serum and vaccine
CPT/HCPCS: 36415; 80053; 83605; 85025; 87040; 99284

== ENCOUNTER 2017-12-13 14:35 | Emergency (ER) | payer MEDICARE, OTHER ==
[2017-12-13 14:59] VITALS: RESP 16
[2017-12-13] MEDS ORDERED: MORPHINE SULFATE 2 MG/ML SYRINGE IM STA (15:07)
--- NOTE | 2017-12-13 15:25 | ED ---
Upper Extremity HPI - General Chief Complaint: Extremity Injury, Upper Stated Complaint: Rt hand injury Time Seen by Provider: 12/13/17 15:00 Source: patient Mode of arrival: wheelchair Limitations: no limitations - History of Present Illness Initial Comments: 66-year-old female with past medical history of diabetes, hypertension, osteoporosis, lupus, brain and evaluation, antiphospholipid syndrome, LA, unstable angina, and multiple CVAs presenting for right thumb pain x1 day. Patient states that she was at Dr. Caldwell's office yesterday on 4 PM when she pulled open the door, it began to come back on her pulling her right thumb backward. Patient has been experiencing pain in the right thumb since the injury, she rates pain as a 8/10 sharp pain localized to the base of the right thumb. Patient applied Charly bandage to the thumb has been taking her Ultram for pain management. With last dose at 8 AM. Patient states that the pain medication has not been helping with her pain. Patient denies any numbness, tingling, loss sensation, and ability to wiggle at the thumbs and fingers. Patient does admit to some bruising over the base of the right thumb. Remainder negative including patient denies any recent fever, chills, shortness of breath , chest pain, back pain, abdominal pain, nausea or vomiting, numbness or tingling, dysuria or hematuria, constipation or diarrhea, headaches or visual changes, or any other complaints. - Related Data Home Medications Medication Instructions Recorded Confirmed Metoprolol Succinate [Toprol XL] 50 mg PO DAILY 07/22/13 05/14/17 Nitroglycerin Sl Tabs [Nitrostat] 0.4 mg SUBLINGUAL Q5M PRN 07/11/14 05/14/17 Levothyroxine Sodium [Synthroid] 200 mcg PO DAILY 04/21/15 05/14/17 Ondansetron [Zofran] 4 mg PO Q8HR PRN 04/21/15 05/14/17 Gabapentin [Neurontin] 600 mg PO QID 06/23/16 05/14/17 Insulin Aspart [NovoLOG Flexpen] 8 units SQ AC-TID 06/23/16 05/14/17 rOPINIRole HCL [Requip] 3 mg PO HS 06/23/16 05/14/17 tiZANidine HCL [Zanaflex] 4 mg PO TID PRN 06/23/16 05/14/17 Insulin Glargine [Lantus] 30 unit SQ DAILY 05/14/17 05/14/17 Previous Rx's Medication Instructions Recorded Atorvastatin [Lipitor] 20 mg PO HS #30 tab 05/17/17 Clopidogrel [Plavix] 75 mg PO DAILY #30 tab 05/17/17 Diphenox-Atrop 2.5-0.025 mg 1 tab PO QID PRN #10 tab 05/17/17 [Lomotil] INSULIN LISPRO (HumaLOG) [humaLOG] 0 unit SQ ACHS #1 vial 05/17/17 traMADol HCl [Ultram] 50 mg PO TID PRN #15 tab 05/17/17 Cephalexin [Keflex] 500 mg PO Q8HR #30 cap 06/01/17 Allergies Allergy/AdvReac Type Severity Reaction Status Date / Time aspirin Allergy Anaphylaxis Verified 12/13/17 14:59 Iodinated Contrast- Oral and Allergy Anaphylaxis Verified 12/13/17 14:59 IV Dye [Iodinated Contrast Media - IV Dye] NSAIDS (Non-Steroidal Allergy Anaphylaxis Verified 12/13/17 14:59 Anti-Inflamma sulfamethoxazole Allergy Unknown Verified 12/13/17 14:59 [From Bactrim] trimethoprim [From Bactrim] Allergy Unknown Verified 12/13/17 14:59 influenza virus vaccine ts AdvReac Nausea & Verified 12/13/17 14:59 [id number] (36 mos,up) Vomiting & [From Fluarix] Diarrhea Review of Systems ROS Statement: Those systems with pertinent positive or pertinent negative responses have been documented in the HPI. ROS Other: All systems not noted in ROS Statement are negative. Constitutional: Denies: fever, chills Eyes: Denies: eye pain ENT: Denies: ear pain, throat pain Respiratory: Denies: cough, dyspnea, wheezes, hemoptysis Cardiovascular: Denies: chest pain, palpitations Gastrointestinal: Denies: abdominal pain, nausea, vomiting Genitourinary: Denies: urgency, dysuria Musculoskeletal: Reports: arthralgia (right thumb base). Denies: back pain Skin: Denies: rash, lesions Neurological: Denies: headache, weakness, numbness, paresthesias Past Medical History Past Medical History: Coronary Artery Disease (CAD), Chest Pain / Angina, COPD, CVA/TIA, Diabetes Mellitus, Deep Vein Thrombosis (DVT), GERD/Reflux, Hyperlipidemia, Hypertension, Memory Impairment, Osteoarthritis (OA), Pneumonia , Syncope, Thyroid Disorder Additional Past Medical History / Comment(s): 05/07/15 Pt presented to [facility] ER with L side of body feeling "funny" L upper extremity and L hand weakness with L facial weakness. Pt was recently admitted 04/21/15 with possible CVA. Other HX: Antiphospholipid syndrome , LUPUS, CVA's/TIA's, demyelinization of brain, NIDDM, sinus problems, diverticulosis, uti, RESTLESS LEG SYNDROME, systemic lupus ethythemus, L leg DVT, occipital neuritis, varicosities, colostomy, DJD. History of Any Multi-Drug Resistant Organisms: MRSA Date of last positivie culture/infection: 01/08/17 MDRO Source:: URINE Past Surgical History: Appendectomy, Back Surgery, Bladder Surgery, Cholecystectomy, Hysterectomy, Orthopedic Surgery, Tonsillectomy Additional Past Surgical History / Comment(s): L hip surgery nailing /fixation- L hip hemiarthroplasty, bladder suspension, sisi cataracts, partial laminectomy, . colostomy 2010 D/T PERFORATED DIVERTICULUM with reversal and then 2nd colostomy, LT KNEE SX FOR TORN CARTILAGE Past Anesthesia/Blood Transfusion Reactions: No Reported Reaction Additional Past Anesthesia/Blood Transfusion Reaction / Comment(s): HAD BLOOD TRANSFUSION 15 YEARS ago without reaction. Past Psychological History: No Psychological Hx Reported Smoking Status: Current every day smoker Past Alcohol Use History: None Reported Past Drug Use History: None Reported - Past Family History Mother Family Medical History: Cancer, Hypertension Additional Family Medical History / Comment(s): "mother had cancer from asbestos exposure" Father Family Medical History: Hypertension, Rheumatoid Arthritis (RA) General Exam - General Exam Comments Initial Comments: General: The patient is awake and alert, in no distress, and does not appear acutely ill. Eye: Pupils are equal, round and reactive to light, extra-ocular movements are intact. No nystagmus. There is normal conjunctiva bilaterally. No signs of icterus. Ears, nose, mouth and throat: There are moist mucous membranes and no oral lesions. Neck: The neck is supple, there is no tenderness or JVD. Cardiovascular: There is a regular rate and rhythm. No murmur, rub or gallop is appreciated. Respiratory: Lungs are clear to auscultation, respirations are non-labored, breath sounds are equal. No wheezes, stridor, rales, or rhonchi. Musculoskeletal: No gross deformity noted on exam on hands b/l. There is mild soft tissue swelling along the first digits distal to the PIP joint. Pt is able to wiggle thumb, and all five digits of right hand. Full ROM at the 2-5 digits at MCP, DIP and PIP joints, Strength 5/5 of digits 2-5, pt refused manual muscle testing digit 1. Sensation intact. Radial and ulnar pulses equal bilaterally 2+. Capillary refill <2 seconds. (-) anatomical snuff box pain. Compartments soft and compressible. Neurological: A&O x 3. CN II-XII intact, There are no obvious motor or sensory deficits. Coordination appears grossly intact. Speech is normal. Skin: Skin is warm and dry and no rashes or lesions are noted. Psychiatric: Cooperative, appropriate mood & affect, normal judgment. Limitations: no limitations Course Vital Signs 12/13/17 12/13/17 14:57 16:18 Temperature 98.3 F 98 F Pulse Rate 90 87 Respiratory 16 16 Rate Blood Pressure 142/74 147/76 O2 Sat by Pulse 96 98 Oximetry Medical Decision Making - Medical Decision Making X-ray revealed arthropathy changes resident at the carpal metacarpal joint of the first digit there is subchondral sclerosis and hypotrophic change. They mentioned a possible fracture at the DIP joint of the second finger however there is no point tenderness on exam. Patient refused to fully range at the right thumb secondary to pain however she was able to move at the MCP, DIP and PIP joints with slight flexion and extension, unable to r/o partial tendonous injury. Patient is neurovascular intact, full sensation, capillary refills less than 2 seconds with strong radial ulnar pulses. Results were discussed the patient. Patient is placed in a thumb spica splint. Neurovascular exam repeated- pt neurovascularly intact. Return parameters were discussed. Patient was given instruction to schedule an appointment with orthopedic surgery tomorrow for evaluation. Patient agreed with this plan and verbalized understanding that she had to call and make the appointment. At this time I feel pt is stable for d/c with ortho f/u. Case discussed in detail with Dr. Zamorano and all imaging reviewed by myself and Dr. Zamorano prior to d/c. Disposition Clinical Impression: Injury of right thumb, Pain of right thumb Disposition: HOME SELF-CARE Condition: Good Instructions: Finger Sprain (ED) Additional Instructions: Please use home medication as discussed. Please follow-up with orthopedic surgery in the next 1-2 days to rule out tendon injury. Please return to emergency room if the symptoms increase or worsen or for any other concerns, as discussed. Is patient prescribed a controlled substance at d/c from ED?: No Referrals: Franklin Benitez III, MD [Primary Care Provider] - 1-2 days Adrian Otto DO [Doctor of Osteopathic Medicine] - 1-2 days Time of Disposition: 15:52
--- NOTE | 2017-12-13 15:43 | XR ---
Right hand and right wrist HISTORY: Trauma and pain 3 views of the right hand, 2 views of the right wrist submitted. Arthropathy changes present at the carpometacarpal joint of the first digit, there is subchondral scl erosis, hypertrophic change. Bone mineralization is reduced. Hypertrophic changes are present at the distal interphalangeal joints, first interphalangeal joint. There is associated joint space loss. Pos sible old fracture at the dorsal aspect of the second distal interphalangeal joint, appears well-chemo icated, correlate for point tenderness. IMPRESSION: Osteoarthritis. Possible remote trauma, correlate.
[2017-12-13 16:24] VITALS: BP 147/76; PULSE 87; TEMP 98
== END 2017-12-13 16:19 | disposition home or self-care (01) ==
LOC: EC 14:35
DX: S69.91XA Unspecified injury of right wrist, hand and finger(s), initial encounter (principal); I25.10 Atherosclerotic heart disease of native coronary artery without angina pectoris; E11.9 Type 2 diabetes mellitus without complications; K21.9 Gastro-esophageal reflux disease without esophagitis; E07.9 Disorder of thyroid, unspecified; G25.81 Restless legs syndrome; F17.200 Nicotine dependence, unspecified, uncomplicated; Z86.14 Personal history of Methicillin resistant Staphylococcus aureus infection; Z86.73 Personal history of transient ischemic attack (TIA), and cerebral infarction without residual deficits; Z86.718 Personal history of other venous thrombosis and embolism; Z90.49 Acquired absence of other specified parts of digestive tract; Z90.710 Acquired absence of both cervix and uterus; Z93.3 Colostomy status; Z98.890 Other specified postprocedural states; Z79.4 Long term (current) use of insulin; Z79.899 Other long term (current) drug therapy; Z88.1 Allergy status to other antibiotic agents; Z88.2 Allergy status to sulfonamides; Z88.6 Allergy status to analgesic agent; Z88.7 Allergy status to serum and vaccine; Z91.041 Radiographic dye allergy status; X50.1XXA Overexertion from prolonged static or awkward postures, initial encounter; Y92.59 Other trade areas as the place of occurrence of the external cause
CPT/HCPCS: 73100; 73130; 99283; 96372; J2270

== ENCOUNTER 2018-08-17 22:58 | Emergency (ER) | payer MEDICARE ==
--- NOTE | 2018-08-17 23:08 | ED ---
General Adult HPI - General Chief complaint: Extremity Injury, Lower Stated complaint: Calf pain Time Seen by Provider: 08/17/18 22:59 Source: patient, EMS, RN notes reviewed Mode of arrival: EMS Limitations: no limitations - History of Present Illness Initial comments: Patient is a pleasant 67-year-old female presenting to the emergency Department with complaints of left calf pain. Patient states it also feels swollen. Onset of symptoms was today, sometime around 2:00. Discomfort has continued since that time. No history of similar symptoms previously. Patient denies having any chest discomfort. Patient denies any dyspnea. No fevers. No redness. Patient did take her blood pressure earlier today and was around 150 systolic. Patient states she has been taking her blood pressure medication. - Related Data Home Medications Medication Instructions Recorded Confirmed Metoprolol Succinate [Toprol XL] 50 mg PO DAILY 07/22/13 05/14/17 Nitroglycerin Sl Tabs [Nitrostat] 0.4 mg SUBLINGUAL Q5M PRN 07/11/14 05/14/17 Levothyroxine Sodium [Synthroid] 200 mcg PO DAILY 04/21/15 05/14/17 Ondansetron [Zofran] 4 mg PO Q8HR PRN 04/21/15 05/14/17 Gabapentin [Neurontin] 600 mg PO QID 06/23/16 05/14/17 Insulin Aspart [NovoLOG Flexpen] 8 units SQ AC-TID 06/23/16 05/14/17 rOPINIRole HCL [Requip] 3 mg PO HS 06/23/16 05/14/17 tiZANidine HCL [Zanaflex] 4 mg PO TID PRN 06/23/16 05/14/17 Insulin Glargine [Lantus] 30 unit SQ DAILY 05/14/17 05/14/17 Previous Rx's Medication Instructions Recorded Atorvastatin [Lipitor] 20 mg PO HS #30 tab 05/17/17 Clopidogrel [Plavix] 75 mg PO DAILY #30 tab 05/17/17 Diphenox-Atrop 2.5-0.025 mg 1 tab PO QID PRN #10 tab 05/17/17 [Lomotil] INSULIN LISPRO (HumaLOG) [humaLOG] 0 unit SQ ACHS #1 vial 05/17/17 traMADol HCl [Ultram] 50 mg PO TID PRN #15 tab 05/17/17 Cephalexin [Keflex] 500 mg PO Q8HR #30 cap 06/01/17 Allergies Allergy/AdvReac Type Severity Reaction Status Date / Time aspirin Allergy Anaphylaxis Verified 08/17/18 23:06 Iodinated Contrast- Oral and Allergy Anaphylaxis Verified 08/17/18 23:06 IV Dye [Iodinated Contrast Media - IV Dye] NSAIDS (Non-Steroidal Allergy Anaphylaxis Verified 08/17/18 23:06 Anti-Inflamma sulfamethoxazole Allergy Unknown Verified 08/17/18 23:06 [From Bactrim] trimethoprim [From Bactrim] Allergy Unknown Verified 08/17/18 23:06 influenza virus vaccine ts AdvReac Nausea & Verified 08/17/18 23:06 [id number] (36 mos,up) Vomiting & [From Fluarix] Diarrhea Review of Systems ROS Statement: Those systems with pertinent positive or pertinent negative responses have been documented in the HPI. ROS Other: All systems not noted in ROS Statement are negative. Constitutional: Denies: fever Eyes: Denies: eye pain ENT: Denies: ear pain Respiratory: Denies: cough, dyspnea Cardiovascular: Denies: chest pain Endocrine: Denies: fatigue Gastrointestinal: Denies: abdominal pain Genitourinary: Denies: dysuria Musculoskeletal: Denies: back pain Skin: Denies: rash Neurological: Denies: weakness Past Medical History Past Medical History: Coronary Artery Disease (CAD), Chest Pain / Angina, COPD, CVA/TIA, Diabetes Mellitus, Deep Vein Thrombosis (DVT), GERD/Reflux, Hyperlipidemia, Hypertension, Memory Impairment, Osteoarthritis (OA), Pneumonia, Syncope, Thyroid Disorder Additional Past Medical History / Comment(s): 05/07/15 Pt presented to [facility] ER with L side of body feeling "funny" L upper extremity and L hand weakness with L facial weakness. Pt was recently admitted 04/21/15 with possible CVA. Other HX: Antiphospholipid syndrome , LUPUS, CVA's/TIA's, demyelinization of brain, NIDDM, sinus problems, diverticulosis, uti, RESTLESS LEG SYNDROME, systemic lupus ethythemus, L leg DVT, occipital neuritis, varicosities, colostomy, DJD. History of Any Multi-Drug Resistant Organisms: MRSA Date of last positivie culture/infection: 01/08/17 MDRO Source:: URINE Past Surgical History: Appendectomy, Back Surgery, Bladder Surgery, Cholecystectomy, Hysterectomy, Orthopedic Surgery, Tonsillectomy Additional Past Surgical History / Comment(s): L hip surgery nailing /fixation- L hip hemiarthroplasty, bladder suspension, sisi cataracts, partial laminectomy,. colostomy 2010 D/T PERFORATED DIVERTICULUM with reversal and then 2nd colostomy, LT KNEE SX FOR TORN CARTILAGE Past Anesthesia/Blood Transfusion Reactions: No Reported Reaction Additional Past Anesthesia/Blood Transfusion Reaction / Comment(s): HAD BLOOD TRANSFUSION 15 YEARS ago without reaction. Past Psychological History: No Psychological Hx Reported Smoking Status: Current every day smoker Past Alcohol Use History: None Reported Past Drug Use History: None Reported - Past Family History Mother Family Medical History: Cancer, Hypertension Additional Family Medical History / Comment(s): "mother had cancer from asbestos exposure" Father Family Medical History: Hypertension, Rheumatoid Arthritis (RA) General Exam Limitations: no limitations General appearance: alert, in no apparent distress Head exam: Present: atraumatic Eye exam: Present: normal appearance, PERRL ENT exam: Present: normal oropharynx Neck exam: Present: normal inspection Respiratory exam: Present: normal lung sounds bilaterally Cardiovascular Exam: Present: regular rate, normal rhythm Expanded Peripheral pulses: 2+: Posterior Tibialis (R), Posterior Tibialis (L), Dorsalis Pedis (R), Dorsalis Pedis (L) GI/Abdominal exam: Present: soft. Absent: tenderness Extremities exam: Present: calf tenderness (Mild left-sided posterior calf tenderness). Absent: pedal edema Neurological exam: Present: alert. Absent: motor sensory deficit Psychiatric exam: Present: normal affect, normal mood Skin exam: Present: normal color. Absent: rash, erythema Course Vital Signs 08/17/18 08/17/18 08/17/18 23:04 23:28 23:50 Temperature 97.5 F L Pulse Rate 99 77 81 Respiratory 18 20 14 Rate Blood Pressure 171/104 145/95 156/98 O2 Sat by Pulse 99 99 96 Oximetry Medical Decision Making - Radiology Data Radiology results: report reviewed (Ultrasound negative for DVT) Disposition Clinical Impression: Calf pain Disposition: HOME SELF-CARE Condition: Stable Instructions (If sedation given, give patient instructions): Leg Pain (ED) Additional Instructions: Please follow-up with primary care physician in the next couple of days for recheck. Return for increased pain or swelling, redness or fever, chest pain or difficulty in breathing, worsening symptoms or other concerns. Is patient prescribed a controlled substance at d/c from ED?: No Referrals: Franklin Benitez III, MD [Primary Care Provider] - 1-2 days Time of Disposition: 23:57
[2018-08-17] MEDS ORDERED: METOPROLOL SUCCINATE (ER) 25 MG TAB.ER.24H PO STA (23:09)
--- NOTE | 2018-08-17 23:50 | US ---
EXAM: US Duplex Left Lower Extremity Veins CLINICAL HISTORY: ITS.REASON US Reason: Pain TECHNIQUE: Real-time duplex ultrasound scan of the left lower extremity veins integrating B-mode two-dimensional vascular structure, Doppler spectral analysis, color flow Doppler imaging and compression. COMPARISON: No relevant prior studies available. FINDINGS: Deep veins: Unremarkable. No DVT in the visualized common femoral, femoral, proximal deep femoral or popliteal veins. The veins demonstrate normal color flow, are normally compressible, with normal phasic flow and/or augmentation response. Superficial veins: Unremarkable. No thrombus in the visualized great saphenous vein. Soft tissues: No acute findings. No popliteal cyst. IMPRESSION: No evidence of deep vein thrombosis in the left lower extremity.
[2018-08-18 00:35] VITALS: BP 134/89; PULSE 94; RESP 16; TEMP 97.4
== END 2018-08-18 00:36 | disposition home or self-care (01) ==
LOC: EC 22:58
DX: M79.605 Pain in left leg (principal); I25.119 Atherosclerotic heart disease of native coronary artery with unspecified angina pectoris; J44.9 Chronic obstructive pulmonary disease, unspecified; E11.9 Type 2 diabetes mellitus without complications; I10 Essential (primary) hypertension; G25.81 Restless legs syndrome; M19.90 Unspecified osteoarthritis, unspecified site; E07.9 Disorder of thyroid, unspecified; Z86.73 Personal history of transient ischemic attack (TIA), and cerebral infarction without residual deficits; Z86.718 Personal history of other venous thrombosis and embolism; F17.200 Nicotine dependence, unspecified, uncomplicated; Z79.890 Hormone replacement therapy; Z79.4 Long term (current) use of insulin; Z79.899 Other long term (current) drug therapy; Z88.6 Allergy status to analgesic agent; Z88.2 Allergy status to sulfonamides; Z88.1 Allergy status to other antibiotic agents; Z88.7 Allergy status to serum and vaccine; Z91.041 Radiographic dye allergy status; Z86.14 Personal history of Methicillin resistant Staphylococcus aureus infection; Z93.3 Colostomy status
CPT/HCPCS: 99284

== ENCOUNTER 2018-11-19 05:42 | Observation (INO) | payer MEDICARE ==
[2018-11-19] MEDS ORDERED: NITROGLYCERIN OINT 1 INCH/GM PACKET TOPICAL STA (06:21)
--- NOTE | 2018-11-19 06:21 | ED ---
Chest Pain HPI - General Chief Complaint: Chest Pain Stated Complaint: Chest Pain Time Seen by Provider: 11/19/18 05:55 Source: patient, EMS, RN notes reviewed Mode of arrival: EMS Limitations: no limitations - History of Present Illness Initial Comments: This is a 67-year-old female presents emergency from via EMS with chief complaint of chest pain. Patient states the pain started around 4 PM last night she states she has some intermittent pain but worsened this morning. Patient was given nitro by EMS which she states that the pain and half. Patient refuses aspirin states that she is ALLERGIC to it. Patient has no current shortness of breath. She does have history of hyperlipidemia, hypertension diabetes. Patient is a former smoker denies fevers or chills. Denies any pleuritic chest pain, back pain, headache or dizziness. - Related Data Home Medications Medication Instructions Recorded Confirmed Metoprolol Succinate [Toprol XL] 50 mg PO DAILY 07/22/13 05/14/17 Nitroglycerin Sl Tabs [Nitrostat] 0.4 mg SUBLINGUAL Q5M PRN 07/11/14 05/14/17 Levothyroxine Sodium [Synthroid] 200 mcg PO DAILY 04/21/15 05/14/17 Ondansetron [Zofran] 4 mg PO Q8HR PRN 04/21/15 05/14/17 Gabapentin [Neurontin] 600 mg PO QID 06/23/16 05/14/17 Insulin Aspart [NovoLOG Flexpen] 8 units SQ AC-TID 06/23/16 05/14/17 rOPINIRole HCL [Requip] 3 mg PO HS 06/23/16 05/14/17 tiZANidine HCL [Zanaflex] 4 mg PO TID PRN 06/23/16 05/14/17 Insulin Glargine [Lantus] 30 unit SQ DAILY 05/14/17 05/14/17 Previous Rx's Medication Instructions Recorded Atorvastatin [Lipitor] 20 mg PO HS #30 tab 05/17/17 Clopidogrel [Plavix] 75 mg PO DAILY #30 tab 05/17/17 Diphenox-Atrop 2.5-0.025 mg 1 tab PO QID PRN #10 tab 05/17/17 [Lomotil] INSULIN LISPRO (HumaLOG) [humaLOG] 0 unit SQ ACHS #1 vial 05/17/17 traMADol HCl [Ultram] 50 mg PO TID PRN #15 tab 05/17/17 Cephalexin [Keflex] 500 mg PO Q8HR #30 cap 06/01/17 Allergies Allergy/AdvReac Type Severity Reaction Status Date / Time aspirin Allergy Anaphylaxis Verified 08/17/18 23:06 Iodinated Contrast- Oral and Allergy Anaphylaxis Verified 08/17/18 23:06 IV Dye [Iodinated Contrast Media - IV Dye] NSAIDS (Non-Steroidal Allergy Anaphylaxis Verified 08/17/18 23:06 Anti-Inflamma sulfamethoxazole Allergy Unknown Verified 08/17/18 23:06 [From Bactrim] trimethoprim [From Bactrim] Allergy Unknown Verified 08/17/18 23:06 influenza virus vaccine ts AdvReac Nausea & Verified 08/17/18 23:06 [id number] (36 mos,up) Vomiting & [From Fluarix] Diarrhea Review of Systems ROS Statement: Those systems with pertinent positive or pertinent negative responses have been documented in the HPI. ROS Other: All systems not noted in ROS Statement are negative. EKG Findings - EKG Comments: EKG Findings:: EKG 15.52 normal sinus rhythm rate of 77 UT 136, QRS 82 QT/QTC 394/445 Past Medical History Past Medical History: Coronary Artery Disease (CAD), Chest Pain / Angina, COPD, CVA/TIA, Diabetes Mellitus, Deep Vein Thrombosis (DVT), GERD/Reflux, Hyperlipidemia, Hypertension, Memory Impairment, Osteoarthritis (OA), Pneumonia, Syncope, Thyroid Disorder Additional Past Medical History / Comment(s): 05/07/15 Pt presented to [facility] ER with L side of body feeling "funny" L upper extremity and L hand weakness with L facial weakness. Pt was recently admitted 04/21/15 with possible CVA. Other HX: Antiphospholipid syndrome , LUPUS, CVA's/TIA's, demyelinization of brain, NIDDM, sinus problems, diverticulosis, uti, RESTLESS LEG SYNDROME, systemic lupus ethythemus, L leg DVT, occipital neuritis, varicosities, colostomy, DJD. History of Any Multi-Drug Resistant Organisms: MRSA Date of last positivie culture/infection: 01/08/17 MDRO Source:: URINE Past Surgical History: Appendectomy, Back Surgery, Bladder Surgery, Cholecystectomy, Hysterectomy, Orthopedic Surgery, Tonsillectomy Additional Past Surgical History / Comment(s): L hip surgery nailing /fixation- L hip hemiarthroplasty, bladder suspension, sisi cataracts, partial laminectomy,. colostomy 2010 D/T PERFORATED DIVERTICULUM with reversal and then 2nd colostomy, LT KNEE SX FOR TORN CARTILAGE Past Anesthesia/Blood Transfusion Reactions: No Reported Reaction Additional Past Anesthesia/Blood Transfusion Reaction / Comment(s): HAD BLOOD TRANSFUSION 15 YEARS ago without reaction. Past Psychological History: No Psychological Hx Reported Smoking Status: Current every day smoker Past Alcohol Use History: None Reported Past Drug Use History: None Reported - Past Family History Mother Family Medical History: Cancer, Hypertension Additional Family Medical History / Comment(s): "mother had cancer from asbestos exposure" Father Family Medical History: Hypertension, Rheumatoid Arthritis (RA) General Exam Limitations: no limitations General appearance: alert, in no apparent distress Head exam: Present: atraumatic, normocephalic, normal inspection Eye exam: Present: normal appearance, PERRL, EOMI. Absent: scleral icterus, conjunctival injection, periorbital swelling ENT exam: Present: normal exam, mucous membranes moist Neck exam: Present: normal inspection, full ROM. Absent: tenderness, meningismus, lymphadenopathy Respiratory exam: Present: normal lung sounds bilaterally. Absent: respiratory distress, wheezes, rales, rhonchi, stridor Cardiovascular Exam: Present: regular rate, normal rhythm, normal heart sounds. Absent: systolic murmur, diastolic murmur, rubs, gallop, clicks GI/Abdominal exam: Present: soft, normal bowel sounds. Absent: distended, tenderness, guarding, rebound, rigid Back exam: Absent: CVA tenderness (R), CVA tenderness (L) Neurological exam: Present: alert Skin exam: Present: warm, dry, intact, normal color. Absent: rash Course Vital Signs 11/19/18 11/19/18 05:45 06:37 Temperature 98.1 F 97.7 F Pulse Rate 80 71 Respiratory 18 18 Rate Blood Pressure 156/84 115/71 O2 Sat by Pulse 96 96 Oximetry Chest Pain MDM - MDM 67-year-old female presents from for chest pain. Patient has multiple risk factors. EKG and labs are unremarkable mild hyperglycemia. Patient will be admitted for chest pain rule out, patient was started on heparin with repeat troponins. Disposition Clinical Impression: Chest pain Disposition: ADMITTED IP TO THIS HOSP Condition: Fair Referrals: Franklin Benitez III, MD [Primary Care Provider] - 1-2 days
[2018-11-19 06:22] LABS: Basophils # (A) 0.1 k/uL (0-0.2); Basophils % (A) 1 %; Eosinophils # (A) 0.2 k/uL (0-0.7); Eosinophils % (A) 3 %; HCT 40.3 % (34.0-46.0); HGB 13.4 gm/dL (11.4-16.0); Lymphocytes # (A) 1.4 k/uL (1.0-4.8); Lymphocytes % (A) 15 %; MCH 29.8 pg (25.0-35.0); MCHC 33.2 g/dL (31.0-37.0); MCV 89.7 fL (80.0-100.0); Mean Platelet Volume 9.3; Monocytes # (A) 0.6 k/uL (0-1.0); Monocytes % (A) 6 %; Neutrophils # (A) 7.1 k/uL (1.3-7.7); Neutrophils % (A) 74 %; Platelet Count 214 k/uL (150-450); WBC 9.6 k/uL (3.8-10.6)
[2018-11-19 06:30] LABS: ALT 11 U/L (9-52); AST 22 U/L (14-36); African American GFR (CKD) >90 (>60 ml/min/1.73 sqM); Alkaline Phosphatase 98 U/L (38-126); Anion Gap 10 mmol/L; Blood Urea Nitrogen 16 mg/dL (7-17); Calcium 9.6 mg/dL (8.4-10.2); Carbon Dioxide 23 mmol/L (22-30); Chloride 105 mmol/L (98-107); Glucose 230 mg/dL (74-99); Magnesium 2.1 mg/dL (1.6-2.3); Potassium 4.5 mmol/L (3.5-5.1); Sodium 138 mmol/L (137-145); Total Bilirubin 0.3 mg/dL (0.2-1.3); Total Protein 7.1 g/dL (6.3-8.2)
--- NOTE | 2018-11-19 06:45 | XR ---
EXAM: XR Chest, 2 Views CLINICAL HISTORY: ITS.REASON XR Reason: Chest Pain TECHNIQUE: Frontal and lateral views of the chest. COMPARISON: 05/14/17 FINDINGS: Cardiac and mediastinal silhouette appear unchanged in size and contour allowing for differences in technique. No edema, consolidation or other acute cardiopulmonary findings. IMPRESSION: No acute cardiopulmonary findings.
[2018-11-19] MEDS ORDERED: HEPARIN SODIUM,PORCINE 5,000 UNIT/ML 1 ML VIAL IV ONE (07:04)
[2018-11-19] MEDS ORDERED: NITROGLYCERIN SL TABS 0.4 MG TAB SUBLINGUAL PRN (07:04)
[2018-11-19] MEDS ORDERED: HEPARIN SOD,PORK IN 0.45% NACL 25,000 UNIT in 0.45% NACL 1 250ML.BAG IV SCH (07:15)
[2018-11-19 07:33] LABS: INR 0.9 (<1.2); Partial Thromboplastin Time 24.1 sec (22.0-30.0); Prothrombin Time 9.4 sec (9.0-12.0)
[2018-11-19] MEDS ORDERED: DIPHENOX-ATROP 2.5-0.025 MG 1 EACH TAB PO PRN (10:37)
[2018-11-19] MEDS ORDERED: tiZANidine 4 MG TAB PO PRN (10:37)
[2018-11-19] MEDS ORDERED: ONDANSETRON 4 MG TAB PO PRN (10:37)
[2018-11-19 11:30] LABS: Glucose,Whole Blood 294 mg/dL (75-99)
[2018-11-19] MEDS: INSULIN ASPART (NovoLOG) 100 UNIT/ML VIAL SQ SCH ×3 (12:17→20:41)
[2018-11-19] MEDS ORDERED: REGADENOSON 0.4 MG/5 ML SYRINGE IV ONE (14:17)
--- NOTE | 2018-11-19 15:14 | CONS ---
CONSULTATION Mrs. Flower Philippe is a 67-year-old lady with a history of type 2 diabetes, hypertension, hypercholesterolemia, who also has history of smoking that she eventually quit 6-7 years ago. She comes into the hospital with at least 24 hours worth of discomfort in the chest. Apparently, she saw her primary care physician Dr. Benitez about a week ago because of lower extremity edema and then he ordered an echocardiogram to be performed, which was scheduled for next week. However, about a Tuesday or so, she started experiencing what she describes as a pressure in the chest, dull ache that seem to come on spontaneously and persisted. Quality of the discomfort seems very atypical. However, it was also unrelated to physical activity. The pain was almost constant, but waxing and waning towards the later in the day and this morning she is more comfortable resting. She called EMS because of chest pain. After arrival, she was given nitroglycerin by EMS with some partial resolution of pain. SHE IS ALLERGIC TO ASPIRIN, therefore that was not given. However discomfort in the chest seems to have resolved completely. She is sleeping at the time of my evaluation when I came into the room. PAST MEDICAL HISTORY: 1. Type 2 diabetes mellitus. 2. Hypertension. 3. Hyperlipidemia. 4. Remote history of DVT. 5. History of some osteoarthritis. 6. Hypothyroidism on replacement therapy. 7. She also has gastroesophageal reflux disease. 8. She is status post back surgery. 9. Cholecystectomy. 10.Appendectomy. 11.Orthopedic surgery. ALLERGIES: She is allergic to IODINE ALLERGY AND ASPIRIN AND SULFA WELL SOME NONSTEROIDALS. MEDICATIONS: Include Lipitor 20 mg daily, clopidogrel 75 mg daily. Lomotil p.r.n., insulin, Humalog with meals, tramadol, Keflex, metoprolol succinate 50 mg daily. She also takes some gabapentin and levothyroxine 200 mcg daily. PHYSICAL EXAMINATION: Blood pressure is 130/70, pulse rate 70 per minute and regular. HEENT unremarkable. Fundus was not examined by me. Neck is supple. There is no JVD. I do not hear a carotid bruit. There is no thyromegaly heart exam reveals S1, S2 with ejection systolic murmur at the base. Second heart sound is preserved. Lungs are clear. Abdomen is soft, nontender. Lower extremity with reveal trace edema. Diminished pulses. Central nervous system is grossly within normal limits. EKG revealed a sinus mechanism, no acute changes. There was borderline voltage criteria for LVH. LABORATORY DATA: Reveals that 2 sets of troponins are normal. There are no other significant abnormalities. IMPRESSION: 1. Atypical chest pain in a patient with significant risk factor profile. 2. Hypertension. 3. Type 2 diabetes mellitus. 4. Hyperlipidemia. 5. History of some gastroesophageal reflux disease. RECOMMENDATIONS: I am recommending that we continue IV heparin until all 3 troponins are negative, then place her on 0.9 saline at 75 mL/hour. Given her risk factors and presentation, I am recommending an echocardiogram and a Lexiscan stress test and if both of these are normal, she can be discharged tomorrow. I discussed my thoughts in detail with the patient. Thank you very much for the consult. BETZY / AMALIA: [id number] /
[2018-11-19] MEDS ORDERED: HYDROcodone/APAP 5-325MG 1 EACH TAB PO PRN (15:30)
[2018-11-19] MEDS ORDERED: ALPRAZolam 0.25 MG TAB PO PRN (15:30)
[2018-11-19] MEDS ORDERED: TEMAZEPAM 15 MG CAP PO PRN (15:30)
[2018-11-19 16:36] LABS: Glucose,Whole Blood 285 mg/dL (75-99)
[2018-11-19] MEDS: GABAPENTIN 300 MG CAP PO SCH ×3 (17:03→20:40)
[2018-11-19] MEDS: NICOTINE 14MG/24HR PATCH TRANSDERM SCH (17:05)
--- NOTE | 2018-11-19 17:38 | HP ---
HISTORY AND PHYSICAL DATE OF SERVICE: 11/19/2018 CHIEF COMPLAINT: Chest pain. HISTORY OF PRESENT ILLNESS: This 67-year-old woman with a past medical history of multiple medical problems including CAD, COPD, CVA, TIA, diabetes, DVT, hypertension, hyperlipidemia, history of memory impairment, hypothyroidism, history of appendectomy, back surgery, being followed by Dr. Benitez in the outpatient setting was complaining of chest pains. The patient last night about 4:00 pm the patient developed chest pains on the left side which was radiating to the neck and the patient came to [facility] and was admitted for further evaluation and treatment. The patient also had sweating, palpitations, shortness of breath at this time. There is no history of fever, rigors or chills. Initial troponins are negative. The blood sugar is elevated. PAST MEDICAL HISTORY: History of CAD, history of COPD, CVA, TIA, diabetes, DVT, GERD, hypertension, hyperlipidemia, history of memory impairment, history of DJD, hypothyroidism, cholecystectomy, back surgery. MEDICATIONS: Home medications include: 1. Zanaflex 4 mg p.o. t.i.d. p.r.n. 2. Requip 3 mg p.o. q.h.s. 3. Zofran 4 mg q.8 p.r.n. 4. Nitrostat 0.4 sublingual p.r.n. 5. Toprol-XL 50 mg p.o. daily. 6. Synthroid 200 mcg p.o. daily. 7. Lantus 30 units subcu daily. 8. Humalog a.c. and at bedtime. 9. Neurontin 600 mg p.o. q.i.d. 10.Lomotil 1 tablet p.o. q.i.d. p.r.n. 11.Plavix 75 mg p.o. daily. 12.Lipitor 20 mg p.o. q.h.s. ALLERGIES: ASPIRIN AND IODINATED CONTRAST, BACTRIM, INFLUENZA. FAMILY HISTORY: History of cancer, hypertension, asbestos exposure in the family. SOCIAL HISTORY: History of continued ongoing smoking. No history of alcohol intake. REVIEW OF SYSTEMS: ENT: Diminished hearing. Diminished vision. CARDIOVASCULAR as mentioned earlier. RESPIRATORY: As mentioned earlier. GI no nausea or vomiting. no dysuria. CENTRAL NERVOUS SYSTEM: No numbness or weakness. ALLERGY/IMMUNOLOGY: No asthma or hayfever. MUSCULOSKELETAL as mentioned earlier. HEMATOLOGY/ONCOLOGY: No history of anemia. ENDOCRINE: Diabetes. CONSTITUTIONAL: As mentioned earlier. DERMATOLOGY: Negative. RHEUMATOLOGY: Negative. PSYCHIATRY: As mentioned earlier. PHYSICAL EXAMINATION: Alert and oriented times three. Pulse 72, blood pressure 130/81, respiration 18, temperature 97.6, pulse ox 98% on room air. HEENT: Conjunctivae normal. NECK: No jugular venous distention. CARDIOVASCULAR: S1, S2 muffled. RESPIRATIONS: Breath sounds diminished in the bases. No rhonchi. No crackles. ABDOMEN: Soft, nontender. No mass palpable. LEGS: No edema. No swelling. NERVOUS SYSTEM: Higher functions as mentioned earlier. Moves all four limbs. No focal motor or sensory deficits. LYMPHATICS: No lymph nodes palpable in the neck, axillae or groin. SKIN: No ulcer, no rash and no bleeding. JOINTS: No active deforming arthropathy. LABS: CBC within normal limits and APTT is 44.1, glucose is 230, 294. ASSESSMENT: 1. Chest pain possible unstable angina. 2. Diabetes type 2. 3. Coronary artery disease history. 4. Chronic obstructive pulmonary disease. 5. Cerebrovascular accident, transient ischemic attack. 6. History of deep vein thrombosis. 7. History of gastroesophageal reflux disease. 8. Hypertension. 9. Hyperlipidemia. 10.History of degenerative joint disease. 11.Syncope. 12.History of appendectomy. 13.History of back surgery. 14.History of restless legs syndrome. 15.History of degenerative joint disease. 16.History of anxiety. 17.History of continued ongoing nicotine dependence. 18.Obesity with body mass of 31.9. RECOMMENDATIONS AND DISCUSSION: In this 67-year-old woman who presented with multiple complex medical issues, we will monitor the patient closely, continue the current medications, management. Symptomatic treatment. Unstable angina protocol. Resume the home medications. Also recommend cardiology consultation. Otherwise repeat labs in the morning. Guarded prognosis because of multiple complex medical issues. Further recommendations to follow. A copy of dictation being forwarded to Dr. Benitez who is the primary care physician. Rule out myocardial infarction. See orders for details. Symptomatic treatment also will be provided. MMODL / IJN: [id number] /
[2018-11-19 19:31] LABS: ALT 18 U/L (9-52); AST 24 U/L (14-36); African American GFR (CKD) >90 (>60 ml/min/1.73 sqM); Albumin 3.7 g/dL (3.5-5.0); Alkaline Phosphatase 97 U/L (38-126); Anion Gap 8 mmol/L; Blood Urea Nitrogen 14 mg/dL (7-17); Carbon Dioxide 24 mmol/L (22-30); Chloride 106 mmol/L (98-107); Glucose 223 mg/dL (74-99); Sodium 138 mmol/L (137-145); Total Bilirubin 0.5 mg/dL (0.2-1.3); Total Protein 6.7 g/dL (6.3-8.2)
[2018-11-19 19:32] LABS: Potassium 4.9 mmol/L (3.5-5.1)
[2018-11-19 20:01] LABS: Glucose,Whole Blood 205 mg/dL (75-99)
[2018-11-19] MEDS ORDERED: ATORVASTATIN 20 MG TAB PO SCH (21:00)
[2018-11-19] MEDS ORDERED: LORATADINE 10 MG TAB PO SCH (21:00)
[2018-11-20 05:55] LABS: Basophils # (A) 0.1 k/uL (0-0.2); Basophils % (A) 1 %; Eosinophils # (A) 0.2 k/uL (0-0.7); Eosinophils % (A) 2 %; HCT 36.4 % (34.0-46.0); HGB 12.1 gm/dL (11.4-16.0); Lymphocytes # (A) 1.8 k/uL (1.0-4.8); Lymphocytes % (A) 24 %; MCH 30.6 pg (25.0-35.0); MCHC 33.4 g/dL (31.0-37.0); MCV 91.6 fL (80.0-100.0); Mean Platelet Volume 9.1; Monocytes # (A) 0.4 k/uL (0-1.0); Monocytes % (A) 6 %; Neutrophils # (A) 4.6 k/uL (1.3-7.7); Neutrophils % (A) 64 %; Platelet Count 179 k/uL (150-450); RBC 3.97 m/uL (3.80-5.40); RDW 14.1 % (11.5-15.5); WBC 7.2 k/uL (3.8-10.6)
[2018-11-20 06:19] LABS: Cholesterol 188 mg/dL (<200); HDL Cholesterol 38 mg/dL (40-60); LDL Cholesterol,Calculated 109 mg/dL (0-99); Triglycerides 205 mg/dL (<150)
[2018-11-20] MEDS ORDERED: LEVOTHYROXINE 100 MCG TAB PO SCH (06:30)
[2018-11-20] MEDS ORDERED: AMINOPHYLLINE 500 MG/20 ML VIAL IV PRN (07:00)
[2018-11-20] MEDS ORDERED: CAFFEINE CITRATE 60 MG/3 ML VIAL IV PRN (07:00)
[2018-11-20] MEDS ORDERED: DIPYRIDAMOLE 46 MG in SODIUM CHLORIDE 0.9% 40.8 ML IV ONE (07:00)
[2018-11-20 07:02] LABS: Glucose,Whole Blood 153 mg/dL (75-99)
[2018-11-20] MEDS ORDERED: PANTOPRAZOLE 40 MG TABLET PO SCH (07:30)
[2018-11-20] MEDS ORDERED: METOPROLOL SUCCINATE (ER) 50 MG TAB.ER.24H PO SCH (09:00)
[2018-11-20] MEDS ORDERED: CLOPIDOGREL 75 MG TAB PO SCH (09:00)
[2018-11-20] MEDS ORDERED: INSULIN DETEMIR (LEVEMIR) 100 UNIT/ML SYR SQ SCH (09:00)
[2018-11-20] MEDS: INSULIN ASPART (NovoLOG) 100 UNIT/ML VIAL SQ SCH ×2 (10:53→12:15)
[2018-11-20] MEDS: GABAPENTIN 300 MG CAP PO SCH ×2 (10:56→15:16)
--- NOTE | 2018-11-20 10:56 | NM ---
EXAMINATION TYPE: NM stress persantine cardiolit DATE OF EXAM: 11/20/2018 COMPARISON: NONE HISTORY: Chest pain TECHNIQUE: After the intravenous administration of 10.12 mCi Tc 99m Sestamibi - Cardiolite resting S PECT images acquired 45 minutes post injection. The patient received 46 mg Persantine, 26.2 mCi Tc 99m Sestamibi - Stress images obtained 30 minutes post injection FINDINGS: Review of stress and rest SPECT images demonstrates no distinct perfusion abnormality. Gated analysi s shows normal wall motion with an estimated left ventricular ejection fraction of 75 %. IMPRESSION: No scintigraphic evidence for reversible ischemia.
[2018-11-20] MEDS: NICOTINE 14MG/24HR PATCH TRANSDERM SCH (10:57)
[2018-11-20 11:34] LABS: Glucose,Whole Blood 235 mg/dL (75-99)
[2018-11-20 11:42] VITALS: BP 126/77; PULSE 69; RESP 17; TEMP 97.7
[2018-11-20] MEDS ORDERED: ATORVASTATIN 20 MG TAB PO SCH (12:02)
--- NOTE | 2018-11-20 12:14 | P.PN ---
Subjective This is a pleasant 67-year-old female past medical history significant for diabetes mellitus, hypertension, dyslipidemia, gastroesophageal reflux disease and former nicotine dependence. She is seen and examined in no acute distress. Overnight she has had intermittent episodes of achy sensation in the chest. Lasting less than a minute or 2 with no associated symptoms. She underwent persantine stress test today that showed no evidence of reversible ischemia. Blood pressure 126/77 heart rate 69 afebrile maintaining oxygen saturation on room air. Laboratory data reviewed, CBC unremarkable, cardiac enzymes negative 3, LDL 109. Currently maintained on atorvastatin 20 mg daily, plavix 75 mg daily and toprol 50 mg daily. Plavix is being used secondary to ischemic CVA 05/2017. Not for cardiac purpose. GENERAL: Well-appearing, well-nourished and in no acute distress. Obese. NECK: Supple without JVD or thyromegaly. LUNGS: Breath sounds clear to auscultation bilaterally. Respiration equal and unlabored. No wheezes, rales or rhonchi. HEART: Regular rate and rhythm with systolic ejection murmur at the base, no rubs or gallops. S1 and S2 heard. EXTREMITIES: Normal range of motion, trace bilateral lower extremity nonpitting edema. No clubbing or cyanosis. Peripheral pulses intact. ASSESSMENT Chest pain, atypical. An acute coronary event has been ruled out. Stress test is negative for reversible cardiac ischemia. Hypertension Dyslipidemia Diabetes mellitus Gastroesophageal reflux disease PLAN Echocardiogram has been obtained and will be reviewed prior to discharge. Increase atorvastatin to 40 mg to obtain LDL cholesterol less than [address] Barcenas upon discharge. Nurse Practitioner note has been reviewed, I agree with a documented findings and plan of care. Patient was seen and examined. Objective - Vital Signs Vital signs: Vital Signs Temp 97.7 F 11/20/18 11:40 Pulse 69 11/20/18 11:40 Resp 17 11/20/18 11:40 BP 126/77 11/20/18 11:40 Pulse Ox 95 11/20/18 11:40 Intake & Output 11/19/18 11/20/18 11/20/18 18:59 06:59 18:59 Intake Total 72.342 Output Total 1 Balance 72.342 -1 Weight 81.647 kg Intake: Intake, IV Titration 72.342 Amount Heparin Sod,Pork in 0.45% 72.342 NaCl 25,000 unit In 0.45 % NaCl 1 250ml.bag @ 12 UNITS/KG/HR 9.798 mls/hr IV .Q24H [facility] Rx#: [id number] Output: Urine 1 Other: Voiding Method Bedside Commode Bedside Commode # Voids 1 1 1 - Labs CBC & Chem 7: 11/20/18 05:27 11/19/18 18:47 Labs: Abnormal Lab Results - Last 24 Hours (Table) 11/19/18 11/19/18 11/19/18 Range/Units 11:46 16:34 18:47 APTT 44.1 H 32.1 H (22.0-30.0) sec Glucose (74-99) mg/dL POC Glucose (mg/dL) 285 H (75-99) mg/dL Triglycerides (<150) mg/dL LDL Cholesterol, Calc (0-99) mg/dL HDL Cholesterol (40-60) mg/dL 11/19/18 11/19/18 11/20/18 Range/Units 18:47 19:59 05:27 APTT (22.0-30.0) sec Glucose 223 H (74-99) mg/dL POC Glucose (mg/dL) 205 H (75-99) mg/dL Triglycerides 205 H (<150) mg/dL LDL Cholesterol, Calc 109 H (0-99) mg/dL HDL Cholesterol 38 L (40-60) mg/dL 11/20/18 11/20/18 Range/Units 07:01 11:34 APTT (22.0-30.0) sec Glucose (74-99) mg/dL POC Glucose (mg/dL) 153 H 235 H (75-99) mg/dL Triglycerides (<150) mg/dL LDL Cholesterol, Calc (0-99) mg/dL HDL Cholesterol (40-60) mg/dL
--- NOTE | 2018-11-20 14:58 | EST ---
EXERCISE STRESS AGE: 67 SEX: F PROTOCOL: Persantine Cardiolite Stress Test HEART RATE REST: 69 BLOOD PRESSURE REST: 153/76 MAXIMUM HEART RATE ACHIEVED: 79 MAXIMUM BLOOD PRESSURE: 153/76 INDICATIONS: Chest pain. CLINICAL INFORMATION: STRESS DATA: Heart rate 69, pressure 153/76 mmHg. Baseline EKG showed sinus mechanism; 0.4 mg of Persantine given or per protocol with max heart rate was 79 beats per minute. Maximum pressure was 153/76 mmHg. Clinically the patient did not have any symptoms and the EKG did not show any significant ST or T-wave abnormalities concerning for ischemia. CONCLUSION: 1. Nondiagnostic electrocardiogram stress testing in response to exercise. 2. Please follow up on the Cardiolite portion on separate report from Radiology. MMODL / IJN: [id number] /
[2018-11-20] MEDS ORDERED: ATORVASTATIN 40 MG TAB PO SCH (21:00)
--- NOTE | 2018-11-20 22:07 | DS ---
DISCHARGE SUMMARY DATE OF SERVICE: 11/20/2018. FINAL DIAGNOSES: 1. Chest pain. Myocardial infarction ruled out. Possible unstable angina. 2. Negative stress test. 3. Diabetes mellitus, type 2. 4. History of coronary artery disease. 5. Chronic obstructive pulmonary disease. 6. Cerebrovascular accident, transient ischemic attack. 7. History of deep vein thrombosis. 8. History of gastroesophageal reflux disease. 9. Hypertension. 10.Hyperlipidemia. 11.History of degenerative joint disease. 12.History of syncope. 13.History of appendectomy. 14.History of back surgery. 15.History of restless legs syndrome. 16.History of anxiety. 17.Continued ongoing nicotine dependence. 18.Obesity with a body mass index of 31.9. DISCHARGE DISPOSITION: The patient will be discharged in stable condition with guarded prognosis. Cardiology cleared the patient for discharge. HISTORY OF PRESENT ILLNESS: This 67-year-old woman with a past medical history of multiple medical problems, being followed by Dr. Benitez in the outpatient setting, was admitted with chest pain. Myocardial infarction was ruled out. Cardiology saw the patient. The patient underwent a Persantine stress test which showed no scintigraphic evidence of reversible ischemia. The patient improved significantly. On exam, vitals are stable. CARDIOVASCULAR SYSTEM: S1, S2 muffled. ABDOMEN: Soft. NERVOUS SYSTEM: No focal deficit. The patient is discharge in stable condition with guarded prognosis. DISCHARGE ADVICE AND MEDICATIONS: 1. Diet is cardiac. 2. Activity limited until followup. 3. Follow up with Dr. Benitez in 2-3 days. 4. Follow up with Dr. Bozena Barcenas as recommended. 5. Humalog before meals and at bedtime. 6. Lantus 30 units subcutaneously daily. 7. Neurontin 600 mg p.o. q.i.d. 8. Nitrostat 0.4 subcutaneously p.r.n. 9. Requip 3 mg at bedtime. 10.Synthroid 200 mcg p.o. daily. 11.Toprol-XL 50 mg p.o. daily. 12.Zanaflex 4 mg p.o. t.i.d. p.r.n. 13.Zofran 4 mg q.8 p.r.n. 14.Lipitor 40 mg at bedtime. 15.Lomotil 1 tablet p.o. q.i.d. p.r.n. 16.Plavix 75 mg p.o. daily. Once again, the patient will be discharged in stable condition with guarded prognosis. MMODL / IJN: [id number] /
--- NOTE | 2018-11-21 08:45 | ECHOF ---
Referral Reason:chest pain MEASUREMENTS -------- HEIGHT: 160.0 cm WEIGHT: 81.6 kg BP: 127/78 RVIDd: 3.5 cm (< 3.3) IVSd: 1.7 cm (0.6 - 1.1) LVIDd: 3.3 cm (3.9 - 5.3) LVPWd: 1.4 cm (0.6 - 1.1) IVSs: 1.9 cm LVIDs: 2.5 cm LVPWs: 2.0 cm LA Diam: 4.1 cm (2.7 - 3.8) LAESV Index (A-L): 26.10 ml/m Ao Diam: 3.1 cm (2.0 - 3.7) AV Cusp: 2.1 cm (1.5 - 2.6) MV EXCURSION: 15.965 mm (> 18.000) MV EF SLOPE: 52 mm/s (70 - 150) EPSS: 1.0 cm MV E Anthony: 0.73 m/s MV DecT: 405 ms MV A Anthony: 1.06 m/s MV E/A Ratio: 0.69 RAP: 5.00 mmHg RVSP: 30.53 mmHg FINDINGS -------- Sinus rhythm. This was a technically difficult study with suboptimal apical views. The left ventricular size is normal. There is moderate concentric left ventricular hypertrophy. O verall left ventricular systolic function is normal with, an EF between 65 - 70 %. The right ventricle is mildly enlarged. Normal LA size by volume 22+/-6 ml/m2. The right atrium is normal in size. 5 ml of Lumason was utilized for enhancement of images. Interatrial and interventricular septum intact. There is mild aortic valve sclerosis. Mild mitral annular calcification present. Mild tricuspid regurgitation present. Right ventricular systolic pressure is normal at < 35 mmHg. The pulmonic valve was not well visualized. The aortic root size is normal. IVC Not well visulized. There is no pericardial effusion. CONCLUSIONS -------- 1. Sinus rhythm. 2. This was a technically difficult study with suboptimal apical views. 3. The left ventricular size is normal. 4. There is moderate concentric left ventricular hypertrophy. 5. Overall left ventricular systolic function is normal with, an EF between 65 - 70 %. 6. The right ventricle is mildly enlarged. 7. Normal LA size by volume 22+/-6 ml/m2. 8. The right atrium is normal in size. 9. 5 ml of Lumason was utilized for enhancement of images. 10. Interatrial and interventricular septum intact. 11. There is mild aortic valve sclerosis. 12. Mild mitral annular calcification present. 13. Mild tricuspid regurgitation present. 14. Right ventricular systolic pressure is normal at < 35 mmHg. 15. The pulmonic valve was not well visualized. 16. The aortic root size is normal. 17. IVC Not well visulized. 18. There is no pericardial effusion. VISUAL COMMUNICATIONS INSTRUCTOR: Margot Haynes RDCS
== END 2018-11-20 15:10 ==
LOC: EC 05:42 → 1SOBS 07:04
PROVIDERS: ADMIT Hospitalist; ATTEND Hospitalist
DX: R07.89 Other chest pain (principal); R00.2 Palpitations; R61 Generalized hyperhidrosis; I25.10 Atherosclerotic heart disease of native coronary artery without angina pectoris; J44.9 Chronic obstructive pulmonary disease, unspecified; E78.00 Pure hypercholesterolemia, unspecified; E11.65 Type 2 diabetes mellitus with hyperglycemia; E78.5 Hyperlipidemia, unspecified; I10 Essential (primary) hypertension; M19.90 Unspecified osteoarthritis, unspecified site; R41.3 Other amnesia; M32.9 Systemic lupus erythematosus, unspecified; D68.61 Antiphospholipid syndrome; G25.81 Restless legs syndrome; R60.0 Localized edema; E03.9 Hypothyroidism, unspecified; M79.2 Neuralgia and neuritis, unspecified; F17.200 Nicotine dependence, unspecified, uncomplicated; K21.9 Gastro-esophageal reflux disease without esophagitis; F41.9 Anxiety disorder, unspecified; E66.9 Obesity, unspecified; Z68.31 Body mass index [BMI] 31.0-31.9, adult; Z86.73 Personal history of transient ischemic attack (TIA), and cerebral infarction without residual deficits; Z86.718 Personal history of other venous thrombosis and embolism; Z86.14 Personal history of Methicillin resistant Staphylococcus aureus infection; Z87.01 Personal history of pneumonia (recurrent); Z87.440 Personal history of urinary (tract) infections; Z79.899 Other long term (current) drug therapy; Z79.890 Hormone replacement therapy; Z79.4 Long term (current) use of insulin; Z79.02 Long term (current) use of antithrombotics/antiplatelets; Z88.6 Allergy status to analgesic agent; Z88.2 Allergy status to sulfonamides; Z88.7 Allergy status to serum and vaccine; Z91.041 Radiographic dye allergy status; Z90.49 Acquired absence of other specified parts of digestive tract; Z82.49 Family history of ischemic heart disease and other diseases of the circulatory system; Z80.9 Family history of malignant neoplasm, unspecified; Z82.61 Family history of arthritis
CPT/HCPCS: 96366; 96376; 96365; 99285; 36415; 93005; 93017; 80061; 80053; 83690; 83735; 84484; 85025 ×2; 85610; 85730; 83036; 71046; 78452; G0378 ×2; C8929; A9500; J1644 ×2; J1245; Q9950; 93306

== ENCOUNTER 2018-11-29 17:51 | Emergency (ER) | payer MEDICARE ==
--- NOTE | 2018-11-29 18:15 | ED ---
SOB HPI - General Stated Complaint: Diff Breathing Time Seen by Provider: 11/29/18 17:51 Source: patient, EMS, RN notes reviewed Mode of arrival: EMS Limitations: no limitations - History of Present Illness Initial Comments: This is a 67-year-old female history of DVTs in the past who presents from home by EMS with complaints of shortness of breath is been going on for 2-3 days getting worse she has exertional dyspnea no overt fevers chills nausea vomiting sweats or chest pain the fear is that of PE. She was seen by her doctor today and was told come the emergency department. She went home instead and is now presenting. No other modifying factors she is currently not on any blood thinners. The patient is a former smoker MD Complaint: shortness of breath - Related Data Home Medications Medication Instructions Recorded Confirmed Metoprolol Succinate [Toprol XL] 50 mg PO DAILY 07/22/13 11/29/18 Nitroglycerin Sl Tabs [Nitrostat] 0.4 mg SUBLINGUAL Q5M PRN 07/11/14 11/29/18 Levothyroxine Sodium [Synthroid] 200 mcg PO DAILY 04/21/15 11/29/18 Ondansetron [Zofran] 4 mg PO Q8HR PRN 04/21/15 11/29/18 Gabapentin [Neurontin] 600 mg PO QID PRN 06/23/16 11/29/18 rOPINIRole HCL [Requip] 3 mg PO HS 06/23/16 11/29/18 tiZANidine HCL [Zanaflex] 4 mg PO TID PRN 06/23/16 11/29/18 Insulin Glargine [Lantus] 30 unit SQ DAILY 05/14/17 11/29/18 INSULIN LISPRO (HumaLOG) [humaLOG] See Protocol SQ ACHS 11/19/18 11/29/18 Previous Rx's Medication Instructions Recorded Clopidogrel [Plavix] 75 mg PO DAILY #30 tab 05/17/17 Diphenox-Atrop 2.5-0.025 mg 1 tab PO QID PRN #10 tab 05/17/17 [Lomotil] Atorvastatin [Lipitor] 40 mg PO HS #90 tab 11/20/18 Ipratropium/Albuterol Sulfate 2 puff INHALATION QID #1 inhaler 11/29/18 [Combivent Respimat Inhaler] methylPREDNISolone Dose Pack 4 mg PO DIRECTED #21 package 11/29/18 [Medrol Dose Pack] Allergies Allergy/AdvReac Type Severity Reaction Status Date / Time aspirin Allergy Anaphylaxis Verified 11/29/18 18:52 Iodinated Contrast- Oral and Allergy Anaphylaxis Verified 11/29/18 18:52 IV Dye [Iodinated Contrast Media - IV Dye] NSAIDS (Non-Steroidal Allergy Anaphylaxis Verified 11/29/18 18:52 Anti-Inflamma sulfamethoxazole Allergy Unknown Verified 11/29/18 18:52 [From Bactrim] trimethoprim [From Bactrim] Allergy Unknown Verified 11/29/18 18:52 influenza virus vaccine ts AdvReac Nausea & Verified 11/29/18 18:52 [id number] (36 mos,up) Vomiting & [From Fluarix] Diarrhea Review of Systems ROS Statement: Those systems with pertinent positive or pertinent negative responses have been documented in the HPI. ROS Other: All systems not noted in ROS Statement are negative. Past Medical History Past Medical History: Coronary Artery Disease (CAD), Chest Pain / Angina, COPD, CVA/TIA, Diabetes Mellitus, Deep Vein Thrombosis (DVT), GERD/Reflux, Hyperlipidemia, Hypertension, Memory Impairment, Osteoarthritis (OA), Pneumonia, Syncope, Thyroid Disorder Additional Past Medical History / Comment(s): 05/07/15 Pt presented to [facility] ER with L side of body feeling "funny" L upper extremity and L hand weakness with L facial weakness. Pt was recently admitted 04/21/15 with possible CVA. Other HX: Antiphospholipid syndrome , LUPUS, CVA's/TIA's, demyelinization of brain, NIDDM, sinus problems, diverticulosis, uti, RESTLESS LEG SYNDROME, systemic lupus ethythemus, L leg DVT, occipital neuritis, varicosities, colostomy, DJD. History of Any Multi-Drug Resistant Organisms: MRSA Date of last positivie culture/infection: 01/08/17 MDRO Source:: URINE Past Surgical History: Appendectomy, Back Surgery, Bladder Surgery, Cholecystectomy, Hysterectomy, Orthopedic Surgery, Tonsillectomy Additional Past Surgical History / Comment(s): L hip surgery nailing /fixation- L hip hemiarthroplasty, bladder suspension, sisi cataracts, partial laminectomy,. colostomy 2010 D/T PERFORATED DIVERTICULUM with reversal and then 2nd colostomy, LT KNEE SX FOR TORN CARTILAGE Past Anesthesia/Blood Transfusion Reactions: No Reported Reaction Additional Past Anesthesia/Blood Transfusion Reaction / Comment(s): HAD BLOOD TRANSFUSION 15 YEARS ago without reaction. Past Psychological History: No Psychological Hx Reported Smoking Status: Current every day smoker Past Alcohol Use History: None Reported Past Drug Use History: None Reported - Past Family History Mother Family Medical History: Cancer, Hypertension Additional Family Medical History / Comment(s): "mother had cancer from asbestos exposure" Father Family Medical History: Hypertension, Rheumatoid Arthritis (RA) General Exam - General Exam Comments Initial Comments: This is a well-developed well-nourished awake alert oriented 3 female Limitations: no limitations General appearance: alert, in no apparent distress Head exam: Present: atraumatic, normocephalic, normal inspection Eye exam: Present: normal appearance, PERRL, EOMI. Absent: scleral icterus, conjunctival injection, periorbital swelling ENT exam: Present: normal exam, mucous membranes moist Neck exam: Present: normal inspection. Absent: tenderness, meningismus, lymphadenopathy Respiratory exam: Present: rales, decreased breath sounds. Absent: respiratory distress, wheezes, rhonchi, stridor Cardiovascular Exam: Present: regular rate, normal rhythm, normal heart sounds. Absent: systolic murmur, diastolic murmur, rubs, gallop, clicks GI/Abdominal exam: Present: soft, normal bowel sounds. Absent: distended, tenderness, guarding, rebound, rigid Extremities exam: Present: normal inspection, full ROM, normal capillary refill. Absent: tenderness, pedal edema, joint swelling, calf tenderness Back exam: Present: normal inspection Neurological exam: Present: alert, oriented X3, CN II-XII intact Psychiatric exam: Present: normal affect, normal mood Skin exam: Present: warm, dry, intact, normal color. Absent: rash Course Vital Signs 11/29/18 11/29/18 11/29/18 18:06 18:44 19:41 Temperature 98.6 F Pulse Rate 73 71 Respiratory 18 18 14 Rate Blood Pressure 154/74 O2 Sat by Pulse 93 L Oximetry Medical Decision Making - Medical Decision Making Reevaluation patient reveals markedly increased aeration and no abnormal lung sounds at this time. She feels much improved the presentation is consistent with a acute bronchospasm patient is a former smoker. Her d-dimer is well within normal limits. Patient be discharged home on a Medrol Dosepak as well as an inhaler. She is follow-up with her doctor and return when necessary - Lab Data Result diagrams: 11/29/18 18:25 11/29/18 18:25 Lab Results 11/29/18 11/29/18 11/29/18 Range/Units 18:25 18:25 18:25 WBC 8.2 (3.8-10.6) k/uL RBC 4.12 (3.80-5.40) m/uL Hgb 12.1 (11.4-16.0) gm/dL Hct 36.8 (34.0-46.0) % MCV 89.3 (80.0-100.0) fL MCH 29.3 (25.0-35.0) pg MCHC 32.8 (31.0-37.0) g/dL RDW 13.8 (11.5-15.5) % Plt Count 206 (150-450) k/uL Neutrophils % 77 % Lymphocytes % 15 % Monocytes % 5 % Eosinophils % 1 % Basophils % 0 % Neutrophils # 6.3 (1.3-7.7) k/uL Lymphocytes # 1.2 (1.0-4.8) k/uL Monocytes # 0.4 (0-1.0) k/uL Eosinophils # 0.1 (0-0.7) k/uL Basophils # 0.0 (0-0.2) k/uL PT 9.7 (9.0-12.0) sec INR 0.9 (<1.2) APTT 25.0 (22.0-30.0) sec D-Dimer 0.49 (<0.60) mg/L FEU Sodium 139 (137-145) mmol/L Potassium 3.8 (3.5-5.1) mmol/L Chloride 105 (98-107) mmol/L Carbon Dioxide 24 (22-30) mmol/L Anion Gap 10 mmol/L BUN 15 (7-17) mg/dL Creatinine 0.83 (0.52-1.04) mg/dL Est GFR (CKD-EPI)AfAm 85 (>60 ml/min/1.73 sqM) Est GFR (CKD-EPI)NonAf 74 (>60 ml/min/1.73 sqM) Glucose 248 H (74-99) mg/dL Calcium 9.2 (8.4-10.2) mg/dL Magnesium 1.8 (1.6-2.3) mg/dL Total Bilirubin 0.3 (0.2-1.3) mg/dL AST 17 (14-36) U/L ALT 18 (9-52) U/L Alkaline Phosphatase 90 (38-126) U/L Troponin I (0.000-0.034) ng/mL NT-Pro-B Natriuret Pep pg/mL Total Protein 6.3 (6.3-8.2) g/dL Albumin 3.5 (3.5-5.0) g/dL 11/29/18 11/29/18 Range/Units 18:25 18:25 WBC (3.8-10.6) k/uL RBC (3.80-5.40) m/uL Hgb (11.4-16.0) gm/dL Hct (34.0-46.0) % MCV (80.0-100.0) fL MCH (25.0-35.0) pg MCHC (31.0-37.0) g/dL RDW (11.5-15.5) % Plt Count (150-450) k/uL Neutrophils % % Lymphocytes % % Monocytes % % Eosinophils % % Basophils % % Neutrophils # (1.3-7.7) k/uL Lymphocytes # (1.0-4.8) k/uL Monocytes # (0-1.0) k/uL Eosinophils # (0-0.7) k/uL Basophils # (0-0.2) k/uL PT (9.0-12.0) sec INR (<1.2) APTT (22.0-30.0) sec D-Dimer (<0.60) mg/L FEU Sodium (137-145) mmol/L Potassium (3.5-5.1) mmol/L Chloride (98-107) mmol/L Carbon Dioxide (22-30) mmol/L Anion Gap mmol/L BUN (7-17) mg/dL Creatinine (0.52-1.04) mg/dL Est GFR (CKD-EPI)AfAm (>60 ml/min/1.73 sqM) Est GFR (CKD-EPI)NonAf (>60 ml/min/1.73 sqM) Glucose (74-99) mg/dL Calcium (8.4-10.2) mg/dL Magnesium (1.6-2.3) mg/dL Total Bilirubin (0.2-1.3) mg/dL AST (14-36) U/L ALT (9-52) U/L Alkaline Phosphatase (38-126) U/L Troponin I <0.012 (0.000-0.034) ng/mL NT-Pro-B Natriuret Pep 394 pg/mL Total Protein (6.3-8.2) g/dL Albumin (3.5-5.0) g/dL - EKG Data -: EKG Interpreted by Ma EKG shows normal: sinus rhythm (Sinus rhythm a 73. Interval 138 QRS duration 86 QT since QTC 46/447 pulses criteria for LVH.) - Radiology Data Radiology results: report reviewed, image reviewed Disposition Clinical Impression: Acute bronchospasm Disposition: HOME SELF-CARE Condition: Good Instructions (If sedation given, give patient instructions): Bronchospasm (ED) Additional Instructions: Prescriptions sent to your [facility] pharmacy Prescriptions: Ipratropium/Albuterol Sulfate [Combivent Respimat Inhaler] 2 puff INHALATION QID #1 inhaler methylPREDNISolone Dose Pack [Medrol Dose Pack] 4 mg PO DIRECTED #21 package Is patient prescribed a controlled substance at d/c from ED?: No Referrals: Franklin Benitez III, MD [Primary Care Provider] - 1-2 days
[2018-11-29 18:39] LABS: Basophils % (A) 0 %; Eosinophils # (A) 0.1 k/uL (0-0.7); Eosinophils % (A) 1 %; HCT 36.8 % (34.0-46.0); HGB 12.1 gm/dL (11.4-16.0); Lymphocytes # (A) 1.2 k/uL (1.0-4.8); Lymphocytes % (A) 15 %; MCH 29.3 pg (25.0-35.0); MCHC 32.8 g/dL (31.0-37.0); MCV 89.3 fL (80.0-100.0); Mean Platelet Volume 9.1; Monocytes # (A) 0.4 k/uL (0-1.0); Monocytes % (A) 5 %; Neutrophils # (A) 6.3 k/uL (1.3-7.7); Neutrophils % (A) 77 %; Platelet Count 206 k/uL (150-450); RBC 4.12 m/uL (3.80-5.40); RDW 13.8 % (11.5-15.5); WBC 8.2 k/uL (3.8-10.6)
[2018-11-29 18:50] LABS: Albumin 3.5 g/dL (3.5-5.0); Calcium 9.2 mg/dL (8.4-10.2); Magnesium 1.8 mg/dL (1.6-2.3); Potassium 3.8 mmol/L (3.5-5.1); Total Bilirubin 0.3 mg/dL (0.2-1.3); Total Protein 6.3 g/dL (6.3-8.2)
[2018-11-29 18:53] LABS: D-Dimer 0.49 mg/L FEU (<0.60); INR 0.9 (<1.2); Prothrombin Time 9.7 sec (9.0-12.0)
--- NOTE | 2018-11-29 19:24 | XR ---
EXAMINATION TYPE: XR chest 2V DATE OF EXAM: 11/29/2018 COMPARISON: 11/19/2018 HISTORY: Difficulty breathing TECHNIQUE: Frontal and lateral views of the chest are obtained. FINDINGS: There is no heart failure nor confluent pneumonic infiltrate. Costophrenic angles are dayanna r. Heart size is normal. Thoracic aorta is atheromatous. There is no sign of pleural effusion. Bony t horax is intact. IMPRESSION: No active cardiopulmonary disease. No change.
[2018-11-29] MEDS ORDERED: IPRATROPIUM-ALBUTEROL 3 ML NEB INHALATION STA (19:25)
[2018-11-29] MEDS ORDERED: methylPREDNISolone SOD SUCCI 125 MG/2 ML VIAL IV STA (20:10)
[2018-11-29 20:36] VITALS: BP 150/67; PULSE 82; RESP 18; TEMP 98
== END 2018-11-29 20:35 | disposition home or self-care (01) ==
LOC: EC 17:51
DX: J98.01 Acute bronchospasm (principal); E11.9 Type 2 diabetes mellitus without complications; I10 Essential (primary) hypertension; E07.9 Disorder of thyroid, unspecified; F17.200 Nicotine dependence, unspecified, uncomplicated; Z79.4 Long term (current) use of insulin; Z79.890 Hormone replacement therapy; Z79.899 Other long term (current) drug therapy; Z88.1 Allergy status to other antibiotic agents; Z88.2 Allergy status to sulfonamides; Z88.6 Allergy status to analgesic agent; Z88.7 Allergy status to serum and vaccine; Z91.041 Radiographic dye allergy status; Z96.642 Presence of left artificial hip joint; Z86.718 Personal history of other venous thrombosis and embolism; Z86.73 Personal history of transient ischemic attack (TIA), and cerebral infarction without residual deficits
CPT/HCPCS: 36415; 94640; 93005; 85379; 83880; 80053; 83735; 84484; 85025; 85610; 85730; 87040; 71046; 99285; 96374; J2930

== ENCOUNTER 2018-11-30 01:40 | Emergency (ER) | payer MEDICARE ==
--- NOTE | 2018-11-30 02:22 | XR ---
EXAMINATION TYPE: XR chest 1V portable DATE OF EXAM: 11/30/2018 COMPARISON: 11/29/2018 HISTORY: Short of breath TECHNIQUE: Single frontal view of the chest is obtained. FINDINGS: There is a minimal infiltrate lateral left lung base. There is no heart failure. Heart siz e is normal. There is no pleural effusion. There are no hilar masses. IMPRESSION: There is a new minimal infiltrate left lower lobe compared to yesterday. Normal heart.
[2018-11-30 02:42] LABS: Basophils % (A) 0 %; Eosinophils % (A) 0 %; HCT 40.8 % (34.0-46.0); HGB 12.9 gm/dL (11.4-16.0); Lymphocytes # (A) 0.4 k/uL (1.0-4.8); Lymphocytes % (A) 4 %; MCH 28.8 pg (25.0-35.0); MCHC 31.6 g/dL (31.0-37.0); MCV 91.3 fL (80.0-100.0); Monocytes # (A) 0.1 k/uL (0-1.0); Monocytes % (A) 1 %; Neutrophils # (A) 9.4 k/uL (1.3-7.7); Neutrophils % (A) 94 %; Platelet Count 219 k/uL (150-450); RBC 4.47 m/uL (3.80-5.40); RDW 13.9 % (11.5-15.5)
[2018-11-30 02:51] LABS: INR 0.9 (<1.2); Partial Thromboplastin Time 25.4 sec (22.0-30.0); Prothrombin Time 9.5 sec (9.0-12.0)
[2018-11-30 02:52] LABS: ALT 14 U/L (9-52); AST 21 U/L (14-36); African American GFR (CKD) >90 (>60 ml/min/1.73 sqM); Albumin 4.1 g/dL (3.5-5.0); Alkaline Phosphatase 114 U/L (38-126); Anion Gap 15 mmol/L; Blood Urea Nitrogen 17 mg/dL (7-17); Calcium 9.4 mg/dL (8.4-10.2); Carbon Dioxide 21 mmol/L (22-30); Chloride 102 mmol/L (98-107); Potassium 4.5 mmol/L (3.5-5.1); Sodium 138 mmol/L (137-145); Total Bilirubin 0.2 mg/dL (0.2-1.3)
--- NOTE | 2018-11-30 03:04 | ED ---
SOB HPI - General Chief Complaint: Shortness of Breath Stated Complaint: SOB Time Seen by Provider: 11/30/18 01:54 Source: patient, EMS Mode of arrival: EMS - History of Present Illness Initial Comments: Patient is 67-year-old woman who presents with complaint that. She is feeling short of breath. Patient states this is been going on since the morning. She states she did come emergency department earlier and was seen here and sent home. She states that the feeling shortness of breath hasn't really change much and she did not feel she could sleep with this going on. She states she has had this in the past was told that it was related to her lupus. Patient denies ches t pain. No fever or chills. No cough or sputum production. She has not noted any change in urination. No change in bowel movements, including no blood or dark tarry stools. No leg pain or swelling. MD Complaint: shortness of breath Onset/Timin -: days(s) Severity: moderate Severity scale (1-10): 0 Consistency: constant Improves With: nothing Worsens With: nothing Associated Symptoms: denies other symptoms - Related Data Home Medications Medication Instructions Recorded Confirmed Metoprolol Succinate [Toprol XL] 50 mg PO DAILY 07/22/13 11/29/18 Nitroglycerin Sl Tabs [Nitrostat] 0.4 mg SUBLINGUAL Q5M PRN 07/11/14 11/29/18 Levothyroxine Sodium [Synthroid] 200 mcg PO DAILY 04/21/15 11/29/18 Ondansetron [Zofran] 4 mg PO Q8HR PRN 04/21/15 11/29/18 Gabapentin [Neurontin] 600 mg PO QID PRN 06/23/16 11/29/18 rOPINIRole HCL [Requip] 3 mg PO HS 06/23/16 11/29/18 tiZANidine HCL [Zanaflex] 4 mg PO TID PRN 06/23/16 11/29/18 Insulin Glargine [Lantus] 30 unit SQ DAILY 05/14/17 11/29/18 INSULIN LISPRO (HumaLOG) [humaLOG] See Protocol SQ ACHS 11/19/18 11/29/18 Previous Rx's Medication Instructions Recorded Clopidogrel [Plavix] 75 mg PO DAILY #30 tab 05/17/17 Diphenox-Atrop 2.5-0.025 mg 1 tab PO QID PRN #10 tab 05/17/17 [Lomotil] Atorvastatin [Lipitor] 40 mg PO HS #90 tab 11/20/18 Ipratropium/Albuterol Sulfate 2 puff INHALATION QID #1 inhaler 11/29/18 [Combivent Respimat Inhaler] methylPREDNISolone Dose Pack 4 mg PO DIRECTED #21 package 11/29/18 [Medrol Dose Pack] Allergies Allergy/AdvReac Type Severity Reaction Status Date / Time aspirin Allergy Anaphylaxis Verified 11/29/18 18:52 Iodinated Contrast- Oral and Allergy Anaphylaxis Verified 11/29/18 18:52 IV Dye [Iodinated Contrast Media - IV Dye] NSAIDS (Non-Steroidal Allergy Anaphylaxis Verified 11/29/18 18:52 Anti-Inflamma sulfamethoxazole Allergy Unknown Verified 11/29/18 18:52 [From Bactrim] trimethoprim [From Bactrim] Allergy Unknown Verified 11/29/18 18:52 influenza virus vaccine ts AdvReac Nausea & Verified 11/29/18 18:52 [id number] (36 mos,up) Vomiting & [From Fluarix] Diarrhea Review of Systems ROS Statement: Those systems with pertinent positive or pertinent negative responses have been documented in the HPI. ROS Other: All systems not noted in ROS Statement are negative. Past Medical History Past Medical History: Coronary Artery Disease (CAD), Chest Pain / Angina, COPD, CVA/TIA, Diabetes Mellitus, Deep Vein Thrombosis (DVT), GERD/Reflux, Hyperlipidemia, Hypertension, Memory Impairment, Osteoarthritis (OA), Pneumonia, Syncope, Thyroid Disorder Additional Past Medical History / Comment(s): 05/07/15 Pt presented to [facility] ER with L side of body feeling "funny" L upper extremity and L hand weakness with L facial weakness. Pt was recently admitted 04/21/15 with possible CVA. Other HX: Antiphospholipid syndrome , LUPUS, CVA's/TIA's, demyelinization of brain, NIDDM, sinus problems, diverticulosis, uti, RESTLESS LEG SYNDROME, systemic lupus ethythemus, L leg DVT, occipital neuritis, varicosities, colostomy, DJD. History of Any Multi-Drug Resistant Organisms: MRSA Date of last positivie culture/infection: 01/08/17 MDRO Source:: URINE Past Surgical History: Appendectomy, Back Surgery, Bladder Surgery, Cholecystectomy, Hysterectomy, Orthopedic Surgery, Tonsillectomy Additional Past Surgical History / Comment(s): L hip surgery nailing /fixation- L hip hemiarthroplasty, bladder suspension, sisi cataracts, partial laminectomy,. colostomy 2010 D/T PERFORATED DIVERTICULUM with reversal and then 2nd colostomy, LT KNEE SX FOR TORN CARTILAGE Past Anesthesia/Blood Transfusion Reactions: No Reported Reaction Additional Past Anesthesia/Blood Transfusion Reaction / Comment(s): HAD BLOOD TRANSFUSION 15 YEARS ago without reaction. Past Psychological History: No Psychological Hx Reported Smoking Status: Current every day smoker Past Alcohol Use History: None Reported Past Drug Use History: None Reported - Past Family History Mother Family Medical History: Cancer, Hypertension Additional Family Medical History / Comment(s): "mother had cancer from asbestos exposure" Father Family Medical History: Hypertension, Rheumatoid Arthritis (RA) General Exam General appearance: alert, in no apparent distress Head exam: Present: atraumatic, normocephalic Eye exam: Present: normal appearance. Absent: scleral icterus, conjunctival injection ENT exam: Present: normal oropharynx Respiratory exam: Present: normal lung sounds bilaterally. Absent: respiratory distress, wheezes, rales, rhonchi, stridor, accessory muscle use, decreased breath sounds Cardiovascular Exam: Present: regular rate, normal rhythm, normal heart sounds. Absent: systolic murmur, diastolic murmur, rubs, gallop GI/Abdominal exam: Present: soft. Absent: distended, tenderness, guarding, rebound, rigid Extremities exam: Present: normal inspection, normal capillary refill. Absent: pedal edema, calf tenderness Back exam: Present: normal inspection. Absent: CVA tenderness (R), CVA tenderness (L) Neurological exam: Present: alert Skin exam: Present: warm, dry, intact, normal color. Absent: rash Course Vital Signs 11/30/18 11/30/18 11/30/18 01:43 01:49 03:30 Temperature 97.6 F Pulse Rate 89 84 71 Respiratory 20 18 18 Rate Blood Pressure 181/79 164/87 142/76 O2 Sat by Pulse 97 95 96 Oximetry 11/30/18 11/30/18 04:14 06:11 Temperature 98 F Pulse Rate 75 69 Respiratory 20 18 Rate Blood Pressure 143/88 134/74 O2 Sat by Pulse 96 95 Oximetry Medical Decision Making - Medical Decision Making Patient is 67-year-old woman with dyspnea that she believes is related to her lupus. This workup and previous one not revealing cardiac source of dyspnea. She is found to have significant hyperglycemia. On reevaluation, patient still having some subjective dyspnea, however she was able to sleep here comfortably and sats are good with normal respiratory pattern. Patient is given steroids for her suspicion of lupus exacerbation and will follow with the financial operations consultant. She is given additional fluid and insulin to control blood sugar - Lab Data Result diagrams: 11/30/18 02:14 11/30/18 02:14 Lab Results 11/30/18 11/30/18 11/30/18 Range/Units 02:14 02:14 02:14 WBC 10.0 (3.8-10.6) k/uL RBC 4.47 (3.80-5.40) m/uL Hgb 12.9 (11.4-16.0) gm/dL Hct 40.8 (34.0-46.0) % MCV 91.3 (80.0-100.0) fL MCH 28.8 (25.0-35.0) pg MCHC 31.6 (31.0-37.0) g/dL RDW 13.9 (11.5-15.5) % Plt Count 219 (150-450) k/uL Neutrophils % 94 % Lymphocytes % 4 % Monocytes % 1 % Eosinophils % 0 % Basophils % 0 % Neutrophils # 9.4 H (1.3-7.7) k/uL Lymphocytes # 0.4 L (1.0-4.8) k/uL Monocytes # 0.1 (0-1.0) k/uL Eosinophils # 0.0 (0-0.7) k/uL Basophils # 0.0 (0-0.2) k/uL PT 9.5 (9.0-12.0) sec INR 0.9 (<1.2) APTT 25.4 (22.0-30.0) sec Sodium 138 (137-145) mmol/L Potassium 4.5 (3.5-5.1) mmol/L Chloride 102 (98-107) mmol/L Carbon Dioxide 21 L (22-30) mmol/L Anion Gap 15 mmol/L BUN 17 (7-17) mg/dL Creatinine 0.65 (0.52-1.04) mg/dL Est GFR (CKD-EPI)AfAm >90 (>60 ml/min/1.73 sqM) Est GFR (CKD-EPI)NonAf >90 (>60 ml/min/1.73 sqM) Glucose 510 H* (74-99) mg/dL POC Glucose (mg/dL) (75-99) mg/dL POC Glu Chemical Lab Technician ID Calcium 9.4 (8.4-10.2) mg/dL Total Bilirubin 0.2 (0.2-1.3) mg/dL AST 21 (14-36) U/L ALT 14 (9-52) U/L Alkaline Phosphatase 114 (38-126) U/L Troponin I (0.000-0.034) ng/mL NT-Pro-B Natriuret Pep pg/mL Total Protein 7.0 (6.3-8.2) g/dL Albumin 4.1 (3.5-5.0) g/dL 11/30/18 11/30/18 11/30/18 Range/Units 02:14 02:14 04:08 WBC (3.8-10.6) k/uL RBC (3.80-5.40) m/uL Hgb (11.4-16.0) gm/dL Hct (34.0-46.0) % MCV (80.0-100.0) fL MCH (25.0-35.0) pg MCHC (31.0-37.0) g/dL RDW (11.5-15.5) % Plt Count (150-450) k/uL Neutrophils % % Lymphocytes % % Monocytes % % Eosinophils % % Basophils % % Neutrophils # (1.3-7.7) k/uL Lymphocytes # (1.0-4.8) k/uL Monocytes # (0-1.0) k/uL Eosinophils # (0-0.7) k/uL Basophils # (0-0.2) k/uL PT (9.0-12.0) sec INR (<1.2) APTT (22.0-30.0) sec Sodium (137-145) mmol/L Potassium (3.5-5.1) mmol/L Chloride (98-107) mmol/L Carbon Dioxide (22-30) mmol/L Anion Gap mmol/L BUN (7-17) mg/dL Creatinine (0.52-1.04) mg/dL Est GFR (CKD-EPI)AfAm (>60 ml/min/1.73 sqM) Est GFR (CKD-EPI)NonAf (>60 ml/min/1.73 sqM) Glucose (74-99) mg/dL POC Glucose (mg/dL) 357 H (75-99) mg/dL POC Glu Chemical Lab Technician ID Alma Delia Huynh Calcium (8.4-10.2) mg/dL Total Bilirubin (0.2-1.3) mg/dL AST (14-36) U/L ALT (9-52) U/L Alkaline Phosphatase (38-126) U/L Troponin I <0.012 (0.000-0.034) ng/mL NT-Pro-B Natriuret Pep 501 pg/mL Total Protein (6.3-8.2) g/dL Albumin (3.5-5.0) g/dL 11/30/18 Range/Units 06:11 WBC (3.8-10.6) k/uL RBC (3.80-5.40) m/uL Hgb (11.4-16.0) gm/dL Hct (34.0-46.0) % MCV (80.0-100.0) fL MCH (25.0-35.0) pg MCHC (31.0-37.0) g/dL RDW (11.5-15.5) % Plt Count (150-450) k/uL Neutrophils % % Lymphocytes % % Monocytes % % Eosinophils % % Basophils % % Neutrophils # (1.3-7.7) k/uL Lymphocytes # (1.0-4.8) k/uL Monocytes # (0-1.0) k/uL Eosinophils # (0-0.7) k/uL Basophils # (0-0.2) k/uL PT (9.0-12.0) sec INR (<1.2) APTT (22.0-30.0) sec Sodium (137-145) mmol/L Potassium (3.5-5.1) mmol/L Chloride (98-107) mmol/L Carbon Dioxide (22-30) mmol/L Anion Gap mmol/L BUN (7-17) mg/dL Creatinine (0.52-1.04) mg/dL Est GFR (CKD-EPI)AfAm (>60 ml/min/1.73 sqM) Est GFR (CKD-EPI)NonAf (>60 ml/min/1.73 sqM) Glucose (74-99) mg/dL POC Glucose (mg/dL) 312 H (75-99) mg/dL POC Glu Chemical Lab Technician ID Alma Delia Huynh Calcium (8.4-10.2) mg/dL Total Bilirubin (0.2-1.3) mg/dL AST (14-36) U/L ALT (9-52) U/L Alkaline Phosphatase (38-126) U/L Troponin I (0.000-0.034) ng/mL NT-Pro-B Natriuret Pep pg/mL Total Protein (6.3-8.2) g/dL Albumin (3.5-5.0) g/dL - EKG Data -: EKG Interpreted by Me EKG shows normal: sinus rhythm, intervals (Normal), QRS complexes Rate: normal (Rate 78 bpm) Interpretation: LVH Disposition Clinical Impression: Diabetes Disposition: HOME SELF-CARE Condition: Fair Instructions (If sedation given, give patient instructions): Diabetic Hy perglycemia (ED) Is patient prescribed a controlled substance at d/c from ED?: No Referrals: Franklin Benitez III, MD [Primary Care Provider] - 1-2 days
[2018-11-30 03:21] LABS: Glucose 510 mg/dL (74-99)
[2018-11-30] MEDS ORDERED: SODIUM CHLORIDE 0.9% 1,000 ML IV ONE (03:22)
[2018-11-30] MEDS ORDERED: INSULIN REGULAR 100 UNIT/ML VIAL IV STA (03:22)
[2018-11-30 04:09] LABS: Glucose,Whole Blood 357 mg/dL (75-99)
[2018-11-30 06:13] VITALS: BP 134/74; PULSE 69; RESP 18; TEMP 98
[2018-11-30 06:13] LABS: Glucose,Whole Blood 312 mg/dL (75-99)
== END 2018-11-30 07:29 | disposition home or self-care (01) ==
LOC: EC 01:40
DX: E11.65 Type 2 diabetes mellitus with hyperglycemia (principal); M32.9 Systemic lupus erythematosus, unspecified; D68.61 Antiphospholipid syndrome; J44.9 Chronic obstructive pulmonary disease, unspecified; I25.119 Atherosclerotic heart disease of native coronary artery with unspecified angina pectoris; I10 Essential (primary) hypertension; M19.90 Unspecified osteoarthritis, unspecified site; G25.81 Restless legs syndrome; E07.9 Disorder of thyroid, unspecified; F17.200 Nicotine dependence, unspecified, uncomplicated; E78.5 Hyperlipidemia, unspecified; Z79.890 Hormone replacement therapy; Z79.4 Long term (current) use of insulin; Z79.899 Other long term (current) drug therapy; Z93.3 Colostomy status; Z88.1 Allergy status to other antibiotic agents; Z88.6 Allergy status to analgesic agent; Z91.041 Radiographic dye allergy status; Z88.2 Allergy status to sulfonamides; Z88.7 Allergy status to serum and vaccine; Z88.8 Allergy status to other drugs, medicaments and biological substances; Z86.73 Personal history of transient ischemic attack (TIA), and cerebral infarction without residual deficits; Z86.718 Personal history of other venous thrombosis and embolism
CPT/HCPCS: 36415; 71045; 71046; 80053; 83735; 83880; 84484; 85025; 85379; 85610; 85730; 93005; 96360; 96361; 99285

== ENCOUNTER 2018-11-30 14:32 | Emergency (ER) | payer MEDICARE ==
[2018-11-30 15:00] VITALS: RESP 16; TEMP 97.5
[2018-11-30 16:00] LABS: Basophils % (A) 0 %; Eosinophils % (A) 0 %; HCT 37.3 % (34.0-46.0); HGB 12.5 gm/dL (11.4-16.0); Lymphocytes % (A) 7 %; MCH 30.4 pg (25.0-35.0); MCHC 33.5 g/dL (31.0-37.0); MCV 90.9 fL (80.0-100.0); Mean Platelet Volume 9.5; Monocytes # (A) 0.7 k/uL (0-1.0); Monocytes % (A) 5 %; Neutrophils # (A) 11.8 k/uL (1.3-7.7); Neutrophils % (A) 86 %; Platelet Count 235 k/uL (150-450); RDW 15.3 % (11.5-15.5); WBC 13.7 k/uL (3.8-10.6)
[2018-11-30 16:09] LABS: ALT 19 U/L (9-52); AST 24 U/L (14-36); African American GFR (CKD) >90 (>60 ml/min/1.73 sqM); Albumin 3.5 g/dL (3.5-5.0); Alkaline Phosphatase 94 U/L (38-126); Anion Gap 9 mmol/L; Blood Urea Nitrogen 21 mg/dL (7-17); Calcium 9.3 mg/dL (8.4-10.2); Carbon Dioxide 22 mmol/L (22-30); Chloride 108 mmol/L (98-107); Glucose 268 mg/dL (74-99); Magnesium 1.9 mg/dL (1.6-2.3); Potassium 3.8 mmol/L (3.5-5.1); Sodium 139 mmol/L (137-145); Total Bilirubin 0.2 mg/dL (0.2-1.3); Total Protein 6.4 g/dL (6.3-8.2)
--- NOTE | 2018-11-30 16:24 | XR ---
EXAMINATION TYPE: XR chest 2V DATE OF EXAM: 11/30/2018 COMPARISON: Prior chest x-ray same dated earlier time HISTORY: Dyspnea and shortness of breath TECHNIQUE: Frontal and lateral views of the chest are obtained. FINDINGS: There is no focal air space opacity, pleural effusion, or pneumothorax seen. The cardiac silhouette size is stable, heart size may be accentuated by rotation. There are overlying cardiac le ads. Suspect a spinal curvature is present. The aorta is dense. There is some interstitial prominence . The osseous structures are intact. IMPRESSION: No acute cardiopulmonary process. May be some underlying interstitial lung disease.
[2018-11-30 16:35] LABS: D-Dimer 0.55 mg/L FEU (<0.60); INR 0.9 (<1.2); Partial Thromboplastin Time 23.2 sec (22.0-30.0); Prothrombin Time 9.6 sec (9.0-12.0)
--- NOTE | 2018-11-30 19:05 | ED ---
Chest Pain HPI - General Chief Complaint: Chest Pain Stated Complaint: chest pain Time Seen by Provider: 11/30/18 14:50 Source: patient Mode of arrival: ambulatory Limitations: no limitations - History of Present Illness Initial Comments: The patient is a 67-year-old female with multiple comorbid conditions who presents to the emergency room with reported chest pain. The patient has been seen twice in the past 2 weeks for chest pain. She originally presented to the hospital on November 19. She was admitted and had an echo as well as a stress test performed. The patient had a negative workup and was sent home. She states that her pain never went away. She continues to have waxing and waning chest pain. States that she does suffer from angina and has nitro at home however normally does not use the medication. She did have chest pain which started yesterday. She was seen in our emergency department and sent home. States that her pain was somewhat improved however it did return just prior to her arrival today. She describes it as a substernal pain with radiation into her left neck. She denies any left arm numbness or tingling. No ripping or tearing sensation to her back. She admits to associated nausea without diaphoresis. Denies a pleuritic chest pain or shortness of breath. No hemoptysis, cough, fevers or chills. She does have history of DVTs. Denies a history of PEs. She is not on any blood thinners. Denies any unilateral pain or swelling. No worsening lower extremity edema. States that she is pedal edema is normal for her. Denies any abdominal pain or changes in her bowel or bladder habits. EMS arrived and did provide the patient with nitro however she states it didn't help her symptoms. There are no other alleviating, precipitating or modifying factors - Related Data Home Medications Medication Instructions Recorded Confirmed Metoprolol Succinate [Toprol XL] 50 mg PO DAILY 07/22/13 11/30/18 Nitroglycerin Sl Tabs [Nitrostat] 0.4 mg SUBLINGUAL Q5M PRN 07/11/14 11/30/18 Levothyroxine Sodium [Synthroid] 200 mcg PO DAILY 04/21/15 11/30/18 Ondansetron [Zofran] 4 mg PO Q8HR PRN 04/21/15 11/30/18 Gabapentin [Neurontin] 600 mg PO QID PRN 06/23/16 11/30/18 rOPINIRole HCL [Requip] 3 mg PO HS 06/23/16 11/30/18 tiZANidine HCL [Zanaflex] 4 mg PO TID PRN 06/23/16 11/30/18 Insulin Glargine [Lantus] 30 unit SQ DAILY 05/14/17 11/30/18 INSULIN LISPRO (HumaLOG) [humaLOG] See Protocol SQ ACHS 11/19/18 11/30/18 Previous Rx's Medication Instructions Recorded Clopidogrel [Plavix] 75 mg PO DAILY #30 tab 05/17/17 Diphenox-Atrop 2.5-0.025 mg 1 tab PO QID PRN #10 tab 05/17/17 [Lomotil] Atorvastatin [Lipitor] 40 mg PO HS #90 tab 11/20/18 Ipratropium/Albuterol Sulfate 2 puff INHALATION QID #1 inhaler 11/29/18 [Combivent Respimat Inhaler] methylPREDNISolone Dose Pack 4 mg PO DIRECTED #21 package 11/29/18 [Medrol Dose Pack] Allergies Allergy/AdvReac Type Severity Reaction Status Date / Time aspirin Allergy Anaphylaxis Verified 11/30/18 15:12 Iodinated Contrast Media Allergy Anaphylaxis Verified 11/30/18 15:12 [Iodinated Contrast Media - IV Dye] NSAIDS (Non-Steroidal Allergy Anaphylaxis Verified 11/30/18 15:12 Anti-Inflamma sulfamethoxazole Allergy Unknown Verified 11/30/18 15:12 [From Bactrim] trimethoprim [From Bactrim] Allergy Unknown Verified 11/30/18 15:12 influenza virus vaccine ts AdvReac Nausea & Verified 11/30/18 15:12 [id number] (36 mos,up) Vomiting & [From Fluarix] Diarrhea Review of Systems ROS Statement: Those systems with pertinent positive or pertinent negative responses have been documented in the HPI. ROS Other: All systems not noted in ROS Statement are negative. EKG Findings - EKG Comments: EKG Findings:: EKG demonstrates normal sinus rhythm with a ventricular rate of 77. WA interval 136. QRS 80. QTC 452. No acute ST segment elevations or depr essions concerning for ischemic changes Past Medical History Past Medical History: Coronary Artery Disease (CAD), Chest Pain / Angina, COPD, CVA/TIA, Diabetes Mellitus, Deep Vein Thrombosis (DVT), GERD/Reflux, Hyperlipidemia, Hypertension, Memory Impairment, Osteoarthritis (OA), Pneumonia, Syncope, Thyroid Disorder Additional Past Medical History / Comment(s): 05/07/[address] [facility] [place] [facility] with L side of body feeling "funny" L upper extremity and L hand weakness with L facial weakness. Pt was recently admitted 04/21/15 with possible CVA. Other HX: Antiphospholipid syndrome , LUPUS, CVA's/TIA's, demyelinization of brain, NIDDM, sinus problems, diverticulosis, uti, RESTLESS LEG SYNDROME, systemic lupus ethythemus, L leg DVT, occipital neuritis, varicosities, colostomy, DJD. History of Any Multi-Drug Resistant Organisms: MRSA Date of last positivie culture/infection: 01/08/17 MDRO Source:: URINE Past Surgical History: Appendectomy, Back Surgery, Bladder Surgery, Cholecystectomy, Hysterectomy, Orthopedic Surgery, Tonsillectomy Additional Past Surgical History / Comment(s): L hip surgery nailing /fixation- L hip hemiarthroplasty, bladder suspension, sisi cataracts, partial laminectomy,. colostomy 2010 D/T PERFORATED DIVERTICULUM with reversal and then 2nd colostomy, LT KNEE SX FOR TORN CARTILAGE Past Anesthesia/Blood Transfusion Reactions: No Reported Reaction Additional Past Anesthesia/Blood Transfusion Reaction / Comment(s): HAD BLOOD TRANSFUSION 15 YEARS ago without reaction. Past Psychological History: No Psychological Hx Reported Smoking Status: Current every day smoker Past Alcohol Use History: None Reported Past Drug Use History: None Reported - Past Family History Mother Family Medical History: Cancer, Hypertension Additional Family Medical History / Comment(s): "mother had cancer from asbestos exposure" Father Family Medical History: Hypertension, Rheumatoid Arthritis (RA) General Exam Limitations: no limitations General appearance: alert, in no apparent distress Head exam: Present: atraumatic, normocephalic, normal inspection Eye exam: Present: normal appearance, PERRL, EOMI. Absent: scleral icterus, conjunctival injection, periorbital swelling ENT exam: Present: normal exam, mucous membranes moist Neck exam: Present: normal inspection. Absent: tenderness, meningismus, lymphadenopathy Respiratory exam: Present: normal lung sounds bilaterally. Absent: respiratory distress, wheezes, rales, rhonchi, stridor Cardiovascular Exam: Present: regular rate, normal rhythm, normal heart sounds. Absent: systolic murmur, diastolic murmur, rubs, gallop, clicks GI/Abdominal exam: Present: soft, normal bowel sounds. Absent: distended, tenderness, guarding, rebound, rigid Extremities exam: Present: normal inspection, full ROM, normal capillary refill. Absent: tenderness, pedal edema, joint swelling, calf tenderness Back exam: Present: normal inspection Neurological exam: Present: alert, oriented X3, CN II-XII intact Psychiatric exam: Present: normal affect, normal mood Skin exam: Present: warm, dry, intact, normal color. Absent: rash Course Vital Signs 11/30/18 11/30/18 11/30/18 14:45 14:50 15:00 Temperature 97.5 F L Pulse Rate 86 78 Pulse Rate [ Property Underwriter ] Respiratory 16 18 Rate Blood Pressure 157/80 157/80 O2 Sat by Pulse 98 96 97 Oximetry 11/30/18 11/30/18 11/30/18 15:03 16:00 17:00 Temperature Pulse Rate 70 Pulse Rate [ 86 Property Underwriter ] Respiratory 16 16 Rate Blood Pressure 179/90 127/64 O2 Sat by Pulse 96 96 Oximetry 11/30/18 11/30/18 18:00 19:00 Temperature Pulse Rate 60 65 Pulse Rate [ Property Underwriter ] Respiratory 16 16 Rate Blood Pressure 122/59 133/69 O2 Sat by Pulse 96 96 Oximetry Chest Pain MDM - MDM Upon arrival the patient is placed into room 1. She is hooked up to continuous pulse ox and cardiac monitoring. 12-lead EKG is performed and the patient which demonstrates no acute ST segment elevations. I did recommend laboratory studies as well as a chest x-ray. Upon return results I did discuss them with the patient. White blood cell count is 13.7. D-dimer 0.55. Chloride 108. Glucose 268. Troponin is less than 0.0122. BNP is 662. Chest x-ray demonstrates no acute cardiopulmonary process. Because of the patient's persistent pain with repetitive visits to the emergency department I did recommend hospital admission for evaluation by cardiology. The patient refused stating that she felt better at this time and did not want to be hospitalized. I did discuss the risks of leaving with the patient. She understood and was able to recite them in her own words. The patient continued to request to leave. I informed her permanent disability and even . The patient states that if her pain returns that she'll come back to the emergency room. I did request to perform a second troponin. She did agree. This was negative. The patient was instructed to follow up with her primary care physician within 2-4 days. If she has any new or worsening symptoms she should return to the emergency room. Patient was discharged home in stable condition Disposition Clinical Impression: Chest pain Disposition: HOME SELF-CARE Condition: Stable Instructions (If sedation given, give patient instructions): Chest Pain (ED) Additional Instructions: Please follow-up with your primary care doctor in 2-4 days. Return to the emergency room for any new or worsening symptoms. I did recommend hospital admission Is patient prescribed a controlled substance at d/c from ED?: No Referrals: Franklin Benitez III, MD [Primary Care Provider] - 1-2 days Time of Disposition: 19:04
[2018-11-30 19:07] VITALS: BP 133/69; PULSE 65
== END 2018-11-30 19:22 | disposition home or self-care (01) ==
LOC: EC 14:32
DX: R07.2 Precordial pain (principal); R11.0 Nausea; I25.119 Atherosclerotic heart disease of native coronary artery with unspecified angina pectoris; E11.9 Type 2 diabetes mellitus without complications; I10 Essential (primary) hypertension; G25.81 Restless legs syndrome; E07.9 Disorder of thyroid, unspecified; M19.90 Unspecified osteoarthritis, unspecified site; F17.200 Nicotine dependence, unspecified, uncomplicated; Z87.01 Personal history of pneumonia (recurrent); Z86.73 Personal history of transient ischemic attack (TIA), and cerebral infarction without residual deficits; Z87.09 Personal history of other diseases of the respiratory system; Z86.14 Personal history of Methicillin resistant Staphylococcus aureus infection; Z96.642 Presence of left artificial hip joint; Z79.890 Hormone replacement therapy; Z79.4 Long term (current) use of insulin; Z79.899 Other long term (current) drug therapy; Z88.6 Allergy status to analgesic agent; Z91.041 Radiographic dye allergy status; Z88.2 Allergy status to sulfonamides; Z88.7 Allergy status to serum and vaccine
CPT/HCPCS: 36415; 71046; 80053; 83735; 83880; 84484; 85025; 85379; 85610; 85730; 93005; 99285

== ENCOUNTER → 2018-12-06 | Outpatient (CLI) | payer MEDICARE ==
--- NOTE | 2018-12-06 13:14 | XR ---
EXAMINATION TYPE: XR chest 2V DATE OF EXAM: 12/06/2018 COMPARISON: 11/30/2018 TECHNIQUE: PA and lateral views submitted. HISTORY: Chest pain FINDINGS: The lungs are clear and there is no pneumothorax, pleural effusion, or focal pneumonia. Hypertrophi c and degenerative change of the spine. Biapical pleural thickening. Interstitium somewhat coarsened. Heart mildly prominent. IMPRESSION: 1. No acute process. Coarsened interstitium appears stable from prior exam may represent underlying c hronic interstitial lung disease or pneumonitis.
== END | disposition home or self-care (01) ==
LOC: RADXRMAIN 12:52
PROVIDERS: ATTEND Family Medicine
DX: F17.210 Nicotine dependence, cigarettes, uncomplicated (principal)
CPT/HCPCS: 71046

== ENCOUNTER 2018-12-10 04:01 | Emergency (ER) | payer MEDICARE ==
[2018-12-10 04:08] VITALS: TEMP 98.1
--- NOTE | 2018-12-10 04:57 | XR ---
EXAMINATION TYPE: XR chest 1V portable DATE OF EXAM: 12/10/2018 COMPARISON: 12/06/2018 HISTORY: Short of breath TECHNIQUE: Single frontal view of the chest is obtained. FINDINGS: There is some minimal pleural reaction and subsegmental atelectasis at the left lung base. There is no heart failur e. There are chest leads. Thoracic aorta is atheromatous. IMPRESSION: There is new minimal subsegmental atelectasis left lung base. No heart failure.
[2018-12-10 05:14] LABS: ALT 13 U/L (9-52); AST 32 U/L (14-36); African American GFR (CKD) >90 (>60 ml/min/1.73 sqM); Albumin 4.2 g/dL (3.5-5.0); Alkaline Phosphatase 100 U/L (38-126); Anion Gap 13 mmol/L; Blood Urea Nitrogen 20 mg/dL (7-17); Calcium 10.2 mg/dL (8.4-10.2); Carbon Dioxide 22 mmol/L (22-30); Chloride 104 mmol/L (98-107); Glucose 231 mg/dL (74-99); Potassium 4.1 mmol/L (3.5-5.1); Sodium 139 mmol/L (137-145); Total Bilirubin 0.3 mg/dL (0.2-1.3); Total Protein 7.6 g/dL (6.3-8.2)
[2018-12-10 05:24] LABS: HCT 41.1 % (34.0-46.0); HGB 14.3 gm/dL (11.4-16.0); MCH 30.1 pg (25.0-35.0); MCHC 34.7 g/dL (31.0-37.0); MCV 86.8 fL (80.0-100.0); Mean Platelet Volume 9.3; Platelet Count 207 k/uL (150-450); RBC 4.74 m/uL (3.80-5.40); RDW 13.2 % (11.5-15.5); WBC 10.7 k/uL (3.8-10.6)
[2018-12-10 05:37] LABS: D-Dimer 0.39 mg/L FEU (<0.60); INR 0.9 (<1.2); Prothrombin Time 9.5 sec (9.0-12.0)
[2018-12-10 05:53] LABS: Partial Thromboplastin Time 19.4 sec (22.0-30.0)
[2018-12-10 06:34] LABS: Band Neutrophils % 1 %; Lymphocytes # (M) 1.07 k/uL (1.0-4.8); Monocytes # (M) 0.32 k/uL (0-1.0); Neutrophils % (M) 86 %; Nucleated Red Blood Cells 0 /100 WBC (0-0); Total Cells Counted 100
[2018-12-10 06:36] LABS: Large Platelets Present
[2018-12-10] MEDS ORDERED: ALBUTEROL NEBULIZED 2.5 MG/3 ML INHALATION STA (06:54)
[2018-12-10] MEDS ORDERED: predniSONE 20 MG TAB PO STA (07:45)
--- NOTE | 2018-12-10 07:47 | ED ---
SOB HPI - General Chief Complaint: Shortness of Breath Stated Complaint: SOB Time Seen by Provider: 12/10/18 04:29 Source: EMS Mode of arrival: EMS Limitations: no limitations - History of Present Illness Initial Comments: This patient is a 67-year-old woman presenting to be evaluated for shortness of breath which is been going on over the course of tonight. The patient states that she also has some mild upper respiratory symptoms. There has been just a minimal cough. Patient has not noted fever or chills. She is not having chest pain. There is some tightness. No leg pain or swelling. No change in bowel movements or urination. MD Complaint: shortness of breath, cough -: hour(s) Severity scale (1-10): 0 Improves With: upright position Worsens With: nothing Associated Symptoms: denies other symptoms - Related Data Home Medications Medication Instructions Recorded Confirmed Metoprolol Succinate [Toprol XL] 50 mg PO DAILY 07/22/13 12/10/18 Nitroglycerin Sl Tabs [Nitrostat] 0.4 mg SUBLINGUAL Q5M PRN 07/11/14 12/10/18 Levothyroxine Sodium [Synthroid] 200 mcg PO DAILY 04/21/15 12/10/18 Ondansetron [Zofran] 4 mg PO Q8HR PRN 04/21/15 12/10/18 Gabapentin [Neurontin] 600 mg PO QID 06/23/16 12/10/18 rOPINIRole HCL [Requip] 3 mg PO HS 06/23/16 12/10/18 tiZANidine HCL [Zanaflex] 4 mg PO TID PRN 06/23/16 12/10/18 Insulin Glargine [Lantus] 30 unit SQ DAILY 05/14/17 12/10/18 INSULIN LISPRO (HumaLOG) [humaLOG] See Protocol SQ ACHS 11/19/18 12/10/18 Ipratropium/Albuterol Sulfate 2 puff INHALATION RT-QID 12/10/18 12/10/18 [Combivent Respimat Inhaler] Previous Rx's Medication Instructions Recorded Clopidogrel [Plavix] 75 mg PO DAILY #30 tab 05/17/17 Diphenox-Atrop 2.5-0.025 mg 1 tab PO QID PRN #10 tab 03/06/18 [Lomotil] Atorvastatin [Lipitor] 40 mg PO HS #90 tab 11/20/18 predniSONE 20 mg PO BID #8 tab 12/10/18 Allergies Allergy/AdvReac Type Severity Reaction Status Date / Time aspirin Allergy Anaphylaxis Verified 12/10/18 08:04 Iodinated Contrast Media Allergy Anaphylaxis Verified 12/10/18 08:04 [Iodinated Contrast Media - IV Dye] NSAIDS (Non-Steroidal Allergy Anaphylaxis Verified 12/10/18 08:04 Anti-Inflamma sulfamethoxazole Allergy Unknown Verified 12/10/18 08:04 [From Bactrim] trimethoprim [From Bactrim] Allergy Unknown Verified 12/10/18 08:04 influenza virus vaccine ts AdvReac Nausea & Verified 12/10/18 08:04 [id number] (36 mos,up) Vomiting & [From Fluarix] Diarrhea Review of Systems ROS Statement: Those systems with pertinent positive or pertinent negative responses have been documented in the HPI. ROS Other: All systems not noted in ROS Statement are negative. Constitutional: Denies: fever, chills Respiratory: Reports: cough, dyspnea Cardiovascular: Denies: chest pain, palpitations, edema, syncope Gastrointestinal: Denies: abdominal pain, vomiting, diarrhea, melena, hematochezia Genitourinary: Denies: dysuria, hematuria Musculoskeletal: Denies: back pain Skin: Denies: rash Neurological: Denies: headache Past Medical History Past Medical History: Coronary Artery Disease (CAD), Chest Pain / Angina, COPD, CVA/TIA, Diabetes Mellitus, Deep Vein Thrombosis (DVT), GERD/Reflux, Hyperlipidemia, Hypertension, Memory Impairment, Osteoarthritis (OA), Pneumonia, Syncope, Thyroid Disorder Additional Past Medical History / Comment(s): 05/07/15 Pt presented to [facility] ER with L side of body feeling "funny" L upper extremity and L hand weakness with L facial weakness. Pt was recently admitted 04/21/15 with possible CVA. Other HX: Antiphospholipid syndrome , LUPUS, CVA's/TIA's, demyelinization of brain, NIDDM, sinus problems, diverticulosis, uti, RESTLESS LEG SYNDROME, systemic lupus ethythemus, L leg DVT, occipital neuritis, varicosities, colostomy, DJD. History of Any Multi-Drug Resistant Organisms: MRSA Date of last positivie culture/infection: 01/08/17 MDRO Source:: URINE Past Surgical History: Appendectomy, Back Surgery, Bladder Surgery, Cholecystectomy, Hysterectomy, Orthopedic Surgery, Tonsillectomy Additional Past Surgical History / Comment(s): L hip surgery nailing /fixation- L hip hemiarthroplasty, bladder suspension, sisi cataracts, partial laminectomy,. colostomy 2010 D/T PERFORATED DIVERTICULUM with reversal and then 2nd colostomy, LT KNEE SX FOR TORN CARTILAGE Past Anesthesia/Blood Transfusion Reactions: No Reported Reaction Additional Past Anesthesia/Blood Transfusion Reaction / Comment(s): HAD BLOOD TRANSFUSION 15 YEARS ago without reaction. Past Psychological History: No Psychological Hx Reported Smoking Status: Current every day smoker Past Alcohol Use History: None Reported Past Drug Use History: None Reported - Past Family History Mother Family Medical History: Cancer, Hypertension Additional Family Medical History / Comment(s): "mother had cancer from asbestos exposure" Father Family Medical History: Hypertension, Rheumatoid Arthritis (RA) General Exam Limitations: no limitations General appearance: alert, in no apparent distress Head exam: Present: atraumatic, normocephalic Eye exam: Present: normal appearance. Absent: scleral icterus, conjunctival injection Respiratory exam: Present: wheezes (There is a mild expiratory wheeze.), rales (Bilateral bases). Absent: respiratory distress, rhonchi, stridor, accessory muscle use, decreased breath sounds Cardiovascular Exam: Present: regular rate, normal rhythm, normal heart sounds. Absent: systolic murmur, diastolic murmur, rubs, gallop GI/Abdominal exam: Present: soft. Absent: distended, tenderness, guarding, rebound Back exam: Present: normal inspection. Absent: CVA tenderness (R), CVA tenderness (L) Neurological exam: Present: alert Skin exam: Present: warm, dry, intact, normal color. Absent: rash Course Vital Signs 12/10/18 12/10/18 12/10/18 04:05 06:30 07:18 Temperature 98.1 F Pulse Rate 80 74 60 Respiratory 24 17 Rate Blood Pressure 158/96 138/82 O2 Sat by Pulse 96 95 Oximetry 12/10/18 12/10/18 07:23 08:43 Temperature Pulse Rate 67 87 Respiratory 20 Rate Blood Pressure 135/80 O2 Sat by Pulse 98 Oximetry Medical Decision Making - Medical Decision Making Patient's 67-year-old woman presenting with some mild dyspnea. Patient seen and evaluated and also has albuterol treatment here. On reevaluation, she is fe eling well and states she feels able to go home. Discussed appropriate further care and follow-up with patient. - Lab Data Result diagrams: 12/10/18 04:33 12/10/18 04:33 Lab Results 12/10/18 12/10/18 12/10/18 Range/Units 04:33 04:33 04:33 WBC 10.7 H (3.8-10.6) k/uL RBC 4.74 (3.80-5.40) m/uL Hgb 14.3 (11.4-16.0) gm/dL Hct 41.1 (34.0-46.0) % MCV 86.8 (80.0-100.0) fL MCH 30.1 (25.0-35.0) pg MCHC 34.7 (31.0-37.0) g/dL RDW 13.2 (11.5-15.5) % Plt Count 207 (150-450) k/uL Neutrophils % (Manual) 86 % Band Neutrophils % 1 % Lymphocytes % (Manual) 10 % Monocytes % (Manual) 3 % Neutrophils # (Manual) 9.30 H (1.3-7.7) k/uL Lymphocytes # (Manual) 1.07 (1.0-4.8) k/uL Monocytes # (Manual) 0.32 (0-1.0) k/uL Nucleated RBCs 0 (0-0) /100 WBC Manual Slide Review Performed Large Platelets Present RBC Morphology Normal PT 9.5 (9.0-12.0) sec INR 0.9 (<1.2) APTT 19.4 L (22.0-30.0) sec D-Dimer 0.39 (<0.60) mg/L FEU Sodium 139 (137-145) mmol/L Potassium 4.1 (3.5-5.1) mmol/L Chloride 104 (98-107) mmol/L Carbon Dioxide 22 (22-30) mmol/L Anion Gap 13 mmol/L BUN 20 H (7-17) mg/dL Creatinine 0.57 (0.52-1.04) mg/dL Est GFR (CKD-EPI)AfAm >90 (>60 ml/min/1.73 sqM) Est GFR (CKD-EPI)NonAf >90 (>60 ml/min/1.73 sqM) Glucose 231 H (74-99) mg/dL Calcium 10.2 (8.4-10.2) mg/dL Total Bilirubin 0.3 (0.2-1.3) mg/dL AST 32 (14-36) U/L ALT 13 (9-52) U/L Alkaline Phosphatase 100 (38-126) U/L Troponin I (0.000-0.034) ng/mL NT-Pro-B Natriuret Pep pg/mL Total Protein 7.6 (6.3-8.2) g/dL Albumin 4.2 (3.5-5.0) g/dL 12/10/18 12/10/18 Range/Units 04:33 04:33 WBC (3.8-10.6) k/uL RBC (3.80-5.40) m/uL Hgb (11.4-16.0) gm/dL Hct (34.0-46.0) % MCV (80.0-100.0) fL MCH (25.0-35.0) pg MCHC (31.0-37.0) g/dL RDW (11.5-15.5) % Plt Count (150-450) k/uL Neutrophils % (Manual) % Band Neutrophils % % Lymphocytes % (Manual) % Monocytes % (Manual) % Neutrophils # (Manual) (1.3-7.7) k/uL Lymphocytes # (Manual) (1.0-4.8) k/uL Monocytes # (Manual) (0-1.0) k/uL Nucleated RBCs (0-0) /100 WBC Manual Slide Review Large Platelets RBC Morphology PT (9.0-12.0) sec INR (<1.2) APTT (22.0-30.0) sec D-Dimer (<0.60) mg/L FEU Sodium (137-145) mmol/L Potassium (3.5-5.1) mmol/L Chloride (98-107) mmol/L Carbon Dioxide (22-30) mmol/L Anion Gap mmol/L BUN (7-17) mg/dL Creatinine (0.52-1.04) mg/dL Est GFR (CKD-EPI)AfAm (>60 ml/min/1.73 sqM) Est GFR (CKD-EPI)NonAf (>60 ml/min/1.73 sqM) Glucose (74-99) mg/dL Calcium (8.4-10.2) mg/dL Total Bilirubin (0.2-1.3) mg/dL AST (14-36) U/L ALT (9-52) U/L Alkaline Phosphatase (38-126) U/L Troponin I <0.012 (0.000-0.034) ng/mL NT-Pro-B Natriuret Pep 458 pg/mL Total Protein (6.3-8.2) g/dL Albumin (3.5-5.0) g/dL - EKG Data -: EKG Interpreted by Me EKG shows normal: sinus rhythm (Rate 86 bpm), axis (Left axis deviation), intervals (Normal), QRS complexes (Normal), ST-T waves (Normal) Interpretation: LVH Disposition Clinical Impression: Acute bronchospasm Disposition: HOME SELF-CARE Condition: Good Instructions (If sedation given, give patient instructions): Bronchospasm (ED) Prescriptions: predniSONE 20 mg PO BID #8 tab Is patient prescribed a controlled substance at d/c from ED?: No Referrals: Franklin Benitez III, MD [Primary Care Provider] - 1-2 days
[2018-12-10 08:45] VITALS: BP 135/80; PULSE 87; RESP 20
== END 2018-12-10 08:46 | disposition home or self-care (01) ==
LOC: EC 04:01
DX: J98.01 Acute bronchospasm (principal); I25.119 Atherosclerotic heart disease of native coronary artery with unspecified angina pectoris; I10 Essential (primary) hypertension; E11.9 Type 2 diabetes mellitus without complications; E07.9 Disorder of thyroid, unspecified; G25.81 Restless legs syndrome; M19.90 Unspecified osteoarthritis, unspecified site; Z88.2 Allergy status to sulfonamides; Z88.6 Allergy status to analgesic agent; Z88.7 Allergy status to serum and vaccine; Z91.041 Radiographic dye allergy status; Z79.4 Long term (current) use of insulin; Z79.890 Hormone replacement therapy; Z79.899 Other long term (current) drug therapy; Z86.14 Personal history of Methicillin resistant Staphylococcus aureus infection; Z96.642 Presence of left artificial hip joint; Z87.01 Personal history of pneumonia (recurrent); Z87.09 Personal history of other diseases of the respiratory system
CPT/HCPCS: 36415; 94640; 93005; 85379; 83880; 80053; 84484; 85025; 85610; 85730; 71045; 99285; J7512

== ENCOUNTER 2018-12-18 22:42 | Emergency (ER) | payer MEDICARE ==
[2018-12-18] MEDS ORDERED: SODIUM CHLORIDE 0.9% 1,000 ML IV STA ×2 (23:12)
[2018-12-18] MEDS ORDERED: IPRATROPIUM-ALBUTEROL 3 ML NEB INHALATION STA (23:12)
--- NOTE | 2018-12-18 23:36 | ED ---
General Adult HPI - General Chief complaint: Shortness of Breath Stated complaint: SOB Time Seen by Provider: 12/18/18 22:49 Source: patient, EMS, RN notes reviewed, old records reviewed Mode of arrival: EMS - History of Present Illness Initial comments: this patient's a 60-year-old female presents emergency department today for treatment for the breath cough. Symptoms started for the past few weeks. Worsening over the past day. Patient states that she does have a history of pneumonia is currently being treated. Patient does complain of some chest pain today. He states that this is been a similar chest pain she's had for the past month while being seen in ED. Patient had cardiac workup done beginning of November. Patient has no other complaints. - Related Data Home Medications Medication Instructions Recorded Confirmed Metoprolol Succinate [Toprol XL] 50 mg PO DAILY 07/22/13 12/18/18 Nitroglycerin Sl Tabs [Nitrostat] 0.4 mg SUBLINGUAL Q5M PRN 07/11/14 12/18/18 Levothyroxine Sodium [Synthroid] 200 mcg PO DAILY 04/21/15 12/18/18 Ondansetron [Zofran] 4 mg PO Q8HR PRN 04/21/15 12/18/18 Gabapentin [Neurontin] 600 mg PO QID 06/23/16 12/18/18 rOPINIRole HCL [Requip] 3 mg PO HS 06/23/16 12/18/18 tiZANidine HCL [Zanaflex] 4 mg PO TID PRN 06/23/16 12/18/18 Insulin Glargine [Lantus] 30 unit SQ DAILY 05/14/17 12/18/18 INSULIN LISPRO (HumaLOG) [humaLOG] See Protocol SQ ACHS 11/19/18 12/18/18 Ipratropium/Albuterol Sulfate 2 puff INHALATION RT-QID 12/10/18 12/18/18 [Combivent Respimat Inhaler] Previous Rx's Medication Instructions Recorded Clopidogrel [Plavix] 75 mg PO DAILY #30 tab 05/17/17 Diphenox-Atrop 2.5-0.025 mg 1 tab PO QID PRN #10 tab 05/17/17 [Lomotil] Atorvastatin [Lipitor] 40 mg PO HS #90 tab 11/20/18 predniSONE 20 mg PO BID #8 tab 12/10/18 Nitrofurantoin Monohyd/M-Cryst 100 mg PO Q12HR #14 cap 12/19/18 [Macrobid] Allergies Allergy/AdvReac Type Severity Reaction Status Date / Time aspirin Allergy Anaphylaxis Verified 12/18/18 22:54 Iodinated Contrast Media Allergy Anaphylaxis Verified 12/18/18 22:54 [Iodinated Contrast Media - IV Dye] NSAIDS (Non-Steroidal Allergy Anaphylaxis Verified 12/18/18 22:54 Anti-Inflamma sulfamethoxazole Allergy Unknown Verified 12/18/18 22:54 [From Bactrim] trimethoprim [From Bactrim] Allergy Unknown Verified 12/18/18 22:54 influenza virus vaccine ts AdvReac Nausea & Verified 12/18/18 22:54 [id number] (36 mos,up) Vomiting & [From Fluarix] Diarrhea Review of Systems ROS Statement: Those systems with pertinent positive or pertinent negative responses have been documented in the HPI. ROS Other: All systems not noted in ROS Statement are negative. Past Medical History Past Medical History: Coronary Artery Disease (CAD), Chest Pain / Angina, COPD, CVA/TIA, Diabetes Mellitus, Deep Vein Thrombosis (DVT), GERD/Reflux, Hyperlipidemia, Hypertension, Memory Impairment, Osteoarthritis (OA), Pneumonia, Syncope, Thyroid Disorder Additional Past Medical History / Comment(s): 05/07/15 Pt presented to [facility] ER with L side of body feeling "funny" L upper extremity and L hand weakness with L facial weakness. Pt was recently admitted 04/21/15 with possible CVA. Other HX: Antiphospholipid syndrome , LUPUS, CVA's/TIA's, demyelinization of brain, NIDDM, sinus problems, diverticulosis, uti, RESTLESS LEG SYNDROME, systemic lupus ethythemus, L leg DVT, occipital neuritis, varicosities, colostomy, DJD. History of Any Multi-Drug Resistant Organisms: MRSA Date of last positivie culture/infection: 01/08/17 MDRO Source:: URINE Past Surgical History: Appendectomy, Back Surgery, Bladder Surgery, Cholecystectomy, Hysterectomy, Orthopedic Surgery, Tonsillectomy Additional Past Surgical History / Comment(s): L hip surgery nailing /fixation- L hip hemiarthroplasty, bladder suspension, sisi cataracts, partial laminectomy,. colostomy 2010 D/T PERFORATED DIVERTICULUM with reversal and then 2nd colostomy, LT KNEE SX FOR TORN CARTILAGE Past Anesthesia/Blood Transfusion Reactions: No Reported Reaction Additional Past Anesthesia/Blood Transfusion Reaction / Comment(s): HAD BLOOD TRANSFUSION 15 YEARS ago without reaction. Past Psychological History: No Psychological Hx Reported Smoking Status: Current every day smoker Past Alcohol Use History: None Reported Past Drug Use History: None Reported - Past Family History Mother Family Medical History: Cancer, Hypertension Additional Family Medical History / Comment(s): "mother had cancer from asbestos exposure" Father Family Medical History: Hypertension, Rheumatoid Arthritis (RA) General Exam - General Exam Comments Initial Comments: 68 year old female. General appearance: alert, in no apparent distress Head exam: Present: atraumatic, normocephalic, normal inspection Eye exam: Present: normal appearance, PERRL, EOMI. Absent: scleral icterus, conjunctival injection, periorbital swelling ENT exam: Present: normal exam, mucous membranes moist Neck exam: Present: normal inspection. Absent: tenderness, meningismus, lymphadenopathy Respiratory exam: Present: wheezes. Absent: normal lung sounds bilaterally, respiratory distress, rales, rhonchi, stridor Cardiovascular Exam: Present: regular rate, normal rhythm, normal heart sounds. Absent: systolic murmur, diastolic murmur, rubs, gallop, clicks GI/Abdominal exam: Present: soft, normal bowel sounds. Absent: distended, tenderness, guarding, rebound, rigid Extremities exam: Present: normal inspection, full ROM, normal capillary refill. Absent: tenderness, pedal edema, joint swelling, calf tenderness Back exam: Present: normal inspection Neurological exam: Present: alert, oriented X3, CN II-XII intact Psychiatric exam: Present: normal affect, normal mood Skin exam: Present: warm, dry, intact, normal color. Absent: rash Course Vital Signs 12/18/18 12/18/18 12/19/18 22:44 22:53 00:03 Temperature 98.3 F Pulse Rate 65 64 Respiratory 20 20 16 Rate Blood Pressure 119/68 O2 Sat by Pulse 96 Oximetry 12/19/18 12/19/18 00:12 01:57 Temperature 98 F Pulse Rate 66 67 Respiratory 16 18 Rate Blood Pressure 131/64 O2 Sat by Pulse 98 Oximetry - Reevaluation(s) Reevaluation #1: 12/19/18 01:19 Patient is reevaluated this time, resting comfortably in bed and sleeping. Pulse ox is 97% on room air. No signs of difficulty breathing. No wheezes or retractions noted. EKG Findings - EKG Comments: EKG Findings:: EKG shows normal sinus rhythm voltage criteria for LVH, abnormal EKG. Ventricular rate of 64 bpm. KS interval is 148 ms. QS duration 82 ms. QT QTc is 432/445 ms. Medical Decision Making - Medical Decision Making 68 year old female presents today with CC of shortness of breath. Patient has been treated for pneumonia and finishing antibiotiocs today. At this time she had mild wheeze, and was given breathing treatment and is improved. Patient has no changes inEKG or labs. CXR shows same left lobar atelectasis. Patient's films also show mild TIA. Discussed the antibiotics that she is on for normally would treat this. Culture was obtained. Patient was reevaluated and resting comfortably bed. She has no further wheezing and no signs of respiratory distress. Pulse ox is 99-98% on room air. I discussed the Patient follow-up with her primary care doctor for his symptoms. She doesn't have improvement af ter receivin DuoNeb treatment. Discussed return parameters. Discussed case with Dr. Arana. - Lab Data Result diagrams: 12/18/18 23:34 12/18/18 23:34 Lab Results 12/18/18 12/18/18 12/18/18 Range/Units 23:34 23:34 23:34 WBC 11.1 H (3.8-10.6) k/uL RBC 4.30 (3.80-5.40) m/uL Hgb 12.7 (11.4-16.0) gm/dL Hct 39.4 (34.0-46.0) % MCV 91.6 (80.0-100.0) fL MCH 29.4 (25.0-35.0) pg MCHC 32.1 (31.0-37.0) g/dL RDW 13.4 (11.5-15.5) % Plt Count 222 (150-450) k/uL Neutrophils % 68 % Lymphocytes % 22 % Monocytes % 6 % Eosinophils % 1 % Basophils % 0 % Neutrophils # 7.6 (1.3-7.7) k/uL Lymphocytes # 2.4 (1.0-4.8) k/uL Monocytes # 0.6 (0-1.0) k/uL Eosinophils # 0.2 (0-0.7) k/uL Basophils # 0.1 (0-0.2) k/uL PT (9.0-12.0) sec INR (<1.2) APTT (22.0-30.0) sec Sodium 138 (137-145) mmol/L Potassium 4.1 (3.5-5.1) mmol/L Chloride 105 (98-107) mmol/L Carbon Dioxide 27 (22-30) mmol/L Anion Gap 6 mmol/L BUN 25 H (7-17) mg/dL Creatinine 0.73 (0.52-1.04) mg/dL Est GFR (CKD-EPI)AfAm >90 (>60 ml/min/1.73 sqM) Est GFR (CKD-EPI)NonAf 85 (>60 ml/min/1.73 sqM) Glucose 217 H (74-99) mg/dL Calcium 9.3 (8.4-10.2) mg/dL Total Bilirubin 0.2 (0.2-1.3) mg/dL AST 21 (14-36) U/L ALT 17 (9-52) U/L Alkaline Phosphatase 98 (38-126) U/L Troponin I (0.000-0.034) ng/mL NT-Pro-B Natriuret Pep 184 pg/mL Total Protein 6.4 (6.3-8.2) g/dL Albumin 3.5 (3.5-5.0) g/dL Urine Color Urine Appearance (Clear) Urine pH (5.0-8.0) Ur Specific Casper (1.001-1.035) Urine Protein (Negative) Urine Glucose (UA) (Negative) Urine Ketones (Negative) Urine Blood (Negative) Urine Nitrite (Negative) Urine Bilirubin (Negative) Urine Urobilinogen (<2.0) mg/dL Ur Leukocyte Esterase (Negative) Urine RBC (0-5) /hpf Urine WBC (0-5) /hpf Urine WBC Clumps (None) /hpf Ur Squamous Epith Cells (0-4) /hpf Urine Bacteria (None) /hpf Urine Mucus (None) /hpf Urine Yeast (Budding) (None) /hpf 12/18/18 12/18/18 12/19/18 Range/Units 23:34 23:34 00:01 WBC (3.8-10.6) k/uL RBC (3.80-5.40) m/uL Hgb (11.4-16.0) gm/dL Hct (34.0-46.0) % MCV (80.0-100.0) fL MCH (25.0-35.0) pg MCHC (31.0-37.0) g/dL RDW (11.5-15.5) % Plt Count (150-450) k/uL Neutrophils % % Lymphocytes % % Monocytes % % Eosinophils % % Basophils % % Neutrophils # (1.3-7.7) k/uL Lymphocytes # (1.0-4.8) k/uL Monocytes # (0-1.0) k/uL Eosinophils # (0-0.7) k/uL Basophils # (0-0.2) k/uL PT 9.4 (9.0-12.0) sec INR 0.8 (<1.2) APTT 23.8 (22.0-30.0) sec Sodium (137-145) mmol/L Potassium (3.5-5.1) mmol/L Chloride (98-107) mmol/L Carbon Dioxide (22-30) mmol/L Anion Gap mmol/L BUN (7-17) mg/dL Creatinine (0.52-1.04) mg/dL Est GFR (CKD-EPI)AfAm (>60 ml/min/1.73 sqM) Est GFR (CKD-EPI)NonAf (>60 ml/min/1.73 sqM) Glucose (74-99) mg/dL Calcium (8.4-10.2) mg/dL Total Bilirubin (0.2-1.3) mg/dL AST (14-36) U/L ALT (9-52) U/L Alkaline Phosphatase (38-126) U/L Troponin I <0.012 (0.000-0.034) ng/mL NT-Pro-B Natriuret Pep pg/mL Total Protein (6.3-8.2) g/dL Albumin (3.5-5.0) g/dL Urine Color Yellow Urine Appearance Clear (Clear) Urine pH 5.5 (5.0-8.0) Ur Specific Casper 1.025 (1.001-1.035) Urine Protein Negative (Negative) Urine Glucose (UA) 3+ H (Negative) Urine Ketones Negative (Negative) Urine Blood Negative (Negative) Urine Nitrite Negative (Negative) Urine Bilirubin Negative (Negative) Urine Urobilinogen <2.0 (<2.0) mg/dL Ur Leukocyte Esterase Moderate H (Negative) Urine RBC 1 (0-5) /hpf Urine WBC 41 H (0-5) /hpf Urine WBC Clumps Rare H (None) /hpf Ur Squamous Epith Cells 2 (0-4) /hpf Urine Bacteria Rare H (None) /hpf Urine Mucus Rare H (None) /hpf Urine Yeast (Budding) Rare H (None) /hpf - Radiology Data Radiology results: report reviewed Mild scarring or subsegmental atelectasis left lower lobe unchanged. No heart failure seen. Disposition Clinical Impression: UTI (urinary tract infection), Acute bronchospasm, Shortness of breath Disposition: HOME SELF-CARE Condition: Good Instructions (If sedation given, give patient instructions): Dysuria (ED), Bronchospasm (ED) Additional Instructions: Please use medication as discussed. Please follow up with family doctor if symptoms have not improved over the next two days. Please return to the emergency room if your symptoms increase or worsen or for any other concerns. Prescriptions: Nitrofurantoin Monohyd/M-Cryst [Macrobid] 100 mg PO Q12HR #14 cap Is patient prescribed a controlled substance at d/c from ED?: No Referrals: Franklin Benitez III, MD [Primary Care Provider] - 1-2 days Time of Disposition: 01:20
--- NOTE | 2018-12-18 23:56 | XR ---
EXAMINATION TYPE: XR chest 2V DATE OF EXAM: 12/18/2018 COMPARISON: 12/10/2018 HISTORY: Short of breath TECHNIQUE: Frontal and lateral views of the chest are obtained. FINDINGS: There is no heart failure nor confluent pneumonic infiltrate. There is small linear densit y in the left lower lobe. Thoracic aorta is atheromatous. Bony thorax is intact. IMPRESSION: Mild scarring or subsegmental atelectasis left lower lobe unchanged. No heart failure se en.
[2018-12-18 23:57] LABS: INR 0.8 (<1.2); Prothrombin Time 9.4 sec (9.0-12.0)
[2018-12-18 23:58] LABS: Partial Thromboplastin Time 23.8 sec (22.0-30.0)
[2018-12-18 23:59] LABS: ALT 17 U/L (9-52); AST 21 U/L (14-36); African American GFR (CKD) >90 (>60 ml/min/1.73 sqM); Albumin 3.5 g/dL (3.5-5.0); Alkaline Phosphatase 98 U/L (38-126); Anion Gap 6 mmol/L; Blood Urea Nitrogen 25 mg/dL (7-17); Calcium 9.3 mg/dL (8.4-10.2); Carbon Dioxide 27 mmol/L (22-30); Chloride 105 mmol/L (98-107); Glucose 217 mg/dL (74-99); Potassium 4.1 mmol/L (3.5-5.1); Sodium 138 mmol/L (137-145); Total Bilirubin 0.2 mg/dL (0.2-1.3); Total Protein 6.4 g/dL (6.3-8.2)
[2018-12-19 00:16] LABS: Basophils # (A) 0.1 k/uL (0-0.2); Basophils % (A) 0 %; Eosinophils # (A) 0.2 k/uL (0-0.7); Eosinophils % (A) 1 %; HCT 39.4 % (34.0-46.0); HGB 12.7 gm/dL (11.4-16.0); Lymphocytes # (A) 2.4 k/uL (1.0-4.8); Lymphocytes % (A) 22 %; MCH 29.4 pg (25.0-35.0); MCHC 32.1 g/dL (31.0-37.0); MCV 91.6 fL (80.0-100.0); Mean Platelet Volume 8.5; Monocytes # (A) 0.6 k/uL (0-1.0); Monocytes % (A) 6 %; Neutrophils # (A) 7.6 k/uL (1.3-7.7); Neutrophils % (A) 68 %; Platelet Count 222 k/uL (150-450); RDW 13.4 % (11.5-15.5); WBC 11.1 k/uL (3.8-10.6)
[2018-12-19 00:22] LABS: Appearance,Urine Clear (Clear); Bacteria,Urine Rare /hpf; Bilirubin,Urine Negative (Negative); Blood,Urine Negative (Negative); Budding Yeast,Urine Rare /hpf; Color,Urine Yellow; Glucose,Urine (UA) 3+ (Negative); Ketones,Urine Negative (Negative); Leukocyte Esterase,Urine Moderate (Negative); Mucus,Urine Rare /hpf; Nitrite,Urine Negative (Negative); PH, Urine 5.5 (5.0-8.0); Protein,Urine Negative (Negative); RBC,Urine 1 /hpf (0-5); Specific Gravity,Urine 1.025 (1.001-1.035); Squamous Epithelial Cell,Urine 2 /hpf (0-4); Urobilinogen,Urine <2.0 mg/dL (<2.0); WBC,Urine 41 /hpf (0-5)
[2018-12-19] MEDS ORDERED: methylPREDNISolone SOD SUCCI 125 MG/2 ML VIAL IV STA (01:21)
[2018-12-19] MEDS ORDERED: NITROFURANTOIN MONOHYD/M-CRYST 100 MG CAP PO STA (01:21)
[2018-12-19 02:05] VITALS: BP 131/64; PULSE 67; RESP 18; TEMP 98
== END 2018-12-19 01:58 | disposition home or self-care (01) ==
LOC: EC 22:42
DX: J98.01 Acute bronchospasm (principal); N39.0 Urinary tract infection, site not specified; J98.11 Atelectasis; I25.119 Atherosclerotic heart disease of native coronary artery with unspecified angina pectoris; J44.9 Chronic obstructive pulmonary disease, unspecified; E11.9 Type 2 diabetes mellitus without complications; I10 Essential (primary) hypertension; E07.9 Disorder of thyroid, unspecified; F17.200 Nicotine dependence, unspecified, uncomplicated; Z79.4 Long term (current) use of insulin; Z79.890 Hormone replacement therapy; Z79.899 Other long term (current) drug therapy; Z88.6 Allergy status to analgesic agent; Z91.041 Radiographic dye allergy status; Z88.1 Allergy status to other antibiotic agents; Z88.2 Allergy status to sulfonamides; Z88.7 Allergy status to serum and vaccine; Z96.642 Presence of left artificial hip joint; Z86.718 Personal history of other venous thrombosis and embolism; Z86.73 Personal history of transient ischemic attack (TIA), and cerebral infarction without residual deficits
CPT/HCPCS: 36415; 94640; 93005; 83880; 80053; 84484; 85025; 85610; 85730; 81001; 87040; 87086; 71046; 99285; 96374; 96361; J2930

== ENCOUNTER 2019-02-03 20:07 | Emergency (ER) | payer MEDICARE ==
[2019-02-03] MEDS ORDERED: SODIUM CHLORIDE 0.9% 500 ML 500 ML IV STA (20:31)
[2019-02-03 20:50] VITALS: RESP 18
--- NOTE | 2019-02-03 20:56 | XR ---
EXAMINATION TYPE: XR chest 2V DATE OF EXAM: 02/03/2019 COMPARISON: 12/18/2018 HISTORY: 68-year-old female with chest pain TECHNIQUE: PA and lateral views FINDINGS: Heart upper limits of normal in size. Similar tortuosity of the thoracic aorta. Diffuse interstitial prominence appears in part chronic. Strandy left basilar scarring is unchanged. No consolidation or p leural effusion. IMPRESSION: Stable borderline heart size. Chronic parenchymal changes, possible bronchitis or asthma. No acute ch cherelle.
--- NOTE | 2019-02-03 20:58 | XR ---
EXAMINATION TYPE: XR KUB DATE OF EXAM: 02/03/2019 CLINICAL DATA: 68-year-old female with diarrhea and nausea, PHH COMPARISON: 06/23/2016 FINDINGS: No evidence for free intraperitoneal air. Scattered colonic air-fluid levels. No dilated small bowel is identified. No suspicious calcifications. Degenerative levoconvex curvature of the lumbar spine. Left hip hemiart hroplasty. IMPRESSION: Colonic air-fluid levels suggesting liquid stool and could reflect enteritis/colitis or colonic ileus .
[2019-02-03 21:31] LABS: Basophils # (A) 0.1 k/uL (0-0.2); Basophils % (A) 1 %; Eosinophils # (A) 0.1 k/uL (0-0.7); Eosinophils % (A) 1 %; HCT 41.4 % (34.0-46.0); HGB 14.1 gm/dL (11.4-16.0); Lymphocytes # (A) 1.7 k/uL (1.0-4.8); Lymphocytes % (A) 21 %; MCH 30.5 pg (25.0-35.0); MCHC 33.9 g/dL (31.0-37.0); MCV 89.9 fL (80.0-100.0); Mean Platelet Volume 8.8; Monocytes # (A) 0.5 k/uL (0-1.0); Monocytes % (A) 6 %; Neutrophils # (A) 5.4 k/uL (1.3-7.7); Neutrophils % (A) 69 %; Platelet Count 230 k/uL (150-450); RBC 4.61 m/uL (3.80-5.40); RDW 13.3 % (11.5-15.5); WBC 7.9 k/uL (3.8-10.6)
[2019-02-03 21:40] LABS: ALT 21 U/L (9-52); AST 21 U/L (14-36); African American GFR (CKD) >90 (>60 ml/min/1.73 sqM); Albumin 4.1 g/dL (3.5-5.0); Alkaline Phosphatase 111 U/L (38-126); Anion Gap 7 mmol/L; Blood Urea Nitrogen 19 mg/dL (7-17); Calcium 9.7 mg/dL (8.4-10.2); Carbon Dioxide 27 mmol/L (22-30); Chloride 105 mmol/L (98-107); Glucose 178 mg/dL (74-99); INR 0.8 (<1.2); Non-African American GFR(CKD) >90 (>60 ml/min/1.73 sqM); Potassium 4.2 mmol/L (3.5-5.1); Prothrombin Time 9.3 sec (9.0-12.0); Sodium 139 mmol/L (137-145); Total Bilirubin 0.3 mg/dL (0.2-1.3); Total Protein 7.3 g/dL (6.3-8.2)
[2019-02-03 21:49] LABS: Partial Thromboplastin Time 20.3 sec (22.0-30.0)
[2019-02-03 22:22] VITALS: TEMP 98.7
--- NOTE | 2019-02-03 22:55 | ED ---
General Adult HPI - General Chief complaint: Nausea/Vomiting/Diarrhea Stated complaint: Nausea, Diarrhea Time Seen by Provider: 02/03/19 20:11 Source: patient, RN notes reviewed, old records reviewed Mode of arrival: ambulatory Limitations: no limitations - History of Present Illness Initial comments: 68-year-old female patient presents to ED chief complaint of nausea vomiting diarrhea for 2 days. Patient for that she is taking doxycycline for cellulitis on her abdomen. Patient denies any other complaints. Systemic: Pt denies fatigue, fever/chills, rash. Pt denies weakness, night sweats, weight loss. Neuro: Pt denies headache, visual disturbances, syncope or pre-syncope. HEENT: Pt denies ocular discharge or irritation, otalgia, rhinorrhea, phar yngitis or notable lymphadenopathy. Cardiopulmonary: Pt denies chest pain, SOB, heart palpitations, dyspnea on exertion. Abdominal/GI: Pt denies abdominal pain. : Pt denies dysuria, burning w/ urination, frequency/urgency. Denies new onset urinary or bowel incontinence. MSK: Pt denies myalgia, loss of strength or function in extremities. Neuro: Pt denies new onset weakness, paresthesias. - Related Data Home Medications Medication Instructions Recorded Confirmed Metoprolol Succinate [Toprol XL] 50 mg PO DAILY 07/22/13 12/18/18 Nitroglycerin Sl Tabs [Nitrostat] 0.4 mg SUBLINGUAL Q5M PRN 07/11/14 12/18/18 Levothyroxine Sodium [Synthroid] 200 mcg PO DAILY 04/21/15 12/18/18 Ondansetron [Zofran] 4 mg PO Q8HR PRN 04/21/15 12/18/18 Gabapentin [Neurontin] 600 mg PO QID 06/23/16 12/18/18 rOPINIRole HCL [Requip] 3 mg PO HS 06/23/16 12/18/18 tiZANidine HCL [Zanaflex] 4 mg PO TID PRN 06/23/16 12/18/18 Insulin Glargine [Lantus] 30 unit SQ DAILY 05/14/17 12/18/18 INSULIN LISPRO (HumaLOG) [humaLOG] See Protocol SQ ACHS 11/19/18 12/18/18 Ipratropium/Albuterol Sulfate 2 puff INHALATION RT-QID 12/10/18 12/18/18 [Combivent Respimat Inhaler] Previous Rx's Medication Instructions Recorded Clopidogrel [Plavix] 75 mg PO DAILY #30 tab 05/17/17 Diphenox-Atrop 2.5-0.025 mg 1 tab PO QID PRN #10 tab 05/17/17 [Lomotil] Atorvastatin [Lipitor] 40 mg PO HS #90 tab 11/20/18 predniSONE 20 mg PO BID #8 tab 12/10/18 Nitrofurantoin Monohyd/M-Cryst 100 mg PO Q12HR #14 cap 12/19/18 [Macrobid] Allergies Allergy/AdvReac Type Severity Reaction Status Date / Time aspirin Allergy Anaphylaxis Verified 12/18/18 22:54 Iodinated Contrast Media Allergy Anaphylaxis Verified 12/18/18 22:54 [Iodinated Contrast Media - IV Dye] NSAIDS (Non-Steroidal Allergy Anaphylaxis Verified 12/18/18 22:54 Anti-Inflamma sulfamethoxazole Allergy Unknown Verified 12/18/18 22:54 [From Bactrim] trimethoprim [From Bactrim] Allergy Unknown Verified 12/18/18 22:54 influenza virus vaccine ts AdvReac Nausea & Verified 12/18/18 22:54 [id number] (36 mos,up) Vomiting & [From Fluarix] Diarrhea Review of Systems ROS Statement: Those systems with pertinent positive or pertinent negative responses have been documented in the HPI. ROS Other: All systems not noted in ROS Statement are negative. Past Medical History Past Medical History: Coronary Artery Disease (CAD), Chest Pain / Angina, COPD, CVA/TIA, Diabetes Mellitus, Deep Vein Thrombosis (DVT), GERD/Reflux, Hyperlipidemia, Hypertension, Memory Impairment, Osteoarthritis (OA), Pneumonia, Syncope, Thyroid Disorder Additional Past Medical History / Comment(s): 05/07/15 Pt presented to [facility] ER with L side of body feeling "funny" L upper extremity and L hand weakness with L facial weakness. Pt was recently admitted 04/21/15 with possible CVA. Other HX: Antiphospholipid syndrome , LUPUS, CVA's/TIA's, demyelinization of brain, NIDDM, sinus problems, diverticulosis, uti, RESTLESS LEG SYNDROME, systemic lupus ethythemus, L leg DVT, occipital neuritis, varicosities, colostomy, DJD. History of Any Multi-Drug Resistant Organisms: MRSA Date of last positivie culture/infection: 01/08/17 MDRO Source:: URINE Past Surgical History: Appendectomy, Back Surgery, Bladder Surgery, Cholecystectomy, Hysterectomy, Orthopedic Surgery, Tonsillectomy Additional Past Surgical History / Comment(s): L hip surgery nailing /fixation- L hip hemiarthroplasty, bladder suspension, sisi cataracts, partial laminectomy,. colostomy 2010 D/T PERFORATED DIVERTICULUM with reversal and then 2nd colostomy, LT KNEE SX FOR TORN CARTILAGE Past Anesthesia/Blood Transfusion Reactions: No Reported Reaction Additional Past Anesthesia/Blood Transfusion Reaction / Comment(s): HAD BLOOD TRANSFUSION 15 YEARS ago without reaction. Past Psychological History: No Psychological Hx Reported Smoking Status: Current every day smoker Past Alcohol Use History: None Reported Past Drug Use History: None Reported - Past Family History Mother Family Medical History: Cancer, Hypertension Additional Family Medical History / Comment(s): "mother had cancer from asbestos exposure" Father Family Medical History: Hypertension, Rheumatoid Arthritis (RA) General Exam - General Exam Comments Initial Comments: Constitutional: NAD, AOX3, Pt has pleasant affect. HEENT: NC/AT, trachea midline, neck supple, no lymphadenopathy. Posterior pharynx non erythematous, without exudates. External ears appear normal, without discharge. Mucous membranes moist. Eyes PERRLA, EOM intact. There is no scleral icterus. No pallor noted. Cardiopulmonary: RRR, no murmurs, rubs or gallops, no JVD noted. Lungs CTAB in anterior and posterior davis. No peripheral edema. Abdominal exam: Abdomen soft and non-distended. Abdomen non-tender to palpation in all 4 quadrants. Bowel sounds active in LLQ. No hepatosplenomegaly. No ecchymosis. Mild cellulitis noted abdomen. Ostomy site inspected, no signs of infection. Neuro: CN II-XII grossly intact. No nuchal rigidity. No raccon eyes, no blake sign, no hemotympanum. No cervical spinal tenderness. MSK: No posterior calf tenderness bilaterally, homans sign negative bilaterally. Posterior tibialis and radial pulse +2 bilaterally. Sensation intact in upper and lower extremities. Full active ROM in upper and lower extremities, 5/5 stregnth. Limitations: no limitations Course Vital Signs 02/03/19 02/03/19 20:10 22:20 Temperature 98.5 F 98.7 F Pulse Rate 77 71 Respiratory 18 18 Rate Blood Pressure 100/71 112/67 O2 Sat by Pulse 96 96 Oximetry Medical Decision Making - Medical Decision Making 68year-old female patient presents to ED chief complaint of nausea vomiting diarrhea for 2 days. Denies any other complaints. Patient vital signs are stable, afebrile. Physical exam displayed mild cellulitis noted abdomen. Patient is taking doxycycline for this. Started yesterday. No fluctuance, no tenderness. Investigations are non-impressive. No leukocytosis, troponin negative. EKG nonischemic. Chest x-ray grossly acute process. KUB displayed colonic air-fluid levels suggesting liquid stool which could reflect enteritis colitis or colonic ileus. Patient may be experiencing a viral syndrome or a adverse affect from the doxycycline. Patient currently stable this time. Patient comfortable with discharge to follow up with primary care provider. Case discussed with Dr. Garza. - Lab Data Result diagrams: 02/03/19 21:02/03/19 21: Lab Results 02/03/19 02/03/19 02/03/19 Range/Units 21:19 21:19 21:19 WBC 7.9 (3.8-10.6) k/uL RBC 4.61 (3.80-5.40) m/uL Hgb 14.1 (11.4-16.0) gm/dL Hct 41.4 (34.0-46.0) % MCV 89.9 (80.0-100.0) fL MCH 30.5 (25.0-35.0) pg MCHC 33.9 (31.0-37.0) g/dL RDW 13.3 (11.5-15.5) % Plt Count 230 (150-450) k/uL Neutrophils % 69 % Lymphocytes % 21 % Monocytes % 6 % Eosinophils % 1 % Basophils % 1 % Neutrophils # 5.4 (1.3-7.7) k/uL Lymphocytes # 1.7 (1.0-4.8) k/uL Monocytes # 0.5 (0-1.0) k/uL Eosinophils # 0.1 (0-0.7) k/uL Basophils # 0.1 (0-0.2) k/uL PT (9.0-12.0) sec INR (<1.2) APTT (22.0-30.0) sec Sodium 139 (137-145) mmol/L Potassium 4.2 (3.5-5.1) mmol/L Chloride 105 (98-107) mmol/L Carbon Dioxide 27 (22-30) mmol/L Anion Gap 7 mmol/L BUN 19 H (7-17) mg/dL Creatinine 0.60 (0.52-1.04) mg/dL Est GFR (CKD-EPI)AfAm >90 (>60 ml/min/1.73 sqM) Est GFR (CKD-EPI)NonAf >90 (>60 ml/min/1.73 sqM) Glucose 178 H (74-99) mg/dL Calcium 9.7 (8.4-10.2) mg/dL Magnesium 2.0 (1.6-2.3) mg/dL Total Bilirubin 0.3 (0.2-1.3) mg/dL AST 21 (14-36) U/L ALT 21 (9-52) U/L Alkaline Phosphatase 111 (38-126) U/L Troponin I (0.000-0.034) ng/mL NT-Pro-B Natriuret Pep 322 pg/mL Total Protein 7.3 (6.3-8.2) g/dL Albumin 4.1 (3.5-5.0) g/dL 02/03/19 02/03/19 Range/Units 21:19 21:19 WBC (3.8-10.6) k/uL RBC (3.80-5.40) m/uL Hgb (11.4-16.0) gm/dL Hct (34.0-46.0) % MCV (80.0-100.0) fL MCH (25.0-35.0) pg MCHC (31.0-37.0) g/dL RDW (11.5-15.5) % Plt Count (150-450) k/uL Neutrophils % % Lymphocytes % % Monocytes % % Eosinophils % % Basophils % % Neutrophils # (1.3-7.7) k/uL Lymphocytes # (1.0-4.8) k/uL Monocytes # (0-1.0) k/uL Eosinophils # (0-0.7) k/uL Basophils # (0-0.2) k/uL PT 9.3 (9.0-12.0) sec INR 0.8 (<1.2) APTT 20.3 L (22.0-30.0) sec Sodium (137-145) mmol/L Potassium (3.5-5.1) mmol/L Chloride (98-107) mmol/L Carbon Dioxide (22-30) mmol/L Anion Gap mmol/L BUN (7-17) mg/dL Creatinine (0.52-1.04) mg/dL Est GFR (CKD-EPI)AfAm (>60 ml/min/1.73 sqM) Est GFR (CKD-EPI)NonAf (>60 ml/min/1.73 sqM) Glucose (74-99) mg/dL Calcium (8.4-10.2) mg/dL Magnesium (1.6-2.3) mg/dL Total Bilirubin (0.2-1.3) mg/dL AST (14-36) U/L ALT (9-52) U/L Alkaline Phosphatase (38-126) U/L Troponin I <0.012 (0.000-0.034) ng/mL NT-Pro-B Natriuret Pep pg/mL Total Protein (6.3-8.2) g/dL Albumin (3.5-5.0) g/dL Disposition Clinical Impression: Diarrhea Disposition: HOME SELF-CARE Condition: Stable Additional Instructions: Follow-up with primary care provider tomorrow. Return to ER if condition worsens. Is patient prescribed a controlled substance at d/c from ED?: No Referrals: Franklin Benitez III, MD [Primary Care Provider] - 1-2 days
[2019-02-03 23:27] VITALS: BP 118/72; PULSE 72
== END 2019-02-03 23:26 | disposition home or self-care (01) ==
LOC: EC 20:07
DX: R19.7 Diarrhea, unspecified (principal); L03.311 Cellulitis of abdominal wall; R11.2 Nausea with vomiting, unspecified; I25.119 Atherosclerotic heart disease of native coronary artery with unspecified angina pectoris; J44.9 Chronic obstructive pulmonary disease, unspecified; E11.9 Type 2 diabetes mellitus without complications; K21.9 Gastro-esophageal reflux disease without esophagitis; I10 Essential (primary) hypertension; M19.90 Unspecified osteoarthritis, unspecified site; E07.9 Disorder of thyroid, unspecified; G25.81 Restless legs syndrome; M32.9 Systemic lupus erythematosus, unspecified; F17.200 Nicotine dependence, unspecified, uncomplicated; Z88.2 Allergy status to sulfonamides; Z88.6 Allergy status to analgesic agent; Z88.7 Allergy status to serum and vaccine; Z91.041 Radiographic dye allergy status; Z79.4 Long term (current) use of insulin; Z79.890 Hormone replacement therapy; Z79.899 Other long term (current) drug therapy; Z86.14 Personal history of Methicillin resistant Staphylococcus aureus infection; Z93.3 Colostomy status; Z90.49 Acquired absence of other specified parts of digestive tract; Z96.642 Presence of left artificial hip joint
CPT/HCPCS: 36415; 71046; 74018; 80053; 83735; 83880; 84484; 85025; 85610; 85730; 93005; 96360; 99285

== ENCOUNTER 2019-03-10 19:42 | Inpatient (IN) | payer MEDICARE ==
[2019-03-10 19:52] VITALS: RESP 18
[2019-03-10] MEDS ORDERED: MORPHINE SULFATE 4 MG/ML SYRINGE IV STA (21:01)
[2019-03-10] MEDS ORDERED: SODIUM CHLORIDE 0.9% 500 ML 500 ML IV STA (21:01)
[2019-03-10 21:21] LABS: Basophils # (A) 0.1 k/uL (0-0.2); Basophils % (A) 0 %; Eosinophils # (A) 0.1 k/uL (0-0.7); Eosinophils % (A) 1 %; HCT 42.2 % (34.0-46.0); HGB 14.1 gm/dL (11.4-16.0); Lymphocytes # (A) 1.9 k/uL (1.0-4.8); Lymphocytes % (A) 15 %; MCH 29.7 pg (25.0-35.0); MCHC 33.4 g/dL (31.0-37.0); Mean Platelet Volume 10.8; Monocytes # (A) 0.6 k/uL (0-1.0); Monocytes % (A) 5 %; Neutrophils # (A) 10.1 k/uL (1.3-7.7); Neutrophils % (A) 78 %; Platelet Count 211 k/uL (150-450); RBC 4.75 m/uL (3.80-5.40); RDW 13.6 % (11.5-15.5)
[2019-03-10 21:28] LABS: Appearance,Urine Clear (Clear); Bacteria,Urine Rare /hpf; Bilirubin,Urine Negative (Negative); Blood,Urine Negative (Negative); Color,Urine Light Yellow; Glucose,Urine (UA) Trace (Negative); Ketones,Urine Negative (Negative); Leukocyte Esterase,Urine Moderate (Negative); Nitrite,Urine Negative (Negative); PH, Urine 5.5 (5.0-8.0); Protein,Urine Negative (Negative); RBC,Urine 1 /hpf (0-5); Specific Gravity,Urine 1.004 (1.001-1.035); Squamous Epithelial Cell,Urine <1 /hpf (0-4); Urobilinogen,Urine <2.0 mg/dL (<2.0); WBC,Urine 15 /hpf (0-5)
[2019-03-10 21:35] LABS: ALT 16 U/L (4-34); AST 21 U/L (14-36); African American GFR (CKD) >90 (>60 ml/min/1.73 sqM); Alkaline Phosphatase 113 U/L (38-126); Anion Gap 8 mmol/L; Blood Urea Nitrogen 21 mg/dL (7-17); Calcium 10.1 mg/dL (8.4-10.2); Carbon Dioxide 25 mmol/L (22-30); Chloride 104 mmol/L (98-107); Glucose 205 mg/dL (74-99); Magnesium 1.8 mg/dL (1.6-2.3); Non-African American GFR(CKD) 85 (>60 ml/min/1.73 sqM); Sodium 137 mmol/L (137-145); Total Bilirubin 0.3 mg/dL (0.2-1.3)
[2019-03-10 21:38] LABS: INR 0.9 (<1.2); Prothrombin Time 9.7 sec (9.0-12.0)
--- NOTE | 2019-03-10 22:19 | XR ---
EXAMINATION TYPE: XR chest 2V DATE OF EXAM: 03/10/2019 COMPARISON: 02/03/2019 HISTORY: Chest pain TECHNIQUE: 2 views FINDINGS: Heart and mediastinum are normal. Lungs are clear. Diaphragm is normal. Bony thorax is inta ct. Thoracic aorta shows mild atheromatous change. IMPRESSION: No active cardiopulmonary disease. No change.
[2019-03-10] MEDS ORDERED: NALOXONE 0.4 MG/ML 1 ML VIAL IV PRN (23:02)
--- NOTE | 2019-03-10 23:02 | ED ---
Chest Pain HPI - General Chief Complaint: Chest Pain Stated Complaint: Chest pain Time Seen by Provider: 03/10/19 19:50 Source: patient, EMS Mode of arrival: EMS - History of Present Illness Initial Comments: The patient is a 60-year-old female with past medical history of coronary artery disease, recurrent chest pain and CVA who presents emergency room with reported chest pain. She describes it as a chest pressure located over the left side of her chest which radiates up to her left jaw. States her symptoms started while she was at home watching TV. She admits to mild shortness of breath. Denies ripping or tearing sensation to her back. No unilateral numbness or weakness. Denies any fevers or chills. No cough or hemoptysis. Does admit to upper respiratory symptoms. States that she has had sinus pain and congestion over the past 2 weeks. She was on her primary care physician office and placed on doxycycline. States she finished the antibiotic however does feel better. She has associated nausea without vomiting. She takes Xarelto for a history of DVT. She is unsure if she has a history of PE. Denies any missed doses. She has had a history of this in the past and had a cardiac workup in November which demonstrated a normal stress test. She was given a prescription for nitro. States that she took one at home without improvement in her symptoms. She then took a second one approximately one hours later without improvement. Currently reports that her pain is 8 out of 10. She denies any abdominal pain. No changes in her bowel habits. There are no other alleviating, precipitating or modifying factors - Related Data Home Medications Medication Instructions Recorded Confirmed Metoprolol Succinate [Toprol XL] 50 mg PO DAILY 07/22/13 03/10/19 Ondansetron [Zofran] 4 mg PO Q8HR PRN 04/21/15 03/10/19 rOPINIRole HCL [Requip] 3 mg PO HS 06/23/16 03/10/19 tiZANidine HCL [Zanaflex] 4 mg PO TID PRN 06/23/16 03/10/19 Insulin Glargine [Lantus] 30 unit SQ DAILY 05/14/17 03/10/19 INSULIN LISPRO (HumaLOG) [humaLOG] See Protocol SQ ACHS 11/19/18 03/10/19 Levothyroxine Sodium [Synthroid] 125 mcg PO DAILY 03/12/19 03/12/19 Previous Rx's Medication Instructions Recorded Diphenox-Atrop 2.5-0.025 mg 1 tab PO QID PRN #10 tab 05/17/17 [Lomotil] Atorvastatin [Lipitor] 40 mg PO HS #90 tab 11/20/18 Allergies Allergy/AdvReac Type Severity Reaction Status Date / Time aspirin Allergy Anaphylaxis Verified 03/10/19 23:47 codeine Allergy Swelling Verified 03/11/19 00:22 Iodinated Contrast Media Allergy Anaphylaxis Verified 03/10/19 23:47 [Iodinated Contrast Media - IV Dye] NSAIDS (Non-Steroidal Allergy Anaphylaxis Verified 03/10/19 23:47 Anti-Inflamma sulfamethoxazole Allergy Unknown Verified 03/10/19 23:47 [From Bactrim] trimethoprim [From Bactrim] Allergy Unknown Verified 03/10/19 23:47 influenza virus vaccine ts AdvReac Nausea & Verified 03/10/19 23:47 [id number] (36 mos,up) Vomiting & [From Fluarix] Diarrhea Review of Systems ROS Statement: Those systems with pertinent positive or pertinent negative responses have been documented in the HPI. ROS Other: All systems not noted in ROS Statement are negative. EKG Findings - EKG Comments: EKG Findings:: EKG demonstrates normal sinus rhythm with ventricular rate of 76. AL interval 1:30. QRS 86. QTC 445. No acute ST segment elevations or depressions concerning for ischemic changes Past Medical History Past Medical History: Coronary Artery Disease (CAD), Chest Pain / Angina, COPD, CVA/TIA, Diabetes Mellitus, Deep Vein Thrombosis (DVT), GERD/Reflux, Hyperlipidemia, Hypertension, Memory Impairment, Osteoarthritis (OA), Pneumonia, Syncope, Thyroid Disorder Additional Past Medical History / Comment(s): 05/07/15 Pt presented to [facility] ER with L side of body feeling "funny" L upper extremity and L hand weakness with L facial weakness. Pt was recently admitted 04/21/15 with possible CVA. Other HX: Antiphospholipid syndrome , LUPUS, CVA's/TIA's, demyelinization of brain, NIDDM, sinus problems, diverticulosis, uti, RESTLESS LEG SYNDROME, systemic lupus ethythemus, L leg DVT, occipital neuritis, varicosities, colostomy, DJD. History of Any Multi-Drug Resistant Organisms: MRSA Date of last positivie culture/infection: 01/08/17 MDRO Source:: URINE Past Surgical History: Appendectomy, Back Surgery, Bladder Surgery, Cholecystectomy, Hysterectomy, Orthopedic Surgery, Tonsillectomy Additional Past Surgical History / Comment(s): L hip surgery nailing /fixation- L hip hemiarthroplasty, bladder suspension, sisi cataracts, partial laminectomy,. colostomy 2010 D/T PERFORATED DIVERTICULUM with reversal and then 2nd colostomy, LT KNEE SX FOR TORN CARTILAGE Past Anesthesia/Blood Transfusion Reactions: No Reported Reaction Additional Past Anesthesia/Blood Transfusion Reaction / Comment(s): HAD BLOOD TRANSFUSION 15 YEARS ago without reaction. Past Psychological History: No Psychological Hx Reported Smoking Status: Current every day smoker Past Alcohol Use History: None Reported Past Drug Use History: None Reported - Past Family History Mother Family Medical History: Cancer, Hypertension Additional Family Medical History / Comment(s): "mother had cancer from asbestos exposure" Father Family Medical History: Hypertension, Rheumatoid Arthritis (RA) General Exam General appearance: alert, in no apparent distress Head exam: Present: atraumatic, normocephalic, normal inspection Eye exam: Present: normal appearance, PERRL, EOMI. Absent: scleral icterus, conjunctival injection, periorbital swelling ENT exam: Present: normal exam, mucous membranes moist Neck exam: Present: normal inspection. Absent: tenderness, meningismus, lymphadenopathy Respiratory exam: Present: normal lung sounds bilaterally. Absent: respiratory distress, wheezes, rales, rhonchi, stridor Cardiovascular Exam: Present: regular rate, normal rhythm, normal heart sounds. Absent: systolic murmur, diastolic murmur, rubs, gallop, clicks GI/Abdominal exam: Present: soft, normal bowel sounds. Absent: distended, tenderness, guarding, rebound, rigid Extremities exam: Present: normal inspection, full ROM, normal capillary refill. Absent: tenderness, pedal edema, joint swelling, calf tenderness Back exam: Present: normal inspection Neurological exam: Present: alert, oriented X3, CN II-XII intact Psychiatric exam: Present: normal affect, normal mood Skin exam: Present: warm, dry, intact, normal color. Absent: rash Course Vital Signs 03/10/19 03/10/19 03/10/19 19:47 21:00 21:15 Temperature 98.3 F Pulse Rate 73 68 77 Pulse Rate [ Pulse Oximetery ] Respiratory 18 19 18 Rate Blood Pressure 162/86 150/78 139/87 Blood Pressure [Right Arm] O2 Sat by Pulse 100 97 95 Oximetry 03/10/19 03/10/19 03/10/19 21:40 22:00 23:00 Temperature 98.7 F Pulse Rate 67 68 62 Pulse Rate [ Pulse Oximetery ] Respiratory 18 18 18 Rate Blood Pressure 134/80 126/70 132/70 Blood Pressure [Right Arm] O2 Sat by Pulse 95 96 95 Oximetry 03/11/19 00:00 Temperature 97.8 F Pulse Rate Pulse Rate [ 62 Pulse Oximetery ] Respiratory 18 Rate Blood Pressure Blood Pressure 148/80 [Right Arm] O2 Sat by Pulse 97 Oximetry Chest Pain MDM - MDM Upon arrival the patient was placed into room 2. She is hooked up to continuous pulse ox and cardiac monitoring. A thorough history and physical exam was performed. Peripheral IV was established. She is given 4 mg of morphine for her pain. She is ALLERGIC to aspirin and did not have any response to nitro. The twelve-lead EKG was performed which demonstrates no acute changes from her old EKG. Laboratory studies were conducted. Does demonstrate an elevated white blood count of 13. Coags were normal. Glucose mildly elevated at 205. Urinalysis shows moderate leukocyte esterase, 50 white blood cells and bacteria. Influenza is negative. Chest x-ray demonstrates no active cardiopulmonary disease. I discussed results the patient. States that she did have improvement of her chest pain to 6 out of 10. I ordered a urine culture and we'll trend the patient's troponins. She was admitted to Dr. Hazel's service. The patient was then transported to the observation unit in stable condition Disposition Clinical Impression: Chest pain, Leukocytosis, URI (upper respiratory infection) Disposition: ADMITTED IP TO THIS HOSP Condition: Stable Is patient prescribed a controlled substance at d/c from ED?: No Decision to Admit Reason: Admit from EC Decision Date: 03/10/19 Decision Time: 23:02
[2019-03-11] MEDS: MORPHINE SULFATE 4 MG/ML SYRINGE IV PRN ×3 (00:40→16:40)
[2019-03-11] MEDS ORDERED: tiZANidine 4 MG TAB PO PRN (01:00)
[2019-03-11] MEDS ORDERED: DIPHENOX-ATROP 2.5-0.025 MG 1 EACH TAB PO PRN (01:00)
[2019-03-11] MEDS: ATORVASTATIN 40 MG TAB PO SCH ×2 (01:12→19:55)
[2019-03-11] MEDS: GABAPENTIN 300 MG CAP PO SCH ×5 (01:13→19:54)
[2019-03-11] MEDS: ONDANSETRON 4 MG TAB PO PRN ×2 (02:58→12:49)
[2019-03-11] MEDS: LEVOTHYROXINE 100 MCG TAB PO SCH (05:37)
[2019-03-11 07:15] LABS: Glucose,Whole Blood 301 mg/dL (75-99)
[2019-03-11] MEDS ORDERED: INSULIN ASPART (NovoLOG) 100 UNIT/ML VIAL SQ SCH (07:30)
[2019-03-11 08:54] LABS: Basophils % (A) 0 %; Eosinophils # (A) 0.1 k/uL (0-0.7); Eosinophils % (A) 1 %; HCT 39.1 % (34.0-46.0); HGB 12.8 gm/dL (11.4-16.0); Lymphocytes # (A) 1.2 k/uL (1.0-4.8); Lymphocytes % (A) 12 %; MCH 29.8 pg (25.0-35.0); MCHC 32.7 g/dL (31.0-37.0); MCV 91.1 fL (80.0-100.0); Mean Platelet Volume 10.6; Monocytes # (A) 0.6 k/uL (0-1.0); Monocytes % (A) 5 %; Neutrophils # (A) 8.5 k/uL (1.3-7.7); Neutrophils % (A) 80 %; Platelet Count 187 k/uL (150-450); RDW 13.7 % (11.5-15.5); WBC 10.6 k/uL (3.8-10.6)
[2019-03-11] MEDS: METOPROLOL SUCCINATE (ER) 50 MG TAB.ER.24H PO SCH (09:22)
[2019-03-11] MEDS: INSULIN DETEMIR (LEVEMIR) 100 UNIT/ML SYR SQ SCH (09:22)
[2019-03-11] MEDS: CLOPIDOGREL 75 MG TAB PO SCH (09:22)
[2019-03-11 09:26] LABS: African American GFR (CKD) >90 (>60 ml/min/1.73 sqM); Anion Gap 7 mmol/L; Blood Urea Nitrogen 22 mg/dL (7-17); Calcium 9.1 mg/dL (8.4-10.2); Carbon Dioxide 28 mmol/L (22-30); Chloride 103 mmol/L (98-107); Glucose 279 mg/dL (74-99); Non-African American GFR(CKD) >90 (>60 ml/min/1.73 sqM); Potassium 4.1 mmol/L (3.5-5.1); Sodium 138 mmol/L (137-145)
--- NOTE | 2019-03-11 11:00 | P.CRDCN ---
<Marii Galvan - Last Filed: 03/11/19 10:59> History of Present Illness History of present illness: This is Marii Galvan PA-C dictating a consult on this patient The patient was interviewed and examined by me as well as by Dr. Foster Case discussed with Dr. Foster and he agrees with the plan of care IMPRESSION / ASSESSMENT: Intermittent chest discomfort which is relieved by nitroglycerin, troponins negative 3, EKG showing no acute ST or T-wave abnormalities while patient is having the chest discomfort History of CVA Diabetes Hypertension Dyslipidemia History of DVT Current smoker PLAN: obtain lipid panel recommend dobutamine stress echo Continue statins, Plavix, beta blockers and antihypertensive therapy HPI Patient is a 68-year-old female with a past medical history significant for CO PD, current smoker, CVA, diabetes, hypertension, dyslipidemia, DVT who presented with complaints of chest discomfort. Patient states she has seen a money manager in the past but has not followed with one regularly. She was at home sitting on the couch watching TV when she experienced a sudden onset of left sided chest pressure which radiated up to her jaw. She had associated mild shortness of br eath and nausea, no vomiting. Denies diaphoresis. She recently had the flu and attributed her discomfort to this. She took one nitroglycerin which did help" take the edge off" but the pain persisted so she came in for further evaluation. Upon arrival to the emergency department, her blood pressure was 162/86, pulse was 73, oxygen saturation 100% on room air. Chest x-ray showed no acute process. EKG showed sinus mechanism without any acute ST or T-wave abnormalities. Labs are significant for an elevated white blood cell count and urinalysis showing moderate leukocyte esterase and bacteria. Troponins negative 3. BNP 218. Patient seen and examined resting comfortably in bed. She wade nued to have chest discomfort on and off overnight and states it was relieved by nitroglycerin. EKG during the chest discomfort did not show any acute ST or T- wave abnormalities. She denies any shortness of breath, palpitations, dizziness or syncope. No orthopnea or PND. ROS: No fevers, chills or rigors, no cough, phlegm or expectoration, positive nausea, no vomiting or diarrhea, no hematuria, dysuria, no musculoskeletal complaints, Positive for history of stroke, no seizures, no skin lesions. EXAMINATION: Temperature 97.5F, pulse 75, respirations 18, blood pressure 135/70, oxygen saturation 93% on room air Patient seen and examined resting comfortably in bed, in no acute distress Lungs clear to auscultation bilaterally, no rhonchi wheezing or crackles appreciated Heart is regular, soft systolic murmur No elevated JVD No lower extremity edema Abdomen soft and nontender to palpation REVIEW OF LABS, ECG & MEDICAL DATA WBC 10.6, hemoglobin 12.8, platelets 187, potassium 4.1, BUN 22, creatinine 0.67 Echo in November showed EF 65-70%, moderate concentric hypertrophy Stress test in November showed no evidence of reversible ischemia Past Medical History Past Medical History: Coronary Artery Disease (CAD), Chest Pain / Angina, COPD, CVA/TIA, Diabetes Mellitus, Deep Vein Thrombosis (DVT), GERD/Reflux, Hyperlipidemia, Hypertension, Memory Impairment, Osteoarthritis (OA), Pneumonia, Syncope, Thyroid Disorder Additional Past Medical History / Comment(s): 05/07/15 Pt presented to [facility] ER with L side of body feeling "funny" L upper extremity and L hand weakness with L facial weakness. Pt was recently admitted 04/21/15 with possible CVA. Other HX: Antiphospholipid syndrome , LUPUS, CVA's/TIA's, demyelinization of brain, NIDDM, sinus problems, diverticulosis, uti, RESTLESS LEG SYNDROME, systemic lupus ethythemus, L leg DVT, occipital neuritis, varicosities, colostomy, DJD. History of Any Multi-Drug Resistant Organisms: MRSA Date of last positivie culture/infection: 01/08/17 MDRO Source:: URINE Past Surgical History: Appendectomy, Back Surgery, Bladder Surgery, Cholecystectomy, Hysterectomy, Orthopedic Surgery, Tonsillectomy Additional Past Surgical History / Comment(s): L hip surgery nailing /fixation- L hip hemiarthroplasty, bladder suspension, sisi cataracts, partial laminectomy,. colostomy 2010 D/T PERFORATED DIVERTICULUM with reversal and then 2nd colostomy, LT KNEE SX FOR TORN CARTILAGE Past Anesthesia/Blood Transfusion Reactions: No Reported Reaction Additional Past Anesthesia/Blood Transfusion Reaction / Comment(s): HAD BLOOD TRANSFUSION 15 YEARS ago without reaction. Past Psychological History: No Psychological Hx Reported Smoking Status: Current every day smoker Past Alcohol Use History: None Reported Past Drug Use History: None Reported - Past Family History Father Family Medical History: Hypertension, Rheumatoid Arthritis (RA) Mother Family Medical History: Cancer, Hypertension Additional Family Medical History / Comment(s): "mother had cancer from asbestos exposure" Medications and Allergies Home Medications Medication Instructions Recorded Confirmed Type RX: Metoprolol Succinate [Toprol 50 mg PO DAILY 07/22/13 03/10/19 History XL] RX: Levothyroxine Sodium 200 mcg PO DAILY 04/21/15 03/10/19 History [Synthroid] RX: Ondansetron [Zofran] 4 mg PO Q8HR PRN 04/21/15 03/10/19 History RX: Gabapentin [Neurontin] 600 mg PO QID 06/23/16 03/10/19 History RX: rOPINIRole HCL [Requip] 3 mg PO HS 06/23/16 03/10/19 History RX: tiZANidine HCL [Zanaflex] 4 mg PO TID PRN 06/23/16 03/10/19 History RX: Insulin Glargine [Lantus] 30 unit SQ DAILY 05/14/17 03/10/19 History RX: Clopidogrel [Plavix] 75 mg PO DAILY #30 tab 05/17/17 03/10/19 Rx RX: Diphenox-Atrop 2.5-0.025 mg 1 tab PO QID PRN #10 tab 05/17/17 03/10/19 Rx [Lomotil] RX: INSULIN LISPRO (HumaLOG) See Protocol SQ ACHS 11/19/18 03/10/19 History [humaLOG] RX: Atorvastatin [Lipitor] 40 mg PO HS #90 tab 11/20/18 03/10/19 Rx Allergies Allergy/AdvReac Type Severity Reaction Status Date / Time aspirin Allergy Anaphylaxis Verified 03/10/19 23:47 codeine Allergy Swelling Verified 03/11/19 00:22 Iodinated Contrast Media Allergy Anaphylaxis Verified 03/10/19 23:47 [Iodinated Contrast Media - IV Dye] NSAIDS (Non-Steroidal Allergy Anaphylaxis Verified 03/10/19 23:47 Anti-Inflamma sulfamethoxazole Allergy Unknown Verified 03/10/19 23:47 [From Bactrim] trimethoprim [From Bactrim] Allergy Unknown Verified 03/10/19 23:47 influenza virus vaccine ts AdvReac Nausea & Verified 03/10/19 23:47 [id number] (36 mos,up) Vomiting & [From Fluarix] Diarrhea Physical Exam Vitals: Vital Signs Temp Pulse Pulse Resp BP BP Pulse Ox 03/11/19 08:00 75 18 03/11/19 07:15 97.5 F L 75 18 135/70 93 L 03/11/19 03:11 18 03/11/19 03:09 97.4 F L 68 18 112/68 91 L 03/11/19 00:00 97.8 F 62 18 148/80 97 03/10/19 23:00 62 18 132/70 95 03/10/19 22:00 98.7 F 68 18 126/70 96 03/10/19 21:40 67 18 134/80 95 03/10/19 21:15 77 18 139/87 95 03/10/19 21:00 68 19 150/78 97 03/10/19 19:47 98.3 F 73 18 162/86 100 Intake and Output 03/10/19 03/11/19 03/11/19 22:59 06:59 14:59 Other: Voiding Method Bedside Commode # Voids 1 Weight 86.183 kg 86.183 kg Results 03/11/19 08:32 03/11/19 08:32 Cardiac Enzymes 03/10/19 03/10/19 03/11/19 Range/Units 20:43 20:43 02:31 AST 21 (14-36) U/L Troponin I <0.012 <0.012 (0.000-0.034) ng/mL 03/11/19 Range/Units 08:32 AST (14-36) U/L Troponin I <0.012 (0.000-0.034) ng/mL Coagulation 03/10/19 Range/Units 20:43 PT 9.7 (9.0-12.0) sec APTT 24.0 (22.0-30.0) sec CBC 03/10/19 03/11/19 Range/Units 20:43 08:32 WBC 13.0 H 10.6 (3.8-10.6) k/uL RBC 4.75 4.30 (3.80-5.40) m/uL Hgb 14.1 12.8 (11.4-16.0) gm/dL Hct 42.2 39.1 (34.0-46.0) % Plt Count 211 187 (150-450) k/uL Comprehensive Metabolic Panel 03/10/19 03/11/19 Range/Units 20:43 08:32 Sodium 137 138 (137-145) mmol/L Potassium 4.0 4.1 (3.5-5.1) mmol/L Chloride 104 103 (98-107) mmol/L Carbon Dioxide 25 28 (22-30) mmol/L BUN 21 H 22 H (7-17) mg/dL Creatinine 0.73 0.67 (0.52-1.04) mg/dL Glucose 205 H 279 H (74-99) mg/dL Calcium 10.1 9.1 (8.4-10.2) mg/dL AST 21 (14-36) U/L ALT 16 (4-34) U/L Alkaline Phosphatase 113 (38-126) U/L Total Protein 7.0 (6.3-8.2) g/dL Albumin 4.0 (3.5-5.0) g/dL Current Medications Generic Name Dose Route Start Last Admin Trade Name Freq PRN Reason Stop Dose Admin Atorvastatin Calcium 40 mg 03/11/19 01:00 03/11/19 01:12 Lipitor PO 40 mg HS KATHRYN Administration Clopidogrel Bisulfate 75 mg 03/11/19 09:00 03/11/19 09:22 Plavix PO 75 mg DAILY KATHRYN Administration Diphenoxylate HCl/Atropine 1 each 03/11/19 01:00 Lomotil PO QID PRN Diarrhea Gabapentin 600 mg 03/11/19 01:00 03/11/19 09:22 Neurontin PO 600 mg QID KATHRYN Administration Dobutamine HCl/Dextrose 500 mg 250 mls @ 25.855 mls/hr 03/12/19 07:00 / IV Solution IV 03/12/19 16:40 .Q9H41M ONE Protocol 10 MCG/KG/MIN Insulin Aspart 0 unit 03/11/19 09:16 Novolog SQ ACHS KATHRYN Protocol Insulin Detemir 30 unit 03/11/19 09:00 03/11/19 09:22 Levemir SQ 30 unit DAILY KATHRYN Administration Levothyroxine Sodium 200 mcg 03/11/19 06:30 03/11/19 05:37 Synthroid PO 200 mcg DAILY@0630 KATHRYN Administration Lisinopril 10 mg 03/11/19 21:00 Zestril PO HS KATHRYN Metoprolol Succinate 50 mg 03/11/19 09:00 03/11/19 09:22 Toprol Xl PO 50 mg DAILY KATHRYN Administration Morphine Sulfate 4 mg 03/10/19 23:02 03/11/19 07:20 Morphine Sulfate (Inj) IV 4 mg Q4HR PRN Administration Severe Pain Naloxone HCl 0.2 mg 03/10/19 23:02 Narcan IV Q2M PRN Opioid Reversal Ondansetron HCl 4 mg 03/11/19 00:56 03/11/19 02:58 Zofran PO 4 mg Q8HR PRN Administration Nausea Ropinirole HCl 3 mg 03/11/19 01:00 03/11/19 01:15 Requip PO 3 mg HS KATHRYN Administration Tizanidine HCl 4 mg 03/11/19 01:00 Zanaflex PO TID PRN Pain Intake and Output 03/10/19 03/11/19 03/11/19 22:59 06:59 14:59 Other: Voiding Method Bedside Commode # Voids 1 Weight 86.183 kg 86.183 kg 03/11/19 08:32 03/11/19 08:32 <Jordi Foster - Last Filed: 03/11/19 11:18> History of Present Illness History of present illness: Patient complains of a pressure-like sensation the chest off and on that radiates towards her neck ECG is normal cardiac enzymes are normal Initially thought was to proceed with a stress test but given the fact that she has been admitted to the hospital repeatedly for recurrent chest discomfort and had a stress test 3 months back which did not show any evidence for ischemia, we decided to cancel the dobutamine stress echo and proceed with coronary angiography instead She has risk factors for coronary artery disease and a chest discomfort is worrisome for angina although we have no evidence for acute myocardial infarction Physical Exam Vitals: Vital Signs Temp Pulse Pulse Resp BP BP Pulse Ox 03/11/19 11:10 97.8 F 61 18 92/53 92 L 03/11/19 08:00 75 18 03/11/19 07:15 97.5 F L 75 18 135/70 93 L 03/11/19 03:11 18 03/11/19 03:09 97.4 F L 68 18 112/68 91 L 03/11/19 00:00 97.8 F 62 18 148/80 97 03/10/19 23:00 62 18 132/70 95 03/10/19 22:00 98.7 F 68 18 126/70 96 03/10/19 21:40 67 18 134/80 95 03/10/19 21:15 77 18 139/87 95 03/10/19 21:00 68 19 150/78 97 03/10/19 19:47 98.3 F 73 18 162/86 100 Intake and Output 03/10/19 03/11/19 03/11/19 22:59 06:59 14:59 Other: Voiding Method Bedside Commode # Voids 1 Weight 86.183 kg 86.183 kg Results 03/11/19 08:32 03/11/19 08:32 Cardiac Enzymes 03/10/19 03/10/19 03/11/19 Range/Units 20:43 20:43 02:31 AST 21 (14-36) U/L Troponin I <0.012 <0.012 (0.000-0.034) ng/mL 03/11/19 Range/Units 08:32 AST (14-36) U/L Troponin I <0.012 (0.000-0.034) ng/mL Coagulation 03/10/19 Range/Units 20:43 PT 9.7 (9.0-12.0) sec APTT 24.0 (22.0-30.0) sec CBC 03/10/19 03/11/19 Range/Units 20:43 08:32 WBC 13.0 H 10.6 (3.8-10.6) k/uL RBC 4.75 4.30 (3.80-5.40) m/uL Hgb 14.1 12.8 (11.4-16.0) gm/dL Hct 42.2 39.1 (34.0-46.0) % Plt Count 211 187 (150-450) k/uL Comprehensive Metabolic Panel 03/10/19 03/11/19 Range/Units 20:43 08:32 Sodium 137 138 (137-145) mmol/L Potassium 4.0 4.1 (3.5-5.1) mmol/L Chloride 104 103 (98-107) mmol/L Carbon Dioxide 25 28 (22-30) mmol/L BUN 21 H 22 H (7-17) mg/dL Creatinine 0.73 0.67 (0.52-1.04) mg/dL Glucose 205 H 279 H (74-99) mg/dL Calcium 10.1 9.1 (8.4-10.2) mg/dL AST 21 (14-36) U/L ALT 16 (4-34) U/L Alkaline Phosphatase 113 (38-126) U/L Total Protein 7.0 (6.3-8.2) g/dL Albumin 4.0 (3.5-5.0) g/dL Current Medications Generic Name Dose Route Start Last Admin Trade Name Freq PRN Reason Stop Dose Admin Atorvastatin Calcium 40 mg 03/11/19 01:00 03/11/19 01:12 Lipitor PO 40 mg HS KATHRYN Administration Clopidogrel Bisulfate 75 mg 03/11/19 09:00 03/11/19 09:22 Plavix PO 75 mg DAILY KATHRYN Administration Diphenoxylate HCl/Atropine 1 each 03/11/19 01:00 Lomotil PO QID PRN Diarrhea Gabapentin 600 mg 03/11/19 01:00 03/11/19 09:22 Neurontin PO 600 mg QID KATHRYN Administration Dobutamine HCl/Dextrose 500 mg 250 mls @ 25.855 mls/hr 03/12/19 07:00 / IV Solution IV 03/12/19 16:40 .Q9H41M ONE Protocol 10 MCG/KG/MIN Insulin Aspart 0 unit 03/11/19 09:16 Novolog SQ ACHS KATHRYN Protocol Insulin Detemir 30 unit 03/11/19 09:00 03/11/19 09:22 Levemir SQ 30 unit DAILY KATHRYN Administration Levothyroxine Sodium 200 mcg 03/11/19 06:30 03/11/19 05:37 Synthroid PO 200 mcg DAILY@0630 KATHRYN Administration Lisinopril 10 mg 03/11/19 21:00 Zestril PO HS KATHRYN Metoprolol Succinate 50 mg 03/11/19 09:00 03/11/19 09:22 Toprol Xl PO 50 mg DAILY KATHRYN Administration Morphine Sulfate 4 mg 03/10/19 23:02 03/11/19 07:20 Morphine Sulfate (Inj) IV 4 mg Q4HR PRN Administration Severe Pain Naloxone HCl 0.2 mg 03/10/19 23:02 Narcan IV Q2M PRN Opioid Reversal Ondansetron HCl 4 mg 03/11/19 00:56 03/11/19 02:58 Zofran PO 4 mg Q8HR PRN Administration Nausea Ropinirole HCl 3 mg 03/11/19 01:00 03/11/19 01:15 Requip PO 3 mg HS KATHRYN Administration Tizanidine HCl 4 mg 03/11/19 01:00 Zanaflex PO TID PRN Pain Intake and Output 03/10/19 03/11/19 03/11/19 22:59 06:59 14:59 Other: Voiding Method Bedside Commode # Voids 1 Weight 86.183 kg 86.183 kg 03/11/19 08:32 03/11/19 08:32
[2019-03-11 11:41] LABS: Glucose,Whole Blood 264 mg/dL (75-99)
[2019-03-11 11:45] LABS: Cholesterol 219 mg/dL (<200); HDL Cholesterol 34 mg/dL (40-60); Triglycerides 455 mg/dL (<150)
[2019-03-11] MEDS ORDERED: ALPRAZolam 0.5 MG TAB PO PRN (12:04)
[2019-03-11] MEDS: INSULIN ASPART (NovoLOG) 100 UNIT/ML VIAL SQ SCH ×3 (13:21→19:54)
[2019-03-11] MEDS ORDERED: ALPRAZolam 0.25 MG TAB PO PRN (13:25)
--- NOTE | 2019-03-11 14:21 | P.HPIM ---
History of Present Illness This is a pleasant 68 years old female with past medical history of coronary artery disease, COPD, CVA/TIA, diabetes mellitus, deep venous thrombosis, GERD, hypertension, hyperlipidemia, memory impairment, osteoarthritis, syncope, hypothyroidism antiphospholipid syndrome, lupus, diverticulosis, restless leg syndrome, left leg DVT, except to neuritis, varicosities, status post colostomy and degenerative joint disease. This time patient presents because of progressively recurrent chest pain in the middle with radiation towards the left neck associated with some dyspnea moderate in severity. Patient at baseline is bedridden because of her bad choice status post 3 hip surgery and 2 ankle surgeries. He is a status post colostomy from previous bowel obstruction that needed to stay in the ICU for about a week Vitals stable. Labs show an unremarkable CBC, BMP, sugar is elevated at 300, as well as cholesterol and triglycerides. If those as not detected. EKG showing normal sinus rhythm at 76. Chest x-ray: No acute process. In the emergency room patient got morphine and IV fluids. And she was started on dobutamine drip by bull float finisher as well as lisinopril. Review of Systems CONSTITUTIONAL: No fever, no malaise, no fatigue. HEENT: No recent visual problems or hearing problems. Denied any sore throat. CARDIOVASCULAR: No orthopnea, PND, no palpitations, no syncope. PULMONARY: No shortness of breath, no cough, no hemoptysis. GASTROINTESTINAL: No diarrhea, no nausea, no vomiting, no abdominal pain. Normoactive bowel sounds. NEUROLOGICAL: No headaches, no weakness, no numbness. HEMATOLOGICAL: Denies any bleeding or petechiae. GENITOURINARY: Denies any burning micturition, frequency, or urgency. MUSCULOSKELETAL/RHEUMATOLOGICAL: Denies any joint pain, swelling, or any muscle pain. ENDOCRINE: Denies any polyuria or polydipsia. Past Medical History Past Medical History: Coronary Artery Disease (CAD), Chest Pain / Angina, COPD, CVA/TIA, Diabetes Mellitus, Deep Vein Thrombosis (DVT), GERD/Reflux, Hyperlipidemia, Hypertension, Memory Impairment, Osteoarthritis (OA), Pneumonia, Syncope, Thyroid Disorder Additional Past Medical History / Comment(s): 05/07/15 Pt presented to [facility] ER with L side of body feeling "funny" L upper extremity and L hand weakness with L facial weakness. Pt was recently admitted 04/21/15 with possible CVA. Other HX: Antiphospholipid syndrome , LUPUS, CVA's/TIA's, demyelinization of brain, NIDDM, sinus problems, diverticulosis, uti, RESTLESS LEG SYNDROME, systemic lupus ethythemus, L leg DVT, occipital neuritis, varicosities, colostomy, DJD. History of Any Multi-Drug Resistant Organisms: MRSA Date of last positivie culture/infection: 01/08/17 MDRO Source:: URINE Past Surgical History: Appendectomy, Back Surgery, Bladder Surgery, Cholecystectomy, Hysterectomy, Orthopedic Surgery, Tonsillectomy Additional Past Surgical History / Comment(s): L hip surgery nailing /fixation- L hip hemiarthroplasty, bladder suspension, sisi cataracts, partial laminectomy,. colostomy 2010 D/T PERFORATED DIVERTICULUM with reversal and then 2nd colostomy, LT KNEE SX FOR TORN CARTILAGE Past Anesthesia/Blood Transfusion Reactions: No Reported Reaction Additional Past Anesthesia/Blood Transfusion Reaction / Comment(s): HAD BLOOD TRANSFUSION 15 YEARS ago without reaction. Past Psychological History: No Psychological Hx Reported Smoking Status: Current every day smoker Past Alcohol Use History: None Reported Past Drug Use History: None Reported - Past Family History Mother Family Medical History: Cancer, Hypertension Additional Family Medical History / Comment(s): "mother had cancer from asbestos exposure" Father Family Medical History: Hypertension, Rheumatoid Arthritis (RA) Medications and Allergies Home Medications Medication Instructions Recorded Confirmed Type Metoprolol Succinate [Toprol XL] 50 mg PO DAILY 07/22/13 03/10/19 History Levothyroxine Sodium [Synthroid] 200 mcg PO DAILY 04/21/15 03/10/19 History Ondansetron [Zofran] 4 mg PO Q8HR PRN 04/21/15 03/10/19 History Gabapentin [Neurontin] 600 mg PO QID 06/23/16 03/10/19 History rOPINIRole HCL [Requip] 3 mg PO HS 06/23/16 03/10/19 History tiZANidine HCL [Zanaflex] 4 mg PO TID PRN 06/23/16 03/10/19 History Insulin Glargine [Lantus] 30 unit SQ DAILY 05/14/17 03/10/19 History Clopidogrel [Plavix] 75 mg PO DAILY #30 tab 05/17/17 03/10/19 Rx Diphenox-Atrop 2.5-0.025 mg 1 tab PO QID PRN #10 tab 05/17/17 03/10/19 Rx [Lomotil] INSULIN LISPRO (HumaLOG) [humaLOG] See Protocol SQ ACHS 11/19/18 03/10/19 History Atorvastatin [Lipitor] 40 mg PO HS #90 tab 11/20/18 03/10/19 Rx Allergies Allergy/AdvReac Type Severity Reaction Status Date / Time aspirin Allergy Anaphylaxis Verified 03/10/19 23:47 codeine Allergy Swelling Verified 03/11/19 00:22 Iodinated Contrast Media Allergy Anaphylaxis Verified 03/10/19 23:47 [Iodinated Contrast Media - IV Dye] NSAIDS (Non-Steroidal Allergy Anaphylaxis Verified 03/10/19 23:47 Anti-Inflamma sulfamethoxazole Allergy Unknown Verified 03/10/19 23:47 [From Bactrim] trimethoprim [From Bactrim] Allergy Unknown Verified 03/10/19 23:47 influenza virus vaccine ts AdvReac Nausea & Verified 03/10/19 23:47 [id number] (36 mos,up) Vomiting & [From Fluarix] Diarrhea Physical Exam Vitals: Vital Signs Temp Pulse Pulse Resp BP BP Pulse Ox 03/11/19 12:00 61 18 03/11/19 11:10 97.8 F 61 18 92/53 92 L 03/11/19 08:00 75 18 03/11/19 07:15 97.5 F L 75 18 135/70 93 L 03/11/19 03:11 18 03/11/19 03:09 97.4 F L 68 18 112/68 91 L 03/11/19 00:00 97.8 F 62 18 148/80 97 03/10/19 23:00 62 18 132/70 95 03/10/19 22:00 98.7 F 68 18 126/70 96 03/10/19 21:40 67 18 134/80 95 03/10/19 21:15 77 18 139/87 95 03/10/19 21:00 68 19 150/78 97 03/10/19 19:47 98.3 F 73 18 162/86 100 Intake and Output 03/10/19 03/11/19 03/11/19 22:59 06:59 14:59 Intake Total 300 Balance 300 Intake: Oral 300 Other: Voiding Method Bedside Commode # Voids 1 Weight 86.183 kg 86.183 kg GENERAL: The patient is alert and oriented x3, not in any acute distress. Well developed, well nourished. HEENT: Pupils are round and equally reacting to light. EOMI. No scleral icterus. No conjunctival pallor. Normocephalic, atraumatic. No pharyngeal erythema. No thyromegaly. CARDIOVASCULAR: S1 and S2 present. No murmurs, rubs, or gallops. PULMONARY: Chest is clear to auscultation, no wheezing or crackles. -ABDOMEN: Soft, nontender, nondistended, normoactive bowel sounds. No palpable organomegaly. Colostomy MUSCULOSKELETAL: No joint swelling or deformity. EXTREMITIES: No cyanosis, clubbing, or pedal edema. NEUROLOGICAL: Gross neurological examination did not reveal any focal deficits. SKIN: No rashes. No petechiae Results CBC & Chem 7: 03/11/19 08:32 03/11/19 08:32 Labs: Abnormal Lab Results - Last 24 Hours (Table) 03/10/19 03/10/19 03/10/19 Range/Units 20:43 20:43 20:43 WBC 13.0 H (3.8-10.6) k/uL Neutrophils # 10.1 H (1.3-7.7) k/uL BUN 21 H (7-17) mg/dL Glucose 205 H (74-99) mg/dL POC Glucose (mg/dL) (75-99) mg/dL Triglycerides (<150) mg/dL Cholesterol (<200) mg/dL HDL Cholesterol (40-60) mg/dL Urine Glucose (UA) Trace H (Negative) Ur Leukocyte Esterase Moderate H (Negative) Urine WBC 15 H (0-5) /hpf Urine Bacteria Rare H (None) /hpf 03/11/19 03/11/19 03/11/19 Range/Units 07:09 08:32 08:32 WBC (3.8-10.6) k/uL Neutrophils # 8.5 H (1.3-7.7) k/uL BUN 22 H (7-17) mg/dL Glucose 279 H (74-99) mg/dL POC Glucose (mg/dL) 301 H (75-99) mg/dL Triglycerides (<150) mg/dL Cholesterol (<200) mg/dL HDL Cholesterol (40-60) mg/dL Urine Glucose (UA) (Negative) Ur Leukocyte Esterase (Negative) Urine WBC (0-5) /hpf Urine Bacteria (None) /hpf 03/11/19 03/11/19 Range/Units 08:32 11:39 WBC (3.8-10.6) k/uL Neutrophils # (1.3-7.7) k/uL BUN (7-17) mg/dL Glucose (74-99) mg/dL POC Glucose (mg/dL) 264 H (75-99) mg/dL Triglycerides 455 H (<150) mg/dL Cholesterol 219 H (<200) mg/dL HDL Cholesterol 34 L (40-60) mg/dL Urine Glucose (UA) (Negative) Ur Leukocyte Esterase (Negative) Urine WBC (0-5) /hpf Urine Bacteria (None) /hpf Microbiology - Last 24 Hours (Table) 03/10/19 20:43 Urine Culture - Preliminary Urine,Voided Thrombosis Risk Factor Assmnt - Choose All That Apply Each Risk Factor Represents 2 Points: Age 61-74 years Each Risk Factor Represents 3 Points: History of DVT/PE Thrombosis Risk Factor Assessment Total Risk Factor Score: 5 Thrombosis Risk Factor Assessment Level: High Risk Assessment and Plan Assessment: Chest pain, rule out acute coronary syndrome History of coronary artery disease Diabetes mellitus The venous thrombosis GERD Hypertension Hyperlipidemia Memory impairment Osteoarthritis Syncope Hypothyroidism Antiphospholipid syndrome Scope associated instruments doses Diverticulosis History of bowel obstruction status post colostomy Restless leg syndrome Occipital neuritis Varicosities Degenerative joint disease, status post 3 hip surgeries and 3 ankle surgery on the left side. Patient is bedridden and wheelchair bound at baseline Plan: This is a pleasant 68 years old female who presents with chest pain. Cardiac disease evaluated the patient and planned for doing cardiac cath for her tomorrow Labs and medication were reviewed.. Continue same treatment. Continue with symptomatic treatment. Resume home medication. Monitor lytes and vitals. DVT and GI prophylaxis. Further recommendations of the clinical course of the patient DVT prophylaxis: Subcutaneous heparin GI Prophylaxis: Pepcid PT/OT: Pending Prognosis is guarded
[2019-03-11 16:41] LABS: Glucose,Whole Blood 151 mg/dL (75-99)
[2019-03-11 19:54] LABS: Glucose,Whole Blood 210 mg/dL (75-99)
[2019-03-11] MEDS: HEPARIN SODIUM,PORCINE 5,000 UNIT/ML 1 ML VIAL SQ SCH (19:54)
[2019-03-11] MEDS: FAMOTIDINE 20 MG/2 ML VIAL IV SCH (19:54)
[2019-03-11] MEDS: LISINOPRIL 10 MG TAB PO SCH (19:55)
[2019-03-12] MEDS: MORPHINE SULFATE 4 MG/ML SYRINGE IV PRN ×4 (01:13→20:25)
[2019-03-12] MEDS: ONDANSETRON 4 MG TAB PO PRN (04:02)
[2019-03-12] MEDS: LEVOTHYROXINE 100 MCG TAB PO SCH (04:02)
[2019-03-12 06:40] LABS: Glucose,Whole Blood 201 mg/dL (75-99)
[2019-03-12] MEDS ORDERED: DOBUTamine DRIP for NUC MED 500 MG in DEXTROSE/WATER 1 250ML.BAG IV ONE ×2 (07:00→09:52)
[2019-03-12] MEDS: GABAPENTIN 300 MG CAP PO SCH ×2 (07:59→14:58)
[2019-03-12] MEDS: CLOPIDOGREL 75 MG TAB PO SCH (07:59)
[2019-03-12] MEDS: HEPARIN SODIUM,PORCINE 5,000 UNIT/ML 1 ML VIAL SQ SCH ×2 (07:59→20:07)
[2019-03-12] MEDS: FAMOTIDINE 20 MG/2 ML VIAL IV SCH (07:59)
[2019-03-12] MEDS: METOPROLOL SUCCINATE (ER) 50 MG TAB.ER.24H PO SCH ×2 (08:00→12:41)
--- NOTE | 2019-03-12 09:48 | PN ---
PROGRESS NOTE Mrs. Philippe is a 68-year-old female with a history of hypertension and diabetes as well as hyperlipidemia, who presented with symptoms of neck and upper chest discomfort. This morning she is complaining of a sore throat and headache. She has prior history of stroke. She denies any chest pain. She denies any dizziness or palpitation. She has a known history of smoking. Her medications at this time include Lipitor 40 mg daily, Plavix 75 mg daily, lisinopril 10 mg daily, metoprolol succinate 50 mg daily and Requip. PHYSICAL EXAMINATION: Blood pressure 114/60 with the heart rate in the 60s. LUNGS: Clear. HEART: Regular rate and rhythm. S1, S2. No S3. No rub. ABDOMEN: Soft, nontender. EXTREMITIES: No edema. LAB DATA: Lab data revealed cholesterol 219, triglycerides 455. Hemoglobin 12.8. Troponin less than 0.012. IMPRESSION: 1. Neck and upper chest discomfort, probably noncardiac. Patient has symptoms to suggest upper respiratory infection. 2. History of prior stroke. 3. History of antiphospholipid syndrome with lupus. 4. Hypertension. 5. Hyperlipidemia. RECOMMENDATION: From the cardiac standpoint, the patient has been scheduled to undergo dobutamine stress echocardiogram. If there is no evidence of inducible ischemia, then no further cardiac workup will be needed. In the meantime, will continue on the present therapy, except I will increase the dose of her Lipitor to 80 mg daily because of the abnormality on her lipid profile. MMODL / IJN: [id number] /
[2019-03-12] MEDS: INSULIN ASPART (NovoLOG) 100 UNIT/ML VIAL SQ SCH ×4 (10:08→20:25)
[2019-03-12] MEDS ORDERED: guaiFENesin-DM 100-10MG/5ML 10 ML CUP PO PRN (10:16)
[2019-03-12 12:29] LABS: Glucose,Whole Blood 163 mg/dL (75-99)
[2019-03-12] MEDS: INSULIN DETEMIR (LEVEMIR) 100 UNIT/ML SYR SQ SCH (12:41)
--- NOTE | 2019-03-12 13:24 | ECHOS ---
STRESS ECHOCARDIOGRAM DATE OF SERVICE: 03/12/2019 INDICATIONS: Chest pain. MEDICATIONS: BASELINE HEART RATE: 72 BASELINE BLOOD PRESSURE: 100/50 MAXIMUM HEART RATE: 129 MAXIMUM BLOOD PRESSURE: 133/61 85% MPHR: 129 100% MPHR: 152 METS: MAXIMUM STAGE REACHED: TOTAL EXERCISE TIME: CLINICAL INFORMATION: Baseline rhythm is sinus mechanism, rate of 72, normal axis, early transition in lead V2. Baseline blood pressure 100/50 mmHg. Patient received infusion of dobutamine per protocol, peak rate of 129 beats per minute which is equal to 85% maximum predicted heart rate. Peak blood pressure 133/61 mmHg. Electrocardiograph monitoring revealed no evidence of diagnostic ischemic ST deviation. Baseline echocardiogram revealed normal wall motion. At peak exercise, there was normal wall motion augmentation with no hypokinesis or dyskinesis. CONCLUSION: 1. Normal electrocardiograph response to dobutamine infusion. 2. Normal stress echocardiogram with no evidence of stress-induced ischemia. MMODL / IJN: [id number] /
--- NOTE | 2019-03-12 15:16 | P.PN ---
Subjective This is a pleasant 68 years old female with past medical history of coronary artery disease, COPD, CVA/TIA, diabetes mellitus, deep venous thrombosis, GERD, hypertension, hyperlipidemia, memory impairment, osteoarthritis, syncope, hypothyroidism antiphospholipid syndrome, lupus, diverticulosis, restless leg syndrome, left leg DVT, except to neuritis, varicosities, status post colostomy and degenerative joint disease. This time patient presents because of progressively recurrent chest pain in the middle with radiation towards the left neck associated with some dyspnea moderate in severity. Patient at baseline is bedridden because of her bad choice status post 3 hip surgery and 2 ankle surgeries. He is a status post colostomy from previous bowel obstruction that needed to stay in the ICU for about a week Vitals stable. Labs show an unremarkable CBC, BMP, sugar is elevated at 300, as well as cholesterol and triglycerides. If those as not detected. EKG showing normal sinus rhythm at 76. Chest x-ray: No acute process. In the emergency room patient got morphine and IV fluids. And she was started on dobutamine drip by snowboard designer as well as lisinopril. 03/12/2019 Today patient is still complaining of from chest pain which has been going on for the last 3-4 days as per patient, her chest pain in her left upper chest radiating to the left neck, sick wheezing and today is a little worse, his nature is comes and goes. And felt like squeezing. Also patient noticed a for exertional dyspnea. Initially patient's is wheelchair-bound and can walk from the bit few steps to her wheelchair without difficulty however noticed over the last few days she is getting short of breath doing that. Patient initially evaluated by snowboard designer however stress test came back negative. Patient is not hypoxic however she saturating 92-93 compared to 97% when she came in. Patient is not tachycardic. No leg pain or swelling. Also patient urine culture came back positive for enterococci, final result is pending. Objective - Vital Signs Vital signs: Vital Signs Temp 98.4 F 03/12/19 11:26 Pulse 78 03/12/19 11:26 Resp 18 03/12/19 11:26 BP 152/71 03/12/19 11:26 Pulse Ox 93 L 03/12/19 11:26 Intake & Output 12/29/19 12/30/19 12/30/19 18:59 06:59 18:59 Intake Total 740 Balance 740 Intake: Oral 540 Other 200 Other: Voiding Method Bedside Commode Bedside Commode Bedside Commode # Voids 1 1 1 - Exam GENERAL: The patient is alert and oriented x3, not in any acute distress. Well developed, well nourished. HEENT: Pupils are round and equally reacting to light. EOMI. No scleral icterus. No conjunctival pallor. Normocephalic, atraumatic. No pharyngeal erythema. No thyromegaly. CARDIOVASCULAR: S1 and S2 present. No murmurs, rubs, or gallops. PULMONARY: Chest is clear to auscultation, no wheezing or crackles. -ABDOMEN: Soft, nontender, nondistended, normoactive bowel sounds. No palpable organomegaly. Colostomy MUSCULOSKELETAL: No joint swelling or deformity. EXTREMITIES: No cyanosis, clubbing, or pedal edema. NEUROLOGICAL: Gross neurological examination did not reveal any focal deficits. SKIN: No rashes. No petechiae - Labs CBC & Chem 7: 03/11/19 08:32 03/11/19 08:32 Labs: Abnormal Lab Results - Last 24 Hours (Table) 03/11/19 03/11/19 03/12/19 Range/Units 16:39 19:43 06:38 POC Glucose (mg/dL) 151 H 210 H 201 H (75-99) mg/dL 03/12/19 Range/Units 12:28 POC Glucose (mg/dL) 163 H (75-99) mg/dL Microbiology - Last 24 Hours (Table) 03/10/19 20:43 Urine Culture - Preliminary Urine,Voided Group D Enterococcus Assessment and Plan Assessment: Chest pain, rule out acute coronary syndrome Exertional dyspnea Urine cultures positive for enterococci History of coronary artery disease Diabetes mellitus The venous thrombosis GERD Hypertension Hyperlipidemia Memory impairment Osteoarthritis Syncope Hypothyroidism Antiphospholipid syndrome Scope associated instruments doses Diverticulosis History of bowel obstruction status post colostomy Restless leg syndrome Occipital neuritis Varicosities Degenerative joint disease, status post 3 hip surgeries and 3 ankle surgery on the left side. Patient is bedridden and wheelchair bound at baseline Plan: This is a pleasant 68 years old female who presents with chest pain. snowboard designer eventually decided to do stress test which came back normal. However patient still have chest pain with exertional dyspnea so we are going to consult batting machine operator. Urine culture is positive for enterococci and was starting Unasyn pending final results Labs and medication were reviewed.. Continue same treatment. Continue with symptomatic treatment. Resume home medication. Monitor lytes and vitals. DVT and GI prophylaxis. Further recommendations of the clinical course of the patient DVT prophylaxis: Subcutaneous heparin GI Prophylaxis: Pepcid PT/OT: Pending Prognosis is guarded
[2019-03-12] MEDS: AMPICILLIN-SULBACTAM 3 GM in SODIUM CHLORIDE 0.9% 100 ML IVPB SCH ×2 (16:28→23:14)
[2019-03-12 16:36] LABS: Glucose,Whole Blood 236 mg/dL (75-99)
[2019-03-12 18:32] LABS: T4, Free (Free Thyroxine) 0.75 ng/dL (0.78-2.19)
[2019-03-12 20:03] LABS: Glucose,Whole Blood 249 mg/dL (75-99)
[2019-03-12] MEDS: FAMOTIDINE 20 MG TAB PO SCH (20:06)
[2019-03-12] MEDS: ACETAMINOPHEN TAB 325 MG TAB PO STA ×2 (20:06→20:12)
[2019-03-12] MEDS: LISINOPRIL 10 MG TAB PO SCH (20:07)
[2019-03-12] MEDS ORDERED: ATORVASTATIN 80 MG TAB PO SCH (21:00)
[2019-03-13] MEDS: ONDANSETRON 4 MG TAB PO PRN (02:57)
[2019-03-13] MEDS ORDERED: ONDANSETRON 4 MG/2 ML VIAL IVP PRN (05:34)
[2019-03-13] MEDS ORDERED: METOCLOPRAMIDE 5 MG/ML 2 ML VIAL IVP PRN (05:35)
[2019-03-13] MEDS: MORPHINE SULFATE 4 MG/ML SYRINGE IV PRN (06:05)
[2019-03-13] MEDS ORDERED: LEVOTHYROXINE 125 MCG TAB PO SCH (06:30)
[2019-03-13 06:40] LABS: Glucose,Whole Blood 174 mg/dL (75-99)
[2019-03-13] MEDS: INSULIN DETEMIR (LEVEMIR) 100 UNIT/ML SYR SQ SCH (08:32)
[2019-03-13] MEDS: INSULIN ASPART (NovoLOG) 100 UNIT/ML VIAL SQ SCH ×2 (08:32→12:51)
[2019-03-13] MEDS: METOPROLOL SUCCINATE (ER) 50 MG TAB.ER.24H PO SCH (08:33)
[2019-03-13] MEDS: HEPARIN SODIUM,PORCINE 5,000 UNIT/ML 1 ML VIAL SQ SCH (08:33)
[2019-03-13] MEDS: FAMOTIDINE 20 MG TAB PO SCH (08:33)
[2019-03-13] MEDS: AMPICILLIN-SULBACTAM 3 GM in SODIUM CHLORIDE 0.9% 100 ML IVPB SCH (08:36)
[2019-03-13] MEDS ORDERED: LEVOTHYROXINE 88 MCG TAB PO SCH (09:00)
[2019-03-13 11:28] VITALS: BP 115/72; PULSE 65; TEMP 98
--- NOTE | 2019-03-13 12:32 | NM ---
EXAMINATION TYPE: NM pul vent and perfuse DATE OF EXAM: 03/13/2019 COMPARISON: 03/13/2019 chest x-ray HISTORY: Elevated d-dimer TECHNIQUE: Utilizing inhalation of 65.8 mCi Tc 99m DTPA aerosol and intravenous injection of 5.1 mCi of Tc 99m MAA, ventilation and perfusion images are acquired post injection in multiple projections. FINDINGS: There are no sizable mismatch ventilation perfusion defects. IMPRESSION: Low probability for pulmonary embolism
--- NOTE | 2019-03-13 12:32 | XR ---
EXAMINATION TYPE: XR chest 2V DATE OF EXAM: 03/13/2019 COMPARISON: 03/10/2019 TECHNIQUE: PA and lateral views submitted. HISTORY: Chest pain FINDINGS: The lungs are clear and there is no pneumothorax, pleural effusion, or focal pneumonia. Hyperinflat ion noted. Hypertrophic and degenerative change of the spine. Heart size is prominent but stable. Ath erosclerotic change of the aorta. IMPRESSION: 1. No acute process. Correlate for COPD.
[2019-03-13 12:51] LABS: Glucose,Whole Blood 181 mg/dL (75-99)
--- NOTE | 2019-03-13 14:03 | CONS ---
CONSULTATION PULMONARY/CRITICAL CARE CONSULTATION: DATE OF CONSULTATION: 03/13/2019 REASON FOR CONSULTATION: Chest pain and shortness of breath. This is a 68-year-old female with no known history of lung disease, who apparently presents to the emergency room via EMS with chest pain. She apparently does have a history of CAD. She has had recurrent chest pain and has had a CVA in the past as well. In addition to the chest pain which she describes as a heaviness or pressure on the left side of her chest which radiates up to the left jaw and the left shoulder area, she admits to some mild shortness of breath. I was consulted for the shortness of breath. She apparently was watching TV at that time. Not exertional. Anyway, the patient was seen in the emergency room and admitted to the hospital. She was actually admitted to the observation unit. She apparently recently had upper respiratory tract symptoms. She also had some sinus congestion and apparently was seen by her primary care provider and placed on doxycycline. From that standpoint, she does feel better. She denies any GI complaints such as nausea, vomiting or diarrhea. She also denies any genitourinary complaints. She does take Xarelto for diagnosis of DVT. We saw her and thought that she really did not have any significant intrinsic pulmonary disease. Because of the symptoms, we were concerned about the possibility of pulmonary embolism. The D-dimer was elevated. A ventilation-perfusion lung scan was graded as being low probability for PE. I am not sure why a CT angiogram was not done other than the fact that she did have a dye allergy. Nonetheless, from our perspective, the patient could likely be discharged home. Will leave that up to the primary service. . HOME MEDICATIONS: Include metoprolol, Zofran, Requip, Zanaflex, Lantus insulin, Humalog insulin, Synthroid, Lomotil, and Lipitor. ALLERGIES: Multiple include ASPIRIN, CODEINE, IVP DYE, and states BACTRIM and FLU VACCINE. PAST MEDICAL HISTORY: Positive for coronary artery disease, angina pectoris, CVA, diabetes mellitus, deep venous thrombosis, GERD, hyperlipidemia, hypertension, memory impairment, DJD, pneumonia, syncope, and hypothyroidism. She apparently also carries a diagnosis of antiphospholipid antibody syndrome, systemic lupus erythematosus, brain demyelination, chronic sinus disease, diverticular disease, restless legs syndrome, left lower extremity DVT, occipital neuritis, DJD, and previous colostomy. SURGICAL HISTORY: Includes appendectomy, back surgery, bladder surgery, cholecystectomy, hysterectomy, tonsillectomy, orthopedic procedures including a left hip nailing, as well as other hip and back surgeries. She also has a history of previous colostomy in 2010 from a perforated diverticulum. She is mostly wheelchair bound. SOCIAL HISTORY: Negative tobacco use. She denies any alcohol use or illicit drug use. FAMILY HISTORY: Positive for a mother with cancer and hypertension and a father with hypertension, rheumatoid arthritis. REVIEW OF SYSTEMS: CONSTITUTIONAL: Negative. NEUROLOGIC: Negative. HEENT: Negative. CARDIOVASCULAR: Chest pain as noted above. PULMONARY: Mild shortness of breath, not currently present. GI: Negative. : Negative. RHEUMATOLOGIC: Negative. IMMUNOLOGIC: Negative. ENDOCRINOLOGIC: Negative. DERMATOLOGIC: Negative. Current vital signs are reviewed. They include a temperature 98, heart rate 65, respiratory rate 18, blood pressure 115/72 mean 86 and room-air saturation of 93%-96%. Appears in no acute distress. Certainly in no respiratory distress. No audible wheezing, use of accessory muscles, or conversational dyspnea. HEENT: Examination is grossly unremarkable. NECK: Supple. Full range of motion. No adenopathy or thyromegaly. Neck veins are flat. CARDIOVASCULAR: Examination reveals regular rhythm and rate. S1, S2 normal. No S3, S4, murmur. Heart rate 65. LUNGS: Reveal clear breath sounds equal. No adventitious lung sounds. No wheezes, rhonchi, or crackles. ABDOMEN: Obese. Bowel sounds are heard. EXTREMITIES: Intact. Mild edema. The edema slightly worse in the right lower extremity than on the left. No cyanosis or clubbing. SKIN: Without rash except for some chronic venostasis changes in the lower extremities. NEUROLOGIC: Examination is brief but nonfocal. LABS: Reviewed. White count 10.6, hemoglobin 12.8, hematocrit 39.1, platelet count is a 187,000, PT, INR and PTT are all normal. D-dimer was 0.81. Sodium, potassium, chloride normal. CO2 is 28, anion gap 7. BUN and creatinine were 22 and 0.67. Her TSH was 18.3. Influenza studies were negative. Leukocyte esterase was moderately positive in the urine. There was 15 WBCs and rare bacteria. A chest x-ray done today shows no acute process. A chest x-ray done on the day of admission, 03/10 shows no active cardiopulmonary disease. A ventilation-perfusion lung scan was low probability for PE. A dobutamine stress echocardiogram showed normal electrocardiographic response to dobutamine and no evidence of stress-induced ischemia. The patient's EKG showed normal sinus rhythm with no acute abnormality. Medications are reviewed. ASSESSMENT: 1. Nothing to suggest active pulmonary disease at this time. It is interesting, the patient states that she was a lifelong nonsmoker, although on the ER ankush, it mentions that she is a smoker. She was adamant about not being a smoker. 2. Chest pain and mild shortness of breath, resolved, of unclear etiology. Cardiac studies were negative and ventilation-perfusion lung scan was low probability. Chest x-ray was normal. 3. History of coronary artery disease. 4. History of angina pectoris. 5. History of cerebrovascular accident. 6. History of diabetes mellitus. 7. History of left lower extremity deep venous thrombosis. 8. History of gastroesophageal reflux disease. 9. Hyperlipidemia. 10.Hypertension. 11.History of memory impairment. 12.History of pneumonia. 13.History of hypothyroidism. 14.History of syncope. 15.History of antiphospholipid antibody syndrome. 16.History of lupus erythematosus. PLAN: The patient is doing well. From our perspective and could be discharged home. She is adamant that she is a nice nonsmoker. No evidence to suggest active pulmonary disease at this time. Will continue to follow as needed. It will be up to the primary decide to discharge the patient. MMVERÓNICAL / RACHIDN: [id number] /
--- NOTE | 2019-03-16 12:16 | CDI ---
Documentation Clarification Form Date: 03/16/19 From: Misa Lima Phone: If you have a question about this query, please contact Mandy Carrillo, Medical Specialist at [phone] between 8am and 5pm. Admit Date: 03/12/19 Discharge Date: 03/13/19 Patient Name: Flower Philippe Visit Number: [id number] ATTENTION: The Clinical Documentation Specialists (CDI) and [facility] Coding Staff appreciate your assistance in clarifying documentation. Please respond to the clarification below the line at the bottom and electronically sign. The CDI & [facility] Coding staff will review the response and follow-up if needed. Please note: Queries are made part of the Legal Health Record. If you have any questions, please contact the author of this message via ITS. Dear Dr. Vineet Chamberlain, 03/12 PN states: Urine cultures positive for enterococci History/Risk Factors: Hx of UTI's Clinical indicators: chest discomfort, SLE, hypothyroidism, CAD, HTN, antiphospholipid syndrome Abnormal: Urine culture-Enterococcus faecalis Treatment: DC'd on po Augmentin Clinical significance of diagnostic testing and treatment CANNOT be assumed or coded without physician documentation of significance if any. Please clarify what abnormal laboratory signifies: UTI d/t Enterococcus Abnormal Lab Value Unable to determine Other, please specify uti is diagnosed MTDD
--- NOTE | 2019-03-22 14:45 | P.DS ---
Providers Date of admission: 03/12/19 09:41 Attending physician: Joel Hazel Consults: 03/10/19 23:03 Consult Physician Urgent Consulting Provider: [facility] Consult Reason/Comments: chest pain Do you want consulting provider notified?: Yes 03/12/19 15:10 Consult Physician Urgent Consulting Provider: Subhash Hernandez Consult Reason/Comments: exertional dyspnea with chest pain and mild hypoxia Do you want consulting provider notified?: Yes Primary care physician: Franklin Mendoza [facility] Course: Diagnoses: Acute mild hypothyroidism, with low free T4 at 0.75 and high TSH at 18.300. P atient symptoms could be related to abnormal thyroid level. Chest pain, tool crib supervisor ruled out cardiac cause, improved Exertional dyspnea, parts delivery driver ruled out by pulmonary consult, improved Urine cultures positive for enterococci. History of coronary artery disease Diabetes mellitus The venous thrombosis GERD Hypertension Hyperlipidemia Memory impairment Osteoarthritis Syncope Hypothyroidism Antiphospholipid syndrome Scope associated instruments doses Diverticulosis History of bowel obstruction status post colostomy Restless leg syndrome Occipital neuritis Varicosities Degenerative joint disease, status post 3 hip surgeries and 3 ankle surgery on the left side. Patient is bedridden and wheelchair bound at baseline Hospital course: This is a pleasant 68 years old female with past medical history of coronary artery disease, COPD, CVA/TIA, diabetes mellitus, deep venous thrombosis, GERD, hypertension, hyperlipidemia, memory impairment, osteoarthritis, syncope, hypothyroidism antiphospholipid syndrome, lupus, diverticulosis, restless leg syndrome, left leg DVT, except to neuritis, varicosities, status post colostomy and degenerative joint disease. This time patient presents because of progressively recurrent chest pain in the middle with radiation towards the left neck associated with some dyspnea moderate in severity. Patient at baseline is bedridden because of her bad joints, status post 3 hip surgery and 2 ankle surgeries. she is a status post colostomy from previous bowel obstruction that needed to stay in the ICU for about a week. Patient has been evaluated by tool crib supervisor, she had a normal dobutamine stress test and cardiology cleared the patient. Patient also evaluated by parts delivery driver and she had low probability for PE on V/Q scan done with elevated d-dimer. Pulmonary causes have been excluded. Patient urine culture came back positive for enterococci, which is sensitive to ampicillin. Patient will be discharged on oral Augmentin. Patient was on levothyroxine 125 g daily. Her T4 is low at 0.75 and TSH was elevated at 18.3. Patient with thyroxine dose was increased to 175 g daily and she was instructed to follow up with her PCP to check her left thyroid function test in 2-3 weeks Problems and management plan were discussed with the patient and he verbalized understanding and acceptance Patient was found stable and can be discharged home however he needs follow-up as an outpatient. Patient was instructed to follow up with PCP within one week and patient agrees. Patient also was instructed to follow up with tool crib supervisor and special education science teacher and parts delivery driver. Gen: patient is a AAOx3, no distress CVS: S1-S2, RRR, no murmur Lungs: B/L CTA, no wheezing Abdomen: soft, no distention, no tenderness, positive bowel sounds Extremity: no leg edema or induration Mobility: Patient is bedridden at baseline Time spent more than 35 minutes Patient Condition at Discharge: Stable Plan - Discharge Summary New Discharge Prescriptions: New Amoxicillin/Potassium Clav [Augmentin 875-125 Tablet] 1 tab PO Q12HR #14 tab guaiFENesin-DM 100-10MG/5ML [Robitussin DM] 10 ml PO Q6H PRN cup PRN Reason: Cough Levothyroxine Sodium [Synthroid] 176 mcg PO DAILY@0630 #60 tab Lisinopril [Zestril] 10 mg PO HS #30 tab Atorvastatin [Lipitor] 80 mg PO HS #30 tab Continue Metoprolol Succinate [Toprol XL] 50 mg PO DAILY Ondansetron [Zofran] 4 mg PO Q8HR PRN PRN Reason: Nausea rOPINIRole HCL [Requip] 3 mg PO HS tiZANidine HCL [Zanaflex] 4 mg PO TID PRN PRN Reason: Pain Insulin Glargine [Lantus] 30 unit SQ DAILY Diphenox-Atrop 2.5-0.025 mg [Lomotil] 1 tab PO QID PRN #10 tab PRN Reason: Diarrhea INSULIN LISPRO (HumaLOG) [humaLOG] See Protocol SQ ACHS Discontinued Atorvastatin [Lipitor] 40 mg PO HS #90 tab Levothyroxine Sodium [Synthroid] 125 mcg PO DAILY Discharge Medication List Metoprolol Succinate [Toprol XL] 50 mg PO DAILY 07/22/13 [History] Ondansetron [Zofran] 4 mg PO Q8HR PRN 04/21/15 [History] rOPINIRole HCL [Requip] 3 mg PO HS 06/23/16 [History] tiZANidine HCL [Zanaflex] 4 mg PO TID PRN 06/23/16 [History] Insulin Glargine [Lantus] 30 unit SQ DAILY 05/14/17 [History] Diphenox-Atrop 2.5-0.025 mg [Lomotil] 1 tab PO QID PRN #10 tab 05/17/17 [Rx] INSULIN LISPRO (HumaLOG) [humaLOG] See Protocol SQ ACHS 11/19/18 [History] Amoxicillin/Potassium Clav [Augmentin 875-125 Tablet] 1 tab PO Q12HR #14 tab 03/13/19 [Rx] Atorvastatin [Lipitor] 80 mg PO HS #30 tab 03/13/19 [Rx] Levothyroxine Sodium [Synthroid] 176 mcg PO DAILY@0630 #60 tab 03/13/19 [Rx] Lisinopril [Zestril] 10 mg PO HS #30 tab 03/13/19 [Rx] guaiFENesin-DM 100-10MG/5ML [Robitussin DM] 10 ml PO Q6H PRN cup 03/13/19 [Rx] Follow up Appointment(s)/Referral(s): Jordi Foster MD [STAFF PHYSICIAN] - 1 Week Sin Cortes MD [REFERRING] - 1 Week (Tester Electronic Scale) Franklin Benitez III, MD [Primary Care Provider] - 1-2 days Subhash Hernandez DO [Doctor of Osteopathic Medicine] - 1 Week Activity/Diet/Wound Care/Special Instructions: Cardiac diet Discharge Disposition: HOME SELF-CARE
== END 2019-03-13 16:31 | disposition home or self-care (01) | DRG 644 ==
LOC: EC 19:42 → 1SOBS 23:02 → OBSVTOIN 03-12 09:41
PROVIDERS: ADMIT Hospitalist; ATTEND Hospitalist
DX: E03.9 Hypothyroidism, unspecified (principal); D68.61 Antiphospholipid syndrome; N39.0 Urinary tract infection, site not specified; M32.9 Systemic lupus erythematosus, unspecified; B95.2 Enterococcus as the cause of diseases classified elsewhere; E11.9 Type 2 diabetes mellitus without complications; E78.5 Hyperlipidemia, unspecified; R07.89 Other chest pain; R09.02 Hypoxemia; I25.10 Atherosclerotic heart disease of native coronary artery without angina pectoris; K57.90 Diverticulosis of intestine, part unspecified, without perforation or abscess without bleeding; I10 Essential (primary) hypertension; M54.81 Occipital neuralgia; J44.9 Chronic obstructive pulmonary disease, unspecified; K21.9 Gastro-esophageal reflux disease without esophagitis; M19.90 Unspecified osteoarthritis, unspecified site; G25.81 Restless legs syndrome; I83.90 Asymptomatic varicose veins of unspecified lower extremity; F17.200 Nicotine dependence, unspecified, uncomplicated; Z71.6 Tobacco abuse counseling; Z79.4 Long term (current) use of insulin; Z79.890 Hormone replacement therapy; Z79.899 Other long term (current) drug therapy; Z87.01 Personal history of pneumonia (recurrent); Z86.14 Personal history of Methicillin resistant Staphylococcus aureus infection; Z90.49 Acquired absence of other specified parts of digestive tract; Z86.718 Personal history of other venous thrombosis and embolism; Z86.73 Personal history of transient ischemic attack (TIA), and cerebral infarction without residual deficits; Z96.642 Presence of left artificial hip joint; Z90.710 Acquired absence of both cervix and uterus; Z87.440 Personal history of urinary (tract) infections; Z98.42 Cataract extraction status, left eye; Z98.41 Cataract extraction status, right eye; Z74.01 Bed confinement status; Z99.3 Dependence on wheelchair; Z88.5 Allergy status to narcotic agent; Z88.2 Allergy status to sulfonamides; Z88.7 Allergy status to serum and vaccine; Z88.6 Allergy status to analgesic agent; Z91.041 Radiographic dye allergy status; Z82.49 Family history of ischemic heart disease and other diseases of the circulatory system; Z82.61 Family history of arthritis; Z80.9 Family history of malignant neoplasm, unspecified
CPT/HCPCS: 36415; 71046; 78582; 80048; 80053; 80061; 81001; 83735; 83880; 84439; 84443; 84484; 85025; 85379; 85610; 85730; 87077; 87086; 87186; 87502; 93005; 93351; 96361; 96374; 99285

== ENCOUNTER 2019-03-15 09:56 | Emergency (ER) | payer MEDICARE ==
[2019-03-15] MEDS ORDERED: SODIUM CHLORIDE 0.9% 1,000 ML IV STA (10:25)
[2019-03-15 10:47] LABS: Basophils % (A) 0 %; Eosinophils # (A) 0.2 k/uL (0-0.7); Eosinophils % (A) 2 %; HCT 38.6 % (34.0-46.0); HGB 12.9 gm/dL (11.4-16.0); Lymphocytes # (A) 1.1 k/uL (1.0-4.8); Lymphocytes % (A) 15 %; MCHC 33.5 g/dL (31.0-37.0); MCV 89.5 fL (80.0-100.0); Mean Platelet Volume 10.6; Monocytes # (A) 0.5 k/uL (0-1.0); Monocytes % (A) 7 %; Neutrophils # (A) 5.7 k/uL (1.3-7.7); Neutrophils % (A) 73 %; Platelet Count 217 k/uL (150-450); RBC 4.31 m/uL (3.80-5.40); RDW 13.5 % (11.5-15.5); WBC 7.7 k/uL (3.8-10.6)
[2019-03-15 10:55] LABS: INR 0.9 (<1.2); Partial Thromboplastin Time 22.5 sec (22.0-30.0); Prothrombin Time 9.7 sec (9.0-12.0)
[2019-03-15 10:58] LABS: ALT 16 U/L (4-34); AST 34 U/L (14-36); African American GFR (CKD) >90 (>60 ml/min/1.73 sqM); Albumin 3.9 g/dL (3.5-5.0); Alkaline Phosphatase 118 U/L (38-126); Anion Gap 8 mmol/L; Blood Urea Nitrogen 7 mg/dL (7-17); Calcium 9.7 mg/dL (8.4-10.2); Carbon Dioxide 24 mmol/L (22-30); Chloride 106 mmol/L (98-107); Glucose 215 mg/dL (74-99); Magnesium 1.8 mg/dL (1.6-2.3); Non-African American GFR(CKD) >90 (>60 ml/min/1.73 sqM); Sodium 138 mmol/L (137-145); Total Bilirubin 0.7 mg/dL (0.2-1.3); Total Protein 7.3 g/dL (6.3-8.2)
[2019-03-15] MEDS ORDERED: ONDANSETRON ODT 4 MG TAB PO STA (11:05)
--- NOTE | 2019-03-15 11:12 | XR ---
EXAMINATION TYPE: XR chest 2V DATE OF EXAM: 03/15/2019 COMPARISON: 03/13/2019 HISTORY: Chest pain TECHNIQUE: Frontal and lateral views of the chest are obtained. FINDINGS: There is no focal air space opacity, pleural effusion, or pneumothorax seen. Chronic inte rstitial prominence is unchanged. The cardiac silhouette size is within normal limits. The osseous structures are intact. Degenerative changes of the thoracic spine are noted. There is diffuse osseous demineralization. IMPRESSION: No acute cardiopulmonary process.
--- NOTE | 2019-03-15 11:12 | ED ---
General Adult HPI - General Chief complaint: Chest Pain Stated complaint: CHEST PAIN Time Seen by Provider: 03/15/19 10:06 Source: EMS Mode of arrival: EMS Limitations: no limitations - History of Present Illness Initial comments: Dictation was produced using [employer] dictation software. please excuse any grammatical, word or spelling errors. Chief Complaint: 68-year-old female presents with 2 hours of chest pain. History of Present Illness: This 68-year-old female with past medical history diabetes, coronary artery disease, COPD, pneumonia presents today with chest pain. Patient is well-known to the emergency room for multiple visitations. Patient has multiple cardiac workups. She was recently discharged from the hospital with diagnosis of sinusitis. Patient has been on antibiotics for approximately 2-3 days. States that she continues to have stuffy nose. She reports chest pain for the last 2 hours. She states it's a dull pain located to her left superior anterior chest radiates to the neck. No sustained diaphoresi s. Patient denies any shortness of breath at this time. The ROS documented in this emergency department record has been reviewed and confirmed by me. Those systems with pertinent positive or negative responses have been documented in the HPI. All other systems are other negative and/or noncontributory. PHYSICAL EXAM: General Impression: Alert and oriented x3, not in acute distress HEENT: Normocephalic atraumatic, extra-ocular movements intact, pupils equal and reactive to light bilaterally, mucous membranes moist. Cardiovascular: Heart regular rate and rhythm, S1&S2 audible, no murmurs, rubs or gallops Chest: Lungs clear to auscultation bilaterally, no rhonchi, no wheeze, no rales Abdomen: Bowel sounds present, abdomen soft, non-tender, non-distended, no organomegaly Musculoskeletal: Pulses present and equal in all extremities, no peripheral edema Motor: no focal deficits noted Neurological: CN II-XII grossly intact, no focal motor or sensory deficits noted Skin: Intact with no visualized rashes Psych: Normal affect and mood ED course: 68-year-old female presents with chest pain. Signs upon arrival are within acceptable limits. Chart review shows that patient has extensive cardiac workup recently. She had a negative dobutamine stress echo performed 3 days ago. She had also had negative serial troponins. She was discharged with negative cardiac workup. Patient also had perfusion imaging studies that was low probability for PE. EKGs benign. Laboratory evaluations obtained. Laboratory evaluation unremarkable. CBC, coag panel, metabolic panel is unremarkable. Serial troponins are negative. Patient reevaluated. Patient reports that symptoms are still there. Discussed with patient that it's likely not a life-threatening cause given negative troponins, negative x-ray and stable physical exam. Patient's symptomatology is not consistent with acute aortic dissection given that she has equal pulses, no strokelike symptoms and her chest pain does not radiate to her back. Patient clear for discharge. She is advised to follow-up with primary care physician upon discharge. She was given aspirin. Patient given tramadol starter pack. EKG interpretation: Ventricular rate 71, normal sinus rhythm,. Interval 132, care is 84, QTc 445. No TN prolongation, no QTC prolongation, no ST or T-wave changes noted. EKG compared to 03/02/2019 showing no changes. Overall, this EKG is unremarkable - Related Data Home Medications Medication Instructions Recorded Confirmed Metoprolol Succinate [Toprol XL] 50 mg PO DAILY 07/22/13 03/15/19 Ondansetron [Zofran] 4 mg PO Q8HR PRN 04/21/15 03/15/19 rOPINIRole HCL [Requip] 3 mg PO HS 06/23/16 03/15/19 tiZANidine HCL [Zanaflex] 4 mg PO TID PRN 06/23/16 03/15/19 Insulin Glargine [Lantus] 30 unit SQ DAILY 05/14/17 03/15/19 INSULIN LISPRO (HumaLOG) [humaLOG] See Protocol SQ ACHS 11/19/18 03/15/19 Previous Rx's Medication Instructions Recorded Diphenox-Atrop 2.5-0.025 mg 1 tab PO QID PRN #10 tab 05/17/17 [Lomotil] Amoxicillin/Potassium Clav 1 tab PO Q12HR #14 tab 03/13/19 [Augmentin 875-125 Tablet] Atorvastatin [Lipitor] 80 mg PO HS #30 tab 03/13/19 Levothyroxine Sodium [Synthroid] 176 mcg PO DAILY@0630 #60 tab 03/13/19 Lisinopril [Zestril] 10 mg PO HS #30 tab 03/13/19 guaiFENesin-DM 100-10MG/5ML 10 ml PO Q6H PRN cup 03/13/19 [Robitussin DM] Allergies Allergy/AdvReac Type Severity Reaction Status Date / Time aspirin Allergy Anaphylaxis Verified 03/15/19 10:47 codeine Allergy Swelling Verified 03/15/19 10:47 Iodinated Contrast Media Allergy Anaphylaxis Verified 03/15/19 10:47 [Iodinated Contrast Media - IV Dye] NSAIDS (Non-Steroidal Allergy Anaphylaxis Verified 03/15/19 10:47 Anti-Inflamma sulfamethoxazole Allergy Unknown Verified 03/15/19 10:47 [From Bactrim] trimethoprim [From Bactrim] Allergy Unknown Verified 03/15/19 10:47 influenza virus vaccine ts AdvReac Nausea & Verified 03/15/19 10:47 [id number] (36 mos,up) Vomiting & [From Fluarix] Diarrhea Review of Systems ROS Statement: Those systems with pertinent positive or pertinent negative responses have been documented in the HPI. ROS Other: All systems not noted in ROS Statement are negative. Past Medical History Past Medical History: Coronary Artery Disease (CAD), Chest Pain / Angina, COPD, CVA/TIA, Diabetes Mellitus, Deep Vein Thrombosis (DVT), GERD/Reflux, Hyperlipidemia, Hypertension, Memory Impairment, Osteoarthritis (OA), Pneumonia, Syncope, Thyroid Disorder Additional Past Medical History / Comment(s): 05/07/15 Pt presented to [facility] ER with L side of body feeling "funny" L upper extremity and L hand weakness with L facial weakness. Pt was recently admitted 04/21/15 with possible CVA. Other HX: Antiphospholipid syndrome , LUPUS, CVA's/TIA's, demyelinization of brain, NIDDM, sinus problems, diverticulosis, uti, RESTLESS LEG SYNDROME, systemic lupus ethythemus, L leg DVT, occipital neuritis, varicosities, colostomy, DJD. History of Any Multi-Drug Resistant Organisms: MRSA Date of last positivie culture/infection: 01/08/17 MDRO Source:: URINE Past Surgical History: Appendectomy, Back Surgery, Bladder Surgery, Cholecystectomy, Hysterectomy, Orthopedic Surgery, Tonsillectomy Additional Past Surgical History / Comment(s): L hip surgery nailing /fixation- L hip hemiarthroplasty, bladder suspension, sisi cataracts, partial laminectomy,. colostomy 2010 D/T PERFORATED DIVERTICULUM with reversal and then 2nd colostomy, LT KNEE SX FOR TORN CARTILAGE Past Anesthesia/Blood Transfusion Reactions: No Reported Reaction Additional Past Anesthesia/Blood Transfusion Reaction / Comment(s): HAD BLOOD TRANSFUSION 15 YEARS ago without reaction. Past Psychological History: No Psychological Hx Reported Smoking Status: Current every day smoker Past Alcohol Use History: None Reported Past Drug Use History: None Reported - Past Family History Mother Family Medical History: Cancer, Hypertension Additional Family Medical History / Comment(s): "mother had cancer from asbestos exposure" Father Family Medical History: Hypertension, Rheumatoid Arthritis (RA) General Exam Limitations: no limitations Course Vital Signs 03/15/19 03/15/19 03/15/19 09:58 10:43 13:46 Temperature 97.9 F Pulse Rate 76 76 Respiratory 16 16 16 Rate Blood Pressure 139/82 132/74 O2 Sat by Pulse 94 L 99 Oximetry Medical Decision Making - Lab Data Result diagrams: 03/15/19 10:37 03/15/19 10:37 Lab Results 03/15/19 03/15/19 03/15/19 Range/Units 10:37 10:37 10:37 WBC 7.7 (3.8-10.6) k/uL RBC 4.31 (3.80-5.40) m/uL Hgb 12.9 (11.4-16.0) gm/dL Hct 38.6 (34.0-46.0) % MCV 89.5 (80.0-100.0) fL MCH 30.0 (25.0-35.0) pg MCHC 33.5 (31.0-37.0) g/dL RDW 13.5 (11.5-15.5) % Plt Count 217 (150-450) k/uL Neutrophils % 73 % Lymphocytes % 15 % Monocytes % 7 % Eosinophils % 2 % Basophils % 0 % Neutrophils # 5.7 (1.3-7.7) k/uL Lymphocytes # 1.1 (1.0-4.8) k/uL Monocytes # 0.5 (0-1.0) k/uL Eosinophils # 0.2 (0-0.7) k/uL Basophils # 0.0 (0-0.2) k/uL PT 9.7 (9.0-12.0) sec INR 0.9 (<1.2) APTT 22.5 (22.0-30.0) sec Sodium 138 (137-145) mmol/L Potassium 5.0 (3.5-5.1) mmol/L Chloride 106 (98-107) mmol/L Carbon Dioxide 24 (22-30) mmol/L Anion Gap 8 mmol/L BUN 7 (7-17) mg/dL Creatinine 0.57 (0.52-1.04) mg/dL Est GFR (CKD-EPI)AfAm >90 (>60 ml/min/1.73 sqM) Est GFR (CKD-EPI)NonAf >90 (>60 ml/min/1.73 sqM) Glucose 215 H (74-99) mg/dL Calcium 9.7 (8.4-10.2) mg/dL Magnesium 1.8 (1.6-2.3) mg/dL Total Bilirubin 0.7 (0.2-1.3) mg/dL AST 34 (14-36) U/L ALT 16 (4-34) U/L Alkaline Phosphatase 118 (38-126) U/L Troponin I (0.000-0.034) ng/mL Total Protein 7.3 (6.3-8.2) g/dL Albumin 3.9 (3.5-5.0) g/dL 03/15/19 03/15/19 03/15/19 Range/Units 10:37 12:25 13:41 WBC (3.8-10.6) k/uL RBC (3.80-5.40) m/uL Hgb (11.4-16.0) gm/dL Hct (34.0-46.0) % MCV (80.0-100.0) fL MCH (25.0-35.0) pg MCHC (31.0-37.0) g/dL RDW (11.5-15.5) % Plt Count (150-450) k/uL Neutrophils % % Lymphocytes % % Monocytes % % Eosinophils % % Basophils % % Neutrophils # (1.3-7.7) k/uL Lymphocytes # (1.0-4.8) k/uL Monocytes # (0-1.0) k/uL Eosinophils # (0-0.7) k/uL Basophils # (0-0.2) k/uL PT (9.0-12.0) sec INR (<1.2) APTT (22.0-30.0) sec Sodium (137-145) mmol/L Potassium (3.5-5.1) mmol/L Chloride (98-107) mmol/L Carbon Dioxide (22-30) mmol/L Anion Gap mmol/L BUN (7-17) mg/dL Creatinine (0.52-1.04) mg/dL Est GFR (CKD-EPI)AfAm (>60 ml/min/1.73 sqM) Est GFR (CKD-EPI)NonAf (>60 ml/min/1.73 sqM) Glucose (74-99) mg/dL Calcium (8.4-10.2) mg/dL Magnesium (1.6-2.3) mg/dL Total Bilirubin (0.2-1.3) mg/dL AST (14-36) U/L ALT (4-34) U/L Alkaline Phosphatase (38-126) U/L Troponin I <0.012 <0.012 <0.012 (0.000-0.034) ng/mL Total Protein (6.3-8.2) g/dL Albumin (3.5-5.0) g/dL Disposition Clinical Impression: Chest pain Disposition: HOME SELF-CARE Condition: Fair Instructions (If sedation given, give patient instructions): Chest Pain (ED) Is patient prescribed a controlled substance at d/c from ED?: No Referrals: Franklin Benitez III, MD [Primary Care Provider] - 1-2 days Time of Disposition: 14:48
[2019-03-15] MEDS ORDERED: ASPIRIN 81 MG PO STA (11:48)
[2019-03-15] MEDS ORDERED: traMADol 50 MG STARTER PACK 3 TAB BTL PO STA (14:46)
[2019-03-15 15:53] VITALS: BP 130/76; PULSE 66; RESP 18; TEMP 98.1
== END 2019-03-15 15:35 | disposition home or self-care (01) ==
LOC: EC 09:56
DX: R07.9 Chest pain, unspecified (principal); I25.119 Atherosclerotic heart disease of native coronary artery with unspecified angina pectoris; E11.9 Type 2 diabetes mellitus without complications; I10 Essential (primary) hypertension; M19.90 Unspecified osteoarthritis, unspecified site; F17.200 Nicotine dependence, unspecified, uncomplicated; Z79.4 Long term (current) use of insulin; Z79.899 Other long term (current) drug therapy; Z88.5 Allergy status to narcotic agent; Z88.6 Allergy status to analgesic agent; Z91.041 Radiographic dye allergy status; Z88.1 Allergy status to other antibiotic agents; Z88.2 Allergy status to sulfonamides; Z88.7 Allergy status to serum and vaccine; Z86.73 Personal history of transient ischemic attack (TIA), and cerebral infarction without residual deficits; Z96.642 Presence of left artificial hip joint
CPT/HCPCS: 36415; 71046; 80053; 83735; 84484; 85025; 85610; 85730; 93005; 99285

== ENCOUNTER → 2020-08-15 | Outpatient (CLI) | payer MEDICARE ==
--- NOTE | 2020-08-15 12:01 | CT ---
EXAMINATION TYPE: CT abdomen pelvis wo con DATE OF EXAM: 08/15/2020 HISTORY: Right sided abdominal discomfort. CT DLP: 927.7 mGycm. Automated Exposure Control for Dose Reduction was Utilized. TECHNIQUE: CT scan of the abdomen and pelvis is performed without oral or IV contrast. COMPARISON: CT abdomen and pelvis March 20, 2014 FINDINGS: Within the limitations of a non-contrast study, the following observations are made. LUNG BASES: Coronary artery calcification is present, noted marker for underlying coronary artery dis ease. LIVER/GB: Gallbladder not seen and presumed surgically absent similar to prior. PANCREAS: No significant abnormality is seen. SPLEEN: No significant abnormality is seen. ADRENALS: No significant abnormality is seen. KIDNEYS: No renal stones or hydronephrosis is seen bilaterally. Position of right kidney unchanged. BOWEL: Suboptimal evaluation bowel without enteric contrast. Large 4.6 cm duodenal diverticulum with air-fluid level axial image 34 is redemonstrated slightly more prominent from prior. Surgical changes from partial colectomy and right-sided colostomy redemonstrated. Distal sigmoid rectal stump in the pelvis again seen. Some diverticula at this level redemonstrated. No suspicious small or large bowel dilatation. New parastomal hernia noted without bowel obstruction. GENITAL ORGANS: Uterus surgically absent or atrophic. Suboptimal visualization due to left hip surger y. Scattered bilateral pelvic phleboliths. LYMPH NODES: No greater than 1cm abdominal or pelvic lymph nodes are appreciated. OSSEOUS STRUCTURES: Intact hardware from left hip surgery is partially imaged causing streak artifact limiting evaluation of pelvic structures. [id number] multilevel disc space narrowing and vac uum disc phenomenon L3-L4 through L5-S1 levels. OTHER: Vertical scar in the midline of the lower abdomen and pelvis. New moderate focal thin-walled loculated fluid in the anterior right pelvic wall axial image 61 is nonspecific measuring approximate ly 8.2 x 3.5 cm. Mild to moderate surrounding ill-defined fluid and fat stranding. Correlate clinical ly. Scattered calcified phleboliths or injection granulomas in the posterior subcutaneous tissue. IMPRESSION: Focal small to moderate-sized lobulated thin-walled fluid collection in the anterior righ t pelvis subcutaneous tissue is nonspecific, mild to moderate surrounding fat stranding is present. F indings could reflect soft tissue hematoma if there has been recent trauma. Soft tissue infection and /or cellulitis with developing abscesses is in the differential. Strict clinical correlation is advis ed.
== END | disposition home or self-care (01) ==
LOC: RADCTMAIN 10:41
PROVIDERS: ATTEND Family Medicine
DX: R19.03 Right lower quadrant abdominal swelling, mass and lump (principal)
CPT/HCPCS: 74176

== ENCOUNTER 2020-10-23 01:29 | Observation (INO) | payer MEDICARE ==
[2020-10-23] MEDS ORDERED: SODIUM CHLORIDE 0.9% 500 ML 500 ML IV STA (01:39)
[2020-10-23] MEDS ORDERED: SODIUM CHLORIDE 0.9% 1,000 ML IV STA (01:39)
[2020-10-23] MEDS ORDERED: VANCOMYCIN IV PER PHARMACY 1 EACH MISC MISCELLANE PRN (01:39)
--- NOTE | 2020-10-23 01:42 | ED ---
Abdominal Pain HPI - General Chief Complaint: Abdominal Pain Stated Complaint: Infection Time Seen by Provider: 10/23/20 01:32 Source: patient, EMS, RN notes reviewed, old records reviewed Mode of arrival: EMS Limitations: no limitations - History of Present Illness Initial Comments: This is a 69-year-old female to the ER today. Patient present for evaluation of abdominal pain is recurrent abdominal infection. Patient has history of ulcers with recurrent infections. She has a history of an ostomy. Cellulitis is inferior to rest because of abdominal pain. Patient does feel feverish. MD Complaint: abdominal pain, other (Anterior abdominal wall erythema and tenderness) -: days(s) Location: diffuse Radiation: RLQ Migration to: no migration Severity: moderate Severity scale (1-10): 4 Consistency: constant Improves With: nothing Worsens With: nothing Associated Symptoms: nausea Treatments Prior to Arrival: other (none) - Related Data Home Medications Medication Instructions Recorded Confirmed Metoprolol Succinate [Toprol XL] 50 mg PO DAILY 07/22/13 08/22/20 Ondansetron [Zofran] 4 mg PO Q8HR PRN 04/21/15 08/22/20 rOPINIRole HCL [Requip] 3 mg PO HS 06/23/16 08/22/20 Insulin Lispro [humaLOG Kwikpen] 10 unit SQ AC-TID 08/19/20 08/22/20 traMADol HCL [Ultram] 50 mg PO Q8H PRN 08/19/20 08/22/20 Insulin Glargine [Lantus] 30 units SQ HS 08/22/20 08/22/20 Previous Rx's Medication Instructions Recorded Diphenox-Atrop 2.5-0.025 mg 1 tab PO QID PRN #10 tab 05/17/17 [Lomotil] Cephalexin [Keflex] 500 mg PO Q6HR 10 Days #40 cap 08/21/20 Allergies Allergy/AdvReac Type Severity Reaction Status Date / Time aspirin Allergy Anaphylaxis Verified 08/19/20 10:45 codeine Allergy Swelling Verified 08/19/20 10:45 Iodinated Contrast Media Allergy Anaphylaxis Verified 08/19/20 10:45 [Iodinated Contrast Media - IV Dye] NSAIDS (Non-Steroidal Allergy Anaphylaxis Verified 08/19/20 10:45 Anti-Inflamma sulfamethoxazole Allergy Unknown Verified 08/19/20 10:45 [From Bactrim] trimethoprim [From Bactrim] Allergy Unknown Verified 08/19/20 10:45 influenza virus vaccine ts AdvReac Nausea & Verified 08/19/20 10:45 [id number] (36 mos,up) Vomiting & [From Fluarix] Diarrhea Review of Systems ROS Statement: Those systems with pertinent positive or pertinent negative responses have been documented in the HPI. ROS Other: All systems not noted in ROS Statement are negative. Past Medical History Past Medical History: Coronary Artery Disease (CAD), Chest Pain / Angina, COPD, CVA/TIA, Diabetes Mellitus, Deep Vein Thrombosis (DVT), GERD/Reflux, Hyperlipidemia, Hypertension, Memory Impairment, Osteoarthritis (OA), Pneumonia, Syncope, Thyroid Disorder Additional Past Medical History / Comment(s): Other HX: Antiphospholipid syndrome , LUPUS, CVA's/TIA's, demyelinization of brain, sinus problems, diverticulosis, RESTLESS LEG SYNDROME, Hx. of L leg DVT, occipital neuritis, varicosities, colostomy. History of Any Multi-Drug Resistant Organisms: MRSA Date of last positivie culture/infection: 01/08/17 MDRO Source:: URINE Past Surgical History: Appendectomy, Back Surgery, Bladder Surgery, Cholecystectomy, Hysterectomy, Orthopedic Surgery, Tonsillectomy Additional Past Surgical History / Comment(s): L hip surgery nailing /fixation- L hip hemiarthroplasty, bladder suspension, sisi cataracts, partial laminectomy,. colostomy 2010 D/T PERFORATED DIVERTICULUM with reversal and then 2nd colostomy, LT KNEE SX FOR TORN CARTILAGE Past Anesthesia/Blood Transfusion Reactions: No Reported Reaction Additional Past Anesthesia/Blood Transfusion Reaction / Comment(s): HAD BLOOD TRANSFUSION 15 YEARS ago without reaction. Past Psychological History: No Psychological Hx Reported Smoking Status: Current some day smoker, Light tobacco smoker Past Alcohol Use History: None Reported Past Drug Use History: None Reported - Past Family History Mother Family Medical History: Cancer, Hypertension Additional Family Medical History / Comment(s): "mother had cancer from asbestos exposure" Father Family Medical History: Hypertension, Rheumatoid Arthritis (RA) General Exam Limitations: no limitations General appearance: alert, in no apparent distress Head exam: Present: atraumatic, normocephalic, normal inspection Eye exam: Present: normal appearance, PERRL, EOMI. Absent: scleral icterus, conjunctival injection, periorbital swelling ENT exam: Present: normal exam, mucous membranes moist Neck exam: Present: normal inspection. Absent: tenderness, meningismus, lymphadenopathy Respiratory exam: Present: normal lung sounds bilaterally. Absent: respiratory distress, wheezes, rales, rhonchi, stridor Cardiovascular Exam: Present: normal rhythm, tachycardia, normal heart sounds. Absent: systolic murmur, diastolic murmur, rubs, gallop, clicks GI/Abdominal exam: Present: soft, tenderness, normal bowel sounds, other (Abdominal wall cellulitis). Absent: distended, guarding, rebound, rigid Extremities exam: Present: normal inspection, full ROM, normal capillary refill. Absent: tenderness, pedal edema, joint swelling, calf tenderness Back exam: Present: normal inspection Neurological exam: Present: alert, oriented X3, CN II-XII intact Psychiatric exam: Present: normal affect, normal mood Skin exam: Present: warm, dry, intact, normal color. Absent: rash Course Vital Signs 10/23/20 01:31 Temperature 101.0 F H Pulse Rate 113 H Respiratory 16 Rate Blood Pressure 146/82 O2 Sat by Pulse 94 L Oximetry - Reevaluation(s) Reevaluation #1: 10/23/20 01:56 Medical records reviewed Medical Decision Making - Lab Data Result diagrams: 10/23/20 02:01 10/23/20 02:01 Lab Results 10/23/20 10/23/20 10/23/20 Range/Units 02:01 02:01 02:01 WBC 11.8 H (3.8-10.6) k/uL RBC 4.63 (3.80-5.40) m/uL Hgb 13.7 (11.4-16.0) gm/dL Hct 40.7 (34.0-46.0) % MCV 87.9 (80.0-100.0) fL MCH 29.6 (25.0-35.0) pg MCHC 33.7 (31.0-37.0) g/dL RDW 15.6 H (11.5-15.5) % Plt Count 262 (150-450) k/uL MPV 9.5 Neutrophils % 80 % Lymphocytes % 11 % Monocytes % 5 % Eosinophils % 0 % Basophils % 0 % Neutrophils # 9.4 H (1.3-7.7) k/uL Lymphocytes # 1.3 (1.0-4.8) k/uL Monocytes # 0.6 (0-1.0) k/uL Eosinophils # 0.0 (0-0.7) k/uL Basophils # 0.1 (0-0.2) k/uL Sodium 129 L (137-145) mmol/L Potassium 4.4 (3.5-5.1) mmol/L Chloride 97 L (98-107) mmol/L Carbon Dioxide 23 (22-30) mmol/L Anion Gap 9 mmol/L BUN 12 (7-17) mg/dL Creatinine 0.63 (0.52-1.04) mg/dL Est GFR (CKD-EPI)AfAm >90 (>60 ml/min/1.73 sqM) Est GFR (CKD-EPI)NonAf >90 (>60 ml/min/1.73 sqM) Glucose 424 H (74-99) mg/dL Plasma Lactic Acid Shahzad 1.0 (0.7-2.0) mmol/L Calcium 9.4 (8.4-10.2) mg/dL Total Bilirubin 0.4 (0.2-1.3) mg/dL AST 17 (14-36) U/L ALT 10 (4-34) U/L Alkaline Phosphatase 140 H (38-126) U/L Total Protein 6.9 (6.3-8.2) g/dL Albumin 3.8 (3.5-5.0) g/dL Amylase 36 (30-110) U/L Lipase 52 (23-300) U/L - EKG Data -: EKG Interpreted by Me (EKG shows sinus tachycardia 109 SD 124 QRS 82 QTC 452) Disposition Clinical Impression: Weakness, Abdominal wall cellulitis Disposition: ADMITTED IP TO THIS HOSP Condition: Fair Is patient prescribed a controlled substance at d/c from ED?: No Referrals: Franklin Benitez III, MD [Primary Care Provider] - 1-2 days
[2020-10-23] MEDS ORDERED: VANCOMYCIN 1,500 MG in SODIUM CHLORIDE 0.9% 250 ML IVPB ONE (02:00)
[2020-10-23 02:09] LABS: Basophils # (A) 0.1 k/uL (0-0.2); Basophils % (A) 0 %; Eosinophils % (A) 0 %; HCT 40.7 % (34.0-46.0); HGB 13.7 gm/dL (11.4-16.0); Lymphocytes # (A) 1.3 k/uL (1.0-4.8); Lymphocytes % (A) 11 %; MCH 29.6 pg (25.0-35.0); MCHC 33.7 g/dL (31.0-37.0); MCV 87.9 fL (80.0-100.0); Mean Platelet Volume 9.5; Monocytes # (A) 0.6 k/uL (0-1.0); Monocytes % (A) 5 %; Neutrophils # (A) 9.4 k/uL (1.3-7.7); Neutrophils % (A) 80 %; Platelet Count 262 k/uL (150-450); RBC 4.63 m/uL (3.80-5.40); RDW 15.6 % (11.5-15.5); WBC 11.8 k/uL (3.8-10.6)
[2020-10-23 02:21] LABS: ALT 10 U/L (4-34); AST 17 U/L (14-36); African American GFR (CKD) >90 (>60 ml/min/1.73 sqM); Albumin 3.8 g/dL (3.5-5.0); Alkaline Phosphatase 140 U/L (38-126); Amylase 36 U/L (30-110); Anion Gap 9 mmol/L; Blood Urea Nitrogen 12 mg/dL (7-17); Calcium 9.4 mg/dL (8.4-10.2); Carbon Dioxide 23 mmol/L (22-30); Chloride 97 mmol/L (98-107); Glucose 424 mg/dL (74-99); Lipase 52 U/L (23-300); Non-African American GFR(CKD) >90 (>60 ml/min/1.73 sqM); Potassium 4.4 mmol/L (3.5-5.1); Sodium 129 mmol/L (137-145); Total Bilirubin 0.4 mg/dL (0.2-1.3); Total Protein 6.9 g/dL (6.3-8.2)
[2020-10-23] MEDS ORDERED: diphenhydrAMINE 50 MG/ML 1 ML VIAL IVP STA (03:33)
[2020-10-23] MEDS ORDERED: methylPREDNISolone SOD SUCCI 125 MG/2 ML VIAL IV STA (03:33)
[2020-10-23] MEDS ORDERED: FAMOTIDINE 20 MG/2 ML VIAL IV STA (03:33)
[2020-10-23] MEDS ORDERED: MORPHINE SULFATE 4 MG/ML SYRINGE IVP STA (03:47)
[2020-10-23] MEDS ORDERED: MORPHINE SULFATE 4 MG/ML SYRINGE IVP PRN (03:47)
[2020-10-23] MEDS ORDERED: NALOXONE 0.4 MG/ML 1 ML VIAL IV PRN (03:48)
[2020-10-23 04:16] LABS: Appearance,Urine Cloudy (Clear); Bacteria,Urine Rare /hpf; Bilirubin,Urine Negative (Negative); Blood,Urine Trace (Negative); Budding Yeast,Urine Moderate /hpf; Color,Urine Yellow; Glucose,Urine (UA) 4+ (Negative); Ketones,Urine 1+ (Negative); Leukocyte Esterase,Urine Large (Negative); Mucus,Urine Rare /hpf; Nitrite,Urine Negative (Negative); PH, Urine 5.5 (5.0-8.0); Protein,Urine Trace (Negative); RBC,Urine 6 /hpf (0-5); Specific Gravity,Urine 1.034 (1.001-1.035); Squamous Epithelial Cell,Urine 3 /hpf (0-4); Urobilinogen,Urine <2.0 mg/dL (<2.0); WBC,Urine >182 /hpf (0-5)
--- NOTE | 2020-10-23 05:20 | CT ---
EXAMINATION TYPE: CT abdomen pelvis w con DATE OF EXAM: 10/23/2020 COMPARISON: 08/19/2020 HISTORY: Abdominal pain CT DLP: 1297.1 mGycm Automated exposure control for dose reduction was used. CONTRAST: Performed with IV Contrast, patient injected with 100 mL of Isovue 300. Images obtained from the diaphragm to the floor the pelvis with IV contrast. The lung bases are clear of consolidation. There is no pleural effusion. There is minimal subsegmenta l atelectasis right lung base. Heart size is normal. There is no pericardial effusion. Liver and spleen are intact. The stomach is intact. There is no evidence of pancreatic mass. There is cholecystectomy. There is some ectasia of the biliary tree. The common bile duct measures 1.4 cm. Th ere is no adrenal mass. Kidneys show satisfactory contrast opacification. There is no hydronephrosis. There is right upper quadrant loop colostomy. There are sigmoid diverticula. There is previous surge ry at the sigmoid colon. There is metal artifact from left hip prosthesis. Bladder distends smoothly. There is retained fecal material in the rectum that measures 5.7 cm. There is no ascites or free air . I see no evidence of a bowel obstruction. There is a complex cystic fluid collection in the anterior subcutaneous tissues over the lower abdome n. This measures approximately 9 x 4 cm with adjacent fat stranding. Appendix is not seen. There is no sign of thickened appendix. The lumbar vertebra have normal alignme nt. There is degenerative disc space nor in from L3 to S1 with vacuum disc. The bony pelvis is intact . IMPRESSION: Colonic diverticulosis without diverticulitis. Previous surgery. Loop colostomy. Rectal fecal impacti on. Increased fecal material in the rectum compared to old exam. Complex subcutaneous fluid over the lower anterior abdomen also present on old exam. This could be an abscess or chronic hematoma. The size is not significantly different.
[2020-10-23] MEDS ORDERED: traMADol 50 MG TAB PO PRN (10:00)
[2020-10-23 11:35] LABS: Glucose,Whole Blood 450 mg/dL (75-99)
[2020-10-23] MEDS ORDERED: INSULIN ASPART (NovoLOG) 100 UNIT/ML VIAL SQ SCH ×2 (12:30)
[2020-10-23] MEDS: SODIUM CHLORIDE 0.9% 1,000 ML IV SCH ×2 (13:02→13:03)
[2020-10-23 13:04] VITALS: BP 122/71; PULSE 77; RESP 17; TEMP 98.2
--- NOTE | 2020-10-23 14:50 | P.GSCN ---
History of Present Illness Consult date: 10/23/20 History of present illness: CHIEF COMPLAINT: Abdominal pain HISTORY OF PRESENT ILLNESS: This is a 69-year-old female with history of antiphospholipid syndrome, lupus, COPD, diabetes mellitus, hypertension coronary artery disease, memory impairment, hypothyroidism and osteoarthritis. I she did have a history of perforated diverticulitis with colostomy replacement and then reversal. She reports the colostomy had failed and she did require a second colostomy. In this last surgery was about 10 years ago. She's also had a prior cholecystectomy and appendectomy. Patient presents to the hospital with complaints of right lower abdominal wall pain with evidence of celluliti type findings. Patient has a known chronic parastomal hernia that has caused her abdominal wall cellulitis in the past. She was supposed to have surgery outpatient in August. Patient reports that she has had abdominal pain for about 7 days. She also reports no output through her ostomy for about 2 days. She has been having nausea and feeling hot and cold. She did have evidence of a fever of 100 one was tachycardic and had a white count of 11.8 on admission. Computed tomography scan of the abdomen and pelvis completed showing colonic diverticulosis without diverticulitis. Previous surgery. Loop colostomy. Rectal fecal impaction. Increased fecal material in the rectum compared to old exam. Complex subcutaneous fluid over the lower anterior abdomen also present on old exam. This could be an abscess or chronic hematoma. PAST MEDICAL HISTORY: See list. PAST SURGICAL HISTORY: See list. MEDICATIONS: See list. ALLERGIES: See list. SOCIAL HISTORY: No illicit drug use. REVIEW OF SYSTEMS: CONSTITUTIONAL: Denies fever or chills. HEENT: Denies blurred vision, vision changes, or eye pain. Denies hemoptysis ENDOCRINE: Denies heat or cold intolerance. CARDIOVASCULAR: Denies chest pain or pressure. RESPIRATORY: No shortness of breath. GASTROINTESTINAL: Please refer to HPI NEURO: Denies history of seizures. PSYCH: No depression or suicidal ideation HEMATOLOGIC: Denies bleeding disorders. LYMPHATIC: The patient denies any lumps and bumps around the neck. GENITOURINARY: Denies any blood in urine or increased urinary frequency. MUSCULOSKELETAL: Denies myalgias. Denies joint swelling. Denies decreased range of motion beyond patients baseline. SKIN: Denies pruitis. Denies rash. PHYSICAL EXAM: VITAL SIGNS: Reviewed GENERAL: Well-developed in no acute distress. HEENT: No sclera icterus. Extraocular movements grossly intact. Moist buccal mucosa. Head is atraumatic, normocephalic. Hears conversational speech. No nasal drainage. NECK: Supple without lymphadenopathy. CHEST: Non-labored respirations and equal bilateral excursions. CARDIOVASCULAR: Palpable 2+ radial pulses. ABDOMEN: Soft. Nondistended. Right lower abdominal tenderness. Evidence of cellulitis. Patient has ulcerations along the abdominal wall MUSCULOSKELETAL: No clubbing or cyanosis. NEUROLOGIC: No focal or lateralizing signs. Cranial nerves II through XII grossly intact. PSYCH: Appropriate affect. Alert and oriented to person, place and time. SKIN: Well perfused. Good skin turgor. LABORATORY DATA: WBC 11.8 hemoglobin 13.7 platelets 262 Sodium 129 potassium 4.4 creatinine 0.63 glucose 450 Urinalysis positive for UTI IMAGING: CT scan findings as stated above ASSESSMENT: 1. Subcutaneous fluid over the lower anterior abdomen with abdominal wall cell ulitis. Fluid was present on old exam. 2. History of Parastomal hernia 3. UTI 4. Hyponatremia PLAN: -Patient can be discharged from surgical standpoint -Patient to follow-up with Dr. Cai next , 10/30/2020 -Antibiotic management per medicine service Physician [employer] Operator note has been reviewed by physician. Signing provider agrees with the documented findings, assessment, and plan of care. Past Medical History Past Medical History: Coronary Artery Disease (CAD), Chest Pain / Angina, COPD, CVA/TIA, Diabetes Mellitus, Deep Vein Thrombosis (DVT), GERD/Reflux, Hyperlipidemia, Hypertension, Memory Impairment, Osteoarthritis (OA), Pneumonia, Syncope, Thyroid Disorder Additional Past Medical History / Comment(s): Other HX: Antiphospholipid syndrome , LUPUS, CVA's/TIA's, demyelinization of brain, sinus problems, diverticulosis, RESTLESS LEG SYNDROME, Hx. of L leg DVT, occipital neuritis, varicosities, colostomy. History of Any Multi-Drug Resistant Organisms: MRSA Year Discovered:: 01/08/17 MDRO Source:: URINE Past Surgical History: Appendectomy, Back Surgery, Bladder Surgery, Cholecystectomy, Hysterectomy, Orthopedic Surgery, Tonsillectomy Additional Past Surgical History / Comment(s): L hip surgery nailing /fixation- L hip hemiarthroplasty, bladder suspension, sisi cataracts, partial laminectomy,. colostomy 2010 D/T PERFORATED DIVERTICULUM with reversal and then 2nd colostom y, LT KNEE SX FOR TORN CARTILAGE Past Anesthesia/Blood Transfusion Reactions: No Reported Reaction Additional Past Anesthesia/Blood Transfusion Reaction / Comm: HAD BLOOD TRANSFUSION 15 YEARS ago without reaction. Past Psychological History: No Psychological Hx Reported Additional Psychological History / Comment(s): anxiety AT TIMES. Pt states she lives with her daughter. She states she gets around in a wheelchair. Smoking Status: Current every day smoker Past Alcohol Use History: None Reported Additional Past Alcohol Use History / Comment(s): has smoked for 40 years-states smokes 6 cig per day Past Drug Use History: None Reported - Past Family History Mother Family Medical History: Cancer, Hypertension Additional Family Medical History / Comment(s): "mother had cancer from asbestos exposure" Father Family Medical History: Hypertension, Rheumatoid Arthritis (RA) Medications and Allergies Home Medications Medication Instructions Recorded Confirmed Type Metoprolol Succinate [Toprol XL] 50 mg PO DAILY 07/22/13 10/23/20 History rOPINIRole HCL [Requip] 3 mg PO HS 06/23/16 10/23/20 History Insulin Lispro [humaLOG Kwikpen] 10 unit SQ AC-TID 08/19/20 10/23/20 History traMADol HCL [Ultram] 50 mg PO Q8H PRN 08/19/20 10/23/20 History Insulin Glargine [Lantus] 32 units SQ HS 08/22/20 10/23/20 History Allergies Allergy/AdvReac Type Severity Reaction Status Date / Time aspirin Allergy Anaphylaxis Verified 10/23/20 07:26 codeine Allergy Swelling Verified 10/23/20 07:26 Iodinated Contrast Media Allergy Anaphylaxis Verified 10/23/20 07:26 [Iodinated Contrast Media - IV Dye] NSAIDS (Non-Steroidal Allergy Anaphylaxis Verified 10/23/20 07:26 Anti-Inflamma sulfamethoxazole Allergy Unknown Verified 10/23/20 07:26 [From Bactrim] trimethoprim [From Bactrim] Allergy Unknown Verified 10/23/20 07:26 influenza virus vaccine ts AdvReac Nausea & Verified 10/23/20 07:26 [id number] (36 mos,up) Vomiting & [From Fluarix] Diarrhea Surgical - Exam Vital Signs Temp Pulse Resp BP Pulse Ox 101.0 F H 113 H 16 146/82 94 L 08/12/21 01:31 10/23/20 01:31 10/23/20 01:31 10/23/20 01:31 10/23/20 01:31 Results - Labs 10/23/20 02:01 10/23/20 02:01 Abnormal Lab Results - Last 24 Hours (Table) 10/23/20 10/23/20 10/23/20 Range/Units 02:01 02:01 02:01 WBC 11.8 H (3.8-10.6) k/uL RDW 15.6 H (11.5-15.5) % Neutrophils # 9.4 H (1.3-7.7) k/uL Sodium 129 L (137-145) mmol/L Chloride 97 L (98-107) mmol/L Glucose 424 H (74-99) mg/dL POC Glucose (mg/dL) (75-99) mg/dL Alkaline Phosphatase 140 H (38-126) U/L Urine Appearance Cloudy H (Clear) Urine Protein Trace H (Negative) Urine Glucose (UA) 4+ H (Negative) Urine Ketones 1+ H (Negative) Urine Blood Trace H (Negative) Ur Leukocyte Esterase Large H (Negative) Urine RBC 6 H (0-5) /hpf Urine WBC >182 H (0-5) /hpf Urine WBC Clumps Many H (None) /hpf Urine Bacteria Rare H (None) /hpf Urine Mucus Rare H (None) /hpf Urine Yeast (Budding) Moderate H (None) /hpf 10/23/20 Range/Units 11:33 WBC (3.8-10.6) k/uL RDW (11.5-15.5) % Neutrophils # (1.3-7.7) k/uL Sodium (137-145) mmol/L Chloride (98-107) mmol/L Glucose (74-99) mg/dL POC Glucose (mg/dL) 450 H (75-99) mg/dL Alkaline Phosphatase (38-126) U/L Urine Appearance (Clear) Urine Protein (Negative) Urine Glucose (UA) (Negative) Urine Ketones (Negative) Urine Blood (Negative) Ur Leukocyte Esterase (Negative) Urine RBC (0-5) /hpf Urine WBC (0-5) /hpf Urine WBC Clumps (None) /hpf Urine Bacteria (None) /hpf Urine Mucus (None) /hpf Urine Yeast (Budding) (None) /hpf Microbiology - Last 24 Hours (Table) 10/23/20 02:01 Urine Culture - Preliminary Urine,Voided Diabetes panel 10/23/20 Range/Units 02:01 Sodium 129 L (137-145) mmol/L Potassium 4.4 (3.5-5.1) mmol/L Chloride 97 L (98-107) mmol/L Carbon Dioxide 23 (22-30) mmol/L BUN 12 (7-17) mg/dL Creatinine 0.63 (0.52-1.04) mg/dL Glucose 424 H (74-99) mg/dL Calcium 9.4 (8.4-10.2) mg/dL AST 17 (14-36) U/L ALT 10 (4-34) U/L Alkaline Phosphatase 140 H (38-126) U/L Total Protein 6.9 (6.3-8.2) g/dL Albumin 3.8 (3.5-5.0) g/dL Calcium panel 10/23/20 Range/Units 02:01 Calcium 9.4 (8.4-10.2) mg/dL Albumin 3.8 (3.5-5.0) g/dL Pituitary panel 10/23/20 Range/Units 02:01 Sodium 129 L (137-145) mmol/L Potassium 4.4 (3.5-5.1) mmol/L Chloride 97 L (98-107) mmol/L Carbon Dioxide 23 (22-30) mmol/L BUN 12 (7-17) mg/dL Creatinine 0.63 (0.52-1.04) mg/dL Glucose 424 H (74-99) mg/dL Calcium 9.4 (8.4-10.2) mg/dL Adrenal panel 10/23/20 Range/Units 02:01 Sodium 129 L (137-145) mmol/L Potassium 4.4 (3.5-5.1) mmol/L Chloride 97 L (98-107) mmol/L Carbon Dioxide 23 (22-30) mmol/L BUN 12 (7-17) mg/dL Creatinine 0.63 (0.52-1.04) mg/dL Glucose 424 H (74-99) mg/dL Calcium 9.4 (8.4-10.2) mg/dL Total Bilirubin 0.4 (0.2-1.3) mg/dL AST 17 (14-36) U/L ALT 10 (4-34) U/L Alkaline Phosphatase 140 H (38-126) U/L Total Protein 6.9 (6.3-8.2) g/dL Albumin 3.8 (3.5-5.0) g/dL
--- NOTE | 2020-10-23 15:02 | P.HPIM ---
History of Present Illness Patient is a 69-year-old female came in with complaints of pain and redness in the abdomen.. Patient had a colostomy in the past. Patient had colostomy because of perforated diverticulitis. 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 Patient has multiple skin breakdowns because of the lupus on the abdomen and cellulitis in the lower abdomen. Patient had a CT of the abdomen which showed complex subcutaneous fluid collection it's either an abscess are chronic and inferior hematoma. She does have elevated blood sugars patient did not receive her insulin last night, patient also received high-dose of steroids last night. Patient is also with hyponatremia patient is already in fluids at 75 mL/h which will be continued. Patient did have fever chills. Patient does have leukocytosis. REVIEW OF SYSTEMS: CONSTITUTIONAL: As mentioned in HPI HEENT: No recent visual problems or hearing problems. Denied any sore throat. CARDIOVASCULAR: No chest pain, orthopnea, PND, no palpitations, no syncope. PULMONARY: No shortness of breath, no cough, no hemoptysis. GASTROINTESTINAL: As mentioned in HPI NEUROLOGICAL: No headaches, no weakness, no numbness. HEMATOLOGICAL: Denies any bleeding or petechiae. GENITOURINARY: Denies any burning micturition, frequency, or urgency. MUSCULOSKELETAL/RHEUMATOLOGICAL: Denies any joint pain, swelling, or any muscle pain. ENDOCRINE: Denies any polyuria or polydipsia. The rest of the 14-point review of systems is negative. PHYSICAL EXAMINATION: GENERAL: The patient is alert and oriented x3, not in any acute distress. Well developed, well nourished. HEENT: Pupils are round and equally reacting to light. EOMI. No scleral icterus. No conjunctival pallor. Normocephalic, atraumatic. No pharyngeal erythema. No thyromegaly. CARDIOVASCULAR: S1 and S2 present. No murmurs, rubs, or gallops. PULMONARY: Chest is clear to auscultation, no wheezing or crackles. ABDOMEN: Soft, nontender, nondistended, normoactive bowel sounds. No palpable organomegaly. MUSCULOSKELETAL: No joint swelling or deformity. EXTREMITIES: No cyanosis, clubbing, or pedal edema. NEUROLOGICAL: Gross neurological examination did not reveal any focal deficits. SKIN: Significant redness in the lower abdomen with multiple skin breakdowns and small ulcerations on the abdomen from lupus anticoagulant Assessment and plan -Abdominal wall infection with possible infected hematoma/abscess: Patient will be continued on IV vancomycin given surgery and infectious disease evaluated the patient. -Sepsis secondary to above -Hypervolemic hyponatremia patient is on IV fluids which will be continued -Leukocytosis secondary to sepsis -History of lupus anticoagulant and systemic lupus. Coronary Artery disease -COPD without any acute exacerbation -Type 2 diabetes mellitus uncontrolled elevated blood sugars secondary to systemic steroids she received. -Hyperlipidemia CVA/TIA in the past -History of DVTs in the past but presently not on any anti-correlation -Hyperlipidemia -Hypertension -Hypothyroidism DVT prophylaxis: Lovenox Past Medical History Past Medical History: Coronary Artery Disease (CAD), Chest Pain / Angina, COPD, CVA/TIA, Diabetes Mellitus, Deep Vein Thrombosis (DVT), GERD/Reflux, Hyperlipidemia, Hypertension, Memory Impairment, Osteoarthritis (OA), Pneumonia, Syncope, Thyroid Disorder Additional Past Medical History / Comment(s): Other HX: Antiphospholipid syndrome , LUPUS, CVA's/TIA's, demyelinization of brain, sinus problems, diverticulosis, RESTLESS LEG SYNDROME, Hx. of L leg DVT, occipital neuritis, varicosities, colostomy. History of Any Multi-Drug Resistant Organisms: MRSA Date of last positivie culture/infection: 01/08/17 MDRO Source:: URINE Past Surgical History: Appendectomy, Back Surgery, Bladder Surgery, Cholecystectomy, Hysterectomy, Orthopedic Surgery, Tonsillectomy Additional Past Surgical History / Comment(s): L hip surgery nailing /fixation- L hip hemiarthroplasty, bladder suspension, sisi cataracts, partial laminectomy,. colostomy 2010 D/T PERFORATED DIVERTICULUM with reversal and then 2nd colostomy, LT KNEE SX FOR TORN CARTILAGE Past Anesthesia/Blood Transfusion Reactions: No Reported Reaction Additional Past Anesthesia/Blood Transfusion Reaction / Comment(s): HAD BLOOD TRANSFUSION 15 YEARS ago without reaction. Past Psychological History: No Psychological Hx Reported Additional Psychological History / Comment(s): anxiety AT TIMES. Pt states she lives with her daughter. She states she gets around in a wheelchair. Smoking Status: Current every day smoker Past Alcohol Use History: None Reported Additional Past Alcohol Use History / Comment(s): has smoked for 40 years-states smokes 6 cig per day Past Drug Use History: None Reported - Past Family History Mother Family Medical History: Cancer, Hypertension Additional Family Medical History / Comment(s): "mother had cancer from asbestos exposure" Father Family Medical History: Hypertension, Rheumatoid Arthritis (RA) Medications and Allergies Home Medications Medication Instructions Recorded Confirmed Type Metoprolol Succinate [Toprol XL] 50 mg PO DAILY 07/22/13 10/23/20 History rOPINIRole HCL [Requip] 3 mg PO HS 06/23/16 10/23/20 History Insulin Lispro [humaLOG Kwikpen] 10 unit SQ AC-TID 08/19/20 10/23/20 History traMADol HCL [Ultram] 50 mg PO Q8H PRN 08/19/20 10/23/20 History Insulin Glargine [Lantus] 32 units SQ HS 08/22/20 10/23/20 History Allergies Allergy/AdvReac Type Severity Reaction Status Date / Time aspirin Allergy Anaphylaxis Verified 10/23/20 07:26 codeine Allergy Swelling Verified 10/23/20 07:26 Iodinated Contrast Media Allergy Anaphylaxis Verified 10/23/20 07:26 [Iodinated Contrast Media - IV Dye] NSAIDS (Non-Steroidal Allergy Anaphylaxis Verified 10/23/20 07:26 Anti-Inflamma sulfamethoxazole Allergy Unknown Verified 10/23/20 07:26 [From Bactrim] trimethoprim [From Bactrim] Allergy Unknown Verified 10/23/20 07:26 influenza virus vaccine ts AdvReac Nausea & Verified 10/23/20 07:26 [id number] (36 mos,up) Vomiting & [From Fluarix] Diarrhea Physical Exam Vitals: Vital Signs Temp Pulse Pulse Resp BP BP Pulse Ox 10/23/20 13:00 98.2 F 77 17 122/71 95 10/23/20 08:00 16 10/23/20 05:23 98.7 F 82 16 124/76 95 10/23/20 04:19 99.1 F 86 16 142/72 96 10/23/20 01:31 101.0 F H 113 H 16 146/82 94 L Intake and Output 10/23/20 10/23/20 10/23/20 06:59 14:59 22:59 Intake Total 590 Balance 590 Intake: Oral 590 Other: Weight 81.647 kg Results CBC & Chem 7: 10/23/20 02:01 10/23/20 02:01 Labs: Abnormal Lab Results - Last 24 Hours (Table) 10/23/20 10/23/20 10/23/20 Range/Units 02:01 02:01 02:01 WBC 11.8 H (3.8-10.6) k/uL RDW 15.6 H (11.5-15.5) % Neutrophils # 9.4 H (1.3-7.7) k/uL Sodium 129 L (137-145) mmol/L Chloride 97 L (98-107) mmol/L Glucose 424 H (74-99) mg/dL POC Glucose (mg/dL) (75-99) mg/dL Alkaline Phosphatase 140 H (38-126) U/L Urine Appearance Cloudy H (Clear) Urine Protein Trace H (Negative) Urine Glucose (UA) 4+ H (Negative) Urine Ketones 1+ H (Negative) Urine Blood Trace H (Negative) Ur Leukocyte Esterase Large H (Negative) Urine RBC 6 H (0-5) /hpf Urine WBC >182 H (0-5) /hpf Urine WBC Clumps Many H (None) /hpf Urine Bacteria Rare H (None) /hpf Urine Mucus Rare H (None) /hpf Urine Yeast (Budding) Moderate H (None) /hpf 10/23/20 Range/Units 11:33 WBC (3.8-10.6) k/uL RDW (11.5-15.5) % Neutrophils # (1.3-7.7) k/uL Sodium (137-145) mmol/L Chloride (98-107) mmol/L Glucose (74-99) mg/dL POC Glucose (mg/dL) 450 H (75-99) mg/dL Alkaline Phosphatase (38-126) U/L Urine Appearance (Clear) Urine Protein (Negative) Urine Glucose (UA) (Negative) Urine Ketones (Negative) Urine Blood (Negative) Ur Leukocyte Esterase (Negative) Urine RBC (0-5) /hpf Urine WBC (0-5) /hpf Urine WBC Clumps (None) /hpf Urine Bacteria (None) /hpf Urine Mucus (None) /hpf Urine Yeast (Budding) (None) /hpf Microbiology - Last 24 Hours (Table) 10/23/20 02:01 Urine Culture - Preliminary Urine,Voided Thrombosis Risk Factor Assmnt - Choose All That Apply Any of the Below Risk Factors Present?: Yes Each Factor Represents 1 point: Abnormal pulmonary function (COPD), Obesity (BMI >25) Each Risk Factor Represents 2 Points: Age 61-74 years Thrombosis Risk Factor Assessment Total Risk Factor Score: 4 Thrombosis Risk Factor Assessment Level: Moderate Risk
--- NOTE | 2020-10-23 15:54 | P.DS ---
Providers Date of admission: 10/23/20 03:49 Attending physician: Joel Hazel Consults: 10/23/20 09:58 Consult Physician Urgent Consulting Provider: Jacky Sanchez Consult Reason/Comments: Abdominal wall cellulitis Do you want consulting provider notified?: Yes 10/23/20 14:53 Consult Physician Routine Consulting Provider: Isabelle Cai Consult Reason/Comments: Infected hematoma, abdomen Do you want consulting provider notified?: Yes Primary care physician: Franklin Mendoza [facility] Course: Patient came in with abdominal wall infection with possible abscess/hematoma because of the subcutaneous fluid collection, patient was evaluated for surgery who cleared her for discharge. Infectious disease evaluate the patient as well patient was on vancomycin. Patient is highly advised not to go home as the patient has significant redness or swelling cellulitis and fever. Patient insisted on going home is tearful and she says she is going to go crazy if she stays in the hospital. Because of this reason I discussed the discharge antibiotics with infectious disease, decided on discharging the patient on week closely follow up with primary care physician and infectious disease as an outpatient. Patient was advised to come back if her fever doesn't resolve or infection gets worse. Patient Condition at Discharge: Fair Plan - Discharge Summary New Discharge Prescriptions: New Cephalexin [Keflex] 500 mg PO Q8HR 7 Days #21 cap Continue Metoprolol Succinate [Toprol XL] 50 mg PO DAILY rOPINIRole HCL [Requip] 3 mg PO HS Insulin Lispro [humaLOG Kwikpen] 10 unit SQ AC-TID Insulin Glargine [Lantus] 32 units SQ HS traMADol HCL [Ultram] 50 mg PO Q8H PRN PRN Reason: Severe Pain Discharge Medication List Metoprolol Succinate [Toprol XL] 50 mg PO DAILY 07/22/13 [History] rOPINIRole HCL [Requip] 3 mg PO HS 06/23/16 [History] Insulin Lispro [humaLOG Kwikpen] 10 unit SQ AC-TID 08/19/20 [History] traMADol HCL [Ultram] 50 mg PO Q8H PRN 08/19/20 [History] Insulin Glargine [Lantus] 32 units SQ HS 08/22/20 [History] Cephalexin [Keflex] 500 mg PO Q8HR 7 Days #21 cap 10/23/20 [Rx] Follow up Appointment(s)/Referral(s): Isabelle Cai MD [STAFF PHYSICIAN] - 10/30/20 (to see in office thurs) Franklin Benitez III, MD [Primary Care Provider] - 3 Days Jacky Sanchez MD [STAFF PHYSICIAN] - 1 Week Discharge Disposition: HOME SELF-CARE
[2020-10-23] MEDS ORDERED: VANCOMYCIN 1,500 MG in SODIUM CHLORIDE 0.9% 250 ML IVPB SCH (17:00)
[2020-10-23] MEDS ORDERED: INSULIN DETEMIR (LEVEMIR) 100 UNIT/ML SYR SQ SCH (21:00)
[2020-10-24] MEDS ORDERED: METOPROLOL SUCCINATE (ER) 50 MG TAB.ER.24H PO SCH (09:00)
[2020-10-24] MEDS ORDERED: ENOXAPARIN 40 MG/0.4 ML SYRINGE SQ SCH (09:00)
== END 2020-10-23 16:35 | disposition home or self-care (01) ==
LOC: EC 01:29 → 5NMEDONC 03:49
PROVIDERS: ADMIT Hospitalist; ATTEND Hospitalist
DX: L03.311 Cellulitis of abdominal wall (principal); A41.9 Sepsis, unspecified organism; E03.9 Hypothyroidism, unspecified; E11.65 Type 2 diabetes mellitus with hyperglycemia; E78.5 Hyperlipidemia, unspecified; E87.1 Hypo-osmolality and hyponatremia; E87.70 Fluid overload, unspecified; F17.210 Nicotine dependence, cigarettes, uncomplicated; G25.81 Restless legs syndrome; I10 Essential (primary) hypertension; I25.10 Atherosclerotic heart disease of native coronary artery without angina pectoris; J44.9 Chronic obstructive pulmonary disease, unspecified; M32.9 Systemic lupus erythematosus, unspecified; N39.0 Urinary tract infection, site not specified; T38.0X5A Adverse effect of glucocorticoids and synthetic analogues, initial encounter; Z79.4 Long term (current) use of insulin; Z79.899 Other long term (current) drug therapy; Z80.9 Family history of malignant neoplasm, unspecified; Z82.49 Family history of ischemic heart disease and other diseases of the circulatory system; Z86.718 Personal history of other venous thrombosis and embolism; Z86.73 Personal history of transient ischemic attack (TIA), and cerebral infarction without residual deficits; Z90.49 Acquired absence of other specified parts of digestive tract; Z90.710 Acquired absence of both cervix and uterus; Z93.3 Colostomy status
CPT/HCPCS: 96376; 96365; 96366; 96361; 96367; 96375; 99285; 36415; 93005; 80053; 82150; 83605; 83690; 85025; 81001; 87040; 87086; 74177; G0378; J3370; J2270; J1200; J2930; J0696; Q9967

== ENCOUNTER 2020-11-01 03:05 | Emergency (ER) | payer MEDICARE ==
[2020-11-01] MEDS ORDERED: MORPHINE SULFATE 4 MG/ML SYRINGE IV STA (03:13)
[2020-11-01] MEDS ORDERED: SODIUM CHLORIDE 0.9% 1,000 ML IV STA (03:13)
--- NOTE | 2020-11-01 03:13 | ED ---
Chest Pain HPI - General Stated Complaint: Chest pain Time Seen by Provider: 11/01/20 03:10 Source: RN notes reviewed, old records reviewed Mode of arrival: EMS Limitations: no limitations - History of Present Illness Initial Comments: This is a 69-year-old male to the ER for evaluation patient presents today for evaluation regards to wrist pain. Patient does have history of multiple hospitalizations in regards to chest pain. Otherwise patient has no known sick contacts no travel history no fevers. Chest pain has been resolved upon arrival MD Complaint: chest pain -: hour(s) Onset: during rest, during exertion Pain Location: substernal, left chest Pain Radiation: none Severity: mild Severity scale (1-10): 2 Quality: tightness Consistency: intermittent, now resolved Improves With: nothing Worsens With: nothing Context: other (none) Anginal Symptoms: other (none) Other Symptoms: other (none) Treatments Prior to Arrival: none - Related Data Home Medications Medication Instructions Recorded Confirmed Metoprolol Succinate [Toprol XL] 50 mg PO DAILY 07/22/13 10/23/20 rOPINIRole HCL [Requip] 3 mg PO HS 06/23/16 10/23/20 Insulin Lispro [humaLOG Kwikpen] 10 unit SQ AC-TID 08/19/20 10/23/20 traMADol HCL [Ultram] 50 mg PO Q8H PRN 08/19/20 10/23/20 Insulin Glargine [Lantus Vial] 32 units SQ HS 08/22/20 10/23/20 Previous Rx's Medication Instructions Recorded Cephalexin [Keflex] 500 mg PO Q8HR 7 Days #21 cap 10/23/20 Allergies Allergy/AdvReac Type Severity Reaction Status Date / Time aspirin Allergy Anaphylaxis Verified 11/01/20 03:16 codeine Allergy Swelling Verified 11/01/20 03:16 Iodinated Contrast Media Allergy Anaphylaxis Verified 11/01/20 03:16 [Iodinated Contrast Media - IV Dye] NSAIDS (Non-Steroidal Allergy Anaphylaxis Verified 11/01/20 03:16 Anti-Inflamma sulfamethoxazole Allergy Unknown Verified 11/01/20 03:16 [From Bactrim] trimethoprim [From Bactrim] Allergy Unknown Verified 11/01/20 03:16 influenza virus vaccine ts AdvReac Nausea & Verified 11/01/20 03:16 [id number] (36 mos,up) Vomiting & [From Fluarix] Diarrhea Review of Systems ROS Statement: Those systems with pertinent positive or pertinent negative responses have been documented in the HPI. ROS Other: All systems not noted in ROS Statement are negative. EKG Findings - EKG Comments: EKG Findings:: EKG shows sinus rhythm 83 CO 136 QRS 80 QTC 418 Past Medical History Past Medical History: Coronary Artery Disease (CAD), Chest Pain / Angina, COPD, CVA/TIA, Diabetes Mellitus, Deep Vein Thrombosis (DVT), GERD/Reflux, Hyperlipidemia, Hypertension, Memory Impairment, Osteoarthritis (OA), Pneumonia, Syncope, Thyroid Disorder Additional Past Medical History / Comment(s): Other HX: Antiphospholipid syndrome , LUPUS, CVA's/TIA's, demyelinization of brain, sinus problems, diverticulosis, RESTLESS LEG SYNDROME, Hx. of L leg DVT, occipital neuritis, varicosities, colostomy. History of Any Multi-Drug Resistant Organisms: MRSA Date of last positivie culture/infection: 01/08/17 MDRO Source:: URINE Past Surgical History: Appendectomy, Back Surgery, Bladder Surgery, Cholecystectomy, Hysterectomy, Orthopedic Surgery, Tonsillectomy Additional Past Surgical History / Comment(s): L hip surgery nailing /fixation- L hip hemiarthroplasty, bladder suspension, sisi cataracts, partial laminectomy,. colostomy 2010 D/T PERFORATED DIVERTICULUM with reversal and then 2nd colostomy, LT KNEE SX FOR TORN CARTILAGE Past Anesthesia/Blood Transfusion Reactions: No Reported Reaction Additional Past Anesthesia/Blood Transfusion Reaction / Comment(s): HAD BLOOD TRANSFUSION 15 YEARS ago without reaction. Past Psychological History: No Psychological Hx Reported Additional Psychological History / Comment(s): anxiety AT TIMES. Pt states she lives with her daughter. She states she gets around in a wheelchair. Smoking Status: Current every day smoker Past Alcohol Use History: None Reported Additional Past Alcohol Use History / Comment(s): has smoked for 40 years-states smokes 6 cig per day Past Drug Use History: None Reported - Past Family History Mother Family Medical History: Cancer, Hypertension Additional Family Medical History / Comment(s): "mother had cancer from asbestos exposure" Father Family Medical History: Hypertension, Rheumatoid Arthritis (RA) General Exam General appearance: alert, in no apparent distress Head exam: Present: atraumatic, normocephalic, normal inspection Eye exam: Present: normal appearance, PERRL, EOMI. Absent: scleral icterus, conjunctival injection, periorbital swelling ENT exam: Present: normal exam, mucous membranes moist Neck exam: Present: normal inspection. Absent: tenderness, meningismus, lymphadenopathy Respiratory exam: Present: normal lung sounds bilaterally. Absent: respiratory distress, wheezes, rales, rhonchi, stridor Cardiovascular Exam: Present: regular rate, normal rhythm, normal heart sounds. Absent: systolic murmur, diastolic murmur, rubs, gallop, clicks GI/Abdominal exam: Present: soft, normal bowel sounds. Absent: distended, t enderness, guarding, rebound, rigid Extremities exam: Present: normal inspection, full ROM, normal capillary refill. Absent: tenderness, pedal edema, joint swelling, calf tenderness Back exam: Present: normal inspection Neurological exam: Present: alert, oriented X3, CN II-XII intact Psychiatric exam: Present: normal affect, normal mood Skin exam: Present: warm, dry, intact, normal color. Absent: rash Course Vital Signs 11/01/20 11/01/20 11/01/20 03:16 04:00 05:53 Temperature 98.0 F 98.0 F Pulse Rate 83 75 80 Respiratory 18 18 18 Rate Blood Pressure 143/84 169/101 O2 Sat by Pulse 92 L 98 Oximetry - Reevaluation(s) Reevaluation #1: 11/01/20 05:56 Medical record is reviewed Reevaluation #2: 11/01/20 05:56 Patient has no chest pain here in the ER Reevaluation #3: 11/01/20 05:56 Patient informed results and questions are answered Reevaluation #4: 11/01/20 05:56 Patient feels comfortable for discharge home Chest Pain MDM - MDM 69 female to the ER for evaluation patient here for chest pain today although chest pain is resolved upon arrival. Patient is seen and evaluated and can be discharged home Disposition Clinical Impression: Atypical chest pain Disposition: HOME SELF-CARE Condition: Fair Instructions (If sedation given, give patient instructions): Chest Pain (ED) Is patient prescribed a controlled substance at d/c from ED?: No Referrals: Franklin Benitez III, MD [Primary Care Provider] - 1-2 days
[2020-11-01 03:21] VITALS: RESP 18; TEMP 98
[2020-11-01 03:30] LABS: Basophils # (A) 0.1 k/uL (0-0.2); Basophils % (A) 1 %; Eosinophils # (A) 0.2 k/uL (0-0.7); Eosinophils % (A) 2 %; HCT 40.3 % (34.0-46.0); HGB 13.5 gm/dL (11.4-16.0); Lymphocytes # (A) 2.1 k/uL (1.0-4.8); Lymphocytes % (A) 24 %; MCH 29.5 pg (25.0-35.0); MCHC 33.4 g/dL (31.0-37.0); MCV 88.4 fL (80.0-100.0); Mean Platelet Volume 9.2; Monocytes # (A) 0.6 k/uL (0-1.0); Monocytes % (A) 7 %; Neutrophils # (A) 5.7 k/uL (1.3-7.7); Neutrophils % (A) 65 %; Platelet Count 281 k/uL (150-450); RBC 4.56 m/uL (3.80-5.40); WBC 8.8 k/uL (3.8-10.6)
[2020-11-01 03:48] LABS: AST 19 U/L (14-36); African American GFR (CKD) >90 (>60 ml/min/1.73 sqM); Albumin 3.6 g/dL (3.5-5.0); Alkaline Phosphatase 105 U/L (38-126); Anion Gap 7 mmol/L; Blood Urea Nitrogen 18 mg/dL (7-17); Calcium 10.2 mg/dL (8.4-10.2); Carbon Dioxide 27 mmol/L (22-30); Chloride 97 mmol/L (98-107); Creatine Kinase 35 U/L (30-135); Glucose 358 mg/dL (74-99); INR 0.9 (<1.2); Non-African American GFR(CKD) >90 (>60 ml/min/1.73 sqM); Prothrombin Time 9.7 sec (9.0-12.0); Sodium 131 mmol/L (137-145); Total Bilirubin 0.2 mg/dL (0.2-1.3); Total Protein 6.6 g/dL (6.3-8.2)
[2020-11-01 03:49] LABS: ALT 16 U/L (4-34); Magnesium 1.9 mg/dL (1.6-2.3)
[2020-11-01 03:55] LABS: Partial Thromboplastin Time 21.4 sec (22.0-30.0)
--- NOTE | 2020-11-01 04:03 | XR ---
EXAMINATION TYPE: XR chest 1V portable DATE OF EXAM: 11/01/2020 COMPARISON: March 15, 2019 HISTORY: Chest pressure TECHNIQUE: Single view FINDINGS: There is no heart failure nor confluent pneumonic infiltrate. Costophrenic angles are clear . Thoracic aorta is atheromatous. There are no hilar masses. Bony thorax is intact. IMPRESSION: No active cardiopulmonary disease. No change.
[2020-11-01 04:24] LABS: Lipase 127 U/L (23-300)
[2020-11-01 05:54] VITALS: PULSE 80
[2020-11-01 06:06] VITALS: BP 155/88
== END 2020-11-01 06:20 | disposition home or self-care (01) ==
LOC: EC 03:05
DX: R07.89 Other chest pain (principal); M25.539 Pain in unspecified wrist; I25.10 Atherosclerotic heart disease of native coronary artery without angina pectoris; E78.5 Hyperlipidemia, unspecified; I10 Essential (primary) hypertension; J44.9 Chronic obstructive pulmonary disease, unspecified; K21.9 Gastro-esophageal reflux disease without esophagitis; M19.90 Unspecified osteoarthritis, unspecified site; E11.36 Type 2 diabetes mellitus with diabetic cataract; G25.81 Restless legs syndrome; M32.9 Systemic lupus erythematosus, unspecified; F17.210 Nicotine dependence, cigarettes, uncomplicated; Z86.73 Personal history of transient ischemic attack (TIA), and cerebral infarction without residual deficits; Z79.4 Long term (current) use of insulin; Z88.1 Allergy status to other antibiotic agents; Z88.2 Allergy status to sulfonamides; Z88.6 Allergy status to analgesic agent; Z90.49 Acquired absence of other specified parts of digestive tract; Z93.3 Colostomy status
CPT/HCPCS: 36415; 93005; 83880; 80053; 82550; 83690; 83735; 84484; 85025; 85610; 85730; 71045; 99285; 96374; 96361 ×3; J2270

== ENCOUNTER 2021-03-11 10:51 | Inpatient (IN) | payer MEDICARE ==
--- NOTE | 2021-03-11 11:04 | ED ---
General Adult HPI - General Chief complaint: Neuro Symptoms/Deficit Stated complaint: Weakness Time Seen by Provider: 03/11/21 10:55 Source: patient Limitations: no limitations - History of Present Illness Initial comments: 70-year-old female with past medical history of multiple medical conditions including coronary disease, COPD, CVA with no lasting deficits presents to the e mergency department with reported strokelike symptoms. States that over the past 2 days she has had some numbness in her left arm and leg. She saw her primary care doctor. Symptoms were subjective. She reported that her primary care doctor was going to set her up for an MRI. States that she went to bed last night around 11 PM. It woke up at 1 AM to go to the bathroom and noted that she was paralyzed on her left side. States that she went back to bed hoping that the symptoms would go away. When she woke this morning she was still flaccid on her left side. She does have previous history of stroke without lasting deficits. She denies any speech changes, visual changes or headache. She denies any head trauma. Patient reportedly on any blood thinners - Related Data Home Medications Medication Instructions Recorded Confirmed Metoprolol Succinate [Toprol XL] 50 mg PO DAILY 07/22/13 03/11/21 rOPINIRole HCL [Requip] 3 mg PO HS 06/23/16 03/11/21 Insulin Lispro [humaLOG Kwikpen] See Protocol SQ AC-TID 08/19/20 03/11/21 traMADol HCL [Ultram] 50 mg PO Q8H PRN 08/19/20 03/11/21 Diphenoxylate HCl/Atropine 1 tab PO QID PRN 03/11/21 03/11/21 [Lomotil 2.5-0.025 mg Tablet] Insulin Glargine,Hum.rec.anlog 30 unit SQ DAILY 03/11/21 03/11/21 [Lantus Solostar Pen] Levothyroxine Sodium [Synthroid] 125 mcg PO DAILY 03/11/21 03/11/21 Previous Rx's Medication Instructions Recorded Atorvastatin [Lipitor] 40 mg PO DAILY #30 tab 03/12/21 Clopidogrel [Plavix] 75 mg PO DAILY #30 tab 03/12/21 Allergies Allergy/AdvReac Type Severity Reaction Status Date / Time aspirin Allergy Anaphylaxis Verified 03/11/21 12:09 codeine Allergy Swelling Verified 03/11/21 12:09 Iodinated Contrast Media Allergy Anaphylaxis Verified 03/11/21 12:09 [Iodinated Contrast Media - IV Dye] NSAIDS (Non-Steroidal Allergy Anaphylaxis Verified 03/11/21 12:09 Anti-Inflamma sulfamethoxazole Allergy Unknown Verified 03/11/21 12:09 [From Bactrim] trimethoprim [From Bactrim] Allergy Unknown Verified 03/11/21 12:09 influenza virus vaccine ts AdvReac Nausea & Verified 03/11/21 12:09 [id number] (36 mos,up) Vomiting & [From Fluarix] Diarrhea Review of Systems ROS Statement: Those systems with pertinent positive or pertinent negative responses have been documented in the HPI. ROS Other: All systems not noted in ROS Statement are negative. Past Medical History Past Medical History: Coronary Artery Disease (CAD), Chest Pain / Angina, COPD, CVA/TIA, Diabetes Mellitus, Deep Vein Thrombosis (DVT), GERD/Reflux, Hyperlipidemia, Hypertension, Memory Impairment, Osteoarthritis (OA), Pneumonia, Syncope, Thyroid Disorder Additional Past Medical History / Comment(s): Other HX: Antiphospholipid syndrome , LUPUS, CVA's/TIA's, demyelinization of brain, sinus problems, diverticulosis, RESTLESS LEG SYNDROME, Hx. of L leg DVT, occipital neuritis, varicosities, colostomy. History of Any Multi-Drug Resistant Organisms: MRSA Date of last positivie culture/infection: 01/08/17 MDRO Source:: URINE Past Surgical History: Appendectomy, Back Surgery, Bladder Surgery, Cholecystectomy, Hysterectomy, Orthopedic Surgery, Tonsillectomy Additional Past Surgical History / Comment(s): L hip surgery nailing /fixation- L hip hemiarthroplasty, bladder suspension, sisi cataracts, partial laminectomy,. colostomy 2010 D/T PERFORATED DIVERTICULUM with reversal and then 2nd colostomy, LT KNEE SX FOR TORN CARTILAGE Past Anesthesia/Blood Transfusion Reactions: No Reported Reaction Additional Past Anesthesia/Blood Transfusion Reaction / Comment(s): HAD BLOOD TRANSFUSION 15 YEARS ago without reaction. Past Psychological History: No Psychological Hx Reported Smoking Status: Current every day smoker Past Alcohol Use History: None Reported Past Drug Use History: None Reported - Past Family History Mother Family Medical History: Cancer, Hypertension Additional Family Medical History / Comment(s): "mother had cancer from asbestos exposure" Father Family Medical History: Hypertension, Rheumatoid Arthritis (RA) General Exam Limitations: no limitations General appearance: alert, in no apparent distress Head exam: Present: atraumatic, normocephalic, normal inspection Eye exam: Present: normal appearance, PERRL, EOMI. Absent: scleral icterus, conjunctival injection, periorbital swelling ENT exam: Present: normal exam, mucous membranes moist Neck exam: Present: normal inspection. Absent: tenderness, meningismus, lymphadenopathy Respiratory exam: Present: normal lung sounds bilaterally. Absent: respiratory distress, wheezes, rales, rhonchi, stridor Cardiovascular Exam: Present: regular rate, normal rhythm, normal heart sounds. Absent: systolic murmur, diastolic murmur, rubs, gallop, clicks GI/Abdominal exam: Present: soft, normal bowel sounds. Absent: distended, tenderness, guarding, rebound, rigid Extremities exam: Present: normal inspection, full ROM, normal capillary refill, other (0/5 strength lue and lle). Absent: tenderness, pedal edema, joint swelli ng, calf tenderness Back exam: Present: normal inspection Neurological exam: Present: alert, oriented X3, other (left sided facial droop) Psychiatric exam: Present: normal affect, normal mood Skin exam: Present: warm, dry, intact, normal color. Absent: rash Course Vital Signs 03/11/21 03/11/21 03/11/21 10:52 10:59 11:00 Temperature 98.5 F 98.5 F Pulse Rate 81 75 76 Respiratory 16 16 Rate Blood Pressure 154/78 154/78 O2 Sat by Pulse 96 95 96 Oximetry 03/11/21 03/11/21 03/11/21 11:15 11:30 11:45 Temperature Pulse Rate 72 72 75 Respiratory Rate Blood Pressure 159/74 159/74 169/100 O2 Sat by Pulse 96 96 Oximetry 03/11/21 03/11/21 03/11/21 12:00 12:15 12:30 Temperature Pulse Rate Respiratory 18 Rate Blood Pressure 162/79 161/86 147/82 O2 Sat by Pulse 97 96 94 L Oximetry 03/11/21 03/11/21 03/11/21 12:45 13:00 13:15 Temperature Pulse Rate 71 Respiratory 18 Rate Blood Pressure 134/79 138/76 152/84 O2 Sat by Pulse 94 L Oximetry 03/11/21 03/11/21 03/11/21 13:30 13:45 14:00 Temperature Pulse Rate 75 59 L Respiratory 18 18 Rate Blood Pressure 152/84 O2 Sat by Pulse Oximetry 03/11/21 03/11/21 03/11/21 14:15 14:30 14:36 Temperature Pulse Rate 64 77 78 Respiratory 18 18 18 Rate Blood Pressure 173/87 O2 Sat by Pulse 95 Oximetry 03/11/21 03/11/21 03/11/21 16:15 18:25 20:19 Temperature Pulse Rate 69 84 75 Respiratory 18 18 18 Rate Blood Pressure 165/88 172/106 137/77 O2 Sat by Pulse 92 L 97 96 Oximetry 03/11/21 20:40 Temperature Pulse Rate 84 Respiratory 18 Rate Blood Pressure O2 Sat by Pulse 96 Oximetry - Reevaluation(s) Reevaluation #1: Spoke with Dr. Burgos. Patient is not a TPA candidate. We'll get CT angiography to determine if patient is a thrombectomy candidate. 03/11/21 11:19 EKG Findings - EKG Comments: EKG Findings:: EKG demonstrates normal sinus rhythm with a ventricular rate of 81. OK interval 134. QRS 94. QTC 441. No acute ST segment elevations or depressions. Medical Decision Making - Medical Decision Making On arrival patient was placed into room 3. A code stroke was activated as the patient does have measurable NIH of 9. She is out of the TPA window as last normal is 11 PM last night. Laboratory studies were conducted. Troponin mildly elevated at 0.067. CT angiography of the brain demonstrates no acute intracranial process. No significant diameter reduction chest x-ray demonstrates no evidence for acute cardiac pulmonary disease. Patient given atorvastatin. She is ALLERGIC to aspirin and therefore unable to provide aspirin to the patient. Recommended admission for CVA. Spoke with Dr. Hazel who agreed to admit the patient. Neurology placed on consult. Patient remained in stable condition with a stable NIH awaiting a bed on the floor - Lab Data Result diagrams: 03/11/21 11:08 03/11/21 12:25 Lab Results 03/11/21 03/11/21 03/11/21 Range/Units 10:55 11:08 11:08 WBC 7.4 (3.8-10.6) k/uL RBC 4.68 (3.80-5.40) m/uL Hgb 13.7 (11.4-16.0) gm/dL Hct 43.0 (34.0-46.0) % MCV 91.9 (80.0-100.0) fL MCH 29.2 (25.0-35.0) pg MCHC 31.8 (31.0-37.0) g/dL RDW 13.3 (11.5-15.5) % Plt Count 205 (150-450) k/uL MPV 10.3 Neutrophils % 62 % Lymphocytes % 27 % Monocytes % 7 % Eosinophils % 2 % Basophils % 1 % Neutrophils # 4.5 (1.3-7.7) k/uL Lymphocytes # 2.0 (1.0-4.8) k/uL Monocytes # 0.5 (0-1.0) k/uL Eosinophils # 0.1 (0-0.7) k/uL Basophils # 0.0 (0-0.2) k/uL PT 9.6 (9.0-12.0) sec INR 0.9 (<1.2) APTT 23.4 (22.0-30.0) sec Sodium (137-145) mmol/L Potassium (3.5-5.1) mmol/L Chloride (98-107) mmol/L Carbon Dioxide (22-30) mmol/L Anion Gap mmol/L BUN (7-17) mg/dL Creatinine (0.52-1.04) mg/dL Est GFR (CKD-EPI)AfAm (>60 ml/min/1.73 sqM) Est GFR (CKD-EPI)NonAf (>60 ml/min/1.73 sqM) Glucose (74-99) mg/dL POC Glucose (mg/dL) 310 H (75-99) mg/dL POC Glu Smart [employer] Engineer ID Jose Armando [address] Glu mg/dL Hemoglobin A1c (4.0-6.0) % Calcium (8.4-10.2) mg/dL Total Bilirubin (0.2-1.3) mg/dL AST (14-36) U/L ALT (4-34) U/L Alkaline Phosphatase (38-126) U/L Troponin I (0.000-0.034) ng/mL Total Protein (6.3-8.2) g/dL Albumin (3.5-5.0) g/dL 03/11/21 03/11/21 03/11/21 Range/Units 11:08 12:25 12:25 WBC (3.8-10.6) k/uL RBC (3.80-5.40) m/uL Hgb (11.4-16.0) gm/dL Hct (34.0-46.0) % MCV (80.0-100.0) fL MCH (25.0-35.0) pg MCHC (31.0-37.0) g/dL RDW (11.5-15.5) % Plt Count (150-450) k/uL MPV Neutrophils % % Lymphocytes % % Monocytes % % Eosinophils % % Basophils % % Neutrophils # (1.3-7.7) k/uL Lymphocytes # (1.0-4.8) k/uL Monocytes # (0-1.0) k/uL Eosinophils # (0-0.7) k/uL Basophils # (0-0.2) k/uL PT (9.0-12.0) sec INR (<1.2) APTT (22.0-30.0) sec Sodium 133 L (137-145) mmol/L Potassium 4.1 (3.5-5.1) mmol/L Chloride 101 (98-107) mmol/L Carbon Dioxide 26 (22-30) mmol/L Anion Gap 6 mmol/L BUN 15 (7-17) mg/dL Creatinine 0.56 (0.52-1.04) mg/dL Est GFR (CKD-EPI)AfAm >90 (>60 ml/min/1.73 sqM) Est GFR (CKD-EPI)NonAf >90 (>60 ml/min/1.73 sqM) Glucose 296 H (74-99) mg/dL POC Glucose (mg/dL) (75-99) mg/dL POC Glu Smart Grid Engineer ID Estimated Ave Glu mg/dL 306 Hemoglobin A1c 12.3 H (4.0-6.0) % Calcium 8.9 (8.4-10.2) mg/dL Total Bilirubin 0.4 (0.2-1.3) mg/dL AST 17 (14-36) U/L ALT 13 (4-34) U/L Alkaline Phosphatase 118 (38-126) U/L Troponin I 0.067 H* (0.000-0.034) ng/mL Total Protein 6.2 L (6.3-8.2) g/dL Albumin 3.1 L (3.5-5.0) g/dL Critical Care Time Critical Care Time: Yes Critical Care Time: 35 minutes Disposition Clinical Impression: Acute CVA (cerebrovascular accident), Left hemiparesis, Elevated troponin Disposition: ADMITTED IP TO THIS [facility] Condition: Stable Is patient prescribed a controlled substance at d/c from ED?: No Decision to Admit Reason: Admit from EC Decision Date: 03/11/21 Decision Time: 13:17
[2021-03-11] MEDS ORDERED: FAMOTIDINE 20 MG/2 ML VIAL IV STA (11:05)
[2021-03-11] MEDS ORDERED: methylPREDNISolone SOD SUCCI 125 MG/2 ML VIAL IV STA (11:05)
[2021-03-11] MEDS ORDERED: diphenhydrAMINE 50 MG/ML 1 ML VIAL IVP STA (11:05)
[2021-03-11 11:13] LABS: Glucose,Whole Blood 310 mg/dL (75-99)
--- NOTE | 2021-03-11 11:31 | CT ---
EXAMINATION TYPE: CT brain wo con DATE OF EXAM: 03/11/2021 COMPARISON: 05/14/2017 HISTORY: Neuro deficit, acute, stroke suspected, code stroke CT DLP: unavailable mGycm Unenhanced CT of the brain was performed. The ventricles, basal cisterns and sulci overlying the cerebral convexities demonstrate mild enlargem ent. There is no evidence for intracranial hemorrhage or sulcal effacement. There is decreased attenuation about the periventricular white matter and deep white matter of both c erebral hemispheres, compatible with chronic small vessel ischemia. Differential diagnosis does inclu de demyelination. No mass effects are seen.No midline shift. Osseous calvarium is intact. If symptoms persist consider MRI. IMPRESSION: 1. Age related atrophic and chronic small vessel ischemic change without acute intracranial process s een at this time.
[2021-03-11 11:35] LABS: Basophils % (A) 1 %; Eosinophils # (A) 0.1 k/uL (0-0.7); Eosinophils % (A) 2 %; HGB 13.7 gm/dL (11.4-16.0); Lymphocytes % (A) 27 %; MCH 29.2 pg (25.0-35.0); MCHC 31.8 g/dL (31.0-37.0); MCV 91.9 fL (80.0-100.0); Mean Platelet Volume 10.3; Monocytes # (A) 0.5 k/uL (0-1.0); Monocytes % (A) 7 %; Neutrophils # (A) 4.5 k/uL (1.3-7.7); Neutrophils % (A) 62 %; Platelet Count 205 k/uL (150-450); RBC 4.68 m/uL (3.80-5.40); RDW 13.3 % (11.5-15.5); WBC 7.4 k/uL (3.8-10.6)
--- NOTE | 2021-03-11 11:46 | CT ---
EXAMINATION TYPE: CT angio head neck DATE OF EXAM: 03/11/2021 COMPARISON: None HISTORY: Neuro deficit, acute, stroke suspected, code stroke CT DLP: 408.2 mGycm CONTRAST: Performed with IV Contrast, patient injected with 65 mL of Isovue 370. Combination Contrast CTA cervical carotids and [place] CTA cervical carotids with 3-D recons truction Contrast CTA of the cervical carotids was performed 3-D reconstruction imaging obtained at a separate workstation. Right carotid system: Mild plaque is seen of the right common carotid artery. There is mild plaque a lso noted at the carotid bulb and proximal ICA. No significant diameter reduction. ECA is patent. Right vertebral artery appears unremarkable. Left carotid system: Mild plaque is seen of the left common carotid artery. There is mild plaque als o noted at the carotid bulb and proximal ICA. No significant diameter reduction. ECA is patent. Lef t vertebral artery appears unremarkable. IMPRESSION: 1. No significant diameter reduction to account for the patient's symptoms. CTA [place] with 3-D reconstruction Contrast CTA of the [place] was performed 3-D reconstruction imaging obtained at a separate workstation. Vertebrobasilar system as well as intracranial portions of the internal carotid arteries and their ma nicholas tributaries are patent. I do not see evidence for sizable aneurysm or vascular malformation. Pl ease note MRI provides greater sensitivity and specificity. Visualized brain appears grossly unremar kable. IMPRESSION: 1. No significant abnormality. NASCET criteria was used in interpretation of this exam?
[2021-03-11 11:52] LABS: INR 0.9 (<1.2); Partial Thromboplastin Time 23.4 sec (22.0-30.0); Prothrombin Time 9.6 sec (9.0-12.0)
[2021-03-11 12:57] LABS: ALT 13 U/L (4-34); AST 17 U/L (14-36); African American GFR (CKD) >90 (>60 ml/min/1.73 sqM); Albumin 3.1 g/dL (3.5-5.0); Alkaline Phosphatase 118 U/L (38-126); Anion Gap 6 mmol/L; Blood Urea Nitrogen 15 mg/dL (7-17); Calcium 8.9 mg/dL (8.4-10.2); Carbon Dioxide 26 mmol/L (22-30); Chloride 101 mmol/L (98-107); Glucose 296 mg/dL (74-99); Non-African American GFR(CKD) >90 (>60 ml/min/1.73 sqM); Potassium 4.1 mmol/L (3.5-5.1); Sodium 133 mmol/L (137-145); Total Bilirubin 0.4 mg/dL (0.2-1.3); Total Protein 6.2 g/dL (6.3-8.2)
[2021-03-11] MEDS ORDERED: ASPIRIN 325 MG TAB PO STA (13:17)
--- NOTE | 2021-03-11 13:46 | XR ---
EXAMINATION TYPE: XR chest 2V DATE OF EXAM: 03/11/2021 COMPARISON: 11/01/2020 HISTORY: Shortness of breath TECHNIQUE: Frontal and lateral views of the chest are obtained. FINDINGS: Scattered senescent parenchymal changes noted. Hyperinflation compatible with COPD. No evidence for infiltrate. No evidence for atelectasis. Heart size is stable. Mediastinal structures are stable and grossly unremarkable. No evidence for hilar prominence. Degenerative changes dorsal spine. IMPRESSION: 1. No evidence for acute pulmonary disease.
--- NOTE | 2021-03-11 14:45 | HP ---
HISTORY AND PHYSICAL DATE OF SERVICE: 03/11/2021 CHIEF COMPLAINT: Weakness of the left upper and lower limbs. HISTORY OF PRESENT ILLNESS: This 70-year-old woman with a past medical history of multiple medical problems, including CAD, COPD, CVA, TIA, diabetes mellitus, DVT, GERD, hypertension, hyperlipidemia, being followed by Dr. Benitez in the outpatient setting, apparently woke up this morning with significant weakness of the left side of the body, including left upper and lower limbs. The patient came to [facility] Emergency Room and STROKE CODE was called. CT of the brain was done which showed only age-related atrophic changes and no acute process. A CT angio was also done which showed no significant abnormality. There is no history of any fever, rigors or chills. No history of headache, loss of consciousness, seizures at this time. PAST MEDICAL HISTORY: History of CAD, COPD, CVA, TIA, diabetes mellitus, DVT, GERD. HOME MEDICATIONS: Home medications are reviewed and include Ultram, Requip, Toprol, Synthroid, Humalog, Lantus. Doses are reviewed. ALLERGIES: ASPIRIN, CODEINE, BACTRIM, TRIMETHOPRIM. FAMILY HISTORY: History of cancer, hypertension. SOCIAL HISTORY: History of smoking. No history of alcohol intake. REVIEW OF SYSTEMS: ENT: Diminished hearing. Diminished vision. CARDIOVASCULAR SYSTEM: No angina, palpitations. RESPIRATORY SYSTEM: As mentioned earlier. GI: As mentioned earlier. : No dysuria. NERVOUS SYSTEM: No numbness, weakness. ALLERGY/IMMUNOLOGY: No asthma or hay fever. MUSCULOSKELETAL: As mentioned earlier. HEMATOLOGY/ONCOLOGY: No history of anemia. ENDOCRINE: No history of diabetes or hypothyroidism. CONSTITUTIONAL: As mentioned earlier. DERMATOLOGY: Negative. RHEUMATOLOGY: Negative. PSYCHIATRY: As mentioned earlier. PHYSICAL EXAMINATION: Patient is alert and oriented x3. Pulse 78, blood pressure 159/74, respiration 16, temperature 98.2, pulse ox 96% on room air. HEENT: Conjunctivae normal. NECK: No jugular venous distention. CARDIOVASCULAR: S1, S2 muffled. RESPIRATION: Breath sounds diminished at the bases. A few scattered rhonchi. ABDOMEN: Soft, nontender. NERVOUS SYSTEM: Significant flaccid hemiplegia of the left side. SKIN: No ulcer, rash, bleeding. JOINTS: No active deforming arthropathy. LABS: CBC within normal limits. Sodium 133. CT scan ASSESSMENT: 1. Acute left-sided weakness; possible right-sided 2. Diabetes mellitus, type 2, uncontrolled with hyperglycemia. 3. Hyponatremia. 4. History of coronary artery disease. 5. History of chronic obstructive pulmonary disease. 6. Cerebrovascular accident, transient ischemic attack. 7. Diabetes mellitus, type 2. 8. Deep vein thrombosis. 9. Gastroesophageal reflux disease. 10.Hypertension. 11.Hyperlipidemia. 12.History of degenerative joint disease. 13.History of pneumonia. 14.History of syncope. 15.History of hypothyroidism. 16.History of antiphospholipid antibody syndrome. 17.Lupus anticoagulant. 18.Demyelination. 19.History of restless legs syndrome. 20.History of MRSA. 21.History of back surgery, degenerative joint disease. RECOMMENDATIONS AND DISCUSSION: In this 70-year-old woman who presented with multiple complex medical problems, we will monitor the patient closely. Neuro checks to complete neurovascular workup. The initial CT and CT angio did not show acute abnormality. Neurology consultation. Resume the home medications. Overall prognosis is guarded because of multiple complex medical issues. We will also plan for repeat CT scan and further evaluations and also a PT/OT evaluation. Prognosis guarded. Further recommendations to follow. A copy of this dictation is being forwarded to Dr. Benitez, who is the primary physician. MMODL / IJN: [id number] / MTDD
[2021-03-11] MEDS: ATORVASTATIN 40 MG TAB PO SCH (15:23)
[2021-03-11] MEDS ORDERED: traMADol 50 MG TAB PO STA (15:29)
[2021-03-11] MEDS ORDERED: DIPHENOX-ATROP 2.5-0.025 MG 1 EACH TAB PO PRN (15:45)
[2021-03-11] MEDS: INSULIN DETEMIR (LEVEMIR) 100 UNIT/ML SYR SQ SCH (18:16)
[2021-03-11 18:20] LABS: Glucose,Whole Blood 348 mg/dL (75-99)
[2021-03-11] MEDS ORDERED: CLOPIDOGREL 75 MG TAB PO STA (18:54)
[2021-03-11 21:26] LABS: Glucose,Whole Blood 495 mg/dL (75-99)
[2021-03-11] MEDS: traMADol 50 MG TAB PO PRN (22:54)
--- NOTE | 2021-03-12 00:15 | P.CNNES ---
History of Present Illness Consult date: 03/11/21 Requesting physician: Viviane Lombardi Reason for Consult: Acute left hemiparesis, suspected CVA History of Present Illness: Patient is a 70-year-old right-handed female came to the Hospital by ambulance today at 10:51 AM for evaluation of acute left hemiparesis. Patient states that her symptoms started 10 PM last night while she was watching TV. She had to go to the bathroom, when she tried to get from her couch to the wheelchair, she noticed "the left side was not coming with her". There was no pain. She was noticing weakness of the left arm and left leg. There was slight droop of left side of the face. Patient felt the symptoms were "vague". Patient informed her daughter, who states that if the symptoms get worse to let her know. Patient went to sleep. This morning she woke up and was completely flaccid on the left side. She therefore decided to come to the ER. When EMS arrived (somewhat different than what she reported to me), patient was in a seated position in her home, accompanied by family, in some distress and she makes eye contact. She was alert and oriented 4, complaining of left he miparesis, no pain. The patient stated yesterday during her visit with her physician, she noticed some left hand numbness. An MRI of the brain was advised. Today at 10 AM, the patient noted left hemiparesis and she contacted her physician who advised her to seek immediate medical attention. Patient's blood pressure was 167/89, pulse 81, respiration 18, saturation 95%. Repeat blood pressure 164/110. Patient's computed tomography scan of the head showed age-related atrophy and chronic small vessel ischemic changes without acute intracranial process seen at this time. I personally reviewed computed tomography scan of the head and agree with the findings. CTA of head and neck showed no significant abnormality to account for patient's symptoms. There is mild plaque seen at the right common carotid artery. EKG shows normal sinus rhythm, left axis deviation. Chest x- ray showed no evidence for acute pulmonary disease. Patient's fingerstick glucoses just checked was 348. Patient's blood test shows normal CBC, PT/PTT, sodium 133 potassium 4.1, normal renal functions. Blood glucose 296. Hepatic panel is normal, troponin is borderline elevated 0.067. Zapien virus PCR negative. Her home medications include levothyroxine, insulin, tramadol 50 mg every 8 hours, insulin, Requip 3 mg at bedtime and metoprolol XL 50 mg. patient does not take any antiplatelet medication. Patient stated that she is ALLERGIC to aspirin, as she gets hives all over and throat gets tight. This reaction occurred 10-12 years ago. Patient apparently was given aspirin 325 mg in the ER at 3:23 PM, but patient has not noticed any side effects as yet. At present patient continues to be flaccid hemiplegia on the left side. No slurred speech. Patient states she has history of diabetes since she was in her 20s. She has hypertension also since she was in her 20s. She occasionally uses tobacco, never a heavy smoker. Does not drink alcohol. Review of Systems As above in detail in HPI. All other 14 point review of systems reviewed and unremarkable. Patient does have gait problems and uses wheelchair. Denies any fever or chills. Denies any abdominal pain nausea vomiting diarrhea. No chest pain. Patient has colostomy due to some blockage in the interesting in the past. Patient required surgery in the past. Past Medical History Past Medical History: Coronary Artery Disease (CAD), Chest Pain / Angina, COPD, CVA/TIA, Diabetes Mellitus, Deep Vein Thrombosis (DVT), GERD/Reflux, Hyperlipidemia, Hypertension, Memory Impairment, Osteoarthritis (OA), Pneumonia, Syncope, Thyroid Disorder Additional Past Medical History / Comment(s): Other HX: Antiphospholipid syndrome , LUPUS, CVA's/TIA's, demyelinization of brain, sinus problems, diverticulosis, RESTLESS LEG SYNDROME, Hx. of L leg DVT, occipital neuritis, varicosities, colostomy. History of Any Multi-Drug Resistant Organisms: MRSA Date of last positivie culture/infection: 01/08/17 MDRO Source:: URINE Past Surgical History: Appendectomy, Back Surgery, Bladder Surgery, Cholecystectomy, Hysterectomy, Orthopedic Surgery, Tonsillectomy Additional Past Surgical History / Comment(s): L hip surgery nailing /fixation- L hip hemiarthroplasty, bladder suspension, sisi cataracts, partial laminectomy,. colostomy 2010 D/T PERFORATED DIVERTICULUM with reversal and then 2nd colostomy, LT KNEE SX FOR TORN CARTILAGE Past Anesthesia/Blood Transfusion Reactions: No Reported Reaction Additional Past Anesthesia/Blood Transfusion Reaction / Comment(s): HAD BLOOD TRANSFUSION 15 YEARS ago without reaction. Past Psychological History: No Psychological Hx Reported Smoking Status: Current every day smoker Past Alcohol Use History: None Reported Past Drug Use History: None Reported - Past Family History Mother Family Medical History: Cancer, Hypertension Additional Family Medical History / Comment(s): "mother had cancer from asbestos exposure" Father Family Medical History: Hypertension, Rheumatoid Arthritis (RA) Medications and Allergies Home Medications Medication Instructions Recorded Confirmed Type Metoprolol Succinate [Toprol XL] 50 mg PO DAILY 07/22/13 03/11/21 History rOPINIRole HCL [Requip] 3 mg PO HS 06/23/16 03/11/21 History Insulin Lispro [humaLOG Kwikpen] See Protocol SQ AC-TID 08/19/20 03/11/21 History traMADol HCL [Ultram] 50 mg PO Q8H PRN 08/19/20 03/11/21 History Diphenoxylate HCl/Atropine 1 tab PO QID PRN 03/11/21 03/11/21 History [Lomotil 2.5-0.025 mg Tablet] Insulin Glargine,Hum.rec.anlog 30 unit SQ DAILY 03/11/21 03/11/21 History [Lantus Solostar Pen] Levothyroxine Sodium [Synthroid] 125 mcg PO DAILY 03/11/21 03/11/21 History Allergies Allergy/AdvReac Type Severity Reaction Status Date / Time aspirin Allergy Anaphylaxis Verified 03/11/21 12:09 codeine Allergy Swelling Verified 03/11/21 12:09 Iodinated Contrast Media Allergy Anaphylaxis Verified 03/11/21 12:09 [Iodinated Contrast Media - IV Dye] NSAIDS (Non-Steroidal Allergy Anaphylaxis Verified 03/11/21 12:09 Anti-Inflamma sulfamethoxazole Allergy Unknown Verified 03/11/21 12:09 [From Bactrim] trimethoprim [From Bactrim] Allergy Unknown Verified 03/11/21 12:09 influenza virus vaccine ts AdvReac Nausea & Verified 03/11/21 12:09 [id number] (36 mos,up) Vomiting & [From Fluarix] Diarrhea Physical Examination - Vital Signs Vital Signs: Vital Signs Temp Pulse Resp BP Pulse Ox 03/11/21 16:15 69 18 165/88 92 L 03/11/21 14:36 78 18 173/87 95 03/11/21 14:30 77 18 03/11/21 14:15 64 18 03/11/21 14:00 59 L 18 03/11/21 13:45 75 18 03/11/21 13:30 152/84 03/11/21 13:15 71 18 152/84 03/11/21 13:00 138/76 94 L 03/11/21 12:45 134/79 03/11/21 12:30 18 147/82 94 L 03/11/21 12:15 161/86 96 03/11/21 12:00 162/79 97 03/11/21 11:45 75 169/100 96 03/11/21 11:30 72 159/74 96 03/11/21 11:15 72 159/74 03/11/21 11:00 98.5 F 76 16 154/78 96 03/11/21 10:59 75 95 03/11/21 10:52 98.5 F 81 16 154/78 96 Intake and Output 03/11/21 03/11/21 03/11/21 06:59 14:59 22:59 Other: Weight 77.111 kg Patient is an elderly male, in no acute distress. Patient is alert awake oriented to time place and person. Patient knows it is end of February 2021 and that she is in [facility] in [place]. Knows name of the current president. Speech and language functions are normal. Attention, concentration and fund of knowledge is adequate. Patient can name and repeat very well. No aphasia or dysarthria. On cranial examination, pupils are round and reacting to light, visual davis are full on confrontation, extraocular muscles are intact with no nystagmus. Face has slight flattening of the right nasolabial fold, tongue protrudes to the midline. Palatal elevation and sensation normal, hearing and shoulder shrug significantly weak on the left. Her facial sensation normal. On muscle strength testing, patient is completely flaccid in the left arm and left leg with no movement. The strength is normal in the right arm and right leg. Deep tendon reflexes are diminished, plantars are flat. Sensory is decreased in the left side of the body regarding fine touch and temperature. Cerebellar function showed no ataxia for azrqge-qm-pixg testing on the right, cannot perform on the left. No dysdiadochokinesia. Tone is decreased on the left and bulk of muscles normal. Gait not checked. On general examination, there is no carotid bruit or murmur, S1-S2 audible. Abdomen is soft nontender. Patient has colostomy. No organomegaly. Chest is clear to auscultation, no rhonchi. Peripheral pulses are present. Mild periphe ral edema. Results - Laboratory Findings CBC and BMP: 03/11/21 11:08 03/11/21 12:25 Abnormal Lab Findings: Abnormal Labs 03/11/21 03/11/21 03/11/21 10:55 12:25 12:25 Sodium 133 L Glucose 296 H POC Glucose (mg/dL) 310 H Troponin I 0.067 H* Total Protein 6.2 L Albumin 3.1 L 03/11/21 15:29 Sodium Glucose POC Glucose (mg/dL) Troponin I 0.061 H* Total Protein Albumin Assessment and Plan Assessment: * Probable acute ischemic stroke with left hemiparesis and left hemisensory loss. Possible lacunar stroke involving subcortical location, perhaps in the internal capsule versus Jazmín. Rule out embolic source. * Diabetes * Hypertension * Hyperlipidemia * History of DVT * History of antiphospholipid syndrome * CAD Plan: * Patient will undergo MRI of the brain to evaluate for an acute stroke. * 2-D echo with bubble study rule out PFO. * Patient states that she is ALLERGY to aspirin. Patient was loaded with Plavix 150 mg. Patient will be continued on Plavix 75 mg daily. * Fasting a.m. lipid panel, hemoglobin A1c. * Anticardiolipin antibodies, lupus anticoagulants * Permissive hypertension for 24 hours. * Telemetry monitoring, rule out paroxysmal A. fib. * PT OT, speech therapy. * DVT prophylaxis, we will start Lovenox 40 mg subcu daily. * Neurology will follow. Thank you for the consult.
[2021-03-12 05:45] LABS: Glucose,Whole Blood 383 mg/dL (75-99)
[2021-03-12] MEDS: INSULIN ASPART (NovoLOG) 100 UNIT/ML VIAL SQ SCH ×4 (06:35→20:23)
[2021-03-12] MEDS: LEVOTHYROXINE 125 MCG TAB PO SCH (06:35)
[2021-03-12] MEDS: ENOXAPARIN 40 MG/0.4 ML SYRINGE SQ SCH (09:44)
[2021-03-12] MEDS: METOPROLOL SUCCINATE (ER) 50 MG TAB.ER.24H PO SCH (09:44)
[2021-03-12] MEDS: ATORVASTATIN 40 MG TAB PO SCH (09:44)
[2021-03-12 10:33] VITALS: BMI 30.1
--- NOTE | 2021-03-12 10:55 | ECHOF ---
Referral Reason:CVA MEASUREMENTS -------- HEIGHT: 160.0 cm WEIGHT: 77.1 kg BP: IVSd: 1.4 cm (0.6 - 1.1) LVIDd: 3.8 cm (3.9 - 5.3) LVPWd: 1.8 cm (0.6 - 1.1) IVSs: 2.0 cm LVIDs: 2.4 cm LVPWs: 1.5 cm Ao Diam: 3.2 cm (2.0 - 3.7) AV Cusp: 1.6 cm (1.5 - 2.6) LA Diam: 3.7 cm (2.7 - 3.8) MV EXCURSION: 14.577 mm (> 18.000) MV EF SLOPE: 50 mm/s (70 - 150) EPSS: 0.4 cm MV E Anthony: 0.52 m/s MV DecT: 286 ms MV A Anthony: 0.92 m/s MV E/A Ratio: 0.56 RAP: 5.00 mmHg RVSP: 18.23 mmHg FINDINGS -------- Sinus rhythm. This was a technically adequate study. The left ventricular size is normal. There is moderate concentric left ventricular hypertrophy. O verall left ventricular systolic function is low-normal with, an EF between 50 - 55 %. The right ventricle is normal in size. The left atrial size is normal. The right atrial size is normal. BUBBLE STUDY NOT PERFORMED DUE TO TDS IMAGES. There is mild aortic valve sclerosis. There is no evidence of aortic regurgitation. Mild mitral regurgitation is present. Mild tricuspid regurgitation present. Right ventricular systolic pressure is normal at < 35 mmHg. The pulmonic valve was not well visualized. There is no pericardial effusion. CONCLUSIONS -------- 1. The left ventricular size is normal. 2. There is moderate concentric left ventricular hypertrophy. 3. Overall left ventricular systolic function is low-normal with, an EF between 50 - 55 %. 4. The right ventricle is normal in size. 5. The left atrial size is normal. 6. The right atrial size is normal. 7. BUBBLE STUDY NOT PERFORMED DUE TO TDS IMAGES. 8. There is mild aortic valve sclerosis. 9. Mild mitral regurgitation is present. 10. Mild tricuspid regurgitation present. 11. The pulmonic valve was not well visualized. 12. There is no pericardial effusion. NEONATAL SOCIAL WORKER: Елена Munoz RDCS
[2021-03-12 11:02] LABS: Chol/HDL Ratio 4.83 Ratio; LDL Cholesterol,Calculated 144.4 mg/dL (0.0-131.0)
[2021-03-12 11:53] LABS: Glucose,Whole Blood 222 mg/dL (75-99)
[2021-03-12 14:15] LABS: Cardiolipin Ab IgG Interp NEGATIVE (NEGATIVE); Cardiolipin Ab IgM Interp NEGATIVE (NEGATIVE); Cardiolipin IgA Antibody <2.0 U/mL; Cardiolipin IgM Antibody <1.5 U/mL
[2021-03-12] MEDS: CLOPIDOGREL 75 MG TAB PO SCH (16:15)
[2021-03-12] MEDS: traMADol 50 MG TAB PO PRN (16:15)
[2021-03-12 17:09] LABS: Glucose,Whole Blood 224 mg/dL (75-99)
[2021-03-12] MEDS: INSULIN DETEMIR (LEVEMIR) 100 UNIT/ML SYR SQ SCH (17:51)
--- NOTE | 2021-03-12 20:11 | PN ---
PROGRESS NOTE DATE OF SERVICE: 03/12/2021 This 70-year-old woman who was admitted with weakness, left upper limb is awaiting MRI. No chest pain. No palpitations. No still has some weakness. PHYSICAL EXAMINATION: Alert and oriented times three. Pulse 73, blood pressure 145/65, respiration 18, temperature 96.9, pulse ox 94% on room air. HEENT: Conjunctivae normal. Neck: No JVD. Cardiovascular: S1, S2 muffled. Respiration: Breath sounds diminished in the bases. Abdomen: Soft. Nervous System: Left-sided weakness. LABS: Accu-Cheks noted. ASSESSMENT: 1. Acute left-sided weakness, possibly right hemispheric lesion with possible acute transient ischemic attack. 2. Diabetes type 2, uncontrolled with hyperglycemia. 3. Hyponatremia. 4. History of coronary artery disease. 5. History of chronic obstructive pulmonary disease. 6. Cerebrovascular accident/transient ischemic attack history. 7. Diabetes type 2. 8. History of deep vein thrombosis. 9. History of gastroesophageal reflux disease. 10.Hypertension. 11.Hyperlipidemia. History of degenerative joint disease. 12.History of pneumonia. 13.History of syncope. 14.History of hypothyroidism. 15.History of antiphospholipid antibody syndrome. 16.Lupus anticoagulant history. 17.History of demyelination. 18.History of restless legs syndrome. 19.History of MRSA. 20.History of back surgery and degenerative joint disease. RECOMMENDATIONS AND DISCUSSION: Recommend to continue current medications, management and symptomatic treatment. Otherwise continue the antiplatelet agents. Closely follow with Neurology. Await MRI report. Guarded prognosis because of multiple complex medical issues. Further recommendations to follow. MMODL / IJN: [id number] / SEBLE
[2021-03-12 20:15] LABS: Glucose,Whole Blood 194 mg/dL (75-99)
--- NOTE | 2021-03-12 22:13 | MR ---
EXAMINATION TYPE: MR brain wo con DATE OF EXAM: 03/12/2021 COMPARISON: 05/16/2017 HISTORY: CVA Multiplanar multiecho imaging of the brain without contrast. There is mild cerebral atrophy. There is no mass effect or midline shift. There is no sign of intracr anial hemorrhage. Diffusion images show no evidence of an acute infarct. The brainstem is intact. The re is some minimal gyriform increased signal in the medial left occipital lobe on the FLAIR images. T here are scattered white matter high signal foci on the FLAIR images in both cerebral hemispheres martina t measure up to 4 mm. Total numbers approximately 25. The brainstem is intact. There is no evidence of orbital mass. There is no evidence of posterior cierra a mass. Corpus callosum is intact. Sella turcica is intact. IMPRESSION: Mild cerebral atrophy. Multiple white matter high signal foci are fairly small and consistent with mi crovascular ischemia. There is evidence for some encephalomalacia or small infarct in the medial left occipital lobe. It is probably not acute. Lesion however is increased compared to old MR scan of 05/16. Patchy white matter disease not significantly different than on the exam.
--- NOTE | 2021-03-12 23:42 | P.PN ---
Subjective Progress Note Date: 03/12/21 Patient was seen for a follow-up. Patient is laying comfortably in the bed. Patient states that she is feeling much better on the left side. The strength is much improved. She just wants to go home. Patient states that she is in a wheelchair at baseline because of her history of CVA, and hip issues. Telemetry monitoring showing sinus rhythm. Objective - Vital Signs Vital signs: Vital Signs Temp 96.9 F L 03/12/21 08:00 Pulse 84 03/12/21 08:00 Resp 18 03/12/21 08:00 BP 129/65 03/12/21 08:00 Pulse Ox 92 L 03/12/21 08:00 Intake & Output 03/11/21 03/12/21 03/12/21 18:59 06:59 18:59 Intake Total 240 240 Output Total 250 Balance -10 240 Weight 77.111 kg 77.111 kg Intake: Oral 240 240 Output: Urine 250 Other: Voiding Method Bedside Commode Bedside Commode # Voids 1 1 - Exam Patient's mental status, speech and language functions are normal. Cranial nerves are all normal. Visual davis are full, face symmetric. On muscle strength testing patient has mild left pronation. The strength in the left arm is entirely 5- as compared to the right side. In the left lower extremity, her hip flexion is 5-, ankle dorsiflexion is 4. No ataxia for tpquvo-gg-uxwe testing on either side. No ataxia for oesy-yu-lily testing although she was slow for tila-pj-xnxt only for the left leg. Sensory, patient feeling slightly less fine touch on the left as compared to the right. - Labs CBC & Chem 7: 03/11/21 11:08 03/11/21 12:25 Labs: Abnormal Lab Results - Last 24 Hours (Table) 03/11/21 03/11/21 03/11/21 Range/Units 11:08 15:29 18:09 POC Glucose (mg/dL) 348 H (75-99) mg/dL Hemoglobin A1c 12.3 H (4.0-6.0) % Troponin I 0.061 H* (0.000-0.034) ng/mL Triglycerides (0.00-149.00) mg/dL Cholesterol (0.00-200.00) mg/dL LDL Cholesterol, Calc (0.0-131.0) mg/dL 03/11/21 03/11/21 03/12/21 Range/Units 18:14 21:24 05:04 POC Glucose (mg/dL) 495 H 383 H (75-99) mg/dL Hemoglobin A1c (4.0-6.0) % Troponin I 0.057 H* (0.000-0.034) ng/mL Triglycerides (0.00-149.00) mg/dL Cholesterol (0.00-200.00) mg/dL LDL Cholesterol, Calc (0.0-131.0) mg/dL 03/12/21 03/12/21 Range/Units 07:28 11:52 POC Glucose (mg/dL) 222 H (75-99) mg/dL Hemoglobin A1c (4.0-6.0) % Troponin I (0.000-0.034) ng/mL Triglycerides 154.00 H (0.00-149.00) mg/dL Cholesterol 221.00 H (0.00-200.00) mg/dL LDL Cholesterol, Calc 144.4 H (0.0-131.0) mg/dL Assessment and Plan Assessment: * Probable acute ischemic stroke with left hemiparesis and left hemisensory loss. Possible lacunar stroke involving subcortical location, perhaps in the internal capsule versus Jazmín. Rule out embolic source. * Diabetes * Hypertension * Hyperlipidemia * History of DVT * History of antiphospholipid syndrome * CAD Plan: * Await MRI of the brain to evaluate for an acute stroke. Scheduled at 3:30 PM per patient. * 2-D echo with bubble study revealed normal left ventricular size. Moderate concentric LVH, left ventricular systolic function is low normal with EF between 50-55%. Left atrial size is normal. Bubble study not performed. * Patient states that she is ALLERGY to aspirin. Patient was loaded with Plavix 150 mg. Patient will be continued on Plavix 75 mg daily. * Fasting a.m. lipid panel with cholesterol 221, LDL 144, HDL 45 and triglycerides 154. Continue Lipitor 40 mg daily. Patient apparently was not on statins at home. * Hemoglobin A1c 12.3, consistent with poorly controlled diabetes. Recommend optimize diabetes control to target A1c < 7.0 * Anticardiolipin antibodies negative, lupus anticoagulants pending * Optimize control of blood pressure. * Telemetry monitoring so far showing sinus rhythm. No A. fib. * PT OT, speech therapy. * DVT prophylaxis, we will start Lovenox 40 mg subcu daily. Addendum: MRI of the brain was completed. On my review showed no acute stroke. Some small vessel disease. Neurologically clear with the above recommendations.
[2021-03-13 05:37] LABS: Glucose,Whole Blood 171 mg/dL (75-99)
[2021-03-13] MEDS: LEVOTHYROXINE 125 MCG TAB PO SCH (06:29)
[2021-03-13] MEDS: INSULIN ASPART (NovoLOG) 100 UNIT/ML VIAL SQ SCH ×2 (06:29→13:09)
[2021-03-13] MEDS: traMADol 50 MG TAB PO PRN (06:32)
[2021-03-13] MEDS: METOPROLOL SUCCINATE (ER) 50 MG TAB.ER.24H PO SCH (09:38)
[2021-03-13] MEDS: CLOPIDOGREL 75 MG TAB PO SCH (09:39)
[2021-03-13] MEDS: ATORVASTATIN 40 MG TAB PO SCH (09:39)
[2021-03-13] MEDS: ENOXAPARIN 40 MG/0.4 ML SYRINGE SQ SCH (09:39)
[2021-03-13] MEDS ORDERED: INSULIN DETEMIR (LEVEMIR) 100 UNIT/ML SYR SQ ONE (10:00)
[2021-03-13] MEDS: INSULIN DETEMIR (LEVEMIR) 100 UNIT/ML SYR SQ SCH (10:03)
[2021-03-13 11:14] VITALS: TEMP 98
[2021-03-13 11:41] LABS: Glucose,Whole Blood 282 mg/dL (75-99)
[2021-03-13 15:39] VITALS: BP 154/66; PULSE 98; RESP 14
--- NOTE | 2021-03-13 20:03 | DS ---
DISCHARGE SUMMARY FINAL DIAGNOSES: 1. Acute left-sided weakness, possibly right hemispheric transient ischemic attack, improved. Possible lacunar infarct involving the subcortical location, possibly internal capsule versus mela. 2. Chronic congestive heart failure with chronic systolic dysfunction, ejection fraction 50% to 55%. 3. Diabetes mellitus, type 2, uncontrolled with hyperglycemia. 4. Hyponatremia. 5. History of coronary artery disease. 6. History of chronic obstructive pulmonary disease. 7. Cerebrovascular accident, transient ischemic attack history. 8. History of diabetes mellitus, type 2. 9. History of deep vein thrombosis. 10.History of gastroesophageal reflux disease. 11.Hypertension. 12.Hyperlipidemia. 13.History of degenerative joint disease. 14.History of pneumonia. 15.History of syncope. 16.History of hypothyroidism. 17.History of antiphospholipid antibody syndrome. 18.Lupus anticoagulant history. 19.History of demyelination. 20.History of restless legs syndrome. 21.History of MRSA. 22.History of back surgery and degenerative joint disease. DISCHARGE DISPOSITION: The patient will be discharged in stable condition with guarded prognosis. HISTORY OF PRESENT ILLNESS: This 70-year-old woman with a past medical history multiple medical problems, being followed by Dr. Benitez in the outpatient setting, was admitted with significant weakness on the left side of the body. Neurology saw the patient. However, the weakness improved significantly. Neurovascular workup was basically negative. The patient also had an MRI of the brain suggested by Neurology. The MRI showed only mild cerebral atrophy. Microvascular ischemia was noted. Encephalomalacia and other changes were also noted. On exam, vitals are stable. CARDIOVASCULAR: S1, S2 muffled. ABDOMEN: Soft. NERVOUS SYSTEM: No focal deficit. DISCHARGE ADVICE AND MEDICATIONS: 1. Discharge diet is cardiac. 2. Activity limited until followup. 3. Follow up with Dr. Benitez in 2 to 3 days. 4. Follow up with Dr. Au as recommended. 5. Insulin as before. 6. Insulin glargine 30 units daily. 7. Diphenoxylate q.i.d. p.r.n. 8. Requip 3 mg at bedtime. 9. Synthroid 125 mcg p.o. daily. 10.Toprol-XL 50 mg p.o. daily. 11.Ultram 50 mg q.8 p.r.n. 12.Lipitor 40 mg p.o. daily. 13.Plavix 75 mg p.o. daily. MMODL / IJN: [id number] /
[2021-03-16 11:49] LABS: APTT 34 Sec(s) (<43); Dilute Russell Viper Venom 41 Sec(s) (<44)
== END 2021-03-13 15:03 | disposition home health service (06) | DRG 65 ==
LOC: EC 10:51 → 3SCARD 13:17
PROVIDERS: ADMIT Hospitalist; ATTEND Hospitalist
DX: I63.81 Other cerebral infarction due to occlusion or stenosis of small artery (principal); D68.62 Lupus anticoagulant syndrome; E87.1 Hypo-osmolality and hyponatremia; G81.04 Flaccid hemiplegia affecting left nondominant side; I50.22 Chronic systolic (congestive) heart failure; D68.61 Antiphospholipid syndrome; Z16.24 Resistance to multiple antibiotics; Z20.822 Contact with and (suspected) exposure to COVID-19; E03.9 Hypothyroidism, unspecified; E11.65 Type 2 diabetes mellitus with hyperglycemia; E78.5 Hyperlipidemia, unspecified; F17.200 Nicotine dependence, unspecified, uncomplicated; G25.81 Restless legs syndrome; G93.89 Other specified disorders of brain; I11.0 Hypertensive heart disease with heart failure; I25.10 Atherosclerotic heart disease of native coronary artery without angina pectoris; J44.9 Chronic obstructive pulmonary disease, unspecified; K21.9 Gastro-esophageal reflux disease without esophagitis; R29.709 NIHSS score 9; M19.90 Unspecified osteoarthritis, unspecified site; M79.2 Neuralgia and neuritis, unspecified; Z79.02 Long term (current) use of antithrombotics/antiplatelets; Z79.4 Long term (current) use of insulin; Z86.14 Personal history of Methicillin resistant Staphylococcus aureus infection; Z86.718 Personal history of other venous thrombosis and embolism; Z86.73 Personal history of transient ischemic attack (TIA), and cerebral infarction without residual deficits; Z87.01 Personal history of pneumonia (recurrent); Z93.3 Colostomy status; Z90.710 Acquired absence of both cervix and uterus; Z88.6 Allergy status to analgesic agent; Z82.49 Family history of ischemic heart disease and other diseases of the circulatory system; Z80.9 Family history of malignant neoplasm, unspecified; Z79.899 Other long term (current) drug therapy; Z79.890 Hormone replacement therapy; Z79.82 Long term (current) use of aspirin
CPT/HCPCS: 36415; 70450; 70496; 70498; 70551; 71046; 80053; 80061; 83036; 84484; 85025; 85610; 85613; 85730; 86147; 87635; 93005; 93306; 96374; 96375; 99291

== ENCOUNTER 2021-09-07 19:19 | Emergency (ER) | payer MEDICARE ==
[2021-09-07 19:26] LABS: Glucose,Whole Blood 445 mg/dL (70-110)
[2021-09-07 19:28] VITALS: RESP 18; TEMP 98.2
[2021-09-07] MEDS ORDERED: SODIUM CHLORIDE 0.9% 1,000 ML IV STA (19:30)
[2021-09-07] MEDS ORDERED: INSULIN REGULAR 100 UNIT/ML VIAL (IV) IV ONE (19:32)
--- NOTE | 2021-09-07 19:34 | ED ---
General Adult HPI - General Chief complaint: Recheck/Abnormal Lab/Rx Stated complaint: Hyperglycemia Time Seen by Provider: 09/07/21 19:25 Source: patient, EMS, RN notes reviewed Mode of arrival: EMS Limitations: no limitations - History of Present Illness Initial comments: Patient is a pleasant 70-year-old female presenting to the emergency Department with high blood sugar. Onset was around 24 hours ago. Patient has been on steroids recently secondary to source from her lupus. Patient complains of polyuria and polydipsia. No chest pain. No recent infection. - Related Data Home Medications Medication Instructions Recorded Confirmed Metoprolol Succinate [Toprol XL] 50 mg PO DAILY 07/22/13 03/11/21 rOPINIRole HCL [Requip] 3 mg PO HS 06/23/16 03/11/21 Insulin Lispro [humaLOG Kwikpen] See Protocol SQ AC-TID 08/19/20 03/11/21 traMADol HCL [Ultram] 50 mg PO Q8H PRN 08/19/20 03/11/21 Diphenoxylate HCl/Atropine 1 tab PO QID PRN 03/11/21 03/11/21 [Lomotil 2.5-0.025 mg Tablet] Insulin Glargine,Hum.rec.anlog 30 unit SQ DAILY 03/11/21 03/11/21 [Lantus Solostar Pen] Levothyroxine Sodium [Synthroid] 125 mcg PO DAILY 03/11/21 03/11/21 Previous Rx's Medication Instructions Recorded Atorvastatin [Lipitor] 40 mg PO DAILY #30 tab 03/12/21 Clopidogrel [Plavix] 75 mg PO DAILY #30 tab 03/12/21 Allergies Allergy/AdvReac Type Severity Reaction Status Date / Time aspirin Allergy Anaphylaxis Verified 09/07/21 19:28 codeine Allergy Swelling Verified 09/07/21 19:28 Iodinated Contrast Media Allergy Anaphylaxis Verified 09/07/21 19:28 [Iodinated Contrast Media - IV Dye] NSAIDS (Non-Steroidal Allergy Anaphylaxis Verified 09/07/21 19:28 Anti-Inflamma sulfamethoxazole Allergy Unknown Verified 09/07/21 19:28 [From Bactrim] trimethoprim [From Bactrim] Allergy Unknown Verified 09/07/21 19:28 influenza virus vaccine ts AdvReac Nausea & Verified 09/07/21 19:28 [id number] (36 mos,up) Vomiting & [From Fluarix] Diarrhea Review of Systems ROS Statement: Those systems with pertinent positive or pertinent negative responses have been documented in the HPI. ROS Other: All systems not noted in ROS Statement are negative. Constitutional: Denies: fever Eyes: Denies: eye pain ENT: Denies: ear pain Respiratory: Denies: cough Cardiovascular: Denies: chest pain Endocrine: Reports: polydipsia, polyuria. Denies: fatigue Gastrointestinal: Denies: abdominal pain Genitourinary: Denies: dysuria Musculoskeletal: Denies: back pain Skin: Reports: lesions (Patient has lesions consistent with her history of lupus.) Past Medical History Past Medical History: Coronary Artery Disease (CAD), Chest Pain / Angina, COPD, CVA/TIA, Diabetes Mellitus, Deep Vein Thrombosis (DVT), GERD/Reflux, Hyperlipidemia, Hypertension, Memory Impairment, Osteoarthritis (OA), Pneumonia, Syncope, Thyroid Disorder Additional Past Medical History / Comment(s): Other HX: Antiphospholipid syndrome , LUPUS, CVA's/TIA's, demyelinization of brain, sinus problems, diverticulosis, RESTLESS LEG SYNDROME, Hx. of L leg DVT, occipital neuritis, varicosities, colostomy. History of Any Multi-Drug Resistant Organisms: MRSA Date of last positivie culture/infection: 01/08/17 MDRO Source:: URINE Past Surgical History: Appendectomy, Back Surgery, Bladder Surgery, Cholecystectomy, Hysterectomy, Orthopedic Surgery, Tonsillectomy Additional Past Surgical History / Comment(s): L hip surgery nailing /fixation- L hip hemiarthroplasty, bladder suspension, sisi cataracts, partial laminectomy,. colostomy 2010 D/T PERFORATED DIVERTICULUM with reversal and then 2nd colostomy, LT KNEE SX FOR TORN CARTILAGE Past Anesthesia/Blood Transfusion Reactions: No Reported Reaction Additional Past Anesthesia/Blood Transfusion Reaction / Comment(s): HAD BLOOD TRANSFUSION 15 YEARS ago without reaction. Past Psychological History: No Psychological Hx Reported Smoking Status: Current every day smoker Past Alcohol Use History: None Reported Past Drug Use History: None Reported - Past Family History Mother Family Medical History: Cancer, Hypertension Additional Family Medical History / Comment(s): "mother had cancer from asbestos exposure" Father Family Medical History: Hypertension, Rheumatoid Arthritis (RA) General Exam Limitations: no limitations General appearance: alert, in no apparent distress Head exam: Present: normocephalic Eye exam: Present: normal appearance ENT exam: Present: normal oropharynx Neck exam: Present: normal inspection Respiratory exam: Present: normal lung sounds bilaterally Cardiovascular Exam: Present: regular rate GI/Abdominal exam: Present: soft. Absent: distended, tenderness Extremities exam: Present: normal inspection Neurological exam: Present: alert Psychiatric exam: Present: normal affect, normal mood Skin exam: Present: other (Diffuse small skin lesions, generally under 1 cm, circular ulceration like.) Course Vital Signs 09/07/21 19:25 Temperature 98.2 F Pulse Rate 107 H Respiratory 18 Rate Blood Pressure 145/95 O2 Sat by Pulse 95 Oximetry EKG Findings - EKG Comments: EKG Findings:: Sinus rhythm with rate 93. IN 149. QRS 94. QT 352. QTC 43. Left axis. LVH criteria. Q wave V3 and inferior. No acute ST change. Medical Decision Making - Medical Decision Making Patient will be discharged pending troponin. Patient reevaluated and updated. Patient is feeling fine. - Lab Data Result diagrams: 09/07/21 20:25 09/07/21 20:25 Lab Results 09/07/21 09/07/21 09/07/21 Range/Units 19:23 20:25 20:25 WBC 14.1 H (3.8-10.6) k/uL RBC 5.10 (3.80-5.40) m/uL Hgb 14.8 (11.4-16.0) gm/dL Hct 45.7 (34.0-46.0) % MCV 89.6 (80.0-100.0) fL MCH 29.0 (25.0-35.0) pg MCHC 32.4 (31.0-37.0) g/dL RDW 13.2 (11.5-15.5) % Plt Count 287 (150-450) k/uL MPV 10.4 Neutrophils % 80 % Lymphocytes % 11 % Monocytes % 6 % Eosinophils % 1 % Basophils % 1 % Neutrophils # 11.3 H (1.3-7.7) k/uL Lymphocytes # 1.5 (1.0-4.8) k/uL Monocytes # 0.9 (0-1.0) k/uL Eosinophils # 0.2 (0-0.7) k/uL Basophils # 0.1 (0-0.2) k/uL PT 9.8 (9.0-12.0) sec INR 0.9 (<1.2) APTT 19.1 L (22.0-30.0) sec Sodium (137-145) mmol/L Potassium (3.5-5.1) mmol/L Chloride (98-107) mmol/L Carbon Dioxide (22-30) mmol/L Anion Gap mmol/L BUN (7-17) mg/dL Creatinine (0.52-1.04) mg/dL Est GFR (CKD-EPI)AfAm (>60 ml/min/1.73 sqM) Est GFR (CKD-EPI)NonAf (>60 ml/min/1.73 sqM) Glucose (74-99) mg/dL POC Glucose (mg/dL) 445 H (70-110) mg/dL POC Glu Fat Purification Worker ID Leann Watson Calcium (8.4-10.2) mg/dL Total Bilirubin (0.2-1.3) mg/dL AST (14-36) U/L ALT (4-34) U/L Alkaline Phosphatase (38-126) U/L Total Protein (6.3-8.2) g/dL Albumin (3.5-5.0) g/dL Acetone, Qual (Negative) 09/07/21 09/07/21 Range/Units 20:25 20:55 WBC (3.8-10.6) k/uL RBC (3.80-5.40) m/uL Hgb (11.4-16.0) gm/dL Hct (34.0-46.0) % MCV (80.0-100.0) fL MCH (25.0-35.0) pg MCHC (31.0-37.0) g/dL RDW (11.5-15.5) % Plt Count (150-450) k/uL MPV Neutrophils % % Lymphocytes % % Monocytes % % Eosinophils % % Basophils % % Neutrophils # (1.3-7.7) k/uL Lymphocytes # (1.0-4.8) k/uL Monocytes # (0-1.0) k/uL Eosinophils # (0-0.7) k/uL Basophils # (0-0.2) k/uL PT (9.0-12.0) sec INR (<1.2) APTT (22.0-30.0) sec Sodium 131 L (137-145) mmol/L Potassium 3.9 (3.5-5.1) mmol/L Chloride 96 L (98-107) mmol/L Carbon Dioxide 22 (22-30) mmol/L Anion Gap 13 mmol/L BUN 25 H (7-17) mg/dL Creatinine 0.74 (0.52-1.04) mg/dL Est GFR (CKD-EPI)AfAm >90 (>60 ml/min/1.73 sqM) Est GFR (CKD-EPI)NonAf 83 (>60 ml/min/1.73 sqM) Glucose 364 H (74-99) mg/dL POC Glucose (mg/dL) 301 H (70-110) mg/dL POC Glu Fat Purification Worker ID Lauren John Calcium 10.1 (8.4-10.2) mg/dL Total Bilirubin 0.5 (0.2-1.3) mg/dL AST 26 (14-36) U/L ALT 22 (4-34) U/L Alkaline Phosphatase 140 H (38-126) U/L Total Protein 7.8 (6.3-8.2) g/dL Albumin 4.3 (3.5-5.0) g/dL Acetone, Qual Negative (Negative) - Radiology Data Radiology results: image reviewed (Chest x-ray shows no acute process) Disposition Clinical Impression: Hyperglycemia Disposition: HOME SELF-CARE Condition: Stable Instructions (If sedation given, give patient instructions): Diabetic Hyperglycemia (ED) Additional Instructions: Continue insulin. Please follow-up primary care physician in the next 2 days for recheck. Return for uncontrolled blood sugar, fevers, worsening symptoms or other concerns. Is patient prescribed a controlled substance at d/c from ED?: No Referrals: Franklin Benitez III, MD [Primary Care Provider] - 1-2 days Time of Disposition: 22:03
--- NOTE | 2021-09-07 20:19 | XR ---
EXAMINATION TYPE: XR chest 2V DATE OF EXAM: 09/07/2021 COMPARISON: 03/11/2021 HISTORY: Altered mental status TECHNIQUE: FINDINGS: Heart is normal. Lungs are clear of infiltrate. No heart failure. The thorax is intact. Tho racic aorta is atheromatous. No pleural effusion. IMPRESSION: No active cardiopulmonary disease. Normal heart. No change.
[2021-09-07 20:34] LABS: Basophils # (A) 0.1 k/uL (0-0.2); Basophils % (A) 1 %; Eosinophils # (A) 0.2 k/uL (0-0.7); Eosinophils % (A) 1 %; HCT 45.7 % (34.0-46.0); HGB 14.8 gm/dL (11.4-16.0); Lymphocytes # (A) 1.5 k/uL (1.0-4.8); Lymphocytes % (A) 11 %; MCHC 32.4 g/dL (31.0-37.0); MCV 89.6 fL (80.0-100.0); Mean Platelet Volume 10.4; Monocytes # (A) 0.9 k/uL (0-1.0); Monocytes % (A) 6 %; Neutrophils # (A) 11.3 k/uL (1.3-7.7); Neutrophils % (A) 80 %; Platelet Count 287 k/uL (150-450); RDW 13.2 % (11.5-15.5); WBC 14.1 k/uL (3.8-10.6)
[2021-09-07 20:47] LABS: ALT 22 U/L (4-34); AST 26 U/L (14-36); African American GFR (CKD) >90 (>60 ml/min/1.73 sqM); Albumin 4.3 g/dL (3.5-5.0); Alkaline Phosphatase 140 U/L (38-126); Anion Gap 13 mmol/L; Blood Urea Nitrogen 25 mg/dL (7-17); Calcium 10.1 mg/dL (8.4-10.2); Carbon Dioxide 22 mmol/L (22-30); Chloride 96 mmol/L (98-107); Glucose 364 mg/dL (74-99); Non-African American GFR(CKD) 83 (>60 ml/min/1.73 sqM); Potassium 3.9 mmol/L (3.5-5.1); Sodium 131 mmol/L (137-145); Total Bilirubin 0.5 mg/dL (0.2-1.3); Total Protein 7.8 g/dL (6.3-8.2)
[2021-09-07 20:57] LABS: Glucose,Whole Blood 301 mg/dL (70-110)
[2021-09-07 21:04] LABS: INR 0.9 (<1.2); Prothrombin Time 9.8 sec (9.0-12.0)
[2021-09-07 21:16] LABS: Partial Thromboplastin Time 19.1 sec (22.0-30.0)
[2021-09-07 22:26] VITALS: BP 134/75; PULSE 80
[2021-09-07 22:57] LABS: Glucose,Whole Blood 119 mg/dL (70-110)
== END 2021-09-07 23:25 | disposition home or self-care (01) ==
LOC: EC 19:19
DX: E11.65 Type 2 diabetes mellitus with hyperglycemia (principal); I10 Essential (primary) hypertension; I25.10 Atherosclerotic heart disease of native coronary artery without angina pectoris; J44.9 Chronic obstructive pulmonary disease, unspecified; E78.5 Hyperlipidemia, unspecified; K21.9 Gastro-esophageal reflux disease without esophagitis; M19.90 Unspecified osteoarthritis, unspecified site; E07.9 Disorder of thyroid, unspecified; F17.200 Nicotine dependence, unspecified, uncomplicated; Z86.718 Personal history of other venous thrombosis and embolism; Z79.4 Long term (current) use of insulin; Z79.890 Hormone replacement therapy; Z79.02 Long term (current) use of antithrombotics/antiplatelets; Z79.899 Other long term (current) drug therapy
CPT/HCPCS: 36415; 71046; 80053; 82009; 84484; 85025; 85610; 85730; 93005; 96360; 99284

== ENCOUNTER → 2022-04-15 | Outpatient (CLI) | payer MEDICARE ==
--- NOTE | 2022-04-15 10:20 | XR ---
EXAMINATION TYPE: XR Hip Complete LT DATE OF EXAM: 04/15/2022 COMPARISON: 09/11/2014 HISTORY: Pain TECHNIQUE: 2 views submitted FINDINGS: There is no evidence of erosive change or acute fracture. Postsurgical changes are seen with heterotopic ossification vascular calcifications. There is some viri cency with regard to the proximal pole of the prostheses. IMPRESSION: 1. Postsurgical changes could not exclude prostheses loosening. Correlate clinically.
== END | disposition home or self-care (01) ==
LOC: RADXRMAIN 09:53
PROVIDERS: ATTEND Family Medicine
DX: M25.552 Pain in left hip (principal)
CPT/HCPCS: 73502

== ENCOUNTER 2022-09-01 08:53 | Emergency (ER) | payer MEDICARE ==
[2022-09-01] MEDS ORDERED: PROPARACAINE 0.5% OPHTH DROPS 15 ML BTL BOTH EYES STA (09:27)
[2022-09-01] MEDS ORDERED: methylPREDNISolone SOD SUCCI 125 MG/2 ML VIAL IV STA (10:00)
[2022-09-01] MEDS ORDERED: FAMOTIDINE 20 MG/2 ML VIAL IV STA (10:00)
[2022-09-01] MEDS ORDERED: diphenhydrAMINE 50 MG/ML 1 ML VIAL IVP STA (10:00)
--- NOTE | 2022-09-01 10:32 | ED ---
Eye Problem HPI - General Chief complaint: Eye Problems Stated complaint: eye swelling/rash Time Seen by Provider: 09/01/22 08:59 Source: patient, RN notes reviewed Mode of arrival: wheelchair Limitations: no limitations - History of Present Illness Initial comments: This is a 71-year-old female who presents to the emergency department for bilateral eye pain, redness, and swelling. States that this started a couple of days ago. She saw her PCP yesterday and was started on tobramycin eye drops, Keflex, and a Medrol Dosepak. She was told that if she did not have improvement within 24 hours, to go to the emergency department. States that the symptoms have continued to progress and when she woke up this morning, she had green drainage coming from the eyes. She is complaining of burning pain, itching, and blurry vision. Denies any fevers, chills, sore throat, cough, dyspnea, chest pain, palpitations, abdominal pain, nausea, vomiting, diarrhea, back pain, or headaches. MD chief complaint: eye pain, eye redness, vision change Onset/Timin -: days(s) Location: both eyes - Related Data Home Medications Medication Instructions Recorded Confirmed rOPINIRole HCL [Requip] 3 mg PO HS 06/23/16 09/01/22 traMADol HCL [Ultram] 50 mg PO Q8H PRN 08/19/20 09/01/22 Cephalexin [Keflex] 500 mg PO TID 09/01/22 09/01/22 Furosemide [Lasix] 20 mg PO DAILY 09/01/22 09/01/22 Potassium Chloride ER [K-Dur 10] 10 meq PO DAILY 09/01/22 09/01/22 Tobramycin [Tobramycin 0.3% Ophth 1 drop BOTH EYES Q4H 09/01/22 09/01/22 Soln] methylPREDNISolone Dose Pack See Taper PO DIRECTED 09/01/22 09/01/22 [Medrol Dose Pack] Allergies Allergy/AdvReac Type Severity Reaction Status Date / Time aspirin Allergy Anaphylaxis Verified 09/01/22 14:12 codeine Allergy Anaphylaxis Verified 09/01/22 14:12 Iodinated Contrast Media Allergy Anaphylaxis Verified 09/01/22 14:12 [Iodinated Contrast Media - IV Dye] NSAIDS (Non-Steroidal Allergy Anaphylaxis Verified 09/01/22 14:12 Anti-Inflamma sulfamethoxazole Allergy Unknown Verified 09/01/22 14:12 [From Bactrim] trimethoprim [From Bactrim] Allergy Unknown Verified 09/01/22 14:12 influenza virus vaccine ts AdvReac Nausea & Verified 09/01/22 14:12 [id number] (36 mos,up) Vomiting & [From Fluarix] Diarrhea Review of Systems ROS Statement: Those systems with pertinent positive or pertinent negative responses have been documented in the HPI. ROS Other: All systems not noted in ROS Statement are negative. Past Medical History Past Medical History: Coronary Artery Disease (CAD), Chest Pain / Angina, COPD, CVA/TIA, Diabetes Mellitus, Deep Vein Thrombosis (DVT), GERD/Reflux, Hyperlipidemia, Hypertension, Memory Impairment, Osteoarthritis (OA), Pneumonia, Syncope, Thyroid Disorder Additional Past Medical History / Comment(s): Other HX: Antiphospholipid syndrome , LUPUS, CVA's/TIA's, demyelinization of brain, sinus problems, diverticulosis, RESTLESS LEG SYNDROME, Hx. of L leg DVT, occipital neuritis, varicosities, colostomy. History of Any Multi-Drug Resistant Organisms: MRSA Date of last positivie culture/infection: 01/08/17 MDRO Source:: URINE Past Surgical History: Appendectomy, Back Surgery, Bladder Surgery, Ch olecystectomy, Hysterectomy, Orthopedic Surgery, Tonsillectomy Additional Past Surgical History / Comment(s): L hip surgery nailing /fixation- L hip hemiarthroplasty, bladder suspension, sisi cataracts, partial laminectomy,. colostomy 2010 D/T PERFORATED DIVERTICULUM with reversal and then 2nd colostomy, LT KNEE SX FOR TORN CARTILAGE Past Anesthesia/Blood Transfusion Reactions: No Reported Reaction Additional Past Anesthesia/Blood Transfusion Reaction / Comment(s): HAD BLOOD TRANSFUSION 15 YEARS ago without reaction. Past Psychological History: No Psychological Hx Reported Smoking Status: Current every day smoker Past Alcohol Use History: None Reported Past Drug Use History: None Reported - Past Family History Mother Family Medical History: Cancer, Hypertension Additional Family Medical History / Comment(s): "mother had cancer from asbestos exposure" Father Family Medical History: Hypertension, Rheumatoid Arthritis (RA) General Exam Limitations: no limitations General appearance: alert, in no apparent distress Head exam: Present: atraumatic, normocephalic, normal inspection Eye exam: Present: PERRL, EOMI, other (Bilateral conjunctival injection with green discharge. Minor periorbital swelling, however there is extensive periorbital erythema and tenderness.) Expanded Visual acuity (R) = 20/: 70 Visual acuity (L) = 20/: 70 With correction: Yes IOP (R) in mmH IOP (L) in mmH IOP measured with: Tonopen ENT exam: Present: normal exam, mucous membranes moist, TM's normal bilaterally, normal external ear exam Respiratory exam: Present: normal lung sounds bilaterally. Absent: respiratory distress, wheezes, rales, rhonchi, stridor Cardiovascular Exam: Present: regular rate, normal rhythm, normal heart sounds. Absent: systolic murmur, diastolic murmur, rubs, gallop, clicks Neurological exam: Present: alert, oriented X3, CN II-XII intact Psychiatric exam: Present: normal affect, normal mood Course Vital Signs 09/01/22 08:55 Temperature 97.8 F Pulse Rate 100 Respiratory 20 Rate Blood Pressure 176/97 O2 Sat by Pulse 96 Oximetry Medical Decision Making - Medical Decision Making This is a 71-year-old female who presents to the emergency department for eye pain and redness. Was pt. sent in by a medical professional or institution? @ -No Did you speak to anyone other than the patient for history? @ -No Did you review nursing and triage notes? @ -Yes, and I agree, it is accurate with regards to the patient's symptoms. Were old charts reviewed? @ -No Differential Diagnosis? @ -Differential Eye Pain: Conjuncitivitis (viral, bacterial, allergic), corneal abrasion, foreign body, iritis, uveitis, keratitis, acute angle closure glaucoma, this is not meant to be an all-inclusive list. EKG interpreted by me (3pts min.)? @ -Not obtained X-rays interpreted by me (1pt min.)? @ -Not obtained CT interpreted by me (1pt min.)? @ -Computed tomography scan of the orbits obtained. My interpretation identifies dilation of the right ophthalmic vein. U/S interpreted by me (1pt. min.)? @ -None What testing was considered but not performed? (CT, X-rays, U/S, labs)? Why? @ -None What meds were considered but not given? Why? @ -None Did you discuss the management of the patient with other professionals? @ -No Did you reconcile home meds? @ -No Was smoking cessation discussed for >3mins.? @ -No Was critical care preformed (if so, how long)? @ -No Were there social determinants of health that impacted care today? How? (Homelessness, low income, unemployed, alcoholism, drug addiction, transportation, low edu. Level, literacy, decrease access to med. care, alf, rehab)? @ -No Was there de-escalation of care discussed even if they declined? (Discuss DNR or withdrawal of care, Hospice)? @ -No What co-morbidities impacted this encounter? (DM, HTN, Smoking, COPD, CAD, Cancer, CVA, Hep., AIDS, mental health diagnosis, sleep apnea, morbid obesity)? @ -CAD, DM Was patient admitted / discharged? @ -Discharged. Visual acuity obtained, when corrected she was found to have 20/70 vision in the left eye, 20/70 in the right eye, and 20/50 when evaluated together. Pressures were found to be 17 in the left eye and 16 in the right eye. Given the severity of her symptoms, blood work and a computed tomography scan of the orbits obtained. Lab work was nonactionable. Computed tomography scan revealed segmental fusiform dilation of the right ophthalmic vein with minimal dilation of the left ophthalmic vein. Cavernous sinus thrombosis could not be excluded and an MRI was recommended. They were able to take the patient for an MRI after about an hour. MRI of the orbits with and without contrast was obtained per radiology's recommendation. This revealed no acute findings, including no evidence of a cavernous sinus thrombosis. Patient was reevaluated by myself and Dr. Arana. It seems as if the periorbital region may be consist ent with a dermatitis or some sort of reaction, and the eyes themselves do not appear to be significantly infected. Will plan for the patient to continue on her current medications for the meantime, including tobramycin eyedrops, Keflex, and the Medrol Dosepak. Information for ophthalmology follow-up provided. She is instructed to contact them for a follow-up appointment. Undiagnosed new problem with uncertain prognosis? @ -None Drug Therapy requiring intensive monitoring for toxicity (Heparin, Nitro, Insulin, Cardizem)? @ -None Were any procedures done? @ -None Diagnosis/symptom? @ -Periorbital dermatitis, conjunctivitis Acute, or Chronic, or Acute on Chronic? @ -Acute Uncomplicated (without systemic symptoms) or Complicated (systemic symptoms)? @ -Uncomplicated Side effects of treatment? @ -None Exacerbation, Progression, or Severe Exacerbation] @ -Not applicable Poses a threat to life or bodily function? @ -No Return precautions reviewed in depth, the patient is instructed to return to the emergency department with any new, worsening, or concerning symptoms. Patient verbalized understanding. This case was discussed in detail with the attending ED physician, Dr. Arana. Presentation, findings, and treatment plan discussed in detail as well. - Lab Data Result diagrams: 09/01/22 10:05 09/01/22 10:05 Lab Results 09/01/22 09/01/22 Range/Units 10:05 10:05 WBC 9.7 (3.8-10.6) k/uL RBC 5.43 H (3.80-5.40) m/uL Hgb 15.5 (11.4-16.0) gm/dL Hct 47.5 H (34.0-46.0) % MCV 87.4 (80.0-100.0) fL MCH 28.5 (25.0-35.0) pg MCHC 32.6 (31.0-37.0) g/dL RDW 13.7 (11.5-15.5) % Plt Count 227 (150-450) k/uL MPV 11.4 Neutrophils % 74 % Lymphocytes % 17 % Monocytes % 6 % Eosinophils % 1 % Basophils % 0 % Neutrophils # 7.2 (1.3-7.7) k/uL Lymphocytes # 1.6 (1.0-4.8) k/uL Monocytes # 0.6 (0-1.0) k/uL Eosinophils # 0.1 (0-0.7) k/uL Basophils # 0.0 (0-0.2) k/uL Sodium 137 (137-145) mmol/L Potassium 4.7 (3.5-5.1) mmol/L Chloride 101 (98-107) mmol/L Carbon Dioxide 24 (22-30) mmol/L Anion Gap 12 mmol/L BUN 21 H (7-17) mg/dL Creatinine 0.60 (0.52-1.04) mg/dL Est GFR (CKD-EPI)AfAm >90 (>60 ml/min/1.73 sqM) Est GFR (CKD-EPI)NonAf >90 (>60 ml/min/1.73 sqM) Glucose 366 H (74-99) mg/dL Calcium 9.8 (8.4-10.2) mg/dL Total Bilirubin 0.7 (0.2-1.3) mg/dL AST 24 (14-36) U/L ALT 18 (4-34) U/L Alkaline Phosphatase 119 (38-126) U/L C-Reactive Protein 2.5 H (<1.0) mg/dL Total Protein 7.9 (6.3-8.2) g/dL Albumin 4.3 (3.5-5.0) g/dL - Radiology Data Radiology results: report reviewed, image reviewed Disposition Clinical Impression: Periorbital dermatitis, Conjunctivitis Disposition: HOME SELF-CARE Instructions (If sedation given, give patient instructions): Dermatitis (ED), Conjunctivitis (ED) Additional Instructions: Return to the emergency department with any new, worsening, or concerning symptoms. Continue to use the eyedrops and take the antibiotic and Medrol Dosepak as prescribed. Contact ophthalmology as listed below first thing in the morning for a follow-up appointment. Is patient prescribed a controlled substance at d/c from ED?: No Referrals: Franklin Benitez III, MD [Primary Care Provider] - 1-2 days Spencer Jasso MD [STAFF PHYSICIAN] - 1-2 days
[2022-09-01 10:34] LABS: Basophils % (A) 0 %; Eosinophils # (A) 0.1 k/uL (0-0.7); Eosinophils % (A) 1 %; HCT 47.5 % (34.0-46.0); HGB 15.5 gm/dL (11.4-16.0); Lymphocytes # (A) 1.6 k/uL (1.0-4.8); Lymphocytes % (A) 17 %; MCH 28.5 pg (25.0-35.0); MCHC 32.6 g/dL (31.0-37.0); MCV 87.4 fL (80.0-100.0); Mean Platelet Volume 11.4; Monocytes # (A) 0.6 k/uL (0-1.0); Monocytes % (A) 6 %; Neutrophils # (A) 7.2 k/uL (1.3-7.7); Neutrophils % (A) 74 %; Platelet Count 227 k/uL (150-450); RBC 5.43 m/uL (3.80-5.40); RDW 13.7 % (11.5-15.5); WBC 9.7 k/uL (3.8-10.6)
[2022-09-01 10:52] LABS: ALT 18 U/L (4-34); African American GFR (CKD) >90 (>60 ml/min/1.73 sqM); Albumin 4.3 g/dL (3.5-5.0); Anion Gap 12 mmol/L; Blood Urea Nitrogen 21 mg/dL (7-17); C Reactive Protein 2.5 mg/dL (<1.0); Calcium 9.8 mg/dL (8.4-10.2); Carbon Dioxide 24 mmol/L (22-30); Chloride 101 mmol/L (98-107); Glucose 366 mg/dL (74-99); Non-African American GFR(CKD) >90 (>60 ml/min/1.73 sqM); Sodium 137 mmol/L (137-145); Total Bilirubin 0.7 mg/dL (0.2-1.3); Total Protein 7.9 g/dL (6.3-8.2)
[2022-09-01 10:57] LABS: AST 24 U/L (14-36); Potassium 4.7 mmol/L (3.5-5.1)
[2022-09-01 10:59] LABS: Alkaline Phosphatase 119 U/L (38-126)
--- NOTE | 2022-09-01 13:25 | CT ---
EXAMINATION TYPE: CT orbits w con DATE OF EXAM: 09/01/2022 COMPARISON: MRI 09/04/2014 HISTORY: 71-year-old female bilateral eye pain and swelling of the region TECHNIQUE: Contiguous axial scanning of the orbits performed with IV Contrast, patient injected with 100 mL of Isovue 300. Coronal/sagittal reconstructions performed. CT DLP: 353.4 mGycm Automated exposure control for dose reduction was used. FINDINGS: Leftward nasal septal deviation. Trace mucosal thickening ethmoid air cells. Trace mucosal thickening maxillary sinuses as well. Segmental fusiform dilatation right superior ophthalmic vein up to 7 mm. Minimal dilatation of the left superior ophthalmic vein near the orbital apex up to 4 mm. Globes appear symmetric and intact. Extraocular muscles appear satisfactory. No additional retrobulbar soft tissue is seen. There may be mild preseptal soft tissue swelling. Optic nerve sheath complexes appear satisfactory. No orbital or facial bone fracture seen. IMPRESSION: 1. SEGMENTAL FUSIFORM DILATATION RIGHT SUPERIOR OPHTHALMIC VEIN UP TO 7 MM. LESSER DEGREE OF DILATATI ON LEFT SUPERIOR OPHTHALMIC VEIN UP TO 4 MM. FINDINGS MAY BE SECONDARY TO INTRAORBITAL VARIX. ORBITAL MRI WITHOUT AND WITH CONTRAST CAN FURTHER ASSESS THE CAVERNOUS SINUSES TO EXCLUDE THROMBOSIS. 2. There may be mild bilateral preseptal soft tissue swelling.
[2022-09-01] MEDS ORDERED: HYDROmorphone 1 MG/ML 1 ML SYRINGE IVP STA (14:46)
--- NOTE | 2022-09-01 16:54 | MR ---
EXAMINATION TYPE: MR orbits wo/w con DATE OF EXAM: 09/01/2022 3:53 PM COMPARISON: None. CLINICAL INDICATION:Female, 71 years old with history of Severe eye pain and swelling, abnormal CT; S EVERE EYE PAIN AND SWELLING, ABN CT\ TECHNIQUE: Multi planar, multi sequence imaging was performed through the orbits/face. Post contrast imaging was performed after the administration of 7ML cc of Gadavist intravenously. FINDINGS, ORBITS: The globes appear symmetrical. Signal intensity of the globes and optic nerves ar e within normal limits. The intraorbital fat appears preserved. Both lacrimal glands are unremarkab le. The extraocular muscles appear symmetric. After administration of contrast, no abnormal enhanceme nt is seen. The lenses are not visualized. IMPRESSION: 1. No evidence of intraorbital mass or significant abnormality. No evidence for orbital cellulitis. 2. Abnormal postcontrast enhancement visualized.
[2022-09-01 18:11] VITALS: BP 161/97; PULSE 85; RESP 18; TEMP 98.2
== END 2022-09-01 18:11 | disposition home or self-care (01) ==
LOC: EC 08:53
DX: H10.9 Unspecified conjunctivitis (principal); L30.8 Other specified dermatitis; E11.9 Type 2 diabetes mellitus without complications; I10 Essential (primary) hypertension; I25.10 Atherosclerotic heart disease of native coronary artery without angina pectoris; J44.9 Chronic obstructive pulmonary disease, unspecified; F17.200 Nicotine dependence, unspecified, uncomplicated; Z88.1 Allergy status to other antibiotic agents; Z88.2 Allergy status to sulfonamides; Z88.7 Allergy status to serum and vaccine; Z88.5 Allergy status to narcotic agent; Z88.6 Allergy status to analgesic agent; Z91.041 Radiographic dye allergy status; Z79.899 Other long term (current) drug therapy; Z86.73 Personal history of transient ischemic attack (TIA), and cerebral infarction without residual deficits
CPT/HCPCS: 99284; 96374; 96375 ×3; 36415; 80053; 85025; 86140; 70481; 70543; J1200; J2930; J1170; A9585; Q9967

== ENCOUNTER 2023-01-29 21:40 | Emergency (ER) | payer MEDICARE ==
[2023-01-29 21:54] VITALS: RESP 18; TEMP 99.9
[2023-01-29] MEDS ORDERED: ACETAMINOPHEN TAB 500 MG TAB PO STA (22:00)
[2023-01-29] MEDS ORDERED: SODIUM CHLORIDE 0.9% 500 ML 500 ML IV ONE (22:00)
[2023-01-29] MEDS ORDERED: SODIUM CHLORIDE 0.9% 1,000 ML IV SCH (22:00)
--- NOTE | 2023-01-29 22:05 | ED ---
General Adult HPI - General Chief complaint: Allergic Reaction Stated complaint: Facial Swelling Time Seen by Provider: 01/29/23 21:49 Source: patient, EMS, RN notes reviewed, old records reviewed Mode of arrival: EMS Limitations: no limitations - History of Present Illness Initial comments: 72-year-old female with facial pain and swelling. Symptoms began over the past 24-48 hours. Patient does report headache associated with her symptoms. She's had fever at home. Denies chest pain or dyspnea. Denies upper respiratory symptoms. Denies abdominal pain, nausea vomiting. - Related Data Home Medications Medication Instructions Recorded Confirmed rOPINIRole HCL [Requip] 3 mg PO HS 06/23/16 09/01/22 traMADol HCL [Ultram] 50 mg PO Q8H PRN 08/19/20 09/01/22 Cephalexin [Keflex] 500 mg PO TID 09/01/22 09/01/22 Furosemide [Lasix] 20 mg PO DAILY 09/01/22 09/01/22 Potassium Chloride ER [K-Dur 10] 10 meq PO DAILY 09/01/22 09/01/22 Tobramycin [Tobramycin 0.3% Ophth 1 drop BOTH EYES Q4H 09/01/22 09/01/22 Soln] methylPREDNISolone Dose Pack See Taper PO DIRECTED 09/01/22 09/01/22 [Medrol Dose Pack] Previous Rx's Medication Instructions Recorded Cephalexin [Keflex] 500 mg PO Q6HR 10 Days #40 cap 01/29/23 Tobramycin 0.3% Ophth Soln [Tobrex 1 drop BOTH EYES Q4H #5 ml 01/29/23 0.3% Ophth Soln] methylPREDNISolone Dose Pack 4 mg PO DIRECTED #21 packet 01/29/23 [Medrol Dose Pack] Allergies Allergy/AdvReac Type Severity Reaction Status Date / Time aspirin Allergy Anaphylaxis Verified 01/29/23 21:58 codeine Allergy Anaphylaxis Verified 01/29/23 21:58 Iodinated Contrast Media Allergy Anaphylaxis Verified 01/29/23 21:58 [Iodinated Contrast Media - IV Dye] NSAIDS (Non-Steroidal Allergy Anaphylaxis Verified 01/29/23 21:58 Anti-Inflamma sulfamethoxazole Allergy Unknown Verified 01/29/23 21:58 [From Bactrim] trimethoprim [From Bactrim] Allergy Unknown Verified 01/29/23 21:58 influenza virus vaccine ts AdvReac Nausea & Verified 01/29/23 21:58 [id number] (36 mos,up) Vomiting & [From Fluarix] Diarrhea Review of Systems ROS Statement: Those systems with pertinent positive or pertinent negative responses have been documented in the HPI. ROS Other: All systems not noted in ROS Statement are negative. Past Medical History Past Medical History: Coronary Artery Disease (CAD), Chest Pain / Angina, COPD, CVA/TIA, Diabetes Mellitus, Deep Vein Thrombosis (DVT), GERD/Reflux, Hyperlipidemia, Hypertension, Memory Impairment, Osteoarthritis (OA), Pneumonia, Syncope, Thyroid Disorder Additional Past Medical History / Comment(s): Other HX: Antiphospholipid syndrome , LUPUS, CVA's/TIA's, demyelinization of brain, sinus problems, diverticulosis, RESTLESS LEG SYNDROME, Hx. of L leg DVT, occipital neuritis, varicosities, colostomy. History of Any Multi-Drug Resistant Organisms: MRSA Date of last positivie culture/infection: 01/08/17 MDRO Source:: URINE Past Surgical History: Appendectomy, Back Surgery, Bladder Surgery, Cho lecystectomy, Hysterectomy, Orthopedic Surgery, Tonsillectomy Additional Past Surgical History / Comment(s): L hip surgery nailing /fixation- L hip hemiarthroplasty, bladder suspension, sisi cataracts, partial laminectomy,. colostomy 2010 D/T PERFORATED DIVERTICULUM with reversal and then 2nd colostomy, LT KNEE SX FOR TORN CARTILAGE Past Anesthesia/Blood Transfusion Reactions: No Reported Reaction Additional Past Anesthesia/Blood Transfusion Reaction / Comment(s): HAD BLOOD TRANSFUSION 15 YEARS ago without reaction. Past Psychological History: No Psychological Hx Reported Smoking Status: Current every day smoker Past Alcohol Use History: None Reported Past Drug Use History: None Reported - Past Family History Mother Family Medical History: Cancer, Hypertension Additional Family Medical History / Comment(s): "mother had cancer from asbestos exposure" Father Family Medical History: Hypertension, Rheumatoid Arthritis (RA) General Exam General appearance: alert, in no apparent distress Head exam: Present: atraumatic, normocephalic Eye exam: Present: conjunctival injection Respiratory exam: Present: normal lung sounds bilaterally. Absent: respiratory distress Cardiovascular Exam: Present: regular rate, normal rhythm GI/Abdominal exam: Present: soft. Absent: distended, tenderness Neurological exam: Present: alert. Absent: motor sensory deficit Skin exam: Present: other (Erythematous rash of the face, bilateral periorbital region. Tender to palpation, with induration) Course Vital Signs 01/29/23 21:42 Temperature 99.9 F H Pulse Rate 91 Respiratory 18 Rate Blood Pressure 215/112 O2 Sat by Pulse 97 Oximetry Medical Decision Making - Medical Decision Making Was pt. sent in by a medical professional or institution ([facility], [facility], urgent ca re, hospital, or fci...) When possible be specific @ -No Did you speak to anyone other than the patient for history (EMS, parent, family, police, friend...)? What history was obtained from this source @ -No Did you review nursing and triage notes (agree or disagree)? Why? @ -I reviewed and agree with nursing and triage notes Were old charts reviewed (outside hosp., previous admission, EMS record, old EKG, old radiological studies, urgent care reports/EKG's, fci records)? Report findings @ -No old charts were reviewed Differential Diagnosis (chest pain, altered mental status, abdominal pain women, abdominal pain men, vaginal bleeding, weakness, fever, dyspnea, syncope, headache, dizziness, GI bleed, back pain, seizure, CVA, palpatations, mental health, musculoskeletal)? @ -Erysipelas, cellulitis, ALLERGIC reaction EKG interpreted by me (3pts min.). @Sinus rhythm rate of 82, OK interval 165, QRS duration 79, QTC [address] segment elevation. X-rays interpreted by me (1pt min.). @ -None done CT interpreted by me (1pt min.). @ -None done U/S interpreted by me (1pt. min.). @ -None done What testing was considered but not performed or refused? (CT, X-rays, U/S, labs)? Why? @ -None What meds were considered but not given or refused? Why? @ -None Did you discuss the management of the patient with other professionals (professionals i.e. [facility] Will, [facility], lab, RT, psych nurse, secondary social studies teacher, server engineer, teacher, diplomatic officer, child welfare caseworker)? Give summary @ -No Was smoking cessation discussed for >3mins.? @ -No Was critical care preformed (if so, how long)? @ -No Were there social determinants of health that impacted care today? How? (Luz elessness, low income, unemployed, alcoholism, drug addiction, transportation, low edu. Level, literacy, decrease access to med. care, skilled nursing, rehab)? @ -No Was there de-escalation of care discussed even if they declined (Discuss DNR or withdrawal of care, Hospice)? DNR status @ -No What co-morbidities impacted this encounter? (DM, HTN, Smoking, COPD, CAD, Cancer, CVA, ARF, Chemo, Hep., AIDS, mental health diagnosis, sleep apnea, morbid obesity)? @Diabetes Was patient admitted / discharged? Hospital course, mention meds given and route, prescriptions, significant lab abnormalities, going to OR and other pertinent info. @ -72-year-old female with facial swelling, erythema over the past several days. Exam consistent with erysipelas. Patient had similar symptoms several months ago which were treated with eyedrops, Keflex and Medrol Dosepak. Patient states that her symptoms did rapidly improve with this treatment. She will be prescribed these medications again and should follow closely with her primary care provider. Stable for discharge at this time. Undiagnosed new problem with uncertain prognosis? @ -No Drug Therapy requiring intensive monitoring for toxicity (Heparin, Nitro, Insulin, Cardizem)? @ -No Were any procedures done? @ -No Diagnosis/symptom? @ -[Erysipelas Acute, or Chronic, or Acute on Chronic? @Acute Uncomplicated (without systemic symptoms) or Complicated (systemic symptoms)? @ -Complicated Side effects of treatment? @ -No Exacerbation, Progression, or Severe Exacerbation? @ -No Poses a threat to life or bodily function? How? (Chest pain, [place], [place], pneumonia, PE, COPD, DKA, ARF, appy, cholecystitis, CVA, Diverticulitis, Homicidal, Suicidal, threat to staff... and all critical care pts) @ -[Low risk at this time - Lab Data Result diagrams: 01/29/23 22:05 01/29/23 22:05 Lab Results 01/29/23 01/29/23 01/29/23 Range/Units 22:05 22:05 22:05 WBC 8.8 (3.8-10.6) k/uL RBC 5.33 (3.80-5.40) m/uL Hgb 15.8 (11.4-16.0) gm/dL Hct 48.1 H (34.0-46.0) % MCV 90.2 (80.0-100.0) fL MCH 29.7 (25.0-35.0) pg MCHC 32.9 (31.0-37.0) g/dL RDW 13.5 (11.5-15.5) % Plt Count 213 (150-450) k/uL MPV 11.3 Neutrophils % 78 % Lymphocytes % 15 % Monocytes % 5 % Eosinophils % 1 % Basophils % 0 % Neutrophils # 6.9 (1.3-7.7) k/uL Lymphocytes # 1.3 (1.0-4.8) k/uL Monocytes # 0.4 (0-1.0) k/uL Eosinophils # 0.1 (0-0.7) k/uL Basophils # 0.0 (0-0.2) k/uL PT 10.6 (10.0-12.5) sec INR 1.0 (<1.2) APTT 27.0 (22.0-30.0) sec Sodium (137-145) mmol/L Potassium (3.5-5.1) mmol/L Chloride (98-107) mmol/L Carbon Dioxide (22-30) mmol/L Anion Gap mmol/L BUN (7-17) mg/dL Creatinine (0.52-1.04) mg/dL Est GFR (CKD-EPI)AfAm (>60 ml/min/1.73 sqM) Est GFR (CKD-EPI)NonAf (>60 ml/min/1.73 sqM) Glucose (74-99) mg/dL Plasma Lactic Acid Shahzad (0.7-2.0) mmol/L Calcium (8.4-10.2) mg/dL Magnesium (1.6-2.3) mg/dL Total Bilirubin (0.2-1.3) mg/dL AST (14-36) U/L ALT (4-34) U/L Alkaline Phosphatase (38-126) U/L Total Protein (6.3-8.2) g/dL Albumin (3.5-5.0) g/dL Influenza Type A (PCR) Not Detected (Not Detectd) Influenza Type B (PCR) Not Detected (Not Detectd) RSV (PCR) Not Detected (Not Detectd) SARS-CoV-2 (PCR) Not Detected (Not Detectd) 01/29/23 01/29/23 Range/Units 22:05 22:05 WBC (3.8-10.6) k/uL RBC (3.80-5.40) m/uL Hgb (11.4-16.0) gm/dL Hct (34.0-46.0) % MCV (80.0-100.0) fL MCH (25.0-35.0) pg MCHC (31.0-37.0) g/dL RDW (11.5-15.5) % Plt Count (150-450) k/uL MPV Neutrophils % % Lymphocytes % % Monocytes % % Eosinophils % % Basophils % % Neutrophils # (1.3-7.7) k/uL Lymphocytes # (1.0-4.8) k/uL Monocytes # (0-1.0) k/uL Eosinophils # (0-0.7) k/uL Basophils # (0-0.2) k/uL PT (10.0-12.5) sec INR (<1.2) APTT (22.0-30.0) sec Sodium 136 L (137-145) mmol/L Potassium 4.1 (3.5-5.1) mmol/L Chloride 101 (98-107) mmol/L Carbon Dioxide 23 (22-30) mmol/L Anion Gap 12 mmol/L BUN 7 (7-17) mg/dL Creatinine 0.58 (0.52-1.04) mg/dL Est GFR (CKD-EPI)AfAm >90 (>60 ml/min/1.73 sqM) Est GFR (CKD-EPI)NonAf >90 (>60 ml/min/1.73 sqM) Glucose 291 H (74-99) mg/dL Plasma Lactic Acid Shahzad 1.5 (0.7-2.0) mmol/L Calcium 9.6 (8.4-10.2) mg/dL Magnesium 1.8 (1.6-2.3) mg/dL Total Bilirubin 0.7 (0.2-1.3) mg/dL AST 36 (14-36) U/L ALT 74 H (4-34) U/L Alkaline Phosphatase 227 H (38-126) U/L Total Protein 7.4 (6.3-8.2) g/dL Albumin 4.2 (3.5-5.0) g/dL Influenza Type A (PCR) (Not Detectd) Influenza Type B (PCR) (Not Detectd) RSV (PCR) (Not Detectd) SARS-CoV-2 (PCR) (Not Detectd) Disposition Clinical Impression: Erysipelas Disposition: HOME SELF-CARE Condition: Fair Instructions (If sedation given, give patient instructions): Cellulitis (ED) Prescriptions: Cephalexin [Keflex] 500 mg PO Q6HR 10 Days #40 cap methylPREDNISolone Dose Pack [Medrol Dose Pack] 4 mg PO DIRECTED #21 packet Tobramycin 0.3% Ophth Soln [Tobrex 0.3% Ophth Soln] 1 drop BOTH EYES Q4H #5 ml Is patient prescribed a controlled substance at d/c from ED?: No Referrals: Jc Veras MD [Primary Care Provider] - 1-2 days Time of Disposition: 23:08
[2023-01-29 22:26] LABS: ALT 74 U/L (4-34); African American GFR (CKD) >90 (>60 ml/min/1.73 sqM); Albumin 4.2 g/dL (3.5-5.0); Anion Gap 12 mmol/L; Blood Urea Nitrogen 7 mg/dL (7-17); Calcium 9.6 mg/dL (8.4-10.2); Carbon Dioxide 23 mmol/L (22-30); Chloride 101 mmol/L (98-107); Glucose 291 mg/dL (74-99); Non-African American GFR(CKD) >90 (>60 ml/min/1.73 sqM); Sodium 136 mmol/L (137-145); Total Bilirubin 0.7 mg/dL (0.2-1.3); Total Protein 7.4 g/dL (6.3-8.2)
[2023-01-29 22:29] LABS: AST 36 U/L (14-36); Alkaline Phosphatase 227 U/L (38-126); Magnesium 1.8 mg/dL (1.6-2.3); Potassium 4.1 mmol/L (3.5-5.1)
[2023-01-29 22:36] LABS: Basophils % (A) 0 %; Eosinophils # (A) 0.1 k/uL (0-0.7); Eosinophils % (A) 1 %; HCT 48.1 % (34.0-46.0); HGB 15.8 gm/dL (11.4-16.0); Lymphocytes # (A) 1.3 k/uL (1.0-4.8); Lymphocytes % (A) 15 %; MCH 29.7 pg (25.0-35.0); MCHC 32.9 g/dL (31.0-37.0); MCV 90.2 fL (80.0-100.0); Mean Platelet Volume 11.3; Monocytes # (A) 0.4 k/uL (0-1.0); Monocytes % (A) 5 %; Neutrophils # (A) 6.9 k/uL (1.3-7.7); Neutrophils % (A) 78 %; Platelet Count 213 k/uL (150-450); RBC 5.33 m/uL (3.80-5.40); RDW 13.5 % (11.5-15.5); WBC 8.8 k/uL (3.8-10.6)
[2023-01-29 22:52] LABS: Prothrombin Time 10.6 sec (10.0-12.5)
[2023-01-29] MEDS ORDERED: traMADol 50 MG TAB PO STA (23:00)
[2023-01-29] MEDS ORDERED: CEPHALEXIN 500MG STARTER PACK 4 CAP BTL PO STA (23:04)
[2023-01-29] MEDS ORDERED: predniSONE 20 MG TAB PO STA (23:05)
[2023-01-30] MEDS ORDERED: TOBRAMYCIN 0.3% OPHTH DROPS 5 ML BTL BOTH EYES SCH
[2023-01-30 00:38] VITALS: BP 180/93; PULSE 78
== END 2023-01-30 00:22 | disposition home or self-care (01) ==
LOC: EC 21:40
DX: A46 Erysipelas (principal); I25.10 Atherosclerotic heart disease of native coronary artery without angina pectoris; E11.9 Type 2 diabetes mellitus without complications; I10 Essential (primary) hypertension; F17.200 Nicotine dependence, unspecified, uncomplicated; J44.9 Chronic obstructive pulmonary disease, unspecified; Z86.73 Personal history of transient ischemic attack (TIA), and cerebral infarction without residual deficits; Z79.899 Other long term (current) drug therapy; Z88.6 Allergy status to analgesic agent; Z91.041 Radiographic dye allergy status; Z88.5 Allergy status to narcotic agent; Z88.2 Allergy status to sulfonamides; Z88.7 Allergy status to serum and vaccine; Z88.8 Allergy status to other drugs, medicaments and biological substances; Z20.822 Contact with and (suspected) exposure to COVID-19; Z88.1 Allergy status to other antibiotic agents; Z90.49 Acquired absence of other specified parts of digestive tract; Z93.3 Colostomy status
CPT/HCPCS: 80053; 83605; 83735; 85025; 85610; 85730; 87040; 87636; 99284; 96365; J0696; J7512; 36415

== ENCOUNTER 2023-02-01 12:12 | Emergency (ER) | payer MEDICARE ==
[2023-02-01 12:50] VITALS: RESP 16
--- NOTE | 2023-02-01 13:01 | ED ---
Eye Problem HPI - General Source: patient, RN notes reviewed Mode of arrival: ambulatory Limitations: no limitations <Adrian Gary - Last Filed: 02/01/23 13:01> <Ganesh Sibley - Last Filed: 02/01/23 17:45> - General Chief complaint: Eye Problems Stated complaint: eye pain Time Seen by Provider: 02/01/23 13:01 - History of Present Illness Initial comments: 72-year-old female presents emergency Department chief complaint of left eye irritation, drainage and pain. Patient states she has change in vision states there is some drainage. She states she was fibular day for rash of her face. (Adrian Gary) 72-year-old female presenting to the ED with a chief complaint of eye problem. Patient states was seen here on 01/29/23 with a few days of eye redness, eye pain, and I drainage. At this time, was prescribed Keflex, Medrol Dosepak, and tobramycin eyedrops. Despite taking this, reports that she is still having same symptoms and reports that they have worsened as well. Now also notes that the pain is starting to affect the left side of her face. Associated chills and subjective fever. No chest pain shortness of breath. No other complaints. (Ganesh Sibley) - Related Data Home Medications Medication Instructions Recorded Confirmed rOPINIRole HCL [Requip] 3 mg PO HS 06/23/16 09/01/22 traMADol HCL [Ultram] 50 mg PO Q8H PRN 08/19/20 09/01/22 Cephalexin [Keflex] 500 mg PO TID 09/01/22 09/01/22 Furosemide [Lasix] 20 mg PO DAILY 09/01/22 09/01/22 Potassium Chloride ER [K-Dur 10] 10 meq PO DAILY 09/01/22 09/01/22 Tobramycin [Tobramycin 0.3% Ophth 1 drop BOTH EYES Q4H 09/01/22 09/01/22 Soln] methylPREDNISolone Dose Pack See Taper PO DIRECTED 09/01/22 09/01/22 [Medrol Dose Pack] Previous Rx's Medication Instructions Recorded Cephalexin [Keflex] 500 mg PO Q6HR 10 Days #40 cap 01/29/23 Tobramycin 0.3% Ophth Soln [Tobrex 1 drop BOTH EYES Q4H #5 ml 01/29/23 0.3% Ophth Soln] methylPREDNISolone Dose Pack 4 mg PO DIRECTED #21 packet 01/29/23 [Medrol Dose Pack] Amoxic-Pot Clav 875-125Mg 1 tab PO Q12HR 7 Days #14 tab 02/01/23 [Augmentin 875-125] Allergies Allergy/AdvReac Type Severity Reaction Status Date / Time aspirin Allergy Anaphylaxis Verified 02/01/23 12:35 codeine Allergy Anaphylaxis Verified 02/01/23 12:35 Iodinated Contrast Media Allergy Anaphylaxis Verified 02/01/23 12:35 [Iodinated Contrast Media - IV Dye] NSAIDS (Non-Steroidal Allergy Anaphylaxis Verified 02/01/23 12:35 Anti-Inflamma sulfamethoxazole Allergy Unknown Verified 02/01/23 12:35 [From Bactrim] trimethoprim [From Bactrim] Allergy Unknown Verified 02/01/23 12:35 influenza virus vaccine ts AdvReac Nausea & Verified 02/01/23 12:35 [id number] (36 mos,up) Vomiting & [From Fluarix] Diarrhea Review of Systems ROS Other: All systems not noted in ROS Statement are negative. <Adrian Gary - Last Filed: 02/01/23 13:01> ROS Other: All systems not noted in ROS Statement are negative. <Ganesh Sibley - Last Filed: 02/01/23 17:45> ROS Statement: Those systems with pertinent positive or pertinent negative responses have been documented in the HPI. Past Medical History Past Medical History: Coronary Artery Disease (CAD), Chest Pain / Angina, COPD, CVA/TIA, Diabetes Mellitus, Deep Vein Thrombosis (DVT), GERD/Reflux, Hyperlipidemia, Hypertension, Memory Impairment, Osteoarthritis (OA), Pneumonia, Syncope, Thyroid Disorder Additional Past Medical History / Comment(s): Other HX: Antiphospholipid syndrome , LUPUS, CVA's/TIA's, demyelinization of brain, sinus problems, diverticulosis, RESTLESS LEG SYNDROME, Hx. of L leg DVT, occipital neuritis, varicosities, colostomy. History of Any Multi-Drug Resistant Organisms: MRSA Date of last positivie culture/infection: 01/08/17 MDRO Source:: URINE Past Surgical History: Appendectomy, Back Surgery, Bladder Surgery, Cholecystectomy, Hysterectomy, Orthopedic Surgery, Tonsillectomy Additional Past Surgical History / Comment(s): L hip surgery nailing /fixation- L hip hemiarthroplasty, bladder suspension, sisi cataracts, partial laminectomy,. colostomy 2010 D/T PERFORATED DIVERTICULUM with reversal and then 2nd colostomy, LT KNEE SX FOR TORN CARTILAGE Past Anesthesia/Blood Transfusion Reactions: No Reported Reaction Additional Past Anesthesia/Blood Transfusion Reaction / Comment(s): HAD BLOOD TRANSFUSION 15 YEARS ago without reaction. Past Psychological History: No Psychological Hx Reported Smoking Status: Current every day smoker Past Alcohol Use History: None Reported Past Drug Use History: None Reported - Past Family History Mother Family Medical History: Cancer, Hypertension Additional Family Medical History / Comment(s): "mother had cancer from asbestos exposure" Father Family Medical History: Hypertension, Rheumatoid Arthritis (RA) <Adrian Gary - Last Filed: 02/01/23 13:01> General Exam Limitations: no limitations <Adrian Gary - Last Filed: 02/01/23 13:01> Eye exam: Present: EOMI (No entrapment. Patient reports pain of the eye with extraocular movements. No proptosis. Running warmth, erythema, tenderness to palpation. Left eye does have purulent drainage.) Neck exam: Present: normal inspection Respiratory exam: Present: normal lung sounds bilaterally Cardiovascular Exam: Present: regular rate, normal rhythm GI/Abdominal exam: Present: soft Neurological exam: Present: alert, oriented X3 Skin exam: Present: warm, dry <Ganesh Sibley - Last Filed: 02/01/23 17:45> - General Exam Comments Initial Comments: Visual Physical Exam Vital signs reviewed General: Well-appearing, nontoxic, no acute distress. Head: Normocephalic, atraumatic Eyes: PERRLA, EOMI, left eye redness, drainage ENT: Airway patent Chest: Nonlabored breathing Skin: No visual rash, normal skin tone Neuro: Alert and oriented 3 Musculoskeletal: No gross abnormalities (Adrian Gary) Course Vital Signs 02/01/23 12:35 Temperature 98.9 F Pulse Rate 67 Respiratory 16 Rate Blood Pressure 172/97 O2 Sat by Pulse 99 Oximetry Medical Decision Making <Adrian Gary - Last Filed: 02/01/23 13:01> - Lab Data Result diagrams: 02/01/23 15:24 02/01/23 15:24 <Ganesh Sibley - Last Filed: 02/01/23 17:45> - Medical Decision Making I performed a quick note portion of this chart signed Adrian ALMANZAR (Adrian Gary) Was pt. sent in by a medical professional or institution ([facility], [facility], urgent care, hospital, or longterm...) When possible be specific @ -No Did you speak to anyone other than the patient for history (EMS, parent, family, police, friend...)? What history was obtained from this source @ -No Did you review nursing and triage notes (agree or disagree)? Why? @ -I reviewed and agree with nursing and triage notes Were old charts reviewed (outside hosp., previous admission, EMS record, old EKG, old radiological studies, urgent care reports/EKG's, longterm records)? Report findings @ -Prior visit reviewed. For further details please see HPI. Differential Diagnosis (chest pain, altered mental status, abdominal pain women, abdominal pain men, vaginal bleeding, weakness, fever, dyspnea, syncope, headache, dizziness, GI bleed, back pain, seizure, CVA, palpatations, mental health, musculoskeletal)? @ -Preseptal cellulitis, optic cellulitis, facial cellulitis, MRSA. This is not meant to be an all-inclusive list. EKG interpreted by me (3pts min.). @ -None X-rays interpreted by me (1pt min.). @ -None done CT interpreted by me (1pt min.). @ -CT face shows no evidence of orbital cellulitis. U/S interpreted by me (1pt. min.). @ -None done What testing was considered but not performed or refused? (CT, X-rays, U/S, labs)? Why? @ -None What meds were considered but not given or refused? Why? @ -None Did you discuss the management of the patient with other professionals (professionals i.e. [facility], [facility], lab, RT, psych nurse, social services assistant, programming internship, teacher, police patrol officer, major case detective)? Give summary @ -No Was smoking cessation discussed for >3mins.? @ -No Was critical care preformed (if so, how long)? @ -No Were there social determinants of health that impacted care today? How? (Homelessness, low income, unemployed, alcoholism, drug addiction, transportation, low edu. Level, literacy, decrease access to med. care, longterm, rehab)? @ -No Was there de-escalation of care discussed even if they declined (Discuss DNR or withdrawal of care, Hospice)? DNR status @ -No What co-morbidities impacted this encounter? (DM, HTN, Smoking, COPD, CAD, Cancer, CVA, ARF, Chemo, Hep., AIDS, mental health diagnosis, sleep apnea, morbid obesity)? @ -None Was patient admitted / discharged? Hospital course, mention meds given and route, prescriptions, significant lab abnormalities, going to OR and other pertinent info. @ -Discharge 72-year-old female presenting to the ED with a chief complaint of eye problem. Patient previously seen here on 01/29/23 with the same complaints. At this time, was provided prescription for Medrol Dosepak, Keflex, tobramycin. Reports that since completing these medications worsening of symptoms. CT did not show any evidence of orbital cellulitis. CBC did not show any significant elevation in white blood cell count. At this time, patient offered observation stay however patient would not like to stay. Provided a dose of IV antibiotics here and discharged home in stable condition with prescription for Augmentin. Discussed strict return precautions with patient who verbalizes agreement. Undiagnosed new problem with uncertain prognosis? @ -No Drug Therapy requiring intensive monitoring for toxicity (Heparin, Nitro, Insulin, Cardizem)? @ -No Were any procedures done? @ -No Diagnosis/symptom? @ -Preseptal cellulitis Acute, or Chronic, or Acute on Chronic? @ -Acute Uncomplicated (without systemic symptoms) or Complicated (systemic symptoms)? @ -Uncomplicated Side effects of treatment? @ -No Exacerbation, Progression, or Severe Exacerbation? @ -No Poses a threat to life or bodily function? How? (Chest pain, [place], [place], pneumonia, PE, COPD, DKA, ARF, appy, cholecystitis, CVA, Diverticulitis, Homicidal, [place] icidal, threat to staff... and all critical care pts) @ -No (Ganesh Sibley) - Lab Data Lab Results 02/01/23 02/01/23 02/01/23 Range/Units 15:24 15:24 15:24 WBC 9.1 (3.8-10.6) k/uL RBC 5.03 (3.80-5.40) m/uL Hgb 14.9 (11.4-16.0) gm/dL Hct 44.9 (34.0-46.0) % MCV 89.2 (80.0-100.0) fL MCH 29.7 (25.0-35.0) pg MCHC 33.3 (31.0-37.0) g/dL RDW 13.5 (11.5-15.5) % Plt Count 213 (150-450) k/uL MPV 11.1 Neutrophils % 72 % Lymphocytes % 20 % Monocytes % 6 % Eosinophils % 1 % Basophils % 0 % Neutrophils # 6.5 (1.3-7.7) k/uL Lymphocytes # 1.8 (1.0-4.8) k/uL Monocytes # 0.6 (0-1.0) k/uL Eosinophils # 0.0 (0-0.7) k/uL Basophils # 0.0 (0-0.2) k/uL Manual Slide Review Performed Large Platelets Present Sodium 138 (137-145) mmol/L Potassium 3.7 (3.5-5.1) mmol/L Chloride 100 (98-107) mmol/L Carbon Dioxide 29 (22-30) mmol/L Anion Gap 9 mmol/L BUN 15 (7-17) mg/dL Creatinine 0.66 (0.52-1.04) mg/dL Est GFR (CKD-EPI)AfAm >90 (>60 ml/min/1.73 sqM) Est GFR (CKD-EPI)NonAf 89 (>60 ml/min/1.73 sqM) Glucose 275 H (74-99) mg/dL Plasma Lactic Acid Shahzad 1.4 (0.7-2.0) mmol/L Calcium 9.2 (8.4-10.2) mg/dL Total Bilirubin 0.6 (0.2-1.3) mg/dL AST 19 (14-36) U/L ALT 33 (4-34) U/L Alkaline Phosphatase 147 H (38-126) U/L C-Reactive Protein 0.9 (<1.0) mg/dL Total Protein 6.6 (6.3-8.2) g/dL Albumin 3.6 (3.5-5.0) g/dL Disposition <Adrian Gary - Last Filed: 02/01/23 13:01> Is patient prescribed a controlled substance at d/c from ED?: No Time of Disposition: 17:45 <Ganesh Sibley - Last Filed: 02/01/23 17:45> Clinical Impression: Preseptal cellulitis Disposition: HOME SELF-CARE Condition: Good Additional Instructions: Please return to the Emergency Department if symptoms worsen or any other concerns. Prescriptions: Amoxic-Pot Clav 875-125Mg [Augmentin 875-125] 1 tab PO Q12HR 7 Days #14 tab Referrals: Jc Veras MD [Primary Care Provider] - 1-2 days
[2023-02-01] MEDS ORDERED: methylPREDNISolone SOD SUCCI 125 MG/2 ML VIAL IM ONE (14:53)
[2023-02-01] MEDS ORDERED: diphenhydrAMINE 50 MG/ML 1 ML VIAL IVP STA (14:53)
[2023-02-01] MEDS ORDERED: FAMOTIDINE 20 MG/2 ML VIAL IV STA (15:20)
[2023-02-01] MEDS ORDERED: methylPREDNISolone SOD SUCCI 125 MG/2 ML VIAL IV STA (16:12)
[2023-02-01 16:19] LABS: Basophils % (A) 0 %; Eosinophils % (A) 1 %; HCT 44.9 % (34.0-46.0); HGB 14.9 gm/dL (11.4-16.0); Lymphocytes # (A) 1.8 k/uL (1.0-4.8); Lymphocytes % (A) 20 %; MCH 29.7 pg (25.0-35.0); MCHC 33.3 g/dL (31.0-37.0); MCV 89.2 fL (80.0-100.0); Mean Platelet Volume 11.1; Monocytes # (A) 0.6 k/uL (0-1.0); Monocytes % (A) 6 %; Neutrophils # (A) 6.5 k/uL (1.3-7.7); Neutrophils % (A) 72 %; Platelet Count 213 k/uL (150-450); RBC 5.03 m/uL (3.80-5.40); RDW 13.5 % (11.5-15.5); WBC 9.1 k/uL (3.8-10.6)
[2023-02-01 16:38] LABS: ALT 33 U/L (4-34); AST 19 U/L (14-36); African American GFR (CKD) >90 (>60 ml/min/1.73 sqM); Albumin 3.6 g/dL (3.5-5.0); Alkaline Phosphatase 147 U/L (38-126); Anion Gap 9 mmol/L; Blood Urea Nitrogen 15 mg/dL (7-17); C Reactive Protein 0.9 mg/dL (<1.0); Calcium 9.2 mg/dL (8.4-10.2); Carbon Dioxide 29 mmol/L (22-30); Chloride 100 mmol/L (98-107); Glucose 275 mg/dL (74-99); Non-African American GFR(CKD) 89 (>60 ml/min/1.73 sqM); Potassium 3.7 mmol/L (3.5-5.1); Sodium 138 mmol/L (137-145); Total Bilirubin 0.6 mg/dL (0.2-1.3); Total Protein 6.6 g/dL (6.3-8.2)
[2023-02-01 16:49] LABS: Large Platelets Present
[2023-02-01] MEDS ORDERED: HYDROmorphone 1 MG/ML 1 ML SYRINGE IVP STA (17:07)
--- NOTE | 2023-02-01 17:09 | CT ---
EXAMINATION TYPE: CT facial bones w con CT DLP: 592.2 mGycm, Automated exposure control for dose reduction was used. DATE OF EXAM: 02/01/2023 4:58 PM COMPARISON: 09/01/2022. CLINICAL INDICATION:Female, 72 years old with history of r/o osteo of the face/orbital cellulitis; PH H, R/o osteo of the face/orbital cellulitis. TECHNIQUE: Multiple unenhanced axial CT images were obtained of the facial bones soft tissue and bone windows. Coronal, axial and sagittal reformatted images were also provided in soft tissue and bone windows and submitted for interpretation. Additional 3-D reformatted images were obtained on a [employer] workstation. FINDINGS: There is no evidence of fracture, subluxation, dislocation, or significant soft tissue swelling. The temporal-mandibular joints appear symmetric. The visualized portion of the paranasal sinuses appear c lear. 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 The lenses are surgically absent. The intraconal and extra conal fat are within normal limits. There is no evidence for rising fluid collection. No osseous erosion vi sualized. The intracranial vasculature is patent. 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 IMPRESSION: No evidence for osteomyelitis. There is preservation the intraconal and extraconal fat of the orbits. The globes are intact. Similar dilation of the superior ophthalmic veins.
[2023-02-01] MEDS ORDERED: AMPICILLIN-SULBACTAM 3 GM in SODIUM CHLORIDE 0.9% 100 ML IVPB STA (17:41)
[2023-02-01 18:08] LABS: Appearance,Urine Cloudy (Clear); Bilirubin,Urine Negative (Negative); Blood,Urine Small (Negative); Color,Urine Colorless; Glucose,Urine (UA) 2+ (Negative); Ketones,Urine Negative (Negative); Leukocyte Esterase,Urine Large (Negative); Mucus,Urine Rare /hpf; Nitrite,Urine Negative (Negative); Protein,Urine Trace (Negative); RBC,Urine 9 /hpf (0-5); Urobilinogen,Urine <2.0 mg/dL (<2.0); WBC,Urine >182 /hpf (0-5)
[2023-02-01] MEDS ORDERED: traMADol 50 MG STARTER PACK 3 TAB BTL PO STA (18:16)
[2023-02-01 18:45] VITALS: BP 167/78; PULSE 64; TEMP 98.1
== END 2023-02-01 18:24 | disposition home or self-care (01) ==
LOC: EC 12:12
DX: L03.213 Periorbital cellulitis (principal); J44.9 Chronic obstructive pulmonary disease, unspecified; I25.10 Atherosclerotic heart disease of native coronary artery without angina pectoris; E11.9 Type 2 diabetes mellitus without complications; I10 Essential (primary) hypertension; F17.200 Nicotine dependence, unspecified, uncomplicated; Z88.2 Allergy status to sulfonamides; Z88.5 Allergy status to narcotic agent; Z88.6 Allergy status to analgesic agent; Z91.041 Radiographic dye allergy status; Z88.1 Allergy status to other antibiotic agents; Z88.8 Allergy status to other drugs, medicaments and biological substances
CPT/HCPCS: 36415; 80053; 83605; 85025; 86140; 81001; 87040; 70487; 99284; 96365; 96375 ×4; J1200; J2930; J3490; J1170; J0295; Q9967